=== PATIENT | female | born 1975 | race Caucasian/White ===

== ENCOUNTER 2020-10-30 20:16 | Emergency (ER) | payer OTHER, SELFPAY ==
--- NOTE | ~2020-10-30 | CT_ITS ---
EXAMINATION: CT abdomen pelvis w con DATE: 10/30/2020 22:40 INDICATION: Abdominal pain and nausea TECHNIQUE: Computed tomography (CT) of the abdomen and pelvis was performed with 100 mL Omnipaque-350 intravenous contrast. Automated exposure control and iterative reconstruction technique were employe d. The dose-length product was 207.71 mGy-cm. COMPARISON: 07/15/2015 FINDINGS: Mild atelectasis in the dependent aspect of the bilateral lower lobes. Chronic mild elevation of the left hemidiaphragm. Heart size is normal. No pericardial or pleural effusion. Small calcified paraeso phageal lymph node an additional small calcified nodule between the liver and right kidney are consis tent with old granulomatous disease. Common bile duct is dilated to 9 mm which is within normal limit s post cholecystectomy with surgical clips the gallbladder fossa. Liver is normal with no intrahepati c biliary ductal dilation. Spleen, pancreas, bilateral adrenal glands and kidneys are normal. Normal appendix. No abnormal bowel wall thickening or obstruction. The uterus is not identified and has like ly been surgically resected. Bladder is normal. No free intraperitoneal gas or fluid. No pathological ly enlarged abdominal or pelvic lymphadenopathy. Again seen is a tiny fat-containing left-sided spige bertram hernia. Bones are unremarkable. IMPRESSION: 1. No acute intra-abdominal/pelvic process. 2. Unchanged tiny fat-containing left spigelian hernia. Reviewed, dictated and finalized at location A. BOX OPERATOR
[2020-10-30 20:22] VITALS: BP 151/90; PULSE 92; RESP 20; TEMP 36.3; O2SAT 100
[2020-10-30 20:37] LABS: Basophils Absolute Auto 0.1 K/mm3 (0.0-0.1); Eosinophils Absolute Auto 0.1 K/mm3 (0-0.3); Eosinophils Percent Auto 1.8 % (0-4.4); Hematocrit 36.3 % (37.0-47.0); Hemoglobin 11.6 g/dL (12.0-15.0); Immature Granulocyte Absolute 0.02 K/mm3 (0.00-0.031); Immature Granulocyte Percent A 0.3 % (0-0.5); Lymphocytes Absolute Auto 2.78 K/mm3 (0.9-3.2); Mean Corpuscular Hemoglobin 30.9 pg (26-34); Mean Corpuscular Volume 96.8 fl (80-100); Mean Platelet Volume 9.2 fl (7.4-10.4); Monocytes Absolute Auto 0.5 K/mm3 (0.1-0.6); Neutrophils Absolute Auto 3.3 K/mm3 (1.3-6.7); Neutrophils Percent Auto 47.9 % (45.5-73.1); Platelet Count Result 293 k/mm3 (150-375); Red Blood Count 3.75 M/mm3 (4.2-5.4); Red Cell Distribution Width 14.4 % (11.5-14.5); White Blood Count 6.8 K/mm3 (4.5-10.0)
[2020-10-30 20:46] LABS: Platelet Estimate Adequate (Adequate)
[2020-10-30 20:47] LABS: Ovalocytes 1+ (NORMAL)
[2020-10-30 20:51] LABS: Add Urine Microscopic? YES; Appearance Urine Clear (Clear); Bilirubin Urine Negative (Negative); Blood Urine Negative (Negative); Color Urine Yellow (Yellow); Glucose Urine UA Negative (Negative); Ketones Urine Negative (Negative); Leukocyte Esterase Ur Negative LEU/UL (Negative); Mucus Urine Rare /lpf; Nitrate Urine Negative (Negative); Protein Urine 1+ mg/dL (Negative); RBC Urine 0-2 /hpf (0-2); Specific Grav Ur 1.028 (1.001-1.035); Squamous Epithelial Cell Urine Many /hpf (Few); Urobilinogen Urine Negative mg/dL (<2.0); WBC Urine 0-3 /hpf
[2020-10-30 20:51] LABS: Alanine Aminotransferase 7 U/L (4-35); Albumin Level 4.1 g/dL (3.5-5.1); Alkaline Phosphatase 64 U/L (38-126); Anion Gap 8 mmol/L (8-16); Aspartate Amino Transferase 19 U/L (14-36); Bilirubin,Total 0.2 mg/dL (0.2-1.3); Blood Urea Nitrogen 11 mg/dL (7-17); Calcium 8.9 mg/dL (8.4-10.2); Carbon Dioxide 24 mmol/L (22-30); Chloride 113 mmol/L (98-107); Estimated Glomerular Filt Rate > 60; Glucose 91 mg/dL (65-105); Lipase 67 U/L (23-300); Potassium 2.9 mmol/L (3.4-5.0); Sodium 145 mmol/L (137-145)
[2020-10-30] MEDS: BELLADONNA ALK/PHENOB ELIX 10 ML, MAG HYDROX/ALUMINUM HYD/SIMETH 30 ML, LIDOCAINE HCL 2... PO (22:25)
[2020-10-30 22:40] VITALS: BP 146/82; PULSE 73; O2SAT 85
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
[2020-10-30 23:01] VITALS: BP 126/80; PULSE 76; O2SAT 100
[2020-10-30 23:46] VITALS: BP 122/74; O2SAT 100
[2020-10-31 00:01] VITALS: BP 117/78; PULSE 73; O2SAT 100
== END 2020-10-31 00:15 | disposition home or self-care (01) ==
PROVIDERS: Emergency Provider Emergency Medicine; PCP Internal Medicine Gastroenterology
DX: R10.13 Epigastric pain (principal); K43.9 Ventral hernia without obstruction or gangrene; F17.200 Nicotine dependence, unspecified, uncomplicated
CPT/HCPCS: 36415; 74177; 80053; 81001; 83690; 85025; 99284; A9270; Q9967

== ENCOUNTER 2020-11-13 15:05 | Outpatient (CLI) | payer OTHER, SELFPAY ==
--- NOTE | ~2020-11-13 | MM_ITS ---
EXAMINATION: MM screening evelyn BI w tanvir HISTORY: Screening mammogram TECHNIQUE: Craniocaudal and mediolateral oblique 3-D tomosynthesis images were obtained and synthetic 2-D images were generated. CAD analysis was submitted and interpreted. COMPARISON: 08/18/2018, 08/01/2017 bilateral digital screening mammogram examinations BREAST PARENCHYMAL COMPOSITION: There are scattered areas of fibroglandular density. FINDINGS: There is no evidence of suspicious mass, calcification, or architectural distortion to sugg est malignancy in either breast. There has been no suspicious interval change. IMPRESSION: 1. No mammographic evidence of malignancy. 2. Recommend routine screening mammography in one year. BI-RADS Category 1: Negative Reviewed, dictated and finalized at location A. TY COUNSELOR
== END 2020-11-13 15:06 | disposition home or self-care (01) ==
PROVIDERS: PCP Internal Medicine Gastroenterology; Visit Provider Obstetrics & Gynecology
DX: Z12.31 Encounter for screening mammogram for malignant neoplasm of breast (principal)
CPT/HCPCS: 77063; 77067

== ENCOUNTER 2021-03-20 18:28 | Emergency (ER) | payer OTHER, SELFPAY ==
--- NOTE | ~2021-03-20 | CT_ITS ---
EXAMINATION: CT abdomen pelvis w con EXAM DATE: 03/20/2021 20:15 INDICATION: Abdominal pain and nausea. Symptoms 1.5 weeks. TECHNIQUE: Spiral CT of the abdomen and pelvis was performed following intravenous injection of 100 m L Omnipaque 350. Axial, coronal and sagittal images of the abdomen and pelvis were reviewed. The do se-length product (DLP) for this examination was 201.00 mGy-cm. The exposure was tailored according to patient size (auto mA exposure control), and iterative reconstruction (ASIR) was used as additiona l dose reduction technique. Comparison is made to prior examination from 10/30/2020. FINDINGS: The liver, spleen, adrenal glands and pancreas are unremarkable. There are surgical clips in the gallbladder fossa. Some biliary duct dilation which is common finding following cholecystecto my. Portal and splenic veins are patent. Kidneys enhance symmetrically. There is no hydronephrosis . The uterus is not identified and has likely been surgically resected. The bladder is unremarkabl e. There is no retroperitoneal or pelvic lymphadenopathy. There is mild scattered arteriosclerotic disease. Small left sided fat-containing spigelian hernia unchanged (indicated on axial image 108. The appendix is normal. The stomach and small bowel are unremarkable. There is expected amount of c olonic stool. No free intraperitoneal gas. The heart is normal in size. There are no pericardial or pleural effusions. Dependent groundglass opacity, subsegmental atelectasis. The bones are unrem arkable. IMPRESSION: 1. No acute intra-abdominal findings. 2. Small left spigelian hernia unchanged. Reviewed, dictated and finalized at location A.
[2021-03-20 18:34] VITALS: BP 143/88; PULSE 87; RESP 14; TEMP 36.8; O2SAT 98
[2021-03-20 18:44] LABS: Basophils Absolute Auto 0.1 K/mm3 (0.0-0.1); Eosinophils Absolute Auto 0.1 K/mm3 (0-0.3); Eosinophils Percent Auto 2.4 % (0-4.4); Hematocrit 34.4 % (37.0-47.0); Immature Granulocyte Absolute 0.01 K/mm3 (0.00-0.031); Immature Granulocyte Percent A 0.2 % (0-0.5); Lymphocytes Absolute Auto 2.83 K/mm3 (0.9-3.2); Lymphocytes Percent Auto 48.6 % (18.3-44.2); Mean Corpuscular Hemoglobin 29.5 pg (26-34); Mean Corpuscular Volume 92.2 fl (80-100); Monocytes Absolute Auto 0.5 K/mm3 (0.1-0.6); Monocytes Percent Auto 8.1 % (2.6-8.5); Neutrophils Absolute Auto 2.3 K/mm3 (1.3-6.7); Neutrophils Percent Auto 39.7 % (45.5-73.1); Platelet Count Result 250 k/mm3 (150-375); Red Blood Count 3.73 M/mm3 (4.2-5.4); Red Cell Distribution Width 16.6 % (11.5-14.5); White Blood Count 5.8 K/mm3 (4.5-10.0)
[2021-03-20 18:56] LABS: Platelet Estimate Adequate (Adequate); Poikilocytosis 1+ (NORMAL)
[2021-03-20 18:57] LABS: Ovalocytes 1+ (NORMAL)
[2021-03-20] MEDS: BELLADONNA ALK/PHENOB ELIX 10 ML, MAG HYDROX/ALUMINUM HYD/SIMETH 30 ML, LIDOCAINE HCL 2... PO (18:57)
--- NOTE | 2021-03-20 18:57 | PC.NURSE ---
the pain unbearable, I can't even stand anymore , had upper and lower scopes two years ago (unremarkable), has not followed with GI. States nothing helps
[2021-03-20 18:59] LABS: Alkaline Phosphatase 65 U/L (38-126); Anion Gap 10 mmol/L (8-16); Aspartate Amino Transferase 21 U/L (14-36); Bilirubin,Total < 0.1 mg/dL (0.2-1.3); Blood Urea Nitrogen 12 mg/dL (7-17); Calcium 8.9 mg/dL (8.4-10.2); Carbon Dioxide 19 mmol/L (22-30); Chloride 113 mmol/L (98-107); Estimated CRCL calculation 71 ml/min; Estimated Glomerular Filt Rate > 60; Glucose 91 mg/dL (65-105); Lipase 118 U/L (23-300); Potassium 3.8 mmol/L (3.4-5.0); Sodium 142 mmol/L (137-145)
--- NOTE | 2021-03-20 19:18 | ED.GENADULT ---
HPI - General Adult General Chief complaint: Abdominal Pain Stated complaint: Abd Pain Time Seen by Provider: 03/20/21 18:32 Source: patient History of Present Illness HPI narrative: Patient is a 46 y/o female complaining of abdominal pain starting 1 1/2 weeks ago. She describes her pain as a bubble and rates her pain as 9/10. Her pain is located in epigastric area. There is no pain radiation. She took Ibuprofen, which did not help. Related Data Home Medications Medication Instructions Recorded Confirmed clonazepam 0.5 mg tablet 0.5 mg PO BID tablet 01/04/21 01/04/21 estradiol 1 mg tablet 1 mg PO DAILY 01/04/21 01/04/21 famotidine 40 mg tablet 40 mg PO DAILY 01/04/21 01/04/21 ibuprofen 800 mg tablet 800 mg PO TID PRN 01/04/21 01/04/21 valacyclovir 1 gram tablet 1,000 mg PO DAILY 01/04/21 01/04/21 Allergies Allergy/AdvReac Type Severity Reaction Status Date / Time No Known Allergies Allergy Verified 03/20/21 19:43 Review of Systems Constitutional: Constitutional: Denies chills, Denies fever(s), Denies headache(s) and Denies weakness Eyes: Eyes: Denies blurry vision ENT: Denies headache(s) and Denies neck pain Cardiovascular: Cardiovascular: Denies chest pain and Denies dyspnea Respiratory: Respiratory: Denies cough and Denies dyspnea Gastrointestinal: Gastrointestinal: Reports abdominal pain, Denies diarrhea, Denies nausea and Denies vomiting Genitourinary: Genitourinary: Denies hematuria and Denies dysuria Musculoskeletal: Musculoskeletal: Denies back pain and Denies neck pain Neurologic: Denies headache(s) and Denies weakness [facility] Past Medical History Medical History Depression Hyperlipidemia Hypertension Social History Social History Social History: current smoker Smoking status: Light tobacco smoker Alcohol intake: current Gender identity (if verbalized by the patient): Female Exam Const: General: no acute distress and well developed Orientation/consciousness: oriented to person, oriented to place, oriented to time and patient oriented x3 HENMT: Head: normocephalic Ears: external ears normal General nose exam: Normal external nose present Eyes: General: appearance normal, both eyes and all related structures Conjunctivae: conjunctivae normal Neck: Neck: normal visual inspection and full ROM Chest: Chest palpation & inspection: normal inspection of the chest and no tenderness Resp: Effort & Inspection: normal respiratory effort Auscultation: clear to auscultation bilaterally Cardio: Rate: regular rate Rhythm: regular rhythm GI: GI Palp: No abdominal tenderness and Yes Soft to palpation Skin: General skin exam: normal color and turgor normal Neuro: General: oriented to person, oriented to place, oriented to time and patient oriented x3 Cognition (Neuro): normal cognition Extrem: General: normal to inspection, full ROM and no pedal edema Psych: Appearance: grossly normal Mental Status: mental status grossly normal Affect: normal affect Course Vital Signs Vital signs: Vital Signs Temperature 36.8 C 03/20/21 18:34 Pulse Rate 87 03/20/21 18:34 Respiratory Rate 14 03/20/21 18:34 Blood Pressure 143/88 H 03/20/21 18:34 Pulse Oximetry 98 03/20/21 18:34 Temperature 36.8 C 03/20/21 18:34 Pulse Rate 65 03/20/21 21:19 Respiratory Rate 15 03/20/21 21:19 Blood Pressure 138/70 03/20/21 21:19 Pulse Oximetry 96 03/20/21 21:19 Medical Decision Making Vital Signs Vital Signs: Vital Signs Temperature 36.8 C 03/20/21 18:34 Pulse Rate 87 03/20/21 18:34 Respiratory Rate 14 03/20/21 18:34 Blood Pressure 143/88 H 03/20/21 18:34 Pulse Oximetry 98 03/20/21 18:34 Temperature 36.8 C 03/20/21 18:34 Pulse Rate 65 03/20/21 21:19 Respiratory Rate 15 03/20/21 21:19 Blood Pressure 138/70 03/20/21 21:19 Pul
[2021-03-20 19:25] LABS: Alanine Aminotransferase 5 U/L (4-35)
[2021-03-20 19:36] LABS: Add Urine Microscopic? YES; Appearance Urine Clear (Clear); Bilirubin Urine Negative (Negative); Blood Urine 1+ (Negative); Color Urine Yellow (Yellow); Glucose Urine UA Negative (Negative); Ketones Urine Negative (Negative); Leukocyte Esterase Ur Negative LEU/UL (Negative); Mucus Urine Rare /lpf; Nitrate Urine Negative (Negative); Protein Urine Negative (Negative); RBC Urine 0-2 /hpf (0-2); Specific Grav Ur 1.018 (1.001-1.035); Squamous Epithelial Cell Urine Moderate /hpf (Few); Urobilinogen Urine Negative mg/dL (<2.0); WBC Urine 0-3 /hpf
[2021-03-20 19:40] VITALS: BP 129/66; PULSE 66; RESP 16; O2SAT 100
--- NOTE | 2021-03-20 19:45 | PC.NURSE ---
vitals updated. call light in reach.
[2021-03-20 21:19] VITALS: BP 138/70; PULSE 65; RESP 15; O2SAT 96
== END 2021-03-20 22:26 | disposition home or self-care (01) ==
PROVIDERS: Emergency Provider Emergency Medicine; PCP Internal Medicine Gastroenterology
DX: R10.13 Epigastric pain (principal); E78.5 Hyperlipidemia, unspecified; I10 Essential (primary) hypertension; F32.9 Major depressive disorder, single episode, unspecified; F17.200 Nicotine dependence, unspecified, uncomplicated
CPT/HCPCS: 36415; 74177; 80053; 81001; 81025; 83690; 85025; 99284; A9270; Q9967

== ENCOUNTER 2021-07-25 01:09 | Day surgery (SDC) | payer OTHER, SELFPAY ==
[2021-07-23 08:56] VITALS: BMI 21.3
[2021-07-25 07:15] VITALS: BP 121/61; PULSE 69; RESP 16; TEMP 36.3; O2SAT 100
[2021-07-25] MEDS: LACTATED RINGERS 1,000 ML 150 ML IV CONT (07:18)
--- NOTE | 2021-07-25 08:05 | P.PNAN_ITS ---
Anes - Initial Pre Proc Eval Procedure: Operation Date: 07/25/21 08:30 Proposed Procedures p Colonoscopy - Raul Daniels MD Date/Time: 07/25/21 08:05 Surgeon: Raul Daniels MD Pre Op Diagnosis: diarrhea, bloating, stomach pain, rectal bleeding Patient Data Age: 46 Gender: F Height: 1.6 m Weight: 53.6 kg Last Vital Signs Temp 97.4 F L 07/25/21 07:15 Pulse 69 07/25/21 07:15 Resp 16 07/25/21 07:15 BP 121/61 07/25/21 07:15 Pulse Ox 100 07/25/21 07:15 Allergies Allergy/AdvReac Type Severity Reaction Status Date / Time No Known Allergies Allergy Verified 07/25/21 07:13 Home Medications Medication Instructions Recorded Confirmed Type clonazepam 0.5 mg tablet 0.5 mg PO PRN PRN tablet 01/04/21 07/25/21 History estradiol 1 mg tablet 1 mg PO DAILY 01/04/21 07/25/21 History ibuprofen 800 mg tablet 800 mg PO TID PRN 01/04/21 07/25/21 History omeprazole [Prilosec] 20 mg PO DAILY 07/23/21 07/25/21 History amitriptyline 50 mg PO DAILY 07/25/21 07/25/21 History topiramate 100 mg PO BID 07/25/21 07/25/21 History Patient hx anesthesia problems: none Family hx anesthesia problems: none Results Review: All pre-operative results and documents have been reviewed as part of the pre-operative evaluation. [facility] Past Medical History Medical History Depression Hyperlipidemia Hypertension Social History Social History Social History: current smoker Smoking packs per day: 0.5 Smoking cigarettes per day: 10.0 Years smoked: 27 Smoking pack-years: 13.50 Smoking status: Current every day smoker Tobacco type: cigarettes Alcohol intake: current Drinks per week: 0 Alcohol use details: occasional Substance use: never Substance use type: does not use Living arrangements: with family Additional living arrangements comments: patients mother lives with her Gender identity (if verbalized by the patient): Female Spiritual care concerns: No Anes - Eval Final PreProcedure Day of Procedure 07/25/21 08:05 Patient weight: normal Heart: regular rate and rhythm Lungs: clear to auscultation Airway: Mallampati scale class II Neurological: alert and oriented Last oral intake: >/= 8 hours ASA classification: III Emergent: no Anesthetic plan: proceed Anesthesia type and monitoring: general GIVS and standard monitoring Results Review: All pre-operative results and documents have been reviewed as part of the pre-operative evaluation. Informed Consent: The patient's anesthetic plan and its attendant risks and benefits were discussed with the patient/family/POA. Questions were solicited and answers provided to the satisfaction of the patient/family/POA.
--- NOTE | 2021-07-25 08:23 | PM.HPGS ---
History of Present Illness History of Present Illness Consent: Risks, benefits, and alternatives have been discussed and questions answered. Patient agrees to proceed with procedure. Chief complaint: diarrhea, bloating, stomach pain, rectal bleeding Narrative: Maria Alejandra Cotto is a 46 year old female with 1.5 week of diarrhea with some blood, also cramping abdominal pain. No weight loss, no fever, no sick contacts. Had colonoscopy 5 years ago. Review of Systems Constitutional: Constitutional: Denies headache(s) and Denies weakness Eyes: Eyes: Denies blurry vision ENT: Reports Normal hearing present, Denies headache(s) and Denies neck pain Cardiovascular: Cardiovascular: Denies chest pain and Denies dyspnea Respiratory: Respiratory: Denies dyspnea Gastrointestinal: Gastrointestinal: Reports no additional gastrointestinal complaints Genitourinary: Genitourinary: Denies dysuria Musculoskeletal: Musculoskeletal: Denies neck pain Integumentary/Breasts: Skin/Breast: Denies dry skin Neurologic: Reports Normal hearing present, Denies headache(s) and Denies weakness Psychiatric: Psychiatric: Denies anxiety Endocrine: Endocrine: Denies change in body appearance Hematologic/Lymphatic: Hematologic/Lymphatic: Denies easy bleeding Allergic/Immunologic: Allergic/Immunologic: Denies urticaria PMFSH Past Medical History Medical History (Updated 07/25/21 @ 08:24 by Raul Daniels MD) Depression Diarrhea Hyperlipidemia Hypertension Social History Social History Social History: current smoker Smoking packs per day: 0.5 Smoking cigarettes per day: 10.0 Years smoked: 27 Smoking pack-years: 13.50 Smoking status: Current every day smoker Tobacco type: cigarettes Alcohol intake: current Drinks per week: 0 Alcohol use details: occasional Substance use: never Substance use type: does not use Living arrangements: with family Additional living arrangements comments: patients mother lives with her Gender identity (if verbalized by the patient): Female Spiritual care concerns: No Meds Home Medications and Allergies Home Medications Medication Instructions Recorded Confirmed Type clonazepam 0.5 mg tablet 0.5 mg PO PRN PRN tablet 01/04/21 07/25/21 History estradiol 1 mg tablet 1 mg PO DAILY 01/04/21 07/25/21 History ibuprofen 800 mg tablet 800 mg PO TID PRN 01/04/21 07/25/21 History omeprazole [Prilosec] 20 mg PO DAILY 07/23/21 07/25/21 History amitriptyline 50 mg PO DAILY 07/25/21 07/25/21 History topiramate 100 mg PO BID 07/25/21 07/25/21 History Allergies Allergy/AdvReac Type Severity Reaction Status Date / Time No Known Allergies Allergy Verified 07/25/21 07:13 Vital Signs Vital Signs - 24 hr 07/25/21 07:15 Temperature 97.4 F L Pulse Rate 69 Respiratory Rate 16 Blood Pressure 121/61 Pulse Oximetry 100 Exam Const: General: comfortable and no acute distress HENMT: General nose exam: Normal nares present Eyes: General: appearance normal, both eyes and all related structures Neck: Neck: no JVD Resp: Auscultation: clear to auscultation bilaterally Cardio: Rate: regular rate Rhythm: regular rhythm GI: Inspection: non-distended GI Palp: Yes Soft to palpation Skin: General skin exam: normal color Neuro: General: gait normal Speech: normal speech Extrem: General: normal to inspection Psych: Mental Status: mental status grossly normal Assessment and Plan Assessment and plan (1) Diarrhea: Code(s): R19.7 - Diarrhea, unspecified Status: Acute Assessment and Plan: colonoscopy to assess if colitis, may need stool samples
[2021-07-25 08:45] VITALS: BP 93/51; PULSE 73; RESP 17; O2SAT 97
[2021-07-25 08:55] VITALS: BP 107/68; PULSE 59; RESP 17; O2SAT 100
[2021-07-25 09:05] VITALS: BP 125/68; PULSE 60; RESP 13; O2SAT 100
== END 2021-07-25 09:18 | disposition home or self-care (01) ==
PROVIDERS: PCP Internal Medicine Gastroenterology; Visit Provider Internal Medicine Gastroenterology
PROC: 0DJD8ZZ Inspection of Lower Intestinal Tract, Via Natural or Artificial Opening Endoscopic (ICD-10-PCS; CPT 45378; principal; 2021-07-25 08:30)
DX: K92.1 Melena (principal); R19.7 Diarrhea, unspecified; K64.8 Other hemorrhoids; K52.89 Other specified noninfective gastroenteritis and colitis; F32.9 Major depressive disorder, single episode, unspecified; I10 Essential (primary) hypertension; E78.5 Hyperlipidemia, unspecified; F17.210 Nicotine dependence, cigarettes, uncomplicated
CPT/HCPCS: 45380; 88305; J2704; J7120

== ENCOUNTER 2021-09-03 02:28 | Day surgery (SDC) | payer OTHER, SELFPAY ==
[2021-08-30 15:16] VITALS: BMI 20.5
[2021-09-03 13:40] VITALS: BP 115/64; PULSE 80; RESP 18; TEMP 36.6; O2SAT 100
[2021-09-03] MEDS: LACTATED RINGERS 1,000 ML 150 ML IV CONT (13:53)
--- NOTE | 2021-09-03 13:56 | WPDANESEPPF ---
Anes - Initial Pre Proc Eval Procedure: Operation Date: 09/03/21 14:30 Proposed Procedures p Esophagogastroduodenoscopy - Raul Daniels MD Date/Time: 09/03/21 13:56 Surgeon: Raul Daniels MD Pre Op Diagnosis: nausea, vomiting, dysphagia Patient Data Age: 46 Gender: F Height: 1.6 m Weight: 52.1 kg Last Vital Signs Temp 36.6 C 09/03/21 13:40 Pulse 80 09/03/21 13:40 Resp 18 09/03/21 13:40 BP 115/64 09/03/21 13:40 Pulse Ox 100 09/03/21 13:40 Allergies Allergy/AdvReac Type Severity Reaction Status Date / Time No Known Allergies Allergy Verified 09/03/21 13:39 Home Medications Medication Instructions Recorded Confirmed Type clonazepam 0.5 mg tablet 0.5 mg PO PRN PRN tablet 01/04/21 08/30/21 History estradiol 1 mg tablet 1 mg PO DAILY 01/04/21 08/30/21 History ibuprofen 800 mg tablet 800 mg PO TID PRN 01/04/21 08/30/21 History omeprazole [Prilosec] 20 mg PO DAILY 07/23/21 08/30/21 History amitriptyline 50 mg PO HS 07/25/21 08/30/21 History topiramate 100 mg PO BID 07/25/21 08/30/21 History Patient hx anesthesia problems: none Family hx anesthesia problems: none Results Review: All pre-operative results and documents have been reviewed as part of the pre-operative evaluation. [facility] Past Medical History Medical History Depression Diarrhea Hyperlipidemia Hypertension Social History Social History Social History: current smoker Smoking packs per day: 0.5 Smoking cigarettes per day: 10.0 Years smoked: 19 Smoking pack-years: 9.50 Smoking status: Current every day smoker Tobacco type: cigarettes Alcohol intake: current Drinks per week: 0 Alcohol use details: rarely Substance use: never Substance use type: does not use Living arrangements: alone Additional living arrangements comments: patients mother lives with her Gender identity (if verbalized by the patient): Female Spiritual care concerns: No Anes - Eval Final PreProcedure Day of Procedure 09/03/21 13:56 Patient weight: normal Heart: regular rate and rhythm Lungs: clear to auscultation Airway: Mallampati scale class II Neurological: alert and oriented Last oral intake: >/= 8 hours ASA classification: III Emergent: no Anesthetic plan: proceed Anesthesia type and monitoring: general GIVS and standard monitoring Results Review: All pre-operative results and documents have been reviewed as part of the pre-operative evaluation. Informed Consent: The patient's anesthetic plan and its attendant risks and benefits were discussed with the patient/family/POA. Questions were solicited and answers provided to the satisfaction of the patient/family/POA.
--- NOTE | 2021-09-03 14:23 | PM.HPGS ---
History of Present Illness History of Present Illness Consent: Risks, benefits, and alternatives have been discussed and questions answered. Patient agrees to proceed with procedure. Chief complaint: nausea, vomiting, dysphagia Narrative: Maria Alejandra Cotto is a 46 year old female with intermittent abdominal pain, work up negative (recent colonoscopy and CT scan a/p) Review of Systems Constitutional: Constitutional: Denies headache(s) and Denies weakness Eyes: Eyes: Denies blurry vision ENT: Reports Normal hearing present, Denies headache(s) and Denies neck pain Cardiovascular: Cardiovascular: Denies chest pain and Denies dyspnea Respiratory: Respiratory: Denies dyspnea Gastrointestinal: Gastrointestinal: Reports no additional gastrointestinal complaints Genitourinary: Genitourinary: Denies dysuria Musculoskeletal: Musculoskeletal: Denies neck pain Integumentary/Breasts: Skin/Breast: Denies dry skin Neurologic: Reports Normal hearing present, Denies headache(s) and Denies weakness Psychiatric: Psychiatric: Denies anxiety Endocrine: Endocrine: Denies change in body appearance Hematologic/Lymphatic: Hematologic/Lymphatic: Denies easy bleeding Allergic/Immunologic: Allergic/Immunologic: Denies urticaria PMFSH Past Medical History Medical History Depression Diarrhea Hyperlipidemia Hypertension Social History Social History Social History: current smoker Smoking packs per day: 0.5 Smoking cigarettes per day: 10.0 Years smoked: 19 Smoking pack-years: 9.50 Smoking status: Current every day smoker Tobacco type: cigarettes Alcohol intake: current Drinks per week: 0 Alcohol use details: rarely Substance use: never Substance use type: does not use Living arrangements: alone Additional living arrangements comments: patients mother lives with her Gender identity (if verbalized by the patient): Female Spiritual care concerns: No Meds Home Medications and Allergies Home Medications Medication Instructions Recorded Confirmed Type clonazepam 0.5 mg tablet 0.5 mg PO PRN PRN tablet 01/04/21 08/30/21 History estradiol 1 mg tablet 1 mg PO DAILY 01/04/21 08/30/21 History ibuprofen 800 mg tablet 800 mg PO TID PRN 01/04/21 08/30/21 History omeprazole [Prilosec] 20 mg PO DAILY 07/23/21 08/30/21 History amitriptyline 50 mg PO HS 07/25/21 08/30/21 History topiramate 100 mg PO BID 07/25/21 08/30/21 History Allergies Allergy/AdvReac Type Severity Reaction Status Date / Time No Known Allergies Allergy Verified 09/03/21 13:39 Vital Signs Vital Signs - 24 hr 09/03/21 13:40 Temperature 97.8 F Pulse Rate 80 Respiratory Rate 18 Blood Pressure 115/64 Pulse Oximetry 100 Exam Const: General: comfortable and no acute distress HENMT: General nose exam: Normal nares present Eyes: General: appearance normal, both eyes and all related structures Neck: Neck: no JVD Resp: Auscultation: clear to auscultation bilaterally Cardio: Rate: regular rate Rhythm: regular rhythm GI: Inspection: non-distended GI Palp: Yes Soft to palpation Skin: General skin exam: normal color Neuro: General: gait normal Speech: normal speech Extrem: General: normal to inspection Psych: Mental Status: mental status grossly normal Assessment and Plan Assessment and plan (1) Abdominal pain: Qualifiers: Abdominal location: epigastric Qualified Code(s): R10.13 - Epigastric pain Code(s): R10.9 - Unspecified abdominal pain Status: Inactive Assessment and Plan: egd with bx
[2021-09-03] MEDS: BENZOCAINE (*SP) 60 ML SPRAY CAN (HURRICAINE) 1 SPRAY MUCOUS MEM (14:27)
[2021-09-03 14:44] VITALS: BP 104/67; PULSE 53; RESP 14; O2SAT 100
[2021-09-03 14:54] VITALS: BP 120/78; PULSE 68; RESP 20; O2SAT 98
[2021-09-03 15:04] VITALS: BP 142/79; PULSE 60; RESP 15; O2SAT 100
== END 2021-09-03 15:11 | disposition home or self-care (01) ==
PROVIDERS: PCP Internal Medicine Gastroenterology; Visit Provider Internal Medicine Gastroenterology
PROC: 0DJ08ZZ Inspection of Upper Intestinal Tract, Via Natural or Artificial Opening Endoscopic (ICD-10-PCS; CPT 43235; principal; 2021-09-03 14:30)
DX: R10.13 Epigastric pain (principal); R13.10 Dysphagia, unspecified; K31.1 Adult hypertrophic pyloric stenosis; K29.50 Unspecified chronic gastritis without bleeding; I10 Essential (primary) hypertension; E78.5 Hyperlipidemia, unspecified; F32.A Depression, unspecified
CPT/HCPCS: 43245; 43239; 88305; C1726; J2704; J7120

== ENCOUNTER 2022-01-22 00:16 | Day surgery (SDC) | payer OTHER, SELFPAY ==
[2022-01-17 13:57] VITALS: BMI 20.7
[2022-01-22 09:42] VITALS: BP 114/74; PULSE 72; RESP 16; TEMP 36.2; O2SAT 100
[2022-01-22] MEDS: LACTATED RINGERS 1,000 ML 150 ML IV CONT (09:52)
--- NOTE | 2022-01-22 10:23 | P.PNAN_ITS ---
Anes - Initial Pre Proc Eval Procedure: Operation Date: 01/22/22 11:00 Proposed Procedures p Esophagogastroduodenoscopy - Raul Daniels MD Date/Time: 01/22/22 10:23 Surgeon: Raul Daniels MD Pre Op Diagnosis: nausea Patient Data Age: 47 Gender: F Height: 1.6 m Weight: 53.2 kg Last Vital Signs Temp 97.2 F L 01/22/22 09:42 Pulse 72 01/22/22 09:42 Resp 16 01/22/22 09:42 BP 114/74 01/22/22 09:42 Pulse Ox 100 01/22/22 09:42 Allergies Allergy/AdvReac Type Severity Reaction Status Date / Time No Known Allergies Allergy Verified 11/29/21 13:52 Home Medications Medication Instructions Recorded Confirmed Type clonazepam 0.5 mg tablet 0.5 mg PO PRN PRN tablet 01/04/21 01/17/22 History estradiol 1 mg tablet 1 mg PO DAILY 01/04/21 01/17/22 History ibuprofen 800 mg tablet 800 mg PO TID PRN 01/04/21 01/17/22 History omeprazole 20 mg capsule,delayed 40 mg PO DAILY #60 cap 09/03/21 01/22/22 Rx release amitriptyline 50 mg tablet See Rx Instructions .ROUTE 10/12/21 01/17/22 Rx .COMPLEX #30 tablet topiramate 100 mg tablet See Rx Instructions .ROUTE 10/12/21 01/17/22 Rx .COMPLEX #60 tablet Patient hx anesthesia problems: none Family hx anesthesia problems: none Results Review: All pre-operative results and documents have been reviewed as part of the pre-operative evaluation. [facility] Past Medical History Medical History (Updated 11/29/21 @ 14:11 by Raul Daniels MD) Colon cancer screening Depression Diarrhea Hyperlipidemia Hypertension Nausea Stricture, duodenum Social History Social History Social History: current smoker Smoking packs per day: 0.5 Smoking cigarettes per day: 10.0 Years smoked: 18 Smoking pack-years: 9.00 Smoking status: Current every day smoker Tobacco type: cigarettes Alcohol intake: never Drinks per week: 0 Alcohol use details: rarely Substance use: never Substance use type: does not use Living arrangements: with family Additional living arrangements comments: patients mother lives with her Gender identity (if verbalized by the patient): Female Spiritual care concerns: No Anes - Eval Final PreProcedure Day of Procedure 01/22/22 10:23 Patient weight: normal Heart: regular rate and rhythm Lungs: clear to auscultation Airway: Mallampati scale class II Neurological: alert and oriented Last oral intake: >/= 8 hours ASA classification: II Emergent: no Anesthetic plan: proceed Anesthesia type and monitoring: general GIVS and standard monitoring Results Review: All pre-operative results and documents have been reviewed as part of the pre-operative evaluation. Informed Consent: The patient's anesthetic plan and its attendant risks and benefits were discussed with the patient/family/POA. Questions were solicited and answers provided to the satisfaction of the patient/family/POA.
--- NOTE | 2022-01-22 10:58 | PM.HPGS ---
History of Present Illness History of Present Illness Consent: Risks, benefits, and alternatives have been discussed and questions answered. Patient agrees to proceed with procedure. Chief complaint: nausea Narrative: Maria Alejandra Cotto is a 47 year old female that had EGD last year with duodenal stricture with some relief after dilation but nauseous again. Also using ppi daily. Review of Systems Constitutional: Constitutional: Denies headache(s) and Denies weakness Eyes: Eyes: Denies blurry vision ENT: Reports Normal hearing present, Denies headache(s) and Denies neck pain Cardiovascular: Cardiovascular: Denies chest pain and Denies dyspnea Respiratory: Respiratory: Denies dyspnea Gastrointestinal: Gastrointestinal: Reports no additional gastrointestinal complaints Genitourinary: Genitourinary: Denies dysuria Musculoskeletal: Musculoskeletal: Denies neck pain Integumentary/Breasts: Skin/Breast: Denies dry skin Neurologic: Reports Normal hearing present, Denies headache(s) and Denies weakness Psychiatric: Psychiatric: Denies anxiety Endocrine: Endocrine: Denies change in body appearance Hematologic/Lymphatic: Hematologic/Lymphatic: Denies easy bleeding Allergic/Immunologic: Allergic/Immunologic: Denies urticaria PMFSH Past Medical History Medical History (Updated 11/29/21 @ 14:11 by Raul Daniels MD) Colon cancer screening Depression Diarrhea Hyperlipidemia Hypertension Nausea Stricture, duodenum Social History Social History Social History: current smoker Smoking packs per day: 0.5 Smoking cigarettes per day: 10.0 Years smoked: 18 Smoking pack-years: 9.00 Smoking status: Current every day smoker Tobacco type: cigarettes Alcohol intake: never Drinks per week: 0 Alcohol use details: rarely Substance use: never Substance use type: does not use Living arrangements: with family Additional living arrangements comments: patients mother lives with her Gender identity (if verbalized by the patient): Female Spiritual care concerns: No Meds Home Medications and Allergies Home Medications Medication Instructions Recorded Confirmed Type clonazepam 0.5 mg tablet 0.5 mg PO PRN PRN tablet 01/04/21 01/17/22 History estradiol 1 mg tablet 1 mg PO DAILY 01/04/21 01/17/22 History ibuprofen 800 mg tablet 800 mg PO TID PRN 01/04/21 01/17/22 History omeprazole 20 mg capsule,delayed 40 mg PO DAILY #60 cap 09/03/21 01/22/22 Rx release amitriptyline 50 mg tablet See Rx Instructions .ROUTE 10/12/21 01/17/22 Rx .COMPLEX #30 tablet topiramate 100 mg tablet See Rx Instructions .ROUTE 10/12/21 01/17/22 Rx .COMPLEX #60 tablet Allergies Allergy/AdvReac Type Severity Reaction Status Date / Time No Known Allergies Allergy Verified 11/29/21 13:52 Vital Signs Vital Signs - 24 hr 01/22/22 09:42 Temperature 97.2 F L Pulse Rate 72 Respiratory Rate 16 Blood Pressure 114/74 Pulse Oximetry 100 Exam Const: General: comfortable and no acute distress HENMT: General nose exam: Normal nares present Eyes: General: appearance normal, both eyes and all related structures Neck: Neck: no JVD Resp: Auscultation: clear to auscultation bilaterally Cardio: Rate: regular rate Rhythm: regular rhythm GI: Inspection: non-distended GI Palp: Yes Soft to palpation Skin: General skin exam: normal color Neuro: General: gait normal Speech: normal speech Extrem: General: normal to inspection Psych: Mental Status: mental status grossly normal Assessment and Plan Assessment and plan (1) Stricture, duodenum: Code(s): K31.5 - Obstruction of duodenum Status: Acute Assessment and Plan: egd to assess site again (2) Nausea: Code(s): R11.0 - Nausea Status: Acute
[2022-01-22 11:25] VITALS: BP 94/71; PULSE 69; RESP 19; O2SAT 98
[2022-01-22 11:35] VITALS: BP 106/73; PULSE 64; RESP 18; O2SAT 99
[2022-01-22 11:45] VITALS: BP 125/77; PULSE 58; RESP 17; O2SAT 98
== END 2022-01-22 11:49 | disposition home or self-care (01) ==
PROVIDERS: PCP Internal Medicine Gastroenterology; Visit Provider Internal Medicine Gastroenterology
PROC: 0DJ08ZZ Inspection of Upper Intestinal Tract, Via Natural or Artificial Opening Endoscopic (ICD-10-PCS; CPT 43235; principal; 2022-01-22 11:00)
DX: K31.5 Obstruction of duodenum (principal); K31.1 Adult hypertrophic pyloric stenosis; K25.3 Acute gastric ulcer without hemorrhage or perforation; K29.50 Unspecified chronic gastritis without bleeding; R11.0 Nausea; I10 Essential (primary) hypertension; E78.5 Hyperlipidemia, unspecified; F32.A Depression, unspecified; F17.210 Nicotine dependence, cigarettes, uncomplicated
CPT/HCPCS: 43245; 43239; 87081; 88305; 88342; J2704; J7120

== ENCOUNTER 2022-02-20 08:46 | Outpatient (CLI) | payer OTHER, SELFPAY ==
--- NOTE | ~2022-02-20 | XR_ITS ---
EXAMINATION: XR UGI w barium swallow DATE: 02/20/2022 09:47 INDICATION: Peptic ulcer disease. TECHNIQUE: Thick barium contrast with gas effervescent crystals were administered orally. Fluoroscop ic images of the esophagus, stomach, and proximal duodenum were obtained in various projections. The reafter, overhead images of the abdomen were performed. 0.8 minutes of fluroscopy. DAP 12. FINDINGS: No prior studies for comparison. The esophagus is normal in caliber, without mucosal lesions or strictures. There is normal esophagea l peristalsis. There is no hiatal hernia. No gastroesophageal reflux witnessed during the course of the study. There are cholecystectomy clips. The gastric folds are normal. The proximal duodenum is also normal in appearance. IMPRESSION: 1. Normal upper GI study. Reviewed, dictated and finalized at location A. IMPRESSION: 1. Normal upper GI study.
== END 2022-02-20 08:47 | disposition home or self-care (01) ==
PROVIDERS: PCP Internal Medicine Gastroenterology; Visit Provider Surgery
DX: K27.9 Peptic ulcer, site unspecified, unspecified as acute or chronic, without hemorrhage or perforation (principal)
CPT/HCPCS: 74240

== ENCOUNTER 2022-03-05 14:25 | Outpatient (CLI) | payer OTHER, SELFPAY ==
--- NOTE | 2022-03-05 14:30 | ECG_ITS ---
Measurements Intervals [place] Rate: 82 P: 64 ID: 166 QRS: 52 QRSD: 82 T: 7 QT: 363 QTc: 425 Interpretive Statements SINUS RHYTHM NONSPECIFIC ST & T-WAVE ABNORMALITY ABNORMAL ECG NO PREVIOUS ECG AVAILABLE FOR COMPARISON Electronically Signed On 03-06-2022 9:55:57 CDT by Bala King M.D.
[2022-03-05 15:16] LABS: Basophils Absolute Auto 0.1 K/mm3 (0.0-0.1); Eosinophils Absolute Auto 0.1 K/mm3 (0-0.3); Eosinophils Percent Auto 2.2 % (0-4.4); Hematocrit 30.1 % (37.0-47.0); Immature Granulocyte Absolute 0.01 K/mm3 (0.00-0.031); Immature Granulocyte Percent A 0.2 % (0-0.5); Lymphocytes Percent Auto 41.5 % (18.3-44.2); Mean Corpuscular HGB Conc 29.9 g/dl (32-36); Mean Corpuscular Hemoglobin 27.9 pg (26-34); Mean Corpuscular Volume 93.2 fl (80-100); Monocytes Absolute Auto 0.5 K/mm3 (0.1-0.6); Monocytes Percent Auto 8.6 % (2.6-8.5); Neutrophils Absolute Auto 2.9 K/mm3 (1.3-6.7); Neutrophils Percent Auto 46.5 % (45.5-73.1); Platelet Count Result 287 k/mm3 (150-375); Red Blood Count 3.23 M/mm3 (4.2-5.4); Red Cell Distribution Width 19.8 % (11.5-14.5); White Blood Count 6.3 K/mm3 (4.5-10.0)
[2022-03-05 15:26] LABS: Anion Gap 6 mmol/L (8-16); Blood Urea Nitrogen 14 mg/dL (7-17); Calcium 8.2 mg/dL (8.4-10.2); Carbon Dioxide 23 mmol/L (22-30); Chloride 111 mmol/L (98-107); Estimated Glomerular Filt Rate > 60; Glucose 97 mg/dL (65-110); Potassium 3.5 mmol/L (3.4-5.0); Sodium 140 mmol/L (137-145)
[2022-03-05 20:53] LABS: Platelet Estimate Adequate (Adequate)
[2022-03-05 20:54] LABS: Anisocytosis 2+ (NORMAL); Hypochromasia 1+ (NORMAL)
== END 2022-03-05 14:26 | disposition home or self-care (01) ==
PROVIDERS: PCP Internal Medicine Gastroenterology; Visit Provider Surgery
DX: K27.9 Peptic ulcer, site unspecified, unspecified as acute or chronic, without hemorrhage or perforation (principal); Z01.818 Encounter for other preprocedural examination; R94.31 Abnormal electrocardiogram [ECG] [EKG]
CPT/HCPCS: 36415; 80048; 85025; 86850; 86900; 86901; 93005

== ENCOUNTER 2022-03-07 17:03 | Inpatient (IN) | payer OTHER, SELFPAY ==
[2022-03-04 13:58] VITALS: BMI 19.5
--- NOTE | 2022-03-04 14:04 | PC.NURSE ---
Report to the Outpatient Waiting Room, entrance under the green pavilion located off [facility], at time _1000_ on date _[id number]_. OR Time: _1200_. - You and your visitor will be asked a series of questions to screen for COVID 19 for your protection. - Only one visitor is allowed at this time. - The patient visitor is requested to leave or wait in car when not with patient. - A mask is required within the hospital. Patients may have clear liquids (water, carbonated beverages, clear teas, apple juice) until 3 hours prior to surgery with a maximum of 20 ounces. - No food from midnight until time of surgery Take the following medications with a SIP of water the morning of surgery: None Medications to discontinue per physician None Date to take last dose Please no make-up, nail occitan, hairspray, perfume, deodorant, or body powder the day of surgery. No jewelry (including any body piercings) or valuables the day of surgery, leave them at home. Please take a shower or bath the night before, or the morning of, surgery with an antibacterial soap. Wear comfortable, loose fitting clothing. Children are encouraged to wear pajamas. - Jewelry must be removed prior to entering the operating room. Rings and piercings that are not removed may be cut off. - The hospital will not accept responsibility for valuables. - Please leave all valuables, including medications, at home the day of surgery. If you are going home after surgery, a licensed oil transport driver must drive you home. - NO public transportation without another adult. - We recommend that an adult stay with you for 24 hours following discharge. - We also recommend that you do not drive, make important decision, drink alcoholic beverages, or take any drugs that were not prescribed by your health care provider for at least 24 hours after your discharge time. Follow any additional instructions given to you from your surgeon. If you or anyone in your household have experienced Covid symptoms in the past week, please notify your surgeon or the nurse liaison at the phone number below for possible testing. Telephone instructions given to _Patient and asked if any additional questions and then verbalized understanding. Patient advised to call surgeon office or pre surgery nurse liaison [phone] if any additional questions.
--- NOTE | 2022-03-06 14:27 | P.PNAN_ITS ---
Anes - Initial Pre Proc Eval Procedure: Operation Date: 03/07/22 12:00 Proposed Procedures p Hemigastrectomy with Gastroenterostomy, - Will Roman MD s Open Repair Left Spigelian Hernia - Will Roman MD Date/Time: 03/06/22 14:27 Surgeon: Will Roman MD Pre Op Diagnosis: peptic ulcer disease with stricture Patient Data Age: 47 Gender: F Height: 1.6 m Weight: 50 kg Allergies Allergy/AdvReac Type Severity Reaction Status Date / Time No Known Allergies Allergy Verified 03/07/22 10:12 Home Medications Medication Instructions Recorded Confirmed Type estradiol 1 mg tablet 1 mg PO DAILY 01/04/21 03/07/22 History ibuprofen 800 mg tablet 800 mg PO TID PRN Pain 01/04/21 03/07/22 History amitriptyline 50 mg tablet See Rx Instructions .Route 10/12/21 03/07/22 Rx .COMPLEX #30 tabs omeprazole 20 mg capsule,delayed 40 mg PO DAILY #60 caps 02/11/22 03/07/22 Rx release topiramate 100 mg tablet 100 mg PO BID 03/04/22 03/07/22 History bupropion HCl 150 mg 24 hr tablet, 150 tablet PO QAM 03/07/22 03/07/22 History extended release Patient hx anesthesia problems: none Family hx anesthesia problems: none Results Review: All pre-operative results and documents have been reviewed as part of the pre- operative evaluation. [facility] Past Medical History Medical History (Updated 03/06/22 @ 14:28 by Mitchell Avila MD) Depression Diarrhea Hyperlipidemia Hypertension Nausea Stricture, duodenum Surgical History Surgical History H/O laparoscopy H/O total hysterectomy Family History Family History Other Breast cancer Social History Social History Social History: current smoker Smoking packs per day: 0.5 Smoking cigarettes per day: 10.0 Years smoked: 25 Smoking pack-years: 12.50 Smoking status: Current every day smoker Tobacco type: cigarettes Alcohol intake: never Drinks per week: 0 Alcohol use details: rarely Substance use: never Substance use type: does not use Living arrangements: with family Additional living arrangements comments: patients mother lives with her Gender identity (if verbalized by the patient): Female Spiritual care concerns: No Anes - Eval Final PreProcedure Day of Procedure 03/06/22 14:27 Patient weight: normal Heart: regular rate and rhythm Lungs: clear to auscultation Airway: Mallampati scale class II Neurological: alert and oriented Last oral intake: >/= 8 hours ASA classification: II Emergent: no Anesthetic plan: proceed Anesthesia type and monitoring: general ETT and standard monitoring Results Review: All pre-operative results and documents have been reviewed as part of the pre-op erative evaluation. Informed Consent: The patient's anesthetic plan and its attendant risks and benefits were discussed with the patient/family/POA. Questions were solicited and answers provided to the satisfaction of the patient/family/POA.
[2022-03-07] VITALS (18 sets, daily range): BP systolic 93–108; BP diastolic 50–65; PULSE 55–79; RESP 7–16; TEMP 35.9–37.6; O2SAT 92–100
--- NOTE | ~2022-03-07 | XR_ITS ---
EXAMINATION: XR chest 1V portable DATE: 03/21/2022 06:02 INDICATION: Acute respiratory failure TECHNIQUE: frontal view of the chest was obtained. COMPARISON: Chest radiograph dated 03/19/22 FINDINGS: Endotracheal tube tip 4.4 cm above the trang. Nasogastric tube in the stomach. Left internal jugular central venous catheter with distal tip at the caudal superior vena cava. Right upper extremity tres pherally inserted central venous catheter (PICC) tip at the superior cavoatrial junction. Airspace opacities in the right lower lung zone with blunting at the costophrenic angle likely combin ation of small right pleural effusion and associated atelectasis or pneumonia. Persistent minimal opa city left lung base. No pneumothorax or left-sided pleural effusion. The cardiomediastinal silhouette is normal. Visualized bones and soft tissues are unremarkable. IMPRESSION: 1. Small right pleural effusion. 2. Mild bibasilar opacities which could represent atelectasis or pneumonia. Reviewed, dictated and finalized at location A.
--- NOTE | ~2022-03-07 | XR_ITS ---
EXAMINATION: XR chest 1V portable DATE: 03/12/2022 05:36 INDICATION: Acute respiratory failure. TECHNIQUE: A single frontal view of the chest was obtained. COMPARISON: Chest single view 03/11/2022 FINDINGS: There are moderate-sized right and small left pleural effusions. There are airspace opaciti es at the lung bases. No pneumothorax. The heart size is normal. The endotracheal tube tip is 5.3 cm above the trang. The nasogastric tube tip is beyond the inferior margin of the radiograph, but at le ast to the stomach. Abdominal skin rena are noted. Surgical clips in the right upper quadrant are likely from cholecystectomy. IMPRESSION: 1. Stable moderate-sized right and small left pleural effusions. 2. Stable airspace opacities at the lung bases, consistent with atelectasis versus pneumonia. Reviewed, dictated and finalized at location A. IMPRESSION: 1. Stable moderate-sized right and small left pleural effusions. 2. Stable airspace opacities at the lung bases, consistent with atelectasis jean-pierre lisa pneumonia.
--- NOTE | ~2022-03-07 | XR_ITS ---
EXAMINATION: XR chest ET placement DATE: 03/15/2022 08:15 INDICATION: Intubation. TECHNIQUE: A single frontal view of the chest was obtained. COMPARISON: Chest single view at 5:16 AM FINDINGS: There are airspace opacities in all lung zones bilaterally with relative sparing of the jacoby g apices. There is a small right pleural effusion. No pneumothorax. The heart size is normal. The end otracheal tube tip is 3.9 cm above the trang. The nasogastric tube tip is in the stomach. Surgical c lips in the right upper quadrant are likely from cholecystectomy. IMPRESSION: 1. Mildly worsened diffuse lung disease, consistent with pulmonary edema versus pneumonia. 2. Stable small right pleural effusion. Reviewed, dictated and finalized at location A.
--- NOTE | ~2022-03-07 | XR_ITS ---
XR chest ET placement DATE: 03/10/2022 00:24 INDICATION: Repositioning of ET tube TECHNIQUE: Portable AP chest on 03/10/2022 at 0009 hours COMPARISON: 03/10/2022 portable AP chest at 0000 hours FINDINGS: ET tube in satisfactory position 3.4 cm above trang. NG tube in stomach. No central lines. There is infiltrate and/atelectasis in the right mid and both lower lungs with. Mild right pleural ef fusion is suggested. No pneumothorax. Status post cholecystectomy IMPRESSION: ET tube in satisfactory position NG tube in stomach Persistent right mid and bilateral lower lung infiltrate and/or atelectasis Reviewed, dictated and finalized at [facility]. Reviewed, dictated and finalized at location A.
--- NOTE | ~2022-03-07 | XR_ITS ---
EXAMINATION: XR chest 1V portable INDICATION: Respiratory failure TECHNIQUE: Portable AP chest at 050 COMPARISON: 03/15/2022 FINDINGS: The endotracheal tube ends approximately 4.9 cm above the trang. The nasogastric tube is i n the stomach. Diffuse interstitial opacities persist but have improved. There is a small right pleur al effusion. No pneumothorax is identified. The cardiomediastinal silhouette is normal. IMPRESSION: 1. Diffuse lung disease with interval improvement, consistent with pneumonia and/or pulmonary edema. 2. Small right pleural effusion. Reviewed, dictated and finalized at location A. IMPRESSION: 1. Diffuse lung disease with interval improvement, consistent with pneumonia an d/or pulmonary edema. 2. Small right pleural effusion.
--- NOTE | ~2022-03-07 | XR_ITS ---
EXAMINATION: XR chest PICC line Exam Date/Time: 03/16/2022 16:30 CDT HISTORY: Picc Placement Comparison: Same date at 5:09 AM. RESULT: Lines, tubes, and devices: Endotracheal tube, terminating in the mid trachea. NG tube tip and side p ort object over the stomach. Right upper extremity PICC terminating at the cavoatrial junction. Lungs and pleura: Worsening bilateral diffuse pulmonary opacities. Left angle blunting. Cardiomediastinal silhouette: Stable cardiomediastinal silhouette. Other: No acute osseous or upper abdominal finding. IMPRESSION: New right upper extremity PICC, in good position. Appropriately positioned endotracheal and NG tubes. Worsening pulmonary opacities may reflect increasing pulmonary edema, infection not excluded. Small right pleural effusion. Reviewed, dictated and finalized at [facility]. IMPRESSION: New right upper extremity PICC, in good position. Appropriately positioned endo tracheal and NG tubes. Worsening pulmonary opacities may reflect increasing pul monary edema, infection not excluded. Small right pleural effusion.
--- NOTE | ~2022-03-07 | XR_ITS ---
EXAMINATION: XR chest 1V portable Exam Date/Time: 03/09/2022 16:05 CDT HISTORY: Increasing FIO2,NAUSEA,WEAK Comparison: 03/07/2022. RESULT: Lines, tubes, and devices: NG tube, tip and side port project over the stomach. Lungs and pleura: Right angle blunting. Hazy right lower and streaky bilateral lower lung opacities. Cardiomediastinal silhouette: Stable cardiomediastinal silhouette. Other: No acute osseous or upper abdominal finding. IMPRESSION: Bibasilar atelectasis/consolidation, worse on the right. Possible small right pleural effusion. Reviewed, dictated and finalized at location K. IMPRESSION: Bibasilar atelectasis/consolidation, worse on the right. Possible small right p leural effusion.
--- NOTE | ~2022-03-07 | CT_ITS ---
EXAMINATION: CT abdomen pelvis w con DATE: 03/22/2022 11:44 INDICATION: Fever. Bilateral leak with enterocutaneous fistula TECHNIQUE: Computed tomography (CT) of the abdomen and pelvis was performed with oral and 100 mL Omni paque-300 intravenous contrast. Automated exposure control and iterative reconstruction technique wer e employed. The dose-length product was 661.02 mGy-cm. COMPARISON: 03/15/2022 FINDINGS: Minimal right pleural effusion with dependent and discoid atelectasis in the right lower lobe. Heart size is normal. No pericardial effusion. Tip of a central venous catheter at the superior cavoatrial junction. Nasogastric tube tip in the distal body of the stomach. Postoperative change of prior hemigastrectomy with Lyly-en-Y anastomosis which was comminuted by a duodenal stump leak. Oral contrast extends thro ugh the stomach and across the Lyly-en-Y anastomosis extending through the small bowel with small giselle unt of dilute contrast seen in the cecum. A small tract of contrast can be seen extending along the a nterior cutaneous fistula tracking to the floor of an open midline surgical wound with overlying woun d VAC. A surgical drain seen along the posterior inferior margin of the left hepatic lobe at the oper ative bed. 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 There is edematous-gurdeep earing wall thickening along the colon most prominent at the cecum as well as along multiple loops of predominantly distal small bowel. Interval decrease in a now small amount of nonloculated ascites, t he largest collection in the deep pelvis with additional small amount in the right upper quadrant hailee ng the liver. The density of ascites is of low attenuation about the liver and in the anterior pelvis slightly higher but still relatively low attenuation in the cul-de-sac which could represent either small amount of blood or pus. No suggestion of extravasated oral contrast. No organized abscess. Cholecystectomy clips the gallbladder fossa. Liver, spleen, pancreas, bilateral adrenal glands and ki dneys are normal. Scott catheter within the decompressed bladder. The uterus is not identified and nix s likely been surgically resected. And bilateral body wall edema along the flanks. Bones are unremark able. IMPRESSION: 1. Status post hemigastrectomy with Lyly-en-Y anastomosis with oral contrast extravasation which appe ars to originate along the proximal aspect of drain with the Lyly limb which drains along a short ent erocutaneous fistula to the floor of an open surgical wound with overlying wound VAC. No evident cont rast extravasation into the deeper peritoneum. 2. Decrease in a small amount of complicated ascites which appears nonloculated but with peritoneal e nhancement suggestive of peritonitis but without discrete organized abscess. 3. Edematous wall thickening of large and small bowel greatest at the distal small bowel and proximal colon suspicious for enterocolitis which could be infectious, ischemic or inflammatory in etiology o r potentially reactive related to peritonitis. 4. Very small right pleural effusion with atelectasis in the right lower lobe. Reviewed, dictated and finalized at location A. IMPRESSION: 1. Status post hemigastrectomy with Lyly-en-Y anastomosis with oral contrast ex travasation which appears to originate along the proximal aspect of drain with the Lyly limb which drains along a short enterocutaneous fistula to the floor o f an open surgical wound with overlying wound VAC. No evident contrast extravas ation into the deeper peritoneum. 2. Decrease in a small amount of complicated ascites which appears nonloculated but with peritoneal en
--- NOTE | ~2022-03-07 | US_ITS ---
EXAMINATION: US arterial duplex LE DATE: 03/23/2022 10:32 INDICATION: Cold extremities TECHNIQUE: Multiple grayscale and Doppler ultrasound images of the arteries of the bilateral lower li mbs were obtained. COMPARISON: None FINDINGS: Normal triphasic waveforms with brisk systolic upstrokes are seen throughout the arteries of both low er limbs including the common femoral, proximal mid and distal superficial femoral, popliteal, dorsal is pedis and proximal, mid and distal posterior tibial, peroneal and anterior tibial arteries on both the left and right. No abnormal abrupt transition in peak systolic velocities between adjacent segme nts to suggest a hemodynamically significant stenosis. IMPRESSION: 1. Normal study with triphasic waveforms with brisk systolic upstrokes throughout the arteries of bot h lower limbs extending to the dorsalis pedis arteries. Reviewed, dictated and finalized at location A. IMPRESSION: 1. Normal study with triphasic waveforms with brisk systolic upstrokes througho ut the arteries of both lower limbs extending to the dorsalis pedis arteries.
--- NOTE | ~2022-03-07 | US_ITS ---
EXAMINATION: US venous doppler [facility] DATE: 03/17/2022 14:32 INDICATION: R/O DVT . TECHNIQUE: Grayscale images without and with compression and Doppler images of the bilateral lower ex tremity veins were obtained. COMPARISON: None FINDINGS: The right common femoral vein is partially compressible without intraluminal echogenicity, with amarjit l color Doppler flow and augmentation, consistent with chronic change. The right profunda (deep) femo ral vein, femoral vein, popliteal vein, peroneal vein, posterior tibial veins, and greater saphenous vein are patent. The left common femoral vein is obscured by a left groin central line. The profunda femoral vein, fem oral vein, popliteal vein, peroneal vein, posterior tibial veins, and greater saphenous vein are andrews nt. IMPRESSION: 1. Patent bilateral lower extremity veins. No evidence of deep venous thrombosis. Reviewed, dictated and finalized at location K. IMPRESSION: 1. Patent bilateral lower extremity veins. No evidence of deep venous thrombos is.
--- NOTE | ~2022-03-07 | XR_ITS ---
EXAMINATION: XR chest 1V portable DATE: 03/13/2022 05:51 INDICATION: Acute respiratory failure. TECHNIQUE: A single frontal view of the chest was obtained. COMPARISON: Chest single view 03/12/2022, chest CT 03/09/2022 FINDINGS: There are airspace opacities in the mid and lower lung zones. There is a small right pleura l effusion. No pneumothorax. The heart size is normal. The endotracheal tube tip is 2.6 cm above the trang. The nasogastric tube tip is in the stomach. Surgical clips in the right upper quadrant are enrico palacio from cholecystectomy. IMPRESSION: 1. Airspace opacities in the mid and lower lung zones with improvement on the right, consistent with atelectasis versus pneumonia. 2. Improved small right pleural effusion. Reviewed, dictated and finalized at location A. IMPRESSION: 1. Airspace opacities in the mid and lower lung zones with improvement on the r ight, consistent with atelectasis versus pneumonia. 2. Improved small right pleural effusion.
--- NOTE | ~2022-03-07 | XR_ITS ---
EXAMINATION: XR chest 1V portable DATE: 03/19/2022 06:08 INDICATION: Respiratory failure TECHNIQUE: frontal view of the chest was obtained. COMPARISON: Chest radiograph dated 03/18/2022 FINDINGS: Endotracheal tube tip 5.1 cm above the trang. Nasogastric tube with distal tip in the body of the st omach. Left internal jugular central venous catheter with distal tip at the caudal superior vena cava . Right upper extremity peripherally inserted central venous catheter (PICC) tip slightly more caudal at the superior cavoatrial junction. Persistent hazy opacities in the right lower lung zone with blunting at the costophrenic angle consis tent with small right pleural effusion and associated basilar atelectasis and/or pneumonia. Minimal o pacities at the left lung base which could certainly represent mild atelectasis or pneumonia. No pneu mothorax. The cardiomediastinal silhouette is normal. Cholecystectomy clips in right upper quadrant. IMPRESSION: 1. Persistent small right pleural effusion. 2. Bibasilar opacities, right greater than left which could represent associated atelectasis or pneum onia. Reviewed, dictated and finalized at location A. IMPRESSION: 1. Persistent small right pleural effusion. 2. Bibasilar opacities, right greater than left which could represent associate d atelectasis or pneumonia.
--- NOTE | ~2022-03-07 | US_ITS ---
EXAMINATION:US venous doppler LE BI INDICATION:Leg swelling. Fevers. TECHNIQUE: Multiple grayscale, color flow and Doppler images of the right and left lower extremity de ep venous systems were obtained and reviewed. COMPARISON:03/17/2022 FINDINGS: The common femoral, superficial femoral and popliteal veins demonstrate normal respiratory variation, augmentation and compressibility. Color flow is also seen within the posterior tibial, pe roneal, greater saphenous and profunda veins. IMPRESSION: 1: No lower extremity deep venous thrombosis. Reviewed, dictated and finalized at location A.
--- NOTE | ~2022-03-07 | XR_ITS ---
EXAMINATION: XR chest 1V portable DATE: 03/15/2022 05:29 INDICATION: Respiratory failure. TECHNIQUE: A single frontal view of the chest was obtained. COMPARISON: Chest single view 03/14/2022, chest CT 03/09/2022 FINDINGS: There is mild elevation of right hemidiaphragm. There are airspace opacities in the mid and lower lung zones. There is a small right pleural effusion. No pneumothorax. The heart size is normal . The nasogastric tube tip is in the stomach. Surgical clips in the right upper quadrant are likely f rom cholecystectomy. IMPRESSION: 1. Airspace opacities in the mid and lower lung zones with mild worsening, consistent with pneumonia versus pulmonary edema. 2. Stable small right pleural effusion. Reviewed, dictated and finalized at location A. IMPRESSION: 1. Airspace opacities in the mid and lower lung zones with mild worsening, cons istent with pneumonia versus pulmonary edema. 2. Stable small right pleural effusion.
--- NOTE | ~2022-03-07 | CT_ITS ---
EXAMINATION: CT abdomen pelvis w con DATE: 03/25/2022 13:34 INDICATION: Fevers, leukocytosis. TECHNIQUE: Computed tomography (CT) of the abdomen and pelvis was performed with 100 CC Omnipaque 300 intravenous contrast. 15 CC oral Omnipaque 350 contrast material was administered at 1130 hours.. Au tomated exposure control and iterative reconstruction technique were employed. Exam dose: 671.85 mGy -cm total exam DLP. COMPARISON: 03/22/2022 CT abdomen pelvis FINDINGS: There is continued extravasation of contrast material from proximal small bowel in the uppe r mid anterior abdomen into the open wound along the upper anterior abdominal wall. There is soft tis betsy thickening of the wall of the small bowel segment with evidence of at least 2 fistulous tracks in to the subcutaneous tissues from the anterior wall of this small bowel segment. There is an NG tube in the gastric remnant. Right upper quadrant percutaneous surgical drain is again noted. There is a pigtail catheter drain placed percutaneously through the lateral left lower anterior pelvi c wall into the left pelvic area. There is no significant residual fluid collection in the area of th e left pelvic pigtail catheter, with successful drainage of fluid collection in this area since 022. There is diminished perihepatic fluid since 03/22/2022. Fluid with interspersed fat is again noted in t he right perinephric area and posterolateral right lower retroperitoneal soft tissues. Normal heart size. There is mild discoid atelectasis at the right lower lobe. There is mild intraperitoneal free air. No hepatic, splenic, pancreatic, adrenal or renal space-occupying mass lesion is evident. No urinary tract obstruction or hydroureteronephrosis. Normal caliber of the abdominal aorta. There is a Scott catheter in the urinary bladder. There is prominent edema of the abdominal and pelvic zapata.. IMPRESSION: Successful drainage of left pleural fluid collection by percutaneous catheter since 2021 Continued extravasation of contrast material from upper anterior mid abdominal proximal small bowel, largely into the subcutaneous tissues of the open anterior abdominal wall wound; fistulous tracts fro m the upper mid anterior abdominal small bowel segment into the subcutaneous tissues are noted.. Reviewed, dictated and finalized at [facility]. Reviewed, dictated and finalized at location A. IMPRESSION: Successful drainage of left pleural fluid collection by percutaneo us catheter since 03/22/2022 Continued extravasation of contrast material from upper anterior mid abdominal proximal small bowel, largely into the subcutaneous tissues of the open anterio r abdominal wall wound; fistulous tracts from the upper mid anterior abdominal small bowel segment into the subcutaneous tissues are noted..
--- NOTE | ~2022-03-07 | CT_ITS ---
EXAMINATION: CT chest abdomen pelvis wo con DATE: 03/15/2022 16:26 INDICATION: Fever and respiratory failure TECHNIQUE: Transaxial computed tomographic images of the chest, abdomen, and pelvis were obtained wit hout intravenous contrast. The dose-length product (DLP) was 944.42 mGy-cm. Automated exposure contro l and iterative reconstruction technique were employed. COMPARISON: 03/09/2022 FINDINGS: CHEST CT: There are moderate size right and small left pleural effusions. There are widespread groundglass airs pace opacities throughout the lungs. There is near complete collapse of the right lower lobe. More fo adriana airspace opacities are present posteriorly in the left lower lobe. There is no pneumothorax. The heart size is normal. ABDOMEN/PELVIS CT: There is a moderate volume of ascites, decreased in volume since the comparison examination. A new carlton rgical drain is present in the right upper quadrant. Oral contrast material is present in the stomach and proximal small bowel. In addition, there is contrast in the distal colon from recent upper GI. W ithin the limitations of noncontrast examination, the liver, spleen, pancreas, and adrenal glands are normal. There are no definitely dilated loops of bowel. No pathologically enlarged abdominal or pelv ic lymph nodes are identified. There is a right femoral central venous catheter. Diffuse anasarca is noted. IMPRESSION: 1. Diffuse lung disease, likely pulmonary edema. 2. Near complete collapse of the right lower lobe. 3. Moderate-sized right and small left pleural effusions. 4. Moderate volume ascites with interval decrease since the comparison examination. New right upper q uadrant drain, consistent with surgical change. No leakage of enteric contrast identified. Reviewed, dictated and finalized at location F. IMPRESSION: 1. Diffuse lung disease, likely pulmonary edema. 2. Near complete collapse of the right lower lobe. 3. Moderate-sized right and small left pleural effusions. 4. Moderate volume ascites with interval decrease since the comparison examinat ion. New right upper quadrant drain, consistent with surgical change. No leakag e of enteric contrast identified.
--- NOTE | ~2022-03-07 | XR_ITS ---
EXAMINATION: XR chest 1V portable INDICATION: Respiratory failure TECHNIQUE: Portable AP chest at 0524 hours COMPARISON: 03/16/2022 FINDINGS: The endotracheal tube ends approximately 4.1 cm above the trang. The nasogastric tubes ins erted. A right upper extremity PICC ends with its tip in distal superior vena cava. Diffuse interstit ial and airspace opacities persist with slight improvement. There are developing airspace opacities o f the right lung base. The cardiomediastinal silhouette is stable. A small right pleural effusion is stable. IMPRESSION: 1. Improving diffuse lung disease, consistent with pneumonia/or pulmonary edema. 2. Increasing right basilar airspace opacity, consistent with atelectasis versus pneumonia. 3. Small, stable right pleural effusion. Reviewed, dictated and finalized at location A. IMPRESSION: 1. Improving diffuse lung disease, consistent with pneumonia/or pulmonary edema . 2. Increasing right basilar airspace opacity, consistent with atelectasis versu s pneumonia. 3. Small, stable right pleural effusion.
--- NOTE | ~2022-03-07 | XR_ITS ---
XR chest 1V portable DATE: 03/22/2022 05:52 INDICATION: Acute respiratory failure TECHNIQUE: Portable AP chest on 03/22/2022 at 0516 hours COMPARISON: 02/24/19352021 portable AP chest at 0521 hours FINDINGS: ET tube in satisfactory position 3 cm above trang. NG tube in body of stomach. Status post cholecystectomy. Right upper extremity PIC catheter tip overlies the right atrium. Left internal jugular central venous catheter tip is situated near the superior cavoatrial junction. No pneumothorax is noted. There is mild infiltrate or atelectasis in the lower lung zones. Mild right pleural effusion is sugge sted. Normal heart size. IMPRESSION: No significant change since 03/21/2022 Reviewed, dictated and finalized at location A.
--- NOTE | ~2022-03-07 | XR_ITS ---
XR chest 1V portable DATE: 03/24/2022 05:51 INDICATION: Acute respiratory failure TECHNIQUE: Portable AP chest on 03/24/2022 at 0518 hours COMPARISON: 03/23/2022 portable AP chest at 0536 hours FINDINGS: ET tube in satisfactory position 4 cm above trang. NG tube in stomach. Left internal jugular central venous catheter tip situated near superior cavoatrial junction. Right u pper extremity PIC catheter tip overlying the very upper aspect of right atrium. Normal heart size. No pulmonary vascular congestion. There is persistent infiltrate and/or atelectasis in the right lower lung and mild right pleural effu garland. No pneumothorax. IMPRESSION: Persistent right lower lobe infiltrate and/atelectasis and mild right pleural effusion Reviewed, dictated and finalized at location A. IMPRESSION: Persistent right lower lobe infiltrate and/atelectasis and mild rig ht pleural effusion
--- NOTE | ~2022-03-07 | XR_ITS ---
XR chest 1V portable DATE: 03/23/2022 06:41 INDICATION: Acute respiratory failure TECHNIQUE: Portable AP chest on 03/23/2022 0536 hours COMPARISON: 03/22/2022 portable AP chest at 0516 hours FINDINGS: ET tube in satisfactory position approximately 4.4 cm above trang. NG tube in stomach. Lef t internal jugular central venous catheter tip situated near the superior cavoatrial junction. Right upper extremity PIC catheter in superior vena cava. There is mild infiltrate or atelectasis in the right lower lung, mild blunting of the right costophre janis angle suggesting mild right pleural effusion. No pneumothorax. IMPRESSION: Mild infiltrate or atelectasis in the right lung base and possible small right pleural ef fusion Reviewed, dictated and finalized at location A. IMPRESSION: Mild infiltrate or atelectasis in the right lung base and possible small right pleural effusion
--- NOTE | ~2022-03-07 | XR_ITS ---
EXAMINATION: XR chest 1V portable INDICATION: Central line insertion TECHNIQUE: Portable AP chest at 11:30 and 1134 hours COMPARISON: 0533 hours FINDINGS: A left internal jugular central venous catheter has been inserted which ends with its tip a t the superior cavoatrial junction. Initial image demonstrates a loop in the pelvic. After flushing, the PICC demonstrates a normal course and ending with its tip at the superior cavoatrial junction. Th e endotracheal tube ends approximately 5.8 cm above the trang. The nasogastric tube is followed as f ar as the stomach. Its tip is beyond the inferior margin of the radiograph. There are stable right ba silar airspace opacities. A small right pleural effusion is stable. There is no pneumothorax. The car diomediastinal silhouette is normal. IMPRESSION: 1. Left internal jugular central venous catheter insertion ending at the superior cavoatrial junction . 2. Small right pleural effusion. 3. Stable right basilar airspace opacities, consistent with atelectasis and pneumonia. Reviewed, dictated and finalized at location A. IMPRESSION: 1. Left internal jugular central venous catheter insertion ending at the superi or cavoatrial junction. 2. Small right pleural effusion. 3. Stable right basilar airspace opacities, consistent with atelectasis and pne umonia.
--- NOTE | ~2022-03-07 | CT_ITS ---
EXAMINATION: CT guide absc cath placement DATE: 03/22/2022 12:51 INDICATION: Bowel leak with small ascites and enhancing peritonitis. Request for pelvic fluid drainag e catheter placement. TECHNIQUE: The procedure including the risks and benefits was discussed with the patient's family who provided consent. Risks discussed included bleeding and infection. The patient was confirmed to be receiving appropriate antibiotic coverage. The skin overlying the anterior left pelvis was prepped a nd draped in usual sterile fashion. Anesthetic was administered with 1% lidocaine subcutaneously. Gianluca ha was already moderately sedated and intubated. An 18-gauge trochar needle was inserted into the pelvic peritoneal fluid collection utilizing CT guidance. The inner needle was removed and a J-wire a dvanced into the perineal fluid collection with positioning confirmed by CT. Utilizing Seldinger tech nique the needle was removed over the wire and the fracture of the dilated over the wire to 14 Turkish . A 14 Turkish catheter was placed over the wire and the pigtail tip formed and locked with position c onfirmed by CT. The wire was removed and the catheter was stitched to the skin with suture. Antibioti c ointment, a sterile dressing and additional adhesive fixation device were applied. There were no im mediate complications. The mAs was manually decreased to limit radiation dosage. The dose-length prod uct was 142.69 mGy-cm. FINDINGS: CT images demonstrate the catheter within the deep pelvic fluid collection. Approximately 3 0 mL of opaque reddish-sandy fluid was aspirated for testing. IMPRESSION: 1. Successful CT-guided pelvic peritoneal fluid drainage catheter placement. 2. 30 mL fluid was sent for gram stain and aerobic and anaerobic cultures. 3. The catheter will be managed by Dr. Roman. Reviewed, dictated and finalized at location A.
--- NOTE | ~2022-03-07 | XR_ITS ---
XR chest 1V portable DATE: 03/25/2022 05:49 INDICATION: Acute respiratory failure TECHNIQUE: Portable upright AP chest on 03/25/2022 at 0516 hours COMPARISON: 03/24/2022 portable AP chest at 0518 hours FINDINGS: ET tube in satisfactory position 4.6 cm above trang. NG tube in stomach. Left internal jugular central venous line tip is situated near the superior cavoatrial junction. Righ t upper extremity PIC catheter tip overlies the upper right atrium. Normal heart size. No pulmonary vascular congestion or left pleural effusion. There is mild/moderate right pleural effusion and right persistent basilar infiltrate and/atelectasis. No pneumothorax. IMPRESSION: No significant change since 03/24/2020 Reviewed, dictated and finalized at location A.
--- NOTE | ~2022-03-07 | US_ITS ---
US renal BI DATE: 03/09/2022 10:11 INDICATION: Acute kidney injury TECHNIQUE: Real-time imaging of kidneys and urinary bladder COMPARISON: 03/20/2021 CT abdomen pelvis with IV contrast material FINDINGS: Right kidney measures 11 cm length, left kidney 10.4 cm length. No renal mass lesion or hyd ronephrosis is detected. The urinary bladder is relatively evacuated and not optimally evaluated. IMPRESSION: No sonographic abnormality of the kidneys Reviewed, dictated and finalized at Location A. Reviewed, dictated and finalized at location A.
--- NOTE | ~2022-03-07 | XR_ITS ---
EXAMINATION: XR chest 1V portable DATE: 03/11/2022 05:22 INDICATION: Acute respiratory failure. TECHNIQUE: A single frontal view of the chest was obtained. COMPARISON: Chest single view 03/10/2022, chest CT 03/09/2022 FINDINGS: There is a moderate-sized right pleural effusion. There are airspace opacities in the mid a nd lower lung zones. No pneumothorax. The heart size is normal. The endotracheal tube tip is 5.6 cm a cheyanne the trang. The nasogastric tube tip is in the stomach. IMPRESSION: 1. Worsened moderate-sized right pleural effusion. 2. Stable airspace opacities in the mid and lower lung zones, consistent with atelectasis versus pneu monia. Reviewed, dictated and finalized at location A. IMPRESSION: 1. Worsened moderate-sized right pleural effusion. 2. Stable airspace opacities in the mid and lower lung zones, consistent with a telectasis versus pneumonia.
--- NOTE | ~2022-03-07 | XR_ITS ---
EXAMINATION: XR chest 2V 03/07/2022 10:38 INDICATION: Preop. History of smoking. PROCEDURE: 2 view chest COMPARISON: 12/18/2017 FINDINGS: The lungs are clear. The cardiomediastinal silhouette is within normal limits. There are no pleural effusions. There is no pneumothorax suspected. IMPRESSION: 1: NO ACUTE CARDIOPULMONARY DISEASE. Reviewed, dictated and finalized at location A.
--- NOTE | ~2022-03-07 | XR_ITS ---
XR chest ET placement DATE: 03/10/2022 00:19 INDICATION: Repositioning of ET tube TECHNIQUE: Portable AP chest on 03/10/2022 0000 hours COMPARISON: 03/09/2022 portable AP chest at 1604 hours FINDINGS: ET tube in satisfactory position 2.7 cm above trang. NG tube in proximal stomach, proximal side-port just beyond the diaphragmatic hiatus. There is infiltrate and/atelectasis in the right mid and both lower lung zones. No pneumothorax is de tected. Status post cholecystectomy. IMPRESSION: NG tube side port just beyond the diaphragmatic hiatus; advancement is recommended ET tube in satisfactory position Right mid and bilateral lower lung infiltrate and/atelectasis Reviewed, dictated and finalized at Location A. Reviewed, dictated and finalized at location A.
--- NOTE | ~2022-03-07 | CT_ITS ---
EXAMINATION: CT chest abdomen pelvis wo con DATE: 03/09/2022 21:10 INDICATION: hypotension, fever, abdominal pain, short of air . TECHNIQUE: Computed tomography (CT) of the chest, abdomen, and pelvis was performed without intraveno us contrast. Automated exposure control and iterative reconstruction technique were employed. The dos e-length product was 973.53 mGy-cm. COMPARISON: X-ray chest 03/09/2022, CT abdomen and pelvis 03/20/2021. FINDINGS: CHEST: NG tube, in good position. Thoracic aorta: No significant dilation or calcification. Lung parenchyma and airways: Bilateral lower lobe consolidation and volume loss. Thoracic inlet, axillae and chest wall: No thyroid or soft tissue mass. No axillary lymphadenopathy. Mediastinum: No mass or lymphadenopathy. Heart and pericardium: Normal heart size. No pericardial effusion. Coronary artery calcifications: Absent. Pleura: Moderate volume right and small volume left pleural effusions. Thoracic bones: No acute osseous finding in the chest. ABDOMEN/PELVIS: Right femoral central venous line. Liver: Normal. Biliary/Gallbladder: Gallbladder is absent. Stable biliary ductal dilatation. Pancreas: No mass or duct dilation. Spleen: Normal. Adrenals:No mass. Kidneys: No mass, stone, or hydronephrosis. GI tract: No small or large bowel dilation. Appendix not visualized. Prior gastric and small bowel carlton rgery. Retained contrast in the large bowel. Mesentery/Peritoneum: Moderate volume ascitic fluid of 15 Hounsfield unit density, small volume depen dent hyperdensity within the ascitic fluid in the deep pelvis which may represent proteinaceous debri s or hemorrhage. Retroperitoneum: No mass Pelvis: Uterus is likely surgically absent. The bladder is decompressed by a Scott. Soft Tissues: Body wall edema. Midline abdominal incision and skin rena. Abdominopelvic bones: No acute osseous finding in the abdomen/pelvis. IMPRESSION: Bibasilar atelectasis/consolidation. Moderate right and small left pleural effusions. Moderate abdomi nal ascites, likely containing small volume proteinaceous or hemorrhagic debris. Body wall edema. Reviewed, dictated and finalized at location K. IMPRESSION: Bibasilar atelectasis/consolidation. Moderate right and small left pleural effu sions. Moderate abdominal ascites, likely containing small volume proteinaceous or hemorrhagic debris. Body wall edema.
--- NOTE | ~2022-03-07 | XR_ITS ---
EXAMINATION: XR chest 1V portable DATE: 03/27/2022 06:30 INDICATION: Respiratory failure TECHNIQUE: frontal view of the chest was obtained. COMPARISON: Chest radiograph and CT abdomen and pelvis, both dated 03/25/2022 FINDINGS: Endotracheal tube tip 5.6 cm above the trang. Nasogastric tube with proximal side-port in stomach a nd distal tip collimated off the study likely also within the stomach. Right upper extremity peripher ally inserted central venous catheter (PICC) tip at the caudal superior vena cava. Left internal jug ular central venous catheter with distal tip more proximal in the mid superior vena cava. Unchanged opacities at the lateral right lower lung base which on CT appears to correspond to a very small right pleural effusion and associated atelectasis. No new airspace opacities, pulmonary edema, pneumothorax or left-sided pleural effusion. The cardiomediastinal silhouette is normal. Visualized b ones and soft tissues are unremarkable. IMPRESSION: 1. Unchanged opacity at the lateral right lung base consistent with very small right pleural effusion and associated atelectasis or less likely pneumonia. Reviewed, dictated and finalized at location A.
--- NOTE | ~2022-03-07 | XR_ITS ---
EXAMINATION: XR chest 1V portable DATE: 03/14/2022 05:56 INDICATION: Acute respiratory failure. TECHNIQUE: A single frontal view of the chest was obtained. COMPARISON: Chest single view 03/13/2022 FINDINGS: There are airspace opacities in the mid and lower lung zones. There is a small right pleura l effusion. No pneumothorax. The heart size is normal. Surgical clips in the right upper quadrant are likely from cholecystectomy. Skin rena are noted. The nasogastric tube tip is in the stomach. The endotracheal tube tip is 2.0 cm above the trang. IMPRESSION: 1. Stable small right pleural effusion. 2. Stable airspace opacities in the mid and lower lung zones, consistent with atelectasis versus pneu monia. Reviewed, dictated and finalized at location A. IMPRESSION: 1. Stable small right pleural effusion. 2. Stable airspace opacities in the mid and lower lung zones, consistent with a telectasis versus pneumonia.
--- NOTE | ~2022-03-07 | XR_ITS ---
XR UGI water soluble w sbs DATE: 03/10/2022 09:10 INDICATION: Free fluid in abdomen; recent Billroth II partial gastrectomy. TECHNIQUE: 15 minute and 30 minute KUB radiographs were obtained after administration of water-solubl e contrast material through the existing nasogastric tube. COMPARISON: 03/09/2022 CTA chest abdomen pelvis FINDINGS: Status post partial gastrectomy. No stricture or obstruction. At 30 minutes there is extensive extravasated contrast material along the right paracolic gutter and around the superolateral aspect of the liver. IMPRESSION: Small bowel perforation, leakage Dr. Mercer telephoned the report promptly to Dr. Avelar. Reviewed, dictated and finalized at Location A. Reviewed, dictated and finalized at location A.
--- NOTE | ~2022-03-07 | XR_ITS ---
EXAMINATION: XR chest 1V portable DATE: 03/18/2022 05:51 INDICATION: Respiratory failure TECHNIQUE: frontal view of the chest was obtained. COMPARISON: Chest radiograph dated 03/17/22 FINDINGS: Endotracheal tube tip 4.6 cm above the trang. Nasogastric tube extends below the left hemidiaphragm with distal tip collimated off the study. Right upper extremity peripherally inserted central venous catheter (PICC) tip at the superior cavoatrial junction. Linear discoid atelectasis at the left lung base. Additional more extensive airspace opacities at the right lower lung zone. This includes a small right pleural effusion with blunting at the costophreni c angle. The cardiomediastinal silhouette is normal. Visualized bones and soft tissues are unremarkab le. IMPRESSION: 1. Opacities in the right lower lung zone consistent with small right pleural effusion and associated atelectasis and/or pneumonia. Reviewed, dictated and finalized at location A. IMPRESSION: 1. Opacities in the right lower lung zone consistent with small right pleural e ffusion and associated atelectasis and/or pneumonia.
[2022-03-07] MEDS: ACETAMINOPHEN 500 MG TABLET 1000 MG PO (10:20)
[2022-03-07] MEDS: KETOROLAC 15 MG/ML VIAL (*BKC) IV PUSH (10:56)
[2022-03-07] MEDS: LACTATED RINGERS 1,000 ML 30 ML IV CONT ×3 (10:56→16:11)
--- NOTE | 2022-03-07 12:05 | WPDHPUPDATE1 ---
History and Physical Update Update Date/Time: 03/07/22 12:05 Patient had normal UGI as an outpatient. I called Dr. Valenzuela and discussed the patient with him after the UGI. He agrees that the patient has a definite pyloric and proximal duodenal stenosis causing impaired gastric emptying. He has performed EGD with dilatation twice on this patient with no improvement in her postprandial abdominal pain and dyspepsia. She has been on twice a day omeprazole for gastric acid suppression without relief. He agrees that with the failure of endoscopic treatment and proton pump inhibitors distal gastric resection is indicated. I have recommended this and discussed it with the patient in the office and again this morning. Her mother is here and witnessed the discussion. I answered all questions from patient and her Mom. She wishes to proceed. History and Physical has been reviewed, including an updated exam of the patient. There are NO changes in the patient's condition. Risks, benefits, and alternatives have been discussed and questions answered. Patient agrees to proceed with procedure.
[2022-03-07] MEDS: ceFAZolin 2 GM/D5W 50 ML 2 GM/50 ML BAG IVPB (12:14)
[2022-03-07] MEDS: fentaNYL CITRATE INJ (*CRX) 100 MCG/2 ML VIAL 25 MCG IV PUSH ×4 (15:58→16:43)
--- NOTE | 2022-03-07 16:35 | W.PM.PROC2 ---
Procedure Note - Detailed Date of Procedure 03/07/22 Pre-op Diagnosis peptic ulcer disease with stricture, left spigelian hernia Post-op Diagnosis Same Procedure Performed hemigastrectomy with Lyly-en-Y gastrojejunostomy, repair left spigelian hernia Surgeon Will Roman MD Hydrography Teacher Jazz Montal[place] [facility] Anesthesia General Indications the patient is a 47-year-old woman who 1 year ago went to the emergency room with complaints of severe postprandial abdominal pain associated with nausea and heartburn. At the emergency room visit she was noted to have a left Spigelian hernia but no reason for her symptoms. she saw Dr. Valenzuela for evaluation and last August had an EGD that showed a severe pyloric stricture. This was felt to be due to peptic ulcer disease. She was placed on omeprazole twice a day and a repeat endoscopy was done in January. This showed a persistent pyloric stricture. At both the EGDs, the stricture had to be balloon dilated to be traversed with the scope. Patient had brief improvement after her EGD in August. She had no improvement after her EGD in January. . She was seen it in the office and evaluated. After discussion with Dr. Valenzuela, she is taken to surgery now for distal gastric resection with gastroenterostomy. The spigelian hernia was not able to be palpated on exam but the patient does report a bulge in this area. This will be repaired at the time of surgery if this can be found by laparotomy evaluation. Findings Patient did have a left spigelian hernia. It was chronically incarcerated with properitoneal fat and omentum. it was repaired intra-abdominally without an additional skin incision. Patient did have a very stenotic pylorus by palpation. Hemigastrectomy was performed. Patient had a Lyly-en-Y gastrojejunostomy performed. No additional findings were noted. Description of Procedure Patient was taken to surgery and induced into general anesthesia. The abdomen was prepped and draped. An upper midline incision was marked on the skin. Incision was made dissection was carried down through the skin and subcutaneous. We divided the midline fascia at the area of the umbilicus and then extended this fascial incision up to near the xiphoid process. It also extended just below the umbilicus. Palpating in the abdominal cavity, the only findings of significance were the left spigelian hernia. There were omental adhesions to this area. This area was ripped exposed by retraction of the skin and fascia. I carefully dissected the herniated contents of omentum and properitoneal fat. Eventually the contents were completely reduced. The Spigelian hernia defect was easily seen. I closed the defect with 2 [id number] mattress sutures of 0 Ethibond. Each of these sutures incorporated all of the fascial layers of the abdominal wall at this location. The repair appeared quite satisfactory. we then turned our attention to the stomach. There appeared to be quite a large stomach possibly due to the distal gastric obstruction. Nasogastric tube was checked and positioned appropriately in the stomach. I then performed a Wally maneuver mobilizing the duodenum by dividing its lateral peritoneal attachments. Common bile duct was seen as was the aorta and vena cava. Full mobilization of the duodenum was performed. I palpated the area of the pylorus on the stomach. It appeared quite stenotic. I divided the omentum from the greater curvature at about the longterm point of the stomach using the LigaSure device. I freed up the greater curvature of the stomach from about the mid stomach down to the pylorus using the LigaSure. Almost no bleeding occurred. I then opened an area in the lesser sac and divided the lesser omentum to the distal lesser curvature. In the area of the pylorus and duodenal bulb, the LigaSure was used and we carefully divided vascular attachments to this area until an area had been dissected posterior to the duod
--- NOTE | 2022-03-07 17:30 | ADMGEN ---
This patient, Maria Alejandra Cotto, was admitted to 2 Medical Room 256-. Patient/family oriented to hospital policies and general routines including ID bracelet, bed and alarms, visiting hours, pain management, procedures, bathroom and other care routines, personal items, smoking policy, room service/diet, and visiting hours. Information on how to activate the Rapid Response Team has been discussed. Patient/Family are encouraged to report perceived risks to care and to ask questions if they do not understand what they are told or what they should do.
[2022-03-07] MEDS: LACTATED RINGERS 1,000 ML 100 ML IV CONT (17:53)
[2022-03-07] MEDS: IBUPROFEN IV 800 MG/200 ML 800 MG/200 ML BAG 400 MG IVPB (17:54)
[2022-03-07] MEDS: MORPHINE SULFATE PCA (*CRX) 30 MG/30 ML SYR IV CONT (18:04)
--- NOTE | 2022-03-07 20:00 | WPDCN ---
Assessment and Plan Assessment and plan (1) Pyloric stricture: Code(s): K31.1 - Adult hypertrophic pyloric stenosis Status: Acute Assessment and Plan: Status post hemigastrectomy with Lyly-en-Y gastrojejunostomy. Wound care and pain control deferred to Dr. Roman. (2) Spigelian hernia: Code(s): K43.9 - Ventral hernia without obstruction or gangrene Status: Acute Assessment and Plan: Postoperative day 0, status post repair of left spigelian hernia. Wound care and pain control deferred to Dr. Roman. (3) Gastroesophageal reflux disease: Code(s): K21.9 - Gastro-esophageal reflux disease without esophagitis Status: Acute Assessment and Plan: Continue pantoprazole 40 mg IV. (4) Migraine headache: Code(s): G43.909 - Migraine, unspecified, not intractable, without status migrainosus Status: Acute Assessment and Plan: Resume topiramate and amitriptyline once tolerating p.o. (5) Peptic ulcer disease: Code(s): K27.9 - Peptic ulcer, site unspecified, unspecified as acute or chronic, without hemorrhage or perforation Status: Acute Assessment and Plan: Continues PPI. (6) Tobacco use: Code(s): Z72.0 - Tobacco use Status: Acute Assessment and Plan: Smoking cessation is encouraged. Declines the need for a nicotine patch. Additional Plan Thank you for allowing us to participate in this patient's care. Please do not hesitate to contact us with any questions. Supervising physician for this medical consultation is Dr. Royal Cabrera. HPI Data of Consult Date/Time: 03/07/22 20:00 Requesting Physician: Will Roman MD Consult Narrative Reason for consult: Postoperative medical management. Narrative: This is a pleasant 47-year-old female with history of GERD, peptic ulcer disease with stricture, migraine headaches, and hypertension (no longer on medication) from the hospitalist service has been consulted for management of her medical conditions postoperatively. She has had ongoing issues with abdominal pain and nausea over the past year with an unintentional 35 to 40 lb weight loss. EGDs done in August 2021 and January [address] Daniels showed pyloric stenosis and despite dilatation and PPI treatment her symptoms have persistent. She is now status post hemigastrectomy with Lyly-en-Y gastrojejunostomy and repair of left spigelian hernia per Dr. Roman. Her surgery was performed under general anesthesia with no immediate complications documented an estimated blood loss of 100 mL. She is on a [employer]MENT [employer] pump and is still having quite a bit of sharp shooting pain in the mid and upper abdomen. She has no other complaints aside from the pain and specifically denies fever, chills, sweats, chest pain, and shortness of breath. Review of Systems Review of Systems: Twelve systems were reviewed and are negative except for as per HPI. [facility] Past Medical History Medical History Depression Gastroesophageal reflux disease Hyperlipidemia Hypertension Migraine headache Peptic ulcer disease Tobacco use Surgical History Surgical History (Updated 03/07/22 @ 22:18 by Melony Goddard PA-C) History of laparoscopic cholecystectomy (08/2017) History of laparoscopy X2 for endometriosis. History of right salpingo-oophorectomy (12/2001) History of total vaginal hysterectomy (12/2001) Family History Family History Other Breast cancer Social History Social History (Updated 03/07/22 @ 22:19 by Melony Goddard PA-C) Social History: Surrogate decision maker: Luz Elena Lyon, mother. Code status: Full code. Smoking packs per day: 0.5 Smoking cigarettes per day: 10.0 Years smoked: 25 Smoking pack-years: 12.50 Smoking status: Current every day smoker Alcohol intake: never Alcohol use details: rarely Substance use: never
[2022-03-08] VITALS (19 sets, daily range): BP systolic 78–101; BP diastolic 50–61; PULSE 80–136; RESP 5–20; TEMP 36.4–36.9; O2SAT 92–98
[2022-03-08] MEDS: IBUPROFEN IV 800 MG/200 ML 800 MG/200 ML BAG 400 MG IVPB ×4 (00:39→18:22)
--- NOTE | 2022-03-08 03:50 | PC.NURSE ---
Basal rate set at 0ml/hr from original administration at 1804. Basal rate changed to 1ml/hr at 0030 as ordered by provider.
[2022-03-08] MEDS: LACTATED RINGERS 1,000 ML 100 ML IV CONT (04:53)
[2022-03-08] MEDS: MORPHINE SULFATE PCA (*CRX) 30 MG/30 ML SYR IV CONT ×2 (05:02→11:10)
[2022-03-08 05:49] LABS: Hematocrit 35.3 % (37.0-47.0); Hemoglobin 10.7 g/dL (12.0-15.0); Mean Corpuscular HGB Conc 30.3 g/dl (32-36); Mean Corpuscular Hemoglobin 28.2 pg (26-34); Mean Corpuscular Volume 92.9 fl (80-100); Mean Platelet Volume 9.3 fl (7.4-10.4); Platelet Count Result 281 k/mm3 (150-375); Red Cell Distribution Width 19.5 % (11.5-14.5); White Blood Count 18.1 K/mm3 (4.5-10.0)
[2022-03-08 06:03] LABS: Alanine Aminotransferase 22 U/L (6-35); Alkaline Phosphatase 69 U/L (38-126); Anion Gap 2 mmol/L (8-16); Aspartate Amino Transferase 65 U/L (14-36); Bilirubin,Total 0.4 mg/dL (0.2-1.3); Blood Urea Nitrogen 18 mg/dL (7-17); Calcium 7.6 mg/dL (8.4-10.2); Carbon Dioxide 25 mmol/L (22-30); Chloride 110 mmol/L (98-107); Estimated CRCL calculation 60 ml/min; Estimated Glomerular Filt Rate > 60; Glucose 122 mg/dL (65-110); Magnesium 1.4 mg/dL (1.6-2.3); Potassium 3.8 mmol/L (3.4-5.0); Sodium 137 mmol/L (137-145)
[2022-03-08] MEDS: SODIUM CHLORIDE 0.9% IV 1,000 ML 999 ML IV CONT ×2 (06:30→23:40)
--- NOTE | 2022-03-08 07:57 | WPDANESPN ---
Anes - Prog Note Post-Op Date/Time: 03/08/22 07:57 Cardiovascular status: normal Respiratory status: normal Airway patency: baseline Mental status: baseline Post-Op hydration status: normal Vital Signs: Last Vital Signs Temp 36.4 C 03/08/22 06:09 Pulse 87 03/08/22 06:09 Resp 10 L 03/08/22 06:09 BP 94/58 L 03/08/22 06:09 Pulse Ox 97 03/08/22 06:09 O2 Del Method Nasal Cannula 03/07/22 20:45 O2 Flow Rate 1 03/07/22 20:45 Pain Score (VAS): 3 I/O: Intake & Output 03/07/22 03/07/22 03/08/22 15:59 23:59 07:59 Intake Total 50 700 1429.9 Output Total 145 150 Balance 50 555 1279.9 Laboratory Tests 03/08/22 05:31 03/08/22 05:31 03/08/22 03/08/22 05:31 05:31 WBC 18.1 H RBC 3.80 L Hgb 10.7 L Hct 35.3 L MCV 92.9 MCH 28.2 MCHC 30.3 L RDW 19.5 H Plt Count 281 MPV 9.3 Sodium 137 Potassium 3.8 Chloride 110 H Carbon Dioxide 25 Anion Gap 2 L BUN 18 H Creatinine 0.80 Estim Creat Clear Calc 60 Estimated GFR > 60 Glucose 122 H Calcium 7.6 L Magnesium 1.4 L Total Bilirubin 0.4 Direct Bilirubin 0.0 AST 65 H ALT 22 Alkaline Phosphatase 69 Total Protein 5.0 L Albumin 3.0 L Post-procedural complaints: none Patient Feedback: Patient satisfied with anesthetic care.
[2022-03-08] MEDS: PANTOPRAZOLE SODIUM IV 40 MG VIAL IV PUSH (08:53)
[2022-03-08] MEDS: ENOXAPARIN 40 MG/0.4 ML SYRINGE SUB-Q (08:53)
--- NOTE | 2022-03-08 10:29 | PM.PNGS ---
Progress Note: A&P Assessment and Plan (1) Pyloric stricture: Code(s): K31.1 - Adult hypertrophic pyloric stenosis Status: Chronic Assessment and Plan: doing well postop day 1. Will reduce basal rate on CLASSIFICATION CASE MANAGER to 0. DC Scott catheter. Up walking today. Continue NPO and NG tube. Follow exam and labs. 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 Subjective Subjective Date/Time Seen: 03/08/22 10:29 Post Op day: 1 Patient reports: pain is less, no flatus, no bowel movement and afebrile Interval history: has not been up yet. Wants ice chips. Reports she is very thirsty. Exam Const: General: comfortable and no acute distress; No confusion Orientation/consciousness: patient oriented x3 and No confusion GI: Inspection: non-distended and incision ( dressing dry and intact) GI Palp: Yes Soft to palpation, Yes Tenderness to palpation present (GI), No Guarding due to palpation present (GI) and No Rebound tenderness present Auscultation: absent bowel sounds Neuro: General: patient oriented x3, no focal motor deficits and No confusion Extrem: General: no calf tenderness and no edema Objective Data Vital Signs Vital Signs: Vital Signs - 24 hr 03/07/22 10:35 03/07/22 15:47 03/07/22 16:00 Temperature 37.6 C H 36.4 C L Pulse Rate 79 63 55 L Respiratory Rate 16 7 L 10 L Blood Pressure 107/65 97/62 L Pulse Oximetry 100 100 100 Oxygen Delivery Room Air Simple Face Mask Simple Face Mask Oxygen Flow Rate 8 8 03/07/22 16:15 03/07/22 16:30 03/07/22 16:45 Temperature Pulse Rate 61 62 73 Respiratory Rate 10 L 12 12 Blood Pressure 108/65 95/50 L 98/60 L Pulse Oximetry 100 92 93 Oxygen Delivery Simple Face Mask Room Air Room Air Oxygen Flow Rate 8 03/07/22 16:49 03/07/22 17:00 03/07/22 17:03 Temperature 36.1 C L Pulse Rate 58 L 72 Respiratory Rate 12 16 Blood Pressure 105/59 L 99/62 L Pulse Oximetry 97 100 100 Oxygen Delivery Nasal Cannula Nasal Cannula Oxygen Flow Rate 1 1 03/07/22 17:18 03/07/22 18:04 03/07/22 17:48 Temperature 35.9 C L Pulse Rate 64 61 Respiratory Rate 16 14 14 Blood Pressure 104/62 104/59 L Pulse Oximetry 100 100 100 Oxygen Delivery Oxygen Flow Rate 03/07/22 18:22 03/07/22 17:30 03/07/22 20:35 Temperature 36.3 C L Pulse Rate 71 70 Respiratory Rate 14 Blood Pressure 93/61 L Pulse Oximetry 99 99 96 Oxygen Delivery Nasal Cannula Nasal Cannula Oxygen Flow Rate 1 1 03/07/22 20:53 03/07/22 22:36 03/07/22 20:45 Temperature 37.1 C Pulse Rate 78 74 Respiratory Rate 12 10 L Blood Pressure 96/62 L 96/60 L Pulse Oximetry 95 97 96 Oxygen Delivery Nasal Cannula Oxygen Flow Rate 1 03/08/22 00:30 03/08/22 00:46 03/08/22 02:30 Temperature 36.4 C Pulse Rate 80 Respiratory Rate 10 L 12 9 L Blood Pressure 101/61 Pulse Oximetry 98 98 93 Oxygen Delivery Oxygen Flow Rate 03/08/22 05:02 03/08/22 06:09 03/08/22 06:02 Temperature 36.4 C Pulse Rate 87 Respiratory Rate 17 10 L 16 Blood Pressure 94/58 L Pulse Oximetry 97 97 96 Oxygen Delivery Oxygen Flow Rate 03/08/22 09:05 Temperature Pulse Rate 98 Respiratory Rate Blood Pressure Pulse Oximetry 97 Oxygen Delivery Nasal Cannula Oxygen Flow Rate 1 Intake/Output Intake/Output: Intake & Output 03/05/22 03/06/22 03/07/22 03/08/22 23:59 23:59 23:59 23:59 Intake Total 750 1429.9 Output Total 145 150 Balance 605 1279.9 Meds/Results Medications: Active Medications Generic Name Dose Route Start Last Admin Trade Name Freq PRN Reason Stop Dose Admin Enoxaparin Sodium 40 mg 03/08/22 09:00 03/08/22 08:53 Enoxaparin 40 Mg/0.4
[2022-03-08] MEDS: KCL 40 MEQ/0.9% SOD CHL 1,000 ML 80 ML IV CONT (13:56)
--- NOTE | 2022-03-08 14:12 | ECG_ITS ---
Measurements Intervals [place] Rate: 126 P: 31 HI: 100 QRS: 36 QRSD: 81 T: 6 QT: 302 QTc: 437 Interpretive Statements SINUS TACHYCARDIA WITH SHORT HI INTERVAL NONSPECIFIC ST & T-WAVE ABNORMALITY ABNORMAL RHYTHM ECG COMPARED TO ECG 03/05/2022 15:08:39 SINUS TACHYCARDIA NOW PRESENT Electronically Signed On 03-08-2022 14:46:57 CDT by Royal Baird M.D.
--- NOTE | 2022-03-08 16:30 | PM.IMPN ---
Progress Note: A&P Assessment and Plan (1) Pyloric stricture: Code(s): K31.1 - Adult hypertrophic pyloric stenosis Status: Chronic Assessment and Plan: Status post hemigastrectomy with Lyly-en-Y gastrojejunostomy. Wound care and pain control deferred to Dr. Roman. 03/08/2022 interval history: patient with pyloric stricture status post hemigastrectomy with Lyly-en-Y gastrojejunostomy and repair of left spigelian hernia POD#1, patient with NG tube complaint abdominal, on TIE BUCKER for pain control, not passing any gas, seen by surgery service, awaiting return of the bowel function, will continue to monitor. encourage to ambulate. patient family is present in the room. (2) Spigelian hernia: Code(s): K43.9 - Ventral hernia without obstruction or gangrene Status: Chronic Assessment and Plan: Postoperative day 0, status post repair of left spigelian hernia. Wound care and pain control deferred to Dr. Roman. (3) Gastroesophageal reflux disease: Code(s): K21.9 - Gastro-esophageal reflux disease without esophagitis Status: Acute Assessment and Plan: Continue pantoprazole 40 mg IV. (4) Migraine headache: Code(s): G43.909 - Migraine, unspecified, not intractable, without status migrainosus Status: Acute Assessment and Plan: Resume topiramate and amitriptyline once tolerating p.o. (5) Peptic ulcer disease: Code(s): K27.9 - Peptic ulcer, site unspecified, unspecified as acute or chronic, without hemorrhage or perforation Status: Chronic Assessment and Plan: Continues PPI. (6) Tobacco use: Code(s): Z72.0 - Tobacco use Status: Acute Assessment and Plan: Smoking cessation is encouraged. Declines the need for a nicotine patch. Subjective Date/time seen: 03/08/22 16:30 HPI-This is a pleasant 47-year-old female with history of GERD, peptic ulcer disease with stricture, migraine headaches, and hypertension (no longer on medication) from the hospitalist service has been consulted for management of her medical conditions postoperatively. She has had ongoing issues with abdominal pain and nausea over the past year with an unintentional 35 to 40 lb weight loss. EGDs done in August 2021 and [address] Daniels showed pyloric stenosis and despite dilatation and PPI treatment her symptoms have persistent. She is now status post hemigastrectomy with Lyly-en-Y gastrojejunostomy and repair of left spigelian hernia per Dr. Roman. Her surgery was performed under general anesthesia with no immediate complications documented an estimated blood loss of 100 mL. She is on a TIE BUCKER pump and is still having quite a bit of sharp shooting pain in the mid and upper abdomen. She has no other complaints aside from the pain and specifically denies fever, chills, sweats, chest pain, and shortness of breath. 03/08/2022 interval history: patient with pyloric stricture status post hemigastrectomy with Lyly-en-Y gastrojejunostomy and repair of left spigelian hernia POD#1, patient with NG tube complaint abdominal, on TIE BUCKER for pain control, not passing any gas, seen by surgery service, awaiting return of the bowel function, will continue to monitor. encourage to ambulate. patient family is present in the room. Review of Systems Review of Systems: Twelve systems were reviewed and are negative except for as per HPI. Exam Narrative: Patient is comfortable, NAD HEENT: eyes are clear and none icteric, NG tube in place LUNGS: normal respiratory effort ABD: not distended Lower extremities: no edema SKIN: nonjaundiced Neuro: grossly intact. Objective Data Vital Signs Vital Signs: Vital Signs - 24 hr 03/07/22 16:45 03/07/22 16:49 03/07/22 17:00 Temperature Pulse Rate 73 58 L Respiratory Rate 12 12 Blood Pressure 98/60 L 105/59 L Pulse Oximetry 93 97 100 Oxygen Delivery Room Air Nasal Cannula Nasal Cannula Oxygen
[2022-03-08 17:29] LABS: Hematocrit 46.1 % (37.0-47.0); Hemoglobin 13.4 g/dL (12.0-15.0)
[2022-03-08] MEDS: SODIUM CHLORIDE 0.9% IV 1,000 ML 999 ML (18:00)
--- NOTE | 2022-03-08 18:50 | P.PNCROSS_ITS ---
Event Note Event Note Event Note: S: Per RN, the patient has been somnolent this afternoon and this evening her capnography was alarming high with a low respiratory rate. Dr. Arrieta at bedside upon my arrival and he had ordered a fluid bolus. Patient was hypotensive with blood pressures in the 70s over 50s. She was also tachycardic and a stat EKG showed a sinus tachycardia with a rate of 126. 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 Urine output has only been about 295 mL since yesterday. Patient was given 0.2 mg of Narcan x1 with immediate response, now awake, alert, and oriented with a respiratory rate of about 16. O: Patient was somnolent but arousable to noxious stimuli however she fell back asleep quite quickly She was tachycardic with a rate of about [id number] at the time my evaluation. Respirations were anywhere between 8 to 10 a minute. She appeared in no respiratory distress and lungs are clear to auscultation. Mouth was tacky. NG tube drained needing a small amount of clear/light pink tinged fluid. NG suction container had approximately 250 cc of dark opaque red fluid. Abdomen was soft with quiet bowel sounds. No cyanosis, clubbing, or edema. A: Hypotension: I suspect that she is dry with low urine output, sepsis seems less likely. Tachycardia: Probably due to dehydration. Pulmonary embolism and sepsis seems less likely by history and presentation. Somnolence: Likely related to morphine. P: Reinsert Scott catheter for strict I/O. Stat labs have been ordered including CBC, CMP, lactic acid, and ABG. Discontinue morphine, changed to IV acetaminophen for pain control. Continue IV fluid bolus. 0.2 mg Narcan x1 with immediate response. Critical Care Time Critical Care Time: Yes Total Critical Care Time: 35 Attestation: Due to a high probability of clinically significant, life threatening deteriora tion, the patient required my highest level of preparedness to intervene emergently and I personally spent this critical care time directly and personally managing the patient. This critical care time included obtaining a history; examining the patient; pulse oximetry; ordering and review of studies; arranging urgent treatment with development of a management plan; evaluation of patient's response to treatment; frequent reassessment; and discussions with other providers. Please see Assessment and Plan section and the rest of the note for further information on patient assessment and treatment.
[2022-03-08 19:03] LABS: Alveolar/Arterial O2 Gradient 56.7 mmHg; Base Excess ABG -12.2 mEq/l (+/-2.0); Fractional Inspired Oxygen 28 %; HCO3 ABG 16.5 mEq/l (22.0-26.0); Oxygen Content ABG 16.9 %vol (16.0-22.0); Oxygen Saturation ABG 93.4 % (95.0-100.0); Oxyhemoglobin 92.8 % THb (90.0-100.0); PCO2 ABG 48.5 mmHg (35.0-45.0); PO2 ABG 85.7 mmHg (80.0-100.0); PO2 FiO2 Ratio Arterial Blood 3.06 %; Total Hemoglobin 12.9 g/dL (12.0-18.0)
[2022-03-08 19:05] LABS: pH ABG 7.149 (7.350-7.450)
[2022-03-08 19:06] LABS: Device NASAL CANNULA; Site Drawn RIGHT BRACHIAL
[2022-03-08 19:31] LABS: Hematocrit 39.9 % (37.0-47.0); Hemoglobin 11.6 g/dL (12.0-15.0); Mean Corpuscular HGB Conc 29.1 g/dl (32-36); Mean Corpuscular Hemoglobin 27.8 pg (26-34); Mean Corpuscular Volume 95.5 fl (80-100); Mean Platelet Volume 9.3 fl (7.4-10.4); Platelet Count Result 320 k/mm3 (150-375); Red Blood Count 4.18 M/mm3 (4.2-5.4); Red Cell Distribution Width 19.9 % (11.5-14.5); White Blood Count 19.5 K/mm3 (4.5-10.0)
[2022-03-08 19:40] LABS: Lactic Acid Reflex 1.9 mmol/L (0.7-2.0)
[2022-03-08 19:41] LABS: Alanine Aminotransferase 18 U/L (6-35); Albumin Level 2.4 g/dL (3.5-5.1); Alkaline Phosphatase 65 U/L (38-126); Anion Gap 6 mmol/L (8-16); Aspartate Amino Transferase 55 U/L (14-36); Bilirubin,Total 0.4 mg/dL (0.2-1.3); Blood Urea Nitrogen 25 mg/dL (7-17); Calcium 6.4 mg/dL (8.4-10.2); Carbon Dioxide 20 mmol/L (22-30); Chloride 113 mmol/L (98-107); Estimated CRCL calculation 26 ml/min; Estimated Glomerular Filt Rate 27; Glucose 90 mg/dL (65-110); Magnesium 1.2 mg/dL (1.6-2.3); Potassium 4.6 mmol/L (3.4-5.0); Sodium 139 mmol/L (137-145)
[2022-03-08] MEDS: NALOXONE HCL 0.4 MG/ML VIAL (19:42)
[2022-03-08] MEDS: LACTATED RINGERS 1,500 ML 999 ML IV CONT (20:37)
[2022-03-08] MEDS: MAGNESIUM SULFATE 3GM/D5W100ML 3 GM/100 ML BAG IVPB (20:56)
[2022-03-08] MEDS: CALCIUM GLUC 1,000 MG/NS 50 ML 1,000 MG/50 ML BAG 100 MG IVPB (20:58)
[2022-03-08 22:59] LABS: Anion Gap 7 mmol/L (8-16); Blood Urea Nitrogen 28 mg/dL (7-17); Calcium 7.1 mg/dL (8.4-10.2); Carbon Dioxide 19 mmol/L (22-30); Chloride 111 mmol/L (98-107); Estimated CRCL calculation 25 ml/min; Estimated Glomerular Filt Rate 25; Glucose 105 mg/dL (65-110); Magnesium 2.6 mg/dL (1.6-2.3); Potassium 4.5 mmol/L (3.4-5.0); Sodium 137 mmol/L (137-145)
[2022-03-08 23:02] LABS: Alveolar/Arterial O2 Gradient 61.8 mmHg; Base Excess ABG -12.8 mEq/l (+/-2.0); Carboxyhemoglobin 0.5 % THb (0-2.0); Fractional Inspired Oxygen 28 %; HCO3 ABG 15.2 mEq/l (22.0-26.0); Methemoglobin ABG 0.3 %THb (0-1.5); Oxygen Content ABG 14.7 %vol (16.0-22.0); Oxyhemoglobin 93.8 % THb (90.0-100.0); PCO2 ABG 43.2 mmHg (35.0-45.0); PO2 ABG 86.9 mmHg (80.0-100.0); Reduced Hemoglobin 5.4 %THb (0-5.0); Total Hemoglobin 11.1 g/dL (12.0-18.0)
[2022-03-08 23:07] LABS: Device NASAL CANNULA; Modified Allen's Test Pass; Site Drawn LEFT RADIAL; pH ABG 7.164 (7.350-7.450)
[2022-03-09] VITALS (42 sets, daily range): BP systolic 80–138; BP diastolic 44–87; PULSE 34–135; RESP 11–39; TEMP 36.4–37.8; O2SAT 89–98
[2022-03-09] MEDS: LACTATED RINGERS 1,000 ML 999 ML IV CONT (00:22)
[2022-03-09] MEDS: SODIUM BICARBONATE 8.4% 50 MEQ/50 ML SYRINGE 100 MEQ IV PUSH (00:31)
--- NOTE | 2022-03-09 00:56 | PC.NURSE ---
report called to alana rn in imu and patient moved to room 207 per negro singletary's orders for higher level of care. d/t poor abg's, hypotension, tachycardia, and acute renal failure. nephrology consulted and surgery notified of transfer to higher level of care.
--- NOTE | 2022-03-09 01:04 | PC.NURSE ---
This patient, Maria Alejandra Cotto, was received from [[id number]] on 03/09/22 at 0100. Patient/family oriented to unit policies and routines
[2022-03-09] MEDS: LACTATED RINGERS 1,000 ML 75 ML IV CONT ×2 (01:27→12:03)
[2022-03-09] MEDS: HYDROmorphone HCL INJ (*CRX) 1 MG/ML SYR IV PUSH (01:48)
[2022-03-09 04:44] LABS: Hematocrit 37.8 % (37.0-47.0); Hemoglobin 11.5 g/dL (12.0-15.0); Mean Corpuscular HGB Conc 30.4 g/dl (32-36); Mean Corpuscular Hemoglobin 28.2 pg (26-34); Mean Corpuscular Volume 92.6 fl (80-100); Mean Platelet Volume 9.9 fl (7.4-10.4); Platelet Count Result 314 k/mm3 (150-375); Red Blood Count 4.08 M/mm3 (4.2-5.4); Red Cell Distribution Width 19.9 % (11.5-14.5)
[2022-03-09 04:53] LABS: Anion Gap 3 mmol/L (8-16); Blood Urea Nitrogen 32 mg/dL (7-17); Calcium 6.6 mg/dL (8.4-10.2); Carbon Dioxide 23 mmol/L (22-30); Chloride 110 mmol/L (98-107); Estimated CRCL calculation 23 ml/min; Estimated Glomerular Filt Rate 23; Glucose 110 mg/dL (65-110); Magnesium 2.2 mg/dL (1.6-2.3); Phosphorus 5.4 mg/dL (2.5-4.5); Potassium 4.5 mmol/L (3.4-5.0); Sodium 136 mmol/L (137-145)
[2022-03-09 05:52] LABS: Alveolar/Arterial O2 Gradient 69.6 mmHg; Base Excess ABG -6.7 mEq/l (+/-2.0); Fractional Inspired Oxygen 28 %; HCO3 ABG 19.9 mEq/l (22.0-26.0); Methemoglobin ABG 0.3 %THb (0-1.5); Oxygen Content ABG 16.2 %vol (16.0-22.0); Oxygen Saturation ABG 93.9 % (95.0-100.0); Oxyhemoglobin 93.4 % THb (90.0-100.0); PO2 ABG 78.1 mmHg (80.0-100.0); PO2 FiO2 Ratio Arterial Blood 2.79 %; Reduced Hemoglobin 5.3 %THb (0-5.0); Total Hemoglobin 12.3 g/dL (12.0-18.0)
[2022-03-09 05:53] LABS: Device NASAL CANNULA; Site Drawn RIGHT BRACHIAL; pH ABG 7.273 (7.350-7.450)
[2022-03-09] MEDS: PANTOPRAZOLE SODIUM IV 40 MG VIAL IV PUSH (08:42)
[2022-03-09] MEDS: NICOTINE (*PBKC) 14 MG PATCH 1 PATCH TRANSDERM (08:42)
[2022-03-09] MEDS: ENOXAPARIN 40 MG/0.4 ML SYRINGE SUB-Q (08:43)
--- NOTE | 2022-03-09 11:25 | PM.CNNEP ---
Assessment and Plan Additional Plan 1. The patient has acute kidney injury. This is on top of normal kidney function. Her creatinine winifred soon after surgery. The patient has had soft blood pressures and 1 in particular was down to 78 so this could be pre renal physiology. Perhaps she is third-spacing because of this belly surgery. The patient had a temperature of 37.7? this morning which is her highest temperature since she has been here. Her white count is a little bit high. I suppose infection is a possibility but not strongly considered. The patient did receive some ibuprofen which should not all by itself cause kidney failure but could cause an exaggeration of the rise in the creatinine. This has been discontinued. Obstruction is a possibility, especially since the creatinine winifred so quickly and then suddenly stabilized. Will check a renal ultrasound. Rhabdomyolysis is a small possibility. Will check a urinalysis and a CPK. GN and allergic interstitial nephritis are unlikely in this clinical scenario. At this point will get a CPK, urine electrolytes, urine eosinophils, renal sonogram. 2. The patient has hypotension. The patient says that she does not have hypertension now but apparently she did in the past. Perhaps her weight loss has contributed to an improvement in her blood pressure. The low blood pressure could be from 3rd spacing and intravascular volume depletion. The 3rd spacing is probably from the surgery but also the patient's albumin was fairly low yesterday so this could also lead to some 3rd spacing. Adrenal insufficiency is always a possibility so we will check a cortisol level. At this point will check a cortisol level, continue lactated Ringer's for now, and also give her some albumin. 3. Status post hemigastrectomy and Lyly-en-Y. Patient the postoperative phase now. 4. GERD. The patient is on a PPI 5. Metabolic acidosis this was transient there was a mild increase in her anion gap. Lactic acid level yesterday was okay. Possibly this is just due to uremic poisons. Her anion gap and acidosis are better today. Will repeat the lactic acid today. History of Present Illness Reason for Consult Consult date: 03/09/22 Chief Complaint Chief complaint: peptic ulcer disease with stricture History of Present Illness Narrative: Maria Alejandra is a very pleasant 47-year-old lady who has longstanding GERD, peptic ulcer disease with a stricture, migraines, and hypertension but not on medication. Over the last few months the patient has had gradually progressive indigestion, nausea and vomiting. She went to see Dr. Valenzuela. He did an EGD in August which showed pyloric stenosis. She had dilatation several times but still her symptoms persisted so she went to Dr. Roman. He evaluated her and found that since she had failed with PPI I's and with dilatations that she would need surgery. In the last few days to week she has not been able to eat very much in spite of these dilatations. She has lost about 35-40 lb overall. She was admitted on the of this month for surgery. Dr. Roman did a him egress rectum E with a Lyly-en-Y gastrojejunostomy and repair of left spigelian hernia. She received IV fluids from the beginning. Her blood pressure had been ranging from 90 to 110 1st day, the following day she did dip into the 70s at 1 point and has been in the 90s or higher since then. She received fluids, antibiotics, some electrolytes, pantoprazole O down ondansetron propofol ibuprofen, pain medicines, Dexamethasone and Lovenox throughout the hospital stay. On the her creatinine was 0.8, on the in the morning it was 0.8 again but by evening creatinine had risen to 2 and this morning it was 2.3 so renal consultation was requested. She does have a respiratory and metabolic acidosis. She was given narcotics for pain and so that is felt to be causing the respiratory acidosis. She has not had diarrhea or any medications wou
[2022-03-09] MEDS: ALBUMIN HUMAN 25% 25 GM/100 ML 100 ML IVPB ×2 (12:02→17:10)
--- NOTE | 2022-03-09 12:04 | PM.IMPN ---
Progress Note: A&P Assessment and Plan (1) Pyloric stricture: Code(s): K31.1 - Adult hypertrophic pyloric stenosis Status: Chronic Assessment and Plan: Status post hemigastrectomy with Lyly-en-Y gastrojejunostomy. Wound care and pain control deferred to Dr. Roman. 03/08/2022 interval history: patient with pyloric stricture status post hemigastrectomy with Lyly-en-Y gastrojejunostomy and repair of left spigelian hernia POD#1, patient with NG tube complaint abdominal, on STORE CLERK CHECKER for pain control, not passing any gas, seen by surgery service, awaiting return of the bowel function, will continue to monitor. encourage to ambulate. patient family is present in the room. 03/09/2022 interval history: patient with pyloric stricture status post hemigastrectomy with Lyly-en-Y gastrojejunostomy and repair of left spigelian hernia POD#2, patient with NG tube complained abdominal, was on STORE CLERK CHECKER for pain control, on 03/08 patient was became somnolent, had a sinus tachycardia, patient was given Narcan and her symptoms improved and transferred to IMU, today patient is clinically better, however her ABG showed CO2 retention will place the patient BiPAP, and will repeat ABG, today patient is feel like she is going to have a BM, waiting for the return of the bowel function, seen by surgery service, will continue to monitor. encourage to ambulate. (2) Spigelian hernia: Code(s): K43.9 - Ventral hernia without obstruction or gangrene Status: Chronic Assessment and Plan: Postoperative day 0, status post repair of left spigelian hernia. Wound care and pain control deferred to Dr. Roman. (3) Gastroesophageal reflux disease: Code(s): K21.9 - Gastro-esophageal reflux disease without esophagitis Status: Acute Assessment and Plan: Continue pantoprazole 40 mg IV. (4) Migraine headache: Code(s): G43.909 - Migraine, unspecified, not intractable, without status migrainosus Status: Acute Assessment and Plan: Resume topiramate and amitriptyline once tolerating p.o. (5) Peptic ulcer disease: Code(s): K27.9 - Peptic ulcer, site unspecified, unspecified as acute or chronic, without hemorrhage or perforation Status: Chronic Assessment and Plan: Continues PPI. (6) Tobacco use: Code(s): Z72.0 - Tobacco use Status: Acute Assessment and Plan: Smoking cessation is encouraged. Declines the need for a nicotine patch. Subjective Date/time seen: 03/09/22 12:04 03/09/2022 interval history: patient with pyloric stricture status post hemigastrectomy with Lyly-en-Y gastrojejunostomy and repair of left spigelian hernia POD#2, patient with NG tube complained abdominal, was on STORE CLERK CHECKER for pain control, on 03/08 patient was became somnolent, had a sinus tachycardia, patient was given Narcan and her symptoms improved and transferred to IMU, today patient is clinically better, however her ABG showed CO2 retention will place the patient BiPAP, and repeat ABG, today patient is feel like she is going to have a BM, waiting for the return of the bowel function, seen by surgery service, awaiting return of the bowel function, will continue to monitor. encourage to ambulate. Exam Narrative: Patient is comfortable, NAD HEENT: eyes are clear and none icteric, NG tube in place LUNGS: normal respiratory effort ABD: not distended Lower extremities: no edema SKIN: nonjaundiced Neuro: grossly intact. Objective Data Vital Signs Vital Signs: Vital Signs - 24 hr 03/08/22 14:09 03/08/22 13:55 03/08/22 16:40 Temperature 98 F Pulse Rate 120 H 135 H Respiratory Rate 16 12 Blood Pressure 91/54 L Pulse Oximetry 97 95 Oxygen Delivery Oxygen Flow Rate Fraction of Inspired Oxygen 03/08/22 18:50 03/08/22 19:06 03/08/22 18:40 Temperature 98.3 F Pulse Rate 136 H 133 H Respiratory Rate 5 L 8 L 14 Blood Pressure 78/50 L Pulse Oximetry 9
--- NOTE | 2022-03-09 12:21 | PM.PNGS ---
Progress Note: A&P Assessment and Plan (1) Peptic ulcer disease: Code(s): K27.9 - Peptic ulcer, site unspecified, unspecified as acute or chronic, without hemorrhage or perforation Status: Chronic Assessment and Plan: exam benign, limit narcotic use, encourage OOB/IS, cont NG, bowel rest for now (2) Acute renal failure: Code(s): N17.9 - Acute kidney failure, unspecified Status: Acute Assessment and Plan: appreciate renal input, await further testing (3) Respiratory failure: Code(s): J96.90 - Respiratory failure, unspecified, unspecified whether with hypoxia or hypercapnia Status: Acute Assessment and Plan: likely secondary to over sedation, will limit narcotic use (4) Tachycardia: Code(s): R00.0 - Tachycardia, unspecified Status: Acute Assessment and Plan: likely rebound from B indy being discontinued, will follow Subjective Subjective Date/Time Seen: 03/09/22 12:21 events noted and transferred to IMU overnight, seems alert this am and answering questions appropriately, reports pain is present but controlled Review of Systems Review of Systems: ROS unobtainable: Yes unobtainable due to medical condition Exam Const: General: cooperative, no acute distress, ill appearing and tired appearing Orientation/consciousness: patient oriented x3 Resp: Auscultation: clear to auscultation bilaterally Cardio: Rate: tachycardic Rhythm: regular rhythm GI: Inspection: normal to inspection, distended and incision GI Palp: Yes abdominal tenderness, Yes Soft to palpation, Yes Tenderness to palpation present (GI), No Guarding due to palpation present (GI) and No Rigid due to palpation Objective Data Vital Signs Vital Signs: Vital Signs - 24 hr 03/08/22 14:09 03/08/22 13:55 03/08/22 16:40 Temperature 36.6 C Pulse Rate 120 H 135 H Respiratory Rate 16 12 Blood Pressure 91/54 L Pulse Oximetry 97 95 Oxygen Delivery Oxygen Flow Rate Fraction of Inspired Oxygen 03/08/22 18:50 03/08/22 19:06 03/08/22 18:40 Temperature 36.8 C Pulse Rate 136 H 133 H Respiratory Rate 5 L 8 L 14 Blood Pressure 78/50 L Pulse Oximetry 95 92 97 Oxygen Delivery Nasal Cannula Oxygen Flow Rate 2.0 Fraction of Inspired Oxygen 03/08/22 22:10 03/08/22 20:00 03/09/22 00:16 Temperature 36.9 C 36.8 C Pulse Rate 114 H 114 H 104 H Respiratory Rate 13 13 15 Blood Pressure 93/50 L 93/52 L Pulse Oximetry 95 95 95 Oxygen Delivery Nasal Cannula Oxygen Flow Rate 2 Fraction of Inspired Oxygen 03/09/22 01:06 03/09/22 01:20 03/09/22 01:01 Temperature 37.7 C H Pulse Rate 99 112 H Respiratory Rate 18 Blood Pressure 112/59 L Pulse Oximetry 93 93 Oxygen Delivery Nasal Cannula Oxygen Flow Rate 2 Fraction of Inspired Oxygen 03/09/22 02:00 03/09/22 03:49 03/09/22 04:00 Temperature 37.1 C Pulse Rate 104 H 118 H 118 H Respiratory Rate 12 Blood Pressure 105/66 Pulse Oximetry 94 Oxygen Delivery Oxygen Flow Rate Fraction of Inspired Oxygen 03/09/22 04:00 03/09/22 06:33 03/09/22 06:00 Temperature Pulse Rate 118 H 125 H Respiratory Rate 12 Blood Pressure Pulse Oximetry 94 95 Oxygen Delivery Nasal Cannula Nasal Cannula Oxygen Flow Rate 2 4 Fraction of Inspired Oxygen 03/09/22 08:00 03/09/22 08:00 03/09/22 10:18 Temperature 37.1 C Pulse Rate 134 H Respiratory Rate 22 H 11 L Blood Pressure 92/60 L Pulse Oximetry 98 97 94 Oxygen Delivery Nasal Cannula BiPAP Oxygen Flow Rate 4 Fraction of Inspired Oxygen 40 03/09/22 10:15 Temperature Pulse Rate 129 H Respiratory Rate 23 H Blood Pressure Pulse Oximetry 96 Oxygen Delivery BiPAP Oxygen Flow Rate Fraction of Inspired Oxygen Intake/Output Intake/Output: Intake & Output 03/06/22 03/07/22 03/08/22 03/09/22 23:59 23:59 23:59 23:59 Intake Total 750 4379.9 3826 Output Total 145 450 350 Balance 605
[2022-03-09 12:31] LABS: Alveolar/Arterial O2 Gradient 183.7 mmHg; Base Excess ABG -8.2 mEq/l (+/-2.0); Fractional Inspired Oxygen 40 %; HCO3 ABG 15.8 mEq/l (22.0-26.0); Oxygen Content ABG 15.8 %vol (16.0-22.0); Oxygen Saturation ABG 93.5 % (95.0-100.0); Oxyhemoglobin 92.4 % THb (90.0-100.0); PCO2 ABG 28.5 mmHg (35.0-45.0); PO2 ABG 68.7 mmHg (80.0-100.0); PO2 FiO2 Ratio Arterial Blood 1.72 %; Total Hemoglobin 12.1 g/dL (12.0-18.0); pH ABG 7.363 (7.350-7.450)
[2022-03-09 12:34] LABS: Device NON-INVASIVE VENT; Site Drawn RIGHT BRACHIAL
[2022-03-09 12:35] LABS: Non-Invasive Vent Rate 16 /MIN
[2022-03-09 12:36] LABS: Non-Invasive Expiratory Pressure 5 CMH2O; Non-Invasive Inspiratory Pressure 10 CMH2O
[2022-03-09 12:56] LABS: Creatine Kinase 2150 U/L (30-135)
--- NOTE | 2022-03-09 15:59 | PC.NURSE ---
Patient called out at 1545 and stated she felt she needed to cough. Bipap removed. Nasal cannula at 4L applied to allow patient to cough. Patient noted to have oxygen saturations of 85%. Oxygen titrated up to 10L NC with a bubbler, oxygen saturations not resolving and noted to only be at 88%. Bipap reapplied and FiO2 titrated to 65% FiO2. Patients oxygen saturations now 93%. MD Dr. Arrieta updated and made aware. New orders received.
--- NOTE | 2022-03-09 16:41 | PC.NURSE ---
[facility] assessment preformed at 1630. SVI 18.8%. Patient fluid responsive.
[2022-03-09] MEDS: SODIUM CHLORIDE 0.9% IV 500 ML IV CONT (17:02)
[2022-03-09] MEDS: SODIUM CHLORIDE 0.9% IV 1,000 ML 75 ML IV CONT (17:05)
[2022-03-09] MEDS: levoFLOXacin 500 MG/D5W 100 ML 500 MG/100 ML BAG 100 MG IVPB (17:56)
[2022-03-09 18:03] LABS: SARS-CoV-2 RNA PCR Negative
--- NOTE | 2022-03-09 19:01 | PC.NURSE ---
Patient to transfer to ICU. Report given to SUZI Araujo with ICU department at 2556. Patient to move to ICU room 6.
--- NOTE | 2022-03-09 19:25 | PM.EVENT ---
Event Note Event Note Event Note: Date and time of evaluation: 03/09/2022 at 19:25, reassessed several times throughout the night. Call received from Dr. Arrieta requesting that I come to evaluate the patient as he is off shift. Patient continues to have soft blood pressures despite adequate IV fluid resuscitation. Decision was made to transfer the patient to the ICU. Central line was placed and she was started on norepinephrine with improvement in blood pressures. Her pain continued to be 9/10 as she has not been receiving IV narcotics for the last 18 hours due to respiratory failure the prior evening. Acetaminophen 1 g IV given with minimal improvement. 12.5 mcg fentanyl given x1 with some improvement. Throughout the evening she became increasingly tachypneic and short of breath. Stat CT of the chest, abdomen, and pelvis demonstrated bilateral pleural effusions, moderate ascites, and body wall edema. Repeat chemistry show worsening renal function with a creatinine now up to 4.00 with minimal urine output. Case was discussed with Dr. Doherty (dairy nutrition consultant) on several occasions and I also spoke with Dr. Case (nephrology). At this time she has been started on a bicarbonate drip at 50 mL an hour and we will continue with albumin q.6 hours in hopes of drying fluid intravascularly. As her respiratory status was already tenuous, the decision was made to intubate electively before it became emergent. Case discussed with the patient and her mother (with the patient's permission) and they were in agreement. She was also started on broad-spectrum antibiotics as sepsis cannot be ruled out at this juncture. Critical Care Time Critical Care Time: Yes Total Critical Care Time: 50 Attestation: Due to a high probability of clinically significant, life threatening deterioration, the patient required my highest level of preparedness to intervene emergently and I personally spent this critical care time directly and personally managing the patient. This critical care time included obtaining a history; examining the patient; pulse oximetry; ordering and review of studies; arranging urgent treatment with development of a management plan; evaluation of patient's response to treatment; frequent reassessment; and discussions with other providers. Please see Assessment and Plan section and the rest of the note for further information on patient assessment and treatment.
--- NOTE | 2022-03-09 20:00 | WPDPROCEDUR ---
Procedures Central Line Placement Right Femoral: Central Line Date: 03/09/22 Central Line Time: 20:00 Consent: I have discussed with the patient and/or surrogate, the non-emergent placement of a central venous catheter, including its clinical necessity/indication and associated potential risks and complications. The patient and/or surrogate understand(s) and acknowledge(s) the need to proceed with central venous catheter insertion as an important element of the patient's clinical management. Time Out Performed: Yes Patient Position: supine Patient placed on monitor/pulse ox: Yes Provider Prep: mask, sterile gown, sterile gloves, Max. sterile barrier precautions, cap and hand hygiene with conventional soap/water or alcohol based hand rub Central line prep: 2% Chlorhexidine scrub Local anesthesia used: lidocaine 1% Amount of anesthesia used (ml): 5 Sterile US Technique with sterile gel/sterile probe covers: Yes Central line lumen inserted: triple Maltese: 7 Length (cm): 20 Post Procedure: sutured in place, good blood return, all ports aspirated, flushed, capped, transparent dressing, securement product and aseptic technique maintained throughout procedure Post procedure x-ray: other (n/a with femoral placement) Patient tolerated procedure: well Complications: none
[2022-03-09] MEDS: NOREPINEPHRINE 8 MG/D5W 250 ML 8 MG/250 ML BAG 9.38 MG IV CONT (20:28)
[2022-03-09 20:45] LABS: Hematocrit 27.7 % (37.0-47.0); Hemoglobin 8.5 g/dL (12.0-15.0); Mean Corpuscular HGB Conc 30.7 g/dl (32-36); Mean Corpuscular Hemoglobin 28.1 pg (26-34); Mean Corpuscular Volume 91.7 fl (80-100); Mean Platelet Volume 9.5 fl (7.4-10.4); Platelet Count Result 254 k/mm3 (150-375); Red Blood Count 3.02 M/mm3 (4.2-5.4); Red Cell Distribution Width 20.1 % (11.5-14.5); White Blood Count 4.9 K/mm3 (4.5-10.0)
[2022-03-09 20:56] LABS: Alanine Aminotransferase 18 U/L (6-35); Albumin Level 2.6 g/dL (3.5-5.1); Alkaline Phosphatase 41 U/L (38-126); Anion Gap 9 mmol/L (8-16); Aspartate Amino Transferase 82 U/L (14-36); Bilirubin,Total 0.6 mg/dL (0.2-1.3); Blood Urea Nitrogen 43 mg/dL (7-17); Calcium 6.4 mg/dL (8.4-10.2); Carbon Dioxide 17 mmol/L (22-30); Chloride 109 mmol/L (98-107); Estimated CRCL calculation 13 ml/min; Estimated Glomerular Filt Rate 12; Glucose 120 mg/dL (65-110); Lactic Acid Reflex 2.5 mmol/L (0.7-2.0); Phosphorus 3.3 mg/dL (2.5-4.5); Potassium 3.7 mmol/L (3.4-5.0); Sodium 135 mmol/L (137-145)
[2022-03-09 21:08] LABS: Creatine Kinase 2307 U/L (30-135)
[2022-03-09] MEDS: fentaNYL CITRATE INJ (*CRX) 100 MCG/2 ML VIAL 12.5 MCG IV PUSH (21:39)
[2022-03-09] MEDS: SODIUM BICARBONATE 8.4% 150 MEQ in DEXTROSE 5% 1,000 ML 950 ML 50 MEQ IV CONT (23:29)
[2022-03-09 23:43] LABS: Reflex Lactic Acid Yes or No Add Lactic
--- NOTE | 2022-03-09 23:50 | P.PCNBED_ITS ---
Procedures Intubation Intubation Date: 03/09/22 Intubation Time: 23:50 Consent: Patient gave verbal consent. A pre-procedural Time-Out was completed immediately before starting the procedure and confirmed: Patient Identification, Site, Procedure, Patient Position and the Availability of Requisite Equipment: Yes Sedative: etomidate Mg given: 15 Paralytic: succinylcholine Mg given: 100 Laryngoscope: Hemant Assist device used: fiber optic device ET tube size: 7.5 Tube secured depth (cm): 22 Tube secured location: lips Tube placement confirmation: visualized tube passing through cords, equal breath sounds bilaterally, no breath sounds over epigastrium and confirmation by capnometry Patient tolerated procedure: well Intubation complications: none Additional comments: Patient was preoxygenated on BiPAP at 100% FiO2. RSI was given and she was intubated quickly, easily, and atraumatically on 1st attempt. She remained hemodynamically stable throughout the procedure. Chest x-ray pending at the time of this dictation. Case discussed with Dr. Doherty (clinical medical assistant) and he gave vent settings and s edation orders. Case discussed with Dr. Devonte Hardin (attending ED physician) and he was in- house and readily available if needed.
[2022-03-10] VITALS (53 sets, daily range): BP systolic 62–138; BP diastolic 43–79; PULSE 93–131; RESP 20–33; TEMP 36.3–38.7; O2SAT 92–100
[2022-03-10] MEDS: MIDAZOLAM 100MG/NS 100ML(*CRX) 100 MG/100 ML BAG IV CONT ×2 (00:08→08:17)
[2022-03-10] MEDS: FENTANYL 2,500MCG/NS250ML(*CRX 2,500 MCG/250 ML BAG IV CONT (00:09)
[2022-03-10] MEDS: ALBUMIN HUMAN 25% 25 GM/100 ML 100 ML IVPB ×5 (00:21→23:09)
[2022-03-10] MEDS: fentaNYL CITRATE INJ (*CRX) 100 MCG/2 ML VIAL 12.5 MCG IV PUSH (00:43)
[2022-03-10] MEDS: MIDAZOLAM HCL (*CRX) 2 MG/2 ML VIAL IV PUSH (00:44)
[2022-03-10] MEDS: RAPID SEQUENCE INTUBATION KIT 1 EACH (01:49)
[2022-03-10 02:10] LABS: Alveolar/Arterial O2 Gradient 526.3 mmHg; Base Excess ABG -10.5 mEq/l (+/-2.0); Carboxyhemoglobin 0.1 % THb (0-2.0); Fractional Inspired Oxygen 100 %; HCO3 ABG 16.2 mEq/l (22.0-26.0); Oxygen Content ABG 13.1 %vol (16.0-22.0); Oxygen Saturation ABG 98.5 % (95.0-100.0); Oxyhemoglobin 97.8 % THb (90.0-100.0); PO2 ABG 147.7 mmHg (80.0-100.0); PO2 FiO2 Ratio Arterial Blood 1.48 %; Reduced Hemoglobin 2.1 %THb (0-5.0); Total Hemoglobin 9.3 g/dL (12.0-18.0)
[2022-03-10 02:11] LABS: pH ABG 7.235 (7.350-7.450)
[2022-03-10 02:12] LABS: Device VENTILATOR; Modified Allen's Test Pass; Site Drawn LEFT RADIAL
[2022-03-10 02:13] LABS: Arterial Blood Gas PEEP 5 cmH2O; Arterial Blood Gas Tidal Volume 380 ml; Arterial Blood Gas Vent Mode CMV; Arterial Blood Gas Ventilator rate 20 /MIN
[2022-03-10] MEDS: CENTRAL LINE FLUSH 10 ML IV PUSH ×3 (05:32→18:07)
[2022-03-10 05:37] LABS: Hematocrit 28.1 % (37.0-47.0); Hemoglobin 8.6 g/dL (12.0-15.0); Mean Corpuscular HGB Conc 30.6 g/dl (32-36); Mean Corpuscular Volume 91.5 fl (80-100); Platelet Count Result 291 k/mm3 (150-375); Red Blood Count 3.07 M/mm3 (4.2-5.4); White Blood Count 5.5 K/mm3 (4.5-10.0)
[2022-03-10 05:43] LABS: Albumin Level 2.8 g/dL (3.5-5.1); Anion Gap 10 mmol/L (8-16); Blood Urea Nitrogen 47 mg/dL (7-17); Calcium 6.2 mg/dL (8.4-10.2); Carbon Dioxide 18 mmol/L (22-30); Chloride 107 mmol/L (98-107); Estimated CRCL calculation 11 ml/min; Estimated Glomerular Filt Rate 10; Glucose 132 mg/dL (65-110); Phosphorus 4.1 mg/dL (2.5-4.5); Potassium 4.1 mmol/L (3.4-5.0); Sodium 135 mmol/L (137-145)
[2022-03-10 05:44] LABS: Lactic Acid Reflex 2.6 mmol/L (0.7-2.0)
[2022-03-10] MEDS: VASOPRESSIN INJ 100 UNITS in DEXTROSE 5% 95 ML IV CONT (06:07)
[2022-03-10 06:43] LABS: Alveolar/Arterial O2 Gradient 460.5 mmHg; Base Excess ABG -7.2 mEq/l (+/-2.0); Carboxyhemoglobin 0.1 % THb (0-2.0); Fractional Inspired Oxygen 80 %; HCO3 ABG 19.2 mEq/l (22.0-26.0); Methemoglobin ABG 0.2 %THb (0-1.5); Oxygen Content ABG 11.8 %vol (16.0-22.0); Oxygen Saturation ABG 90.4 % (95.0-100.0); Oxyhemoglobin 89.9 % THb (90.0-100.0); PCO2 ABG 42.2 mmHg (35.0-45.0); PO2 ABG 65.6 mmHg (80.0-100.0); PO2 FiO2 Ratio Arterial Blood 0.82 %; Reduced Hemoglobin 9.8 %THb (0-5.0); Total Hemoglobin 9.3 g/dL (12.0-18.0)
[2022-03-10 06:45] LABS: Device VENTILATOR; Modified Allen's Test Pass; Site Drawn LEFT RADIAL; pH ABG 7.275 (7.350-7.450)
[2022-03-10 06:46] LABS: Arterial Blood Gas PEEP 5 cmH2O; Arterial Blood Gas Tidal Volume 380 ml; Arterial Blood Gas Vent Mode CMV; Arterial Blood Gas Ventilator rate 24 /MIN
--- NOTE | 2022-03-10 08:02 | PM.PNGS ---
Progress Note: A&P Assessment and Plan (1) Peptic ulcer disease: Code(s): K27.9 - Peptic ulcer, site unspecified, unspecified as acute or chronic, without hemorrhage or perforation Status: Chronic Assessment and Plan: CT reviewed, no evidence of leak, will get further imaging c UGI thru NG, exam benign (2) Sepsis: Code(s): A41.9 - Sepsis, unspecified organism Status: Acute Assessment and Plan: unknown etiology, will get UGI for further eval, cont broad spectrum abx, pressors as needed (3) Acute renal failure: Code(s): N17.9 - Acute kidney failure, unspecified Status: Acute Assessment and Plan: worsening, will likely need HD, appreciate nephrology input (4) Respiratory failure: Code(s): J96.90 - Respiratory failure, unspecified, unspecified whether with hypoxia or hypercapnia Status: Acute Assessment and Plan: on mech ventilation, mgmt per ICU team Subjective Subjective Date/Time Seen: 03/10/22 08:02 events noted, now intubated in ICU, started on pressors overnight as well Review of Systems Review of Systems: ROS unobtainable: Yes unobtainable due to endotracheal tube Exam Const: General: ill appearing Resp: Effort & Inspection: decreased respiratory effort Auscultation: diminished lung sounds Cardio: Rate: tachycardic Rhythm: regular rhythm GI: Inspection: normal to inspection, distended and incision GI Palp: Yes Soft to palpation and No Rigid due to palpation Objective Data Vital Signs Vital Signs: Vital Signs - 24 hr 03/09/22 10:18 03/09/22 10:15 03/09/22 12:00 Temperature Pulse Rate 129 H Respiratory Rate 23 H Blood Pressure Pulse Oximetry 94 96 94 Oxygen Delivery BiPAP BiPAP BiPAP Fraction of Inspired Oxygen 40 45 03/09/22 12:00 03/09/22 12:00 03/09/22 10:00 Temperature 36.4 C Pulse Rate 132 H 131 H 131 H Respiratory Rate 16 Blood Pressure 99/56 L Pulse Oximetry 98 Oxygen Delivery Fraction of Inspired Oxygen 03/09/22 14:00 03/09/22 12:30 03/09/22 16:00 Temperature 37.4 C Pulse Rate 127 H 130 H Respiratory Rate 30 H Blood Pressure 83/62 L Pulse Oximetry 92 91 Oxygen Delivery BiPAP Fraction of Inspired Oxygen 50 03/09/22 16:02 03/09/22 16:00 03/09/22 18:11 Temperature Pulse Rate Respiratory Rate Blood Pressure 84/50 L 87/46 L Pulse Oximetry 91 Oxygen Delivery BiPAP Fraction of Inspired Oxygen 65 03/09/22 18:12 03/09/22 16:00 03/09/22 18:00 Temperature Pulse Rate 131 H 131 H 130 H Respiratory Rate Blood Pressure 80/56 L Pulse Oximetry Oxygen Delivery Fraction of Inspired Oxygen 03/09/22 18:10 03/09/22 20:11 03/09/22 20:28 Temperature Pulse Rate 133 H 124 H 127 H Respiratory Rate 33 H 33 H Blood Pressure 86/44 L Pulse Oximetry 96 93 Oxygen Delivery BiPAP BiPAP Fraction of Inspired Oxygen 03/09/22 20:25 03/09/22 21:18 03/09/22 20:00 Temperature 37.1 C Pulse Rate 125 H 127 H 81 Respiratory Rate 28 H 16 Blood Pressure 138/86 Pulse Oximetry 90 95 98 Oxygen Delivery BiPAP Fraction of Inspired Oxygen 03/09/22 19:19 03/09/22 19:35 03/09/22 19:46 Temperature 37.8 C H Pulse Rate 135 H 130 H 130 H Respiratory Rate 31 H 38 H 39 H Blood Pressure 95/52 L 84/54 L 92/58 L Pulse Oximetry 96 Oxygen Delivery Fraction of Inspired Oxygen 03/09/22 20:01 03/09/22 20:20 03/09/22 20:31 Temperature Pulse Rate 129 H 128 H 125 H Respiratory Rate 39 H 34 H 37 H Blood Pressure 94/59 L 86/44 L 102/58 L Pulse Oximetry 89 L 93 Oxygen Delivery Fraction of Inspired Oxygen 03/09/22 20:46 03/09/22 20:47 03/09/22 21:14 Temperature Pulse Rate 126 H 126 H 127 H Respiratory Rate 34 H 29 H 27 H Blood Pressure 104/52 L 104/52 L 85/48 L Pulse Oximetry 91 92 94 Oxygen Delivery Fraction of Inspired Oxygen 03/09/22 21:31 03/09/22 21:47 03/09/22 22:00 Temperature
[2022-03-10 08:14] LABS: Glucose Point of Care 110 mg/dl (65-105)
[2022-03-10] MEDS: CALCIUM GLUC 2,000 MG/NS 100ML 2,000 MG/100 ML BAG 100 MG IVPB ×2 (08:15→14:55)
[2022-03-10] MEDS: SODIUM BICARBONATE 8.4% 50 MEQ/50 ML SYRINGE (08:16)
[2022-03-10] MEDS: NICOTINE (*PBKC) 14 MG PATCH 1 PATCH TRANSDERM (08:20)
[2022-03-10] MEDS: PANTOPRAZOLE SODIUM IV 40 MG VIAL IV PUSH ×2 (08:20→20:07)
[2022-03-10] MEDS: ENOXAPARIN 40 MG/0.4 ML SYRINGE SUB-Q (08:20)
[2022-03-10] MEDS: NOREPINEPHRINE 8 MG/D5W 250 ML 8 MG/250 ML BAG 33.75 MG IV CONT (08:22)
[2022-03-10 08:24] LABS: Hematocrit 25.7 % (37.0-47.0); Hemoglobin 7.9 g/dL (12.0-15.0); Mean Corpuscular HGB Conc 30.7 g/dl (32-36); Mean Corpuscular Hemoglobin 27.8 pg (26-34); Mean Corpuscular Volume 90.5 fl (80-100); Mean Platelet Volume 10.4 fl (7.4-10.4); Platelet Count Result 290 k/mm3 (150-375); Red Blood Count 2.84 M/mm3 (4.2-5.4); Red Cell Distribution Width 20.1 % (11.5-14.5); White Blood Count 5.6 K/mm3 (4.5-10.0)
[2022-03-10 08:30] LABS: INR 1.7; Prothrombin Time 19.6 Seconds (11.1-14.7)
[2022-03-10 08:32] LABS: Partial Thromboplastin Time 50.1 SECONDS (22.3-36.8)
[2022-03-10 08:41] LABS: Alanine Aminotransferase 19 U/L (6-35); Albumin Level 3.2 g/dL (3.5-5.1); Alkaline Phosphatase 36 U/L (38-126); Anion Gap 11 mmol/L (8-16); Aspartate Amino Transferase 83 U/L (14-36); Bilirubin,Total 0.5 mg/dL (0.2-1.3); Blood Urea Nitrogen 49 mg/dL (7-17); Calcium 6.3 mg/dL (8.4-10.2); Carbon Dioxide 19 mmol/L (22-30); Chloride 105 mmol/L (98-107); Estimated CRCL calculation 11 ml/min; Estimated Glomerular Filt Rate 10; Glucose 134 mg/dL (65-110); Phosphorus 4.2 mg/dL (2.5-4.5); Potassium 4.2 mmol/L (3.4-5.0); Sodium 135 mmol/L (137-145)
[2022-03-10 08:46] LABS: Band Neutrophils Percent 26 % (0-6); Crenated RBC 2+ (NORMAL); Hypochromasia 2+ (NORMAL); Lymphocytes Absolute Manual 0.39 K/mm3 (1.1-4.5); Metamyelocytes Percent 1 %; Monocytes Absolute Manual 0.56 K/mm3 (0.1-0.90); Monocytes Percent Manual 10 % (3-9); Neutrophils Absolute Manual 4.59 K/mm3 (1.7-7.2); Neutrophils Percent Manual 56 % (46-73); Ovalocytes 1+ (NORMAL); Platelet Estimate Adequate (Adequate); Total Cells Counted 100
[2022-03-10 08:51] LABS: Alveolar/Arterial O2 Gradient 457.9 mmHg; Base Excess ABG -5.2 mEq/l (+/-2.0); Fractional Inspired Oxygen 80 %; HCO3 ABG 20.4 mEq/l (22.0-26.0); Oxygen Content ABG 11.5 %vol (16.0-22.0); Oxyhemoglobin 91.9 % THb (90.0-100.0); PCO2 ABG 40.2 mmHg (35.0-45.0); PO2 ABG 70.3 mmHg (80.0-100.0); PO2 FiO2 Ratio Arterial Blood 0.88 %; Total Hemoglobin 8.8 g/dL (12.0-18.0); pH ABG 7.324 (7.350-7.450)
[2022-03-10 08:53] LABS: Device VENTILATOR; Site Drawn ARTLINE
[2022-03-10 08:54] LABS: Arterial Blood Gas PEEP 8 cmH2O; Arterial Blood Gas Tidal Volume 400 ml; Arterial Blood Gas Vent Mode CMV; Arterial Blood Gas Ventilator rate 24 /MIN
--- NOTE | 2022-03-10 08:57 | WPDCNINT ---
Assessment and Plan Assessment and plan (1) Septic shock: Code(s): A41.9 - Sepsis, unspecified organism; R65.21 - Severe sepsis with septic shock Status: Acute Assessment and Plan: Septic shock with hypotension, acute kidney injury, status post bowel surgery, with Gastrografin upper GI series showing leakage of the contrast the peritoneal cavity. -patient has received adequate amount of IV fluids -oliguric/anuric acute kidney injury -patient on Levophed and vasopressin, will maintain MAP > 70 mmHg for adequate end organ perfusion -continue Zosyn and vancomycin -surgery made aware of the upper GI series with leakage of the contrast, patient is going to go to the OR for exploration -continue sodium bicarbonate at 50 mL/hour (2) Acute respiratory failure: Code(s): J96.00 - Acute respiratory failure, unspecified whether with hypoxia or hypercapnia Status: Acute Assessment and Plan: Acute respiratory failure likely related to septic shock, acidosis -patient was intubated on 03/09/2022 -currently on CMV mode of ventilation, 80% FiO2, increased PEEP to 8 been better O2 sats -chest x-ray this morning shows NG tube in stomach, Persistent right mid and bilateral lower lung infiltrate and/or atelectasis -sedated with fentanyl Versed infusion, maintain RASS of 0 To -2 -will start bronchodilators (3) Acute renal failure: Code(s): N17.9 - Acute kidney failure, unspecified Status: Acute Assessment and Plan: Acute kidney injury likely related to septic shock, prolonged hypotension, hypovolemia due to third-spacing secondary to surgery, NSAID use at home -patient has been adequately fluid-resuscitated -renal ultrasound was unremarkable -appreciate Nephrology evaluation and recommendations -continue albumin q.6 hours -continue maintenance IV fluids his sodium bicarb at 50 mL/hour -currently oliguric/anuric, worsening BUN and creatinine -continue to monitor renal function, electrolytes and urine output, patient may require dialysis if urine does not improve (4) Pyloric stricture: Code(s): K31.1 - Adult hypertrophic pyloric stenosis Status: Chronic Assessment and Plan: 03/07/2022: Status post hemigastrectomy with Lyly-en-Y jejunostomy, repair of left spigelian hernia -patient with increasing abdominal pain postoperatively, hypotension, shock, acute renal failure -03/09/2022: CT scan of the abdomen and pelvis: Bibasilar atelectasis/consolidation. Moderate right and small left pleural effusions. Moderate abdominal ascites, likely containing small volume proteinaceous or hemorrhagic debris. Body wall edema. -upper GI series with Gastrografin showed leakage into the peritoneal cavity -discuss with surgery, patient will be taken to the OR for exploration (5) Gastroesophageal reflux disease: Code(s): K21.9 - Gastro-esophageal reflux disease without esophagitis Status: Acute Assessment and Plan: Continue PPI IV q.12 hours (6) DVT prophylaxis: Code(s): Z29.9 - Encounter for prophylactic measures, unspecified Status: Acute Assessment and Plan: Lovenox Plan Hold Lovenox for now as patient going to surgery Patient patient to OR for exploration after discussing with surgeon Additional Plan DVT prophylaxis: Lovenox SQ Stress ulcer prophylaxis: Protonix IV q.12 hours Nutrition: NPO Discussed with surgeon and radiologist Code status: Full code Critical care time spent: 53 minuted This dictation may have been done utilizing a voice recognition system. Attempts have been made to correct errors. However, there may be uncorrected grammatical, spelling, and recognition errors present. Due to a high probability of clinically significant, life threatening deterioration, the patient required my highest level of preparedness to intervene emergently and I personally spent this critical care time directly and personally managing the patient. This critical care
--- NOTE | 2022-03-10 09:35 | P.PCNBED_ITS ---
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
[2022-03-10] MEDS: MINERAL OIL/WHITE PETROLATUM OINTMENT 1 APPLIC EACH EYE ×2 (09:49→20:07)
[2022-03-10 09:59] LABS: Creatine Kinase 2351 U/L (30-135)
--- NOTE | 2022-03-10 10:14 | WPDHPUPDATE1 ---
History and Physical Update Update Date/Time: 03/10/22 10:14 History and Physical has been reviewed, including an updated exam of the patient. There are NO changes in the patient's condition. Risks, benefits, and alternatives have been discussed and questions answered. Patient agrees to proceed with procedure. Pt intubated and sedated, consent obtained on phone via mother.
--- NOTE | 2022-03-10 10:52 | WPDANESEPPF ---
Anes - Initial Pre Proc Eval Procedure: Operation Date: 03/07/22 12:00 Proposed Procedures p Hemigastrectomy with Gastroenterostomy, - Will Roman MD s Open Repair Left Spigelian Hernia - Will Roman MD Operation Date: 03/10/22 10:00 Proposed Procedures p Exploratory Laparotomy, Pos Bowel Resec - Mel Avelar MD Date/Time: 03/10/22 10:52 Surgeon: Will Roman MD Pre Op Diagnosis: peptic ulcer disease with stricture Patient Data Age: 47 Gender: F Height: 1.6 m Weight: 67.7 kg Last Vital Signs Temp 38.7 C H 03/10/22 09:43 Pulse 130 H 03/10/22 08:22 Resp 22 H 03/10/22 08:17 BP 106/69 03/10/22 08:22 Pulse Ox 96 03/10/22 07:33 O2 Del Method Mechanical Ventilation 03/10/22 07:33 O2 Flow Rate 4 03/09/22 08:00 FiO2 80 03/10/22 07:33 Allergies Allergy/AdvReac Type Severity Reaction Status Date / Time No Known Allergies Allergy Verified 03/07/22 10:12 Home Medications Medication Instructions Recorded Confirmed Type estradiol 1 mg tablet 1 mg PO DAILY 01/04/21 03/07/22 History ibuprofen 800 mg tablet 800 mg PO TID PRN Pain 01/04/21 03/07/22 History amitriptyline 50 mg tablet See Rx Instructions .Route 10/12/21 03/07/22 Rx .COMPLEX #30 tabs omeprazole 20 mg capsule,delayed 40 mg PO DAILY #60 caps 02/11/22 03/07/22 Rx release topiramate 100 mg tablet 100 mg PO BID 03/04/22 03/07/22 History bupropion HCl 150 mg 24 hr tablet, 150 tablet PO QAM 03/07/22 03/07/22 History extended release Laboratory Tests 03/09/22 03/09/22 03/09/22 04:28 04:28 12:25 WBC RBC Hgb Hct MCV MCH MCHC RDW Plt Count MPV Immature Gran % (Auto) Neut % (Auto) Lymph % (Auto) [place]ward % (Auto) Eos % (Auto) Baso % (Auto) Lymph # (Auto) [place] # (Auto) Eos # (Auto) Baso # (Auto) Abs Immat Gran (auto) Absolute Neuts (auto) Absolute Nucleated RBC Total Counted Neutrophils % (Manual) Band Neutrophils % Lymphocytes % (Manual) Monocytes % (Manual) Metamyelocytes % Nucleated RBC % Abs Neuts (Manual) Abs Lymphs (Manual) Abs Monocytes (Manual) Platelet Estimate Hypochromasia Ovalocytes Crenated Cell PT INR APTT Puncture Site Right brachial ABG pH 7.363 (7.350-7.450) ABG pCO2 28.5 mmHg L mmHg (35.0-45.0) ABG pO2 68.7 mmHg L mmHg (80.0-100.0) ABG PO2/FiO2 Ratio 1.72 % % ABG HCO3 15.8 mEq/l L mEq/l (22.0-26.0) ABG O2 Saturation 93.5 % L % (95.0-100.0) ABG O2 Content 15.8 %vol L %vol (16.0-22.0) ABG Base Excess -8.2 mEq/l mEq/l (+/-2.0) A-a Gradient 183.7 mmHg mmHg Oxyhemoglobin 92.4 % THb % THb (90.0-100.0) Carboxyhemoglobin Methemoglobin Reduced Hemoglobin Total Hemoglobin 12.1 g/dL g/dL (12.0-18.0) O2 Delivery Device Non-invasive vent O2 Liters/Min Not Reportable Minute Volume Vent Rate 16 /MIN /MIN Vent Mode FiO2 40 % % Expiratory Pressure 5 CMH2O CMH2O Tidal Volume PEEP Inspiratory Pressure 10 CMH2O CMH2O Peak Inspir Pressure Pressure Support Sodium Potassium Chloride Carbon Dioxide Anion Gap BUN Creatinine Estim Creat Clear Calc Estimated GFR Glucose POC Capillary G
--- NOTE | 2022-03-10 11:16 | PM.PNNEP ---
Progress Note: A&P Additional Plan 1. The patient has acute kidney injury. This is on top of normal kidney function. Her creatinine winifred soon after surgery. the patient has an anastomotic leak. She has been hypotensive. She is now running a fever. She is going to the operating room today to fix the leak. Hopefully this will help her hemodynamically. Her because she has some. Gastric contents in her peritoneal cavity she might have infectious issues which may delay the recovery of her renal function. Her blood pressure is too low for dialysis right now and her electrolytes are not abnormal enough to indicate dialysis at this point. We can just watch day-by-day to see when she would needed if she does. Since she is young and started out with normal kidney function, perhaps she will have a brisk recovery once hemodynamically better. Long discussions with Dr. Avelar and Dr Espinoza today and with [facility] Nitza twice yesterday after noon. 2. The patient has hypotension. Cortisol level is okay. this is from 3rd spacing and possibly infection. 3. Status post hemigastrectomy and Lyly-en-Y. Patient the postoperative phase now. 4. GERD. The patient is on a PPI 5. Metabolic acidosis . She is on a sodium bicarbonate drip. 25 minutes were spent in discussions with doctors and [facility] apart from clinical activity Subjective Date/time seen: 03/10/22 11:16 Interval history: Maria Alejandra is now in the ICU and intubated. Her blood pressure was low and so required pressors. She has developed more swelling and her urine output is still minimal. She had a CT scan with oral contrast showing a leak. Dr. Avelar is going to take her back to the OR today. The patient cannot give a history Exam Narrative: WDWN in NAD skin no rash head ncat lungs mildly coarse upper airway noise. cor reg no rub abd BS+ nontender and soft ext 1+ edema. Objective Data Vital Signs Vital Signs: Vital Signs - 24 hr 03/09/22 12:00 03/09/22 12:00 03/09/22 12:00 Temperature 36.4 C Pulse Rate 132 H 131 H Respiratory Rate 16 Blood Pressure 99/56 L Pulse Oximetry 94 98 Oxygen Delivery BiPAP Fraction of Inspired Oxygen 45 03/09/22 14:00 03/09/22 12:30 03/09/22 16:00 Temperature 37.4 C Pulse Rate 127 H 130 H Respiratory Rate 30 H Blood Pressure 83/62 L Pulse Oximetry 92 91 Oxygen Delivery BiPAP Fraction of Inspired Oxygen 50 03/09/22 16:02 03/09/22 16:00 03/09/22 18:11 Temperature Pulse Rate Respiratory Rate Blood Pressure 84/50 L 87/46 L Pulse Oximetry 91 Oxygen Delivery BiPAP Fraction of Inspired Oxygen 65 03/09/22 18:12 03/09/22 16:00 03/09/22 18:00 Temperature Pulse Rate 131 H 131 H 130 H Respiratory Rate Blood Pressure 80/56 L Pulse Oximetry Oxygen Delivery Fraction of Inspired Oxygen 03/09/22 18:10 03/09/22 20:11 03/09/22 20:28 Temperature Pulse Rate 133 H 124 H 127 H Respiratory Rate 33 H 33 H Blood Pressure 86/44 L Pulse Oximetry 96 93 Oxygen Delivery BiPAP BiPAP Fraction of Inspired Oxygen 03/09/22 20:25 03/09/22 21:18 03/09/22 20:00 Temperature 37.1 C Pulse Rate 125 H 127 H 81 Respiratory Rate 28 H 16 Blood Pressure 138/86 Pulse Oximetry 90 95 98 Oxygen Delivery BiPAP Fraction of Inspired Oxygen 03/09/22 19:19 03/09/22 19:35 03/09/22 19:46 Temperature 37.8 C H Pulse Rate 135 H 130 H 130 H Respiratory Rate 31 H 38 H 39 H Blood Pressure 95/52 L 84/54 L 92/58 L Pulse Oximetry 96 Oxygen Delivery Fraction of Inspired Oxygen 03/09/22 20:01 03/09/22 20:20 03/09/22 20:31 Temperature Pulse Rate 129 H 128 H 125 H Respiratory Rate 39 H 34 H 37 H Blood Pressure 94/59 L 86/44 L 102/58 L Pulse Oximetry 89 L 93 Oxygen Delivery Fraction of Inspired Oxygen 03/09/22 20:46 03/09/22 20:47 03/09/22 21:14 Temperature Pulse Rate 126 H 126 H 127 H Respiratory Rate
--- NOTE | 2022-03-10 11:32 | W.PM.PROC2 ---
Procedure Note - Detailed Date of Procedure 03/10/22 Pre-op Diagnosis septic shock, leak Post-op Diagnosis Other (dudodenal stump leak) Procedure Performed Exploratory laparotomy, repair of duodenal stump leak, omental patch, intra-abdominal washout Surgeon Mel Avelar MD Anesthesia General Indications 47-year-old female status post hemigastrectomy with Lyly-en-Y anastomosis now with septic shock and evidence of leak on upper GI Findings duodenal stump leak, 3 L of intra-abdominal succus Description of Procedure The patient was taken to the operating room and placed in the supine position. After adequate induction of general anesthesia, patient was prepped and draped in the normal sterile fashion. A time-out was then done to verify the patient's identity, as well as the procedure being performed. I began by opening the previous incision. Once into the intra-abdominal cavity, a copious amount of bilious succus was noted. Once this was suctioned out, a total of approximately 3 L was noted. I then began examining the abdomen. The gastrojejunostomy was noted to be intact and no leakage was noted. The jejunojejunostomy was also noted to be intact and tension-free. Upon examining the duodenal stump, there was noted to be a leak at the staple line. I went ahead and freed up the duodenal stump and was able to visualize the common bile duct. The leak was noted to be approximately 1 cm. There was noted to be good viability of the tissue. I then closed the leak with interrupted 3-0 silk sutures. I then imbricated the entire staple line using interrupted 3-0 silk sutures. I then placed a omental patch over our primary repair. I then checked the placement of the NG tube near the gastrojejunostomy. I then methylene blue through the NG tube and no leak was noted at this point. The NG tube was then secured into place. I then copiously washed out the abdominal cavity. No other pathology was noted. I then left a 19 [place] ANGELA drain near the duodenal stump repair. The fascia was then closed with 0 looped PDS x2. The skin was then closed with skin rena. The patient tolerated the procedure relatively well and will be transferred back to the ICU in critical condition. Estimated Blood Loss 10 Pathology None sent Complications No immediate complications Condition Critical Disposition ICU [facility] Billing Surgery - Charge Forward: Surgery Billing
[2022-03-10] MEDS: ERTAPENEM SODIUM 0.5 GM in SODIUM CHLORIDE 0.9% IV 50 ML IVPB (12:07)
[2022-03-10 12:31] LABS: Glucose Point of Care 77 mg/dl (65-105)
--- NOTE | 2022-03-10 12:45 | PM.IMPN ---
Progress Note: A&P Assessment and Plan (1) Septic shock: Code(s): A41.9 - Sepsis, unspecified organism; R65.21 - Severe sepsis with septic shock Status: Acute Assessment and Plan: Septic shock with hypotension, acute kidney injury, status post bowel surgery, with Gastrografin upper GI series showing leakage of the contrast the peritoneal cavity. -patient has received adequate amount of IV fluids -oliguric/anuric acute kidney injury -managed per ICU (2) Acute respiratory failure: Code(s): J96.00 - Acute respiratory failure, unspecified whether with hypoxia or hypercapnia Status: Acute Assessment and Plan: Acute respiratory failure likely related to septic shock, acidosis -patient was intubated on 03/09/2022 -managed per ICU (3) Acute renal failure: Code(s): N17.9 - Acute kidney failure, unspecified Status: Acute Assessment and Plan: Acute kidney injury likely related to septic shock, prolonged hypotension, hypovolemia due to third-spacing secondary to surgery, NSAID use at home -patient has been adequately fluid-resuscitated -renal ultrasound was unremarkable -appreciate Nephrology evaluation and recommendations -continue albumin q.6 hours -continue maintenance IV fluids his sodium bicarb at 50 mL/hour -currently oliguric/anuric, worsening BUN and creatinine -continue to monitor renal function, electrolytes and urine output, patient may require dialysis if urine does not improve (4) Pyloric stricture: Code(s): K31.1 - Adult hypertrophic pyloric stenosis Status: Chronic Assessment and Plan: Status post Lyly-en-Y procedure Now with duodenal leak Status post repair. Management per surgery ICU. 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 Exam Narrative: General: Patient is intubated and sedated HEENT: Pupils equal and reactive, sclera is clear, ETT in place Neck: Supple Respiratory: Coarse breath sounds bilaterally decreased at bases, no wheezing Cardiac: Sinus tachycardia, S1-S2 normal Abdomen: Soft, nondistended, nontender, no guarding, no bowel sounds could be heard Extremities: Cool extremities decreased pedal pulses Neuro: Patient is intubated and sedated, does not open her eyes or follow simple commands Skin: Dry and intact, midline abdominal incision with rena in place, clean, dry, intact Psych: Unable to assess at this time Objective Data Vital Signs Vital Signs: Vital Signs - 24 hr 03/09/22 14:00 03/09/22 16:00 03/09/22 16:02 Temperature 99.4 F Pulse Rate 127 H 130 H Respiratory Rate 30 H Blood Pressure 83/62 L 84/50 L Pulse Oximetry 91 Oxygen Delivery Fraction of Inspired Oxygen 03/09/22 16:00 03/09/22 18:11 03/09/22 18:12 Temperature Pulse Rate 131 H Respiratory Rate Blood Pressure 87/46 L 80/56 L Pulse Oximetry 91 Oxygen Delivery BiPAP Fraction of Inspired Oxygen 65 03/09/22 16:00 03/09/22
[2022-03-10 12:58] LABS: Alveolar/Arterial O2 Gradient 444.4 mmHg; Base Excess ABG -9.2 mEq/l (+/-2.0); Fractional Inspired Oxygen 80 %; Oxygen Content ABG 12.2 %vol (16.0-22.0); Oxygen Saturation ABG 93.1 % (95.0-100.0); Oxyhemoglobin 92.5 % THb (90.0-100.0); PCO2 ABG 45.3 mmHg (35.0-45.0); PO2 ABG 78.4 mmHg (80.0-100.0); PO2 FiO2 Ratio Arterial Blood 0.98 %; Total Hemoglobin 9.3 g/dL (12.0-18.0)
[2022-03-10 12:58] LABS: Hematocrit 27.4 % (37.0-47.0); Hemoglobin 8.2 g/dL (12.0-15.0); Mean Corpuscular HGB Conc 29.9 g/dl (32-36); Mean Corpuscular Hemoglobin 27.3 pg (26-34); Mean Corpuscular Volume 91.3 fl (80-100); Platelet Count Result 263 k/mm3 (150-375); Red Cell Distribution Width 19.9 % (11.5-14.5); White Blood Count 4.1 K/mm3 (4.5-10.0)
[2022-03-10 13:00] LABS: Device VENTILATOR; Site Drawn ARTLINE; pH ABG 7.218 (7.350-7.450)
[2022-03-10 13:01] LABS: Arterial Blood Gas PEEP 8 cmH2O; Arterial Blood Gas Tidal Volume 400 ml; Arterial Blood Gas Vent Mode CMV; Arterial Blood Gas Ventilator rate 24 /MIN
[2022-03-10 13:08] LABS: Lactic Acid Reflex 3.8 mmol/L (0.7-2.0)
[2022-03-10] MEDS: SODIUM BICARBONATE 8.4% 50 MEQ/50 ML SYRINGE 100 MEQ IV PUSH (13:19)
[2022-03-10 13:20] LABS: Band Neutrophils Percent 10 % (0-6); Lymphocytes Absolute Manual 0.65 K/mm3 (1.1-4.5); Metamyelocytes Percent 2 %; Monocytes Absolute Manual 1.06 K/mm3 (0.1-0.90); Monocytes Percent Manual 26 % (3-9); Neutrophils Absolute Manual 2.29 K/mm3 (1.7-7.2); Neutrophils Percent Manual 46 % (46-73); Nucleated Red Blood Cells 2 %; Total Cells Counted 100
[2022-03-10 13:21] LABS: Crenated RBC 2+ (NORMAL); Ovalocytes 2+ (NORMAL); Platelet Estimate Adequate (Adequate); Tear Drop Cells 1+ (NORMAL)
[2022-03-10 13:23] LABS: Alanine Aminotransferase 32 U/L (6-35); Albumin Level 2.7 g/dL (3.5-5.1); Alkaline Phosphatase 39 U/L (38-126); Anion Gap 11 mmol/L (8-16); Aspartate Amino Transferase 151 U/L (14-36); Bilirubin,Total 0.4 mg/dL (0.2-1.3); Blood Urea Nitrogen 49 mg/dL (7-17); Calcium 6.4 mg/dL (8.4-10.2); Carbon Dioxide 20 mmol/L (22-30); Chloride 104 mmol/L (98-107); Glucose 129 mg/dL (65-110); Magnesium 1.9 mg/dL (1.6-2.3); Phosphorus 5.4 mg/dL (2.5-4.5); Potassium 3.7 mmol/L (3.4-5.0); Sodium 135 mmol/L (137-145)
[2022-03-10] MEDS: LEVALBUTEROL NEB 1.25 MG/3 ML 0.63 MG INHALATION ×2 (14:00→19:46)
[2022-03-10 14:03] LABS: Creatine Kinase 2367 U/L (30-135); Estimated CRCL calculation 11 ml/min; Estimated Glomerular Filt Rate 9
[2022-03-10] MEDS: NOREPINEPHRINE BITARTRATE 16 MG in DEXTROSE 5% IN WATER 250 ML 17.96 ML IV CONT (14:12)
[2022-03-10] MEDS: hetaSTARCH 6%/NACL 500 ML 250 ML IV CONT ×2 (14:27→18:06)
[2022-03-10 15:56] LABS: Reflex Lactic Acid Yes or No Add Lactic
[2022-03-10] MEDS: DEXTROSE 50% 25 GM/50 ML SYRINGE IV PUSH (17:14)
[2022-03-10 17:20] LABS: Glucose Point of Care 70 mg/dl (65-105)
[2022-03-10 18:03] LABS: Lactic Acid 5.9 mmol/L (0.7-2.0)
[2022-03-10 18:14] LABS: Glucose Point of Care 128 mg/dl (65-105)
[2022-03-10 18:58] LABS: Appearance Urine Slightly Cloudy (Clear); Bilirubin Urine 2+ (Negative); Blood Urine 2+ (Negative); Glucose Urine UA Negative (Negative); Ketones Urine Trace mg/dL (Negative); Leukocyte Esterase Ur Negative LEU/UL (NEGATIVE); Nitrate Urine Negative (Negative); Protein Urine 2+ mg/dL (Negative); pH Urine 5.5 (5.0-9.0)
[2022-03-10 19:02] LABS: Creatinine Urine 125.8 mg/dL; Total Protein Urine Random 111 mg/dL; Ur Ttl Prot Creatinine Ratio 0.88 mg/mg (0-0.20)
[2022-03-10 19:03] LABS: Bacteria Urine Trace /hpf; Budding Yeast Urine Present /hpf; Mucus Urine Heavy /lpf; RBC Urine >75 /hpf (0-2); Squamous Epithelial Cell Urine Many /hpf (Few); WBC Urine >75 /hpf (0-3)
[2022-03-10 19:05] LABS: Add Urine Microscopic? YES; Color Urine Dark Yellow (Yellow)
[2022-03-10 19:06] LABS: Sodium Urine Random 28 meq/L
[2022-03-10 19:18] LABS: Glucose Point of Care 123 mg/dl (65-105)
[2022-03-10] MEDS: SODIUM BICARBONATE 8.4% 150 MEQ in DEXTROSE 5% 1,000 ML 950 ML 50 MEQ IV CONT (21:53)
[2022-03-10 22:13] LABS: Lactic Acid Reflex 5.4 mmol/L (0.7-2.0)
[2022-03-10 23:24] LABS: Glucose Point of Care 94 mg/dl (65-105)
[2022-03-11] VITALS (63 sets, daily range): BP systolic 100–131; BP diastolic 48–67; PULSE 80–104; RESP 24–26; TEMP 37.2–38.1; O2SAT 92–99; BMI 25.9
[2022-03-11] MEDS: LEVALBUTEROL NEB 1.25 MG/3 ML 0.63 MG INHALATION ×4 (02:06→19:50)
[2022-03-11] MEDS: MIDAZOLAM 100MG/NS 100ML(*CRX) 100 MG/100 ML BAG IV CONT (03:11)
[2022-03-11] MEDS: FENTANYL 2,500MCG/NS250ML(*CRX 2,500 MCG/250 ML BAG 7.5 MCG IV CONT (03:56)
[2022-03-11 05:08] LABS: Alveolar/Arterial O2 Gradient 303.8 mmHg; Base Excess ABG -4.9 mEq/l (+/-2.0); Carboxyhemoglobin 0.4 % THb (0-2.0); Fractional Inspired Oxygen 60 %; Methemoglobin ABG 0.3 %THb (0-1.5); Oxygen Content ABG 10.4 %vol (16.0-22.0); Oxygen Saturation ABG 96.1 % (95.0-100.0); Oxyhemoglobin 94.4 % THb (90.0-100.0); PO2 ABG 84.4 mmHg (80.0-100.0); PO2 FiO2 Ratio Arterial Blood 1.41 %; Reduced Hemoglobin 4.9 %THb (0-5.0); pH ABG 7.363 (7.350-7.450)
[2022-03-11] MEDS: NOREPINEPHRINE BITARTRATE 16 MG in DEXTROSE 5% IN WATER 250 ML 18.95 ML IV CONT (05:10)
[2022-03-11 05:13] LABS: Device VENTILATOR; Site Drawn ARTLINE; Total Hemoglobin 7.7 g/dL (12.0-18.0)
[2022-03-11 05:14] LABS: Arterial Blood Gas PEEP 8 cmH2O; Arterial Blood Gas Tidal Volume 400 ml; Arterial Blood Gas Vent Mode CMV; Arterial Blood Gas Ventilator rate 24 /MIN
[2022-03-11] MEDS: ALBUMIN HUMAN 25% 25 GM/100 ML 100 ML IVPB (05:15)
[2022-03-11 05:30] LABS: Mean Corpuscular HGB Conc 32.2 g/dl (32-36); Mean Corpuscular Hemoglobin 28.3 pg (26-34); Mean Corpuscular Volume 87.8 fl (80-100); Mean Platelet Volume 9.6 fl (7.4-10.4); Platelet Count Result 138 k/mm3 (150-375); White Blood Count 3.2 K/mm3 (4.5-10.0)
[2022-03-11] MEDS: CENTRAL LINE FLUSH 10 ML IV PUSH ×4 (05:33→20:03)
[2022-03-11 05:49] LABS: Lactic Acid Reflex 6.4 mmol/L (0.7-2.0)
[2022-03-11 05:50] LABS: Albumin Level 2.3 g/dL (3.5-5.1); Alkaline Phosphatase 36 U/L (38-126); Anion Gap 11 mmol/L (8-16); Aspartate Amino Transferase 83 U/L (14-36); Bilirubin,Total 0.3 mg/dL (0.2-1.3); Blood Urea Nitrogen 51 mg/dL (7-17); Carbon Dioxide 22 mmol/L (22-30); Chloride 102 mmol/L (98-107); Creatine Kinase 1298 U/L (30-135); Estimated CRCL calculation 13 ml/min; Estimated Glomerular Filt Rate 12; Glucose 90 mg/dL (65-110); Magnesium 1.7 mg/dL (1.6-2.3); Phosphorus 4.8 mg/dL (2.5-4.5); Potassium 3.4 mmol/L (3.4-5.0); Sodium 135 mmol/L (137-145)
[2022-03-11 05:53] LABS: Alanine Aminotransferase 32 U/L (6-35)
[2022-03-11 05:54] LABS: Hematocrit 20.2 % (37.0-47.0); Hemoglobin 6.5 g/dL (12.0-15.0)
[2022-03-11 06:01] LABS: Band Neutrophils Percent 10 % (0-6); Eosinophils Absolute Manual 0.12 K/mm3 (0.02-0.5); Eosinophils Percent Manual 4 % (0-4); Monocytes Absolute Manual 0.32 K/mm3 (0.1-0.90); Monocytes Percent Manual 10 % (3-9); Neutrophils Absolute Manual 2.14 K/mm3 (1.7-7.2); Neutrophils Percent Manual 57 % (46-73); Platelet Estimate Decreased (Adequate); Total Cells Counted 100
[2022-03-11 06:02] LABS: Anisocytosis 1+ (NORMAL); Burr Cells 2+ (NORMAL); Ovalocytes 1+ (NORMAL)
[2022-03-11 06:03] LABS: Schistocytes 1+ (NORMAL)
[2022-03-11 07:45] LABS: Mean Platelet Volume 9.9 fl (7.4-10.4); Platelet Count Result 140 k/mm3 (150-375)
[2022-03-11 08:02] LABS: Prothrombin Time 21.6 Seconds (11.1-14.7)
[2022-03-11 08:03] LABS: Fibrinogen 407 mg/dl (215-510); Partial Thromboplastin Time 56.2 SECONDS (22.3-36.8)
[2022-03-11 08:10] LABS: D Dimer 2.57 ug/mL (<0.48)
[2022-03-11] MEDS: PANTOPRAZOLE SODIUM IV 40 MG VIAL IV PUSH ×2 (08:16→20:03)
[2022-03-11] MEDS: MINERAL OIL/WHITE PETROLATUM OINTMENT 1 APPLIC EACH EYE ×2 (08:16→20:03)
--- NOTE | 2022-03-11 08:17 | WPDINTPN ---
Progress Note: A&P Assessment and Plan (1) Septic shock: Code(s): A41.9 - Sepsis, unspecified organism; R65.21 - Severe sepsis with septic shock Status: Acute Assessment and Plan: Septic shock with hypotension, acute kidney injury, status post bowel surgery, with Gastrografin upper GI series showing small-bowel perforation, leakage -patient has received adequate amount of IV fluids -overnight patient had a little bit of urine output, creatinine has been stable -patient on Levophed and vasopressin, will maintain MAP > 70 mmHg for adequate end organ perfusion -continue sodium bicarbonate at 50 mL/hour -03/09/2022: Blood cultures growing Gram-negative bacilli 2/2 bottles -continue ertapenem and vancomycin, (2) Acute respiratory failure: Code(s): J96.00 - Acute respiratory failure, unspecified whether with hypoxia or hypercapnia Status: Acute Assessment and Plan: Acute respiratory failure likely related to septic shock, acidosis -patient was intubated on 03/09/2022 -currently on CMV mode of ventilation, 60% FiO2, increased PEEP to 8. Wean FiO2 to maintain O2 sats > 92% -chest x-ray this morning shows worsening moderate size right pleural effusion, stable airspace opacities in the mid and lower lung zones, consistent with atelectasis versus pneumonia -ABGs reviewed and improved -sedated with fentanyl Versed infusion, maintain RASS of 0 To -2 -continue start bronchodilators (3) Acute renal failure: Code(s): N17.9 - Acute kidney failure, unspecified Status: Acute Assessment and Plan: Acute kidney injury likely related to septic shock, prolonged hypotension, hypovolemia due to third-spacing secondary to surgery, NSAID use at home -patient has been adequately fluid-resuscitated -renal ultrasound was unremarkable -appreciate Nephrology evaluation and recommendations -continue albumin q.6 hours -continue maintenance IV fluids his sodium bicarb at 50 mL/hour -patient has started to put out some urine, -creatinine trending down, CK levels improving -continue to monitor renal function, electrolytes and urine output, patient may require dialysis if urine does not improve (4) Pyloric stricture: Code(s): K31.1 - Adult hypertrophic pyloric stenosis Status: Chronic Assessment and Plan: 03/07/2022: Status post hemigastrectomy with Lyly-en-Y jejunostomy, repair of left spigelian hernia -patient with increasing abdominal pain postoperatively, hypotension, shock, acute renal failure -03/09/2022: CT scan of the abdomen and pelvis: Bibasilar atelectasis/consolidation. Moderate right and small left pleural effusions. Moderate abdominal ascites, likely containing small volume proteinaceous or hemorrhagic debris. Body wall edema. -03/09: upper GI series with Gastrografin small-bowel perforation, leakage -03/10/2022: Status post exploratory laparotomy, repair of duodenal stump leak, omental patch, intra-abdominal washout -discussed with surgery, agree with continuing medical management as above (5) Gastroesophageal reflux disease: Code(s): K21.9 - Gastro-esophageal reflux disease without esophagitis Status: Acute Assessment and Plan: Continue PPI IV q.12 hours (6) DVT prophylaxis: Code(s): Z29.9 - Encounter for prophylactic measures, unspecified Status: Acute Assessment and Plan: SCDs. Lovenox on hold due to anemia (7) Anemia: Code(s): D64.9 - Anemia, unspecified Status: Acute Assessment and Plan: Hemoglobin dropped to 6.5 this morning, 1 unit of packed RBCs has been ordered -DIC panel shows an INR of 2.0 in fibrinogen of 407, PTT of 56.2., likely related to septic shock, will transfuse 1 unit of FFP -will continue to monitor H&H -lactic acid also elevated, could be related to hypoperfusion from anemia and septic shock Plan Hold Lovenox for now as patient going to surgery Patient patient to OR for exploration after discussing with brynn
--- NOTE | 2022-03-11 08:27 | PM.PNGS ---
Progress Note: A&P Assessment and Plan (1) Delayed perforation of small intestine: Code(s): K63.1 - Perforation of intestine (nontraumatic) Status: Acute Assessment and Plan: Dr. Avelar's reoperation yesterday much appreciated. I have spoken to him about the patient. I have thoroughly reviewed the record and the operative note. No bile in ANGELA drain. Patient still critically ill with septic shock and EVELYN. I spoke with patient's Mother, Luz Elena, this morning and gave her an update. She had no questions. (2) Septic shock: Code(s): A41.9 - Sepsis, unspecified organism; R65.21 - Severe sepsis with septic shock Status: Acute Assessment and Plan: Discussed with Dr. Doherty. Still on high dose levophed as well as vasopressin. Lactate elevated more. Continue critical care. (3) Anemia: Code(s): D64.9 - Anemia, unspecified Status: Acute Assessment and Plan: to get 1 unit PRBC (4) Acute respiratory failure: Code(s): J96.00 - Acute respiratory failure, unspecified whether with hypoxia or hypercapnia Status: Acute Assessment and Plan: on mech vent, some sedation (5) Acute renal failure: Code(s): N17.9 - Acute kidney failure, unspecified Status: Acute Assessment and Plan: started making urine through the night, a good sign. Subjective Subjective Date/Time Seen: 03/11/22 08:27 Post Op day: 1 Patient reports: other ( Intubated and sedated in ICU) Review of Systems Review of Systems: ROS unobtainable: Yes unobtainable due to endotracheal tube Exam Const: General: comfortable Nutritional Appearance: edematous Resp: Effort & Inspection: other ( on mechanical ventilator) Auscultation: clear to auscultation bilaterally, rhonchi ( scattered rhonchi) and other ( symmetric breath sounds) Cardio: Jugular venous distension: no JVD Rate: regular rate Rhythm: regular rhythm Heart sounds: no murmurs and no rubs GI: Inspection: Abdominal wall edema, non-distended, incision ( dressing was small amount of bloody drainage otherwise dry and intact) and other ( NG tube draining greenish fluid, ANGELA serosanguineous) GI Palp: Yes Soft to palpation Auscultation: absent bowel sounds Objective Data Vital Signs Vital Signs: Vital Signs - 24 hr 03/10/22 09:43 03/10/22 10:00 03/10/22 10:00 Temperature 38.7 C H 38.7 C H Pulse Rate 124 H 124 H Respiratory Rate 24 H Blood Pressure 90/63 L Pulse Oximetry 98 Oxygen Delivery Fraction of Inspired Oxygen 03/10/22 11:51 03/10/22 12:00 03/10/22 12:00 Temperature Pulse Rate 119 H 118 H Respiratory Rate 24 H Blood Pressure Pulse Oximetry 95 100 Oxygen Delivery Mechanical Ventilation Mechanical Ventilation Fraction of Inspired Oxygen 80 80 80 03/10/22 12:00 03/10/22 12:00 03/10/22 14:00 Temperature 37.4 C Pulse Rate 118 H 118 H 117 H Respiratory Rate 24 H Blood Pressure 105/43 L Pulse Oximetry 100 Oxygen Delivery Fraction of Inspired Oxygen 03/10/22 14:00 03/10/22 14:40 03/10/22 14:03 Temperature 37.0 C Pulse Rate 117 H 112 H 117 H Respiratory Rate 20 24 H Blood Pressure 120/57 L 105/55 L Pulse Oximetry 92 Oxygen Delivery Fraction of Inspired Oxygen 03/10/22 14:04 03/10/22 14:12 03/10/22 12:00 Temperature 37.4 C Pulse Rate 118 H 115 H Respiratory Rate Blood Pressure 111/55 L Pulse Oximetry 92 Oxygen Delivery Mechanical Ventilation Fraction of Inspired Oxygen 80 03/10/22 15:24 03/10/22 15:44 03/10/22 17:26 Temperature Pulse Rate 104 H 104 H 106 H Respiratory Rate Blood Pressure 138/68 136/68 Pulse Oximetry 92 Oxygen Delivery Mechanical Ventilation Fraction of Inspired Oxygen 80 03/10/22 16:00 03/10/22 16:00 03/10/22 16:00 Temperature 36.6 C Pulse Rate 105 H 105 H 105 H Respiratory Rate 24 H 23 H Blood Pressure 125/63 Pulse Oximetry 98 98 Oxygen Delivery Mechanical Ventila
[2022-03-11 08:28] LABS: Reflex Lactic Acid Yes or No Add Lactic
[2022-03-11 09:05] LABS: Lactic Acid 6.3 mmol/L (0.7-2.0)
[2022-03-11] MEDS: SODIUM CHLORIDE 0.9% IV 250 ML 30 ML IV CONT ×2 (09:15→12:16)
--- NOTE | 2022-03-11 10:54 | PM.PNNEP ---
Progress Note: A&P Additional Plan 1. The patient has acute kidney injury. Her creatinine is down a little bit. This may be more because of dilution. She did make a little bit more urine but not enough to bring her creatinine down by itself. She has been hypotensive. She is on norepinephrine at 20 and vasopressin at 0.04. Temperature is down. She is still hemodynamically somewhat unstable. So renal function may take a little while to open up. Her electrolytes are okay. No need to remove fluid right now. No need for dialysis yet. We will watch for this daily though. Discussed with Dr. Doherty 2. The patient has hypotension. Cortisol level is okay. this is from 3rd spacing and infection. 3. Status post hemigastrectomy and Lyly-en-Y. Now has undergone revision. Patient is in the postoperative phase now. 4. GERD. The patient is on a PPI 5. Metabolic acidosis . bicarbonate is up to 22 now. Subjective Date/time seen: 03/11/22 10:54 Interval history: Maria Alejandra is now in the ICU and intubated. she had surgery yesterday where they repaired the leak. Her blood pressures have required 2 pressors. she is sedated. She made a little urine overnight. Exam Narrative: WDWN in NAD skin no rash or subcu nodules head ncat lungs mildly coarse upper airway noise. cor reg no rub or gallop abd BS absent. Postop. ext 1+ edema. Objective Data Vital Signs Vital Signs: Vital Signs - 24 hr 03/10/22 11:51 03/10/22 12:00 03/10/22 12:00 Temperature Pulse Rate 119 H 118 H Respiratory Rate 24 H Blood Pressure Pulse Oximetry 95 100 Oxygen Delivery Mechanical Ventilation Mechanical Ventilation Fraction of Inspired Oxygen 80 80 80 03/10/22 12:00 03/10/22 12:00 03/10/22 14:00 Temperature 37.4 C Pulse Rate 118 H 118 H 117 H Respiratory Rate 24 H Blood Pressure 105/43 L Pulse Oximetry 100 Oxygen Delivery Fraction of Inspired Oxygen 03/10/22 14:00 03/10/22 14:40 03/10/22 14:03 Temperature 37.0 C Pulse Rate 117 H 112 H 117 H Respiratory Rate 20 24 H Blood Pressure 120/57 L 105/55 L Pulse Oximetry 92 Oxygen Delivery Fraction of Inspired Oxygen 03/10/22 14:04 03/10/22 14:12 03/10/22 12:00 Temperature 37.4 C Pulse Rate 118 H 115 H Respiratory Rate Blood Pressure 111/55 L Pulse Oximetry 92 Oxygen Delivery Mechanical Ventilation Fraction of Inspired Oxygen 80 03/10/22 15:24 03/10/22 15:44 03/10/22 17:26 Temperature Pulse Rate 104 H 104 H 106 H Respiratory Rate Blood Pressure 138/68 136/68 Pulse Oximetry 92 Oxygen Delivery Mechanical Ventilation Fraction of Inspired Oxygen 80 03/10/22 16:00 03/10/22 16:00 03/10/22 16:00 Temperature 36.6 C Pulse Rate 105 H 105 H 105 H Respiratory Rate 24 H 23 H Blood Pressure 125/63 Pulse Oximetry 98 98 Oxygen Delivery Mechanical Ventilation Fraction of Inspired Oxygen 90 03/10/22 16:00 03/10/22 18:00 03/10/22 18:00 Temperature 36.4 C Pulse Rate 106 H 107 H Respiratory Rate 24 H Blood Pressure 120/62 Pulse Oximetry 92 Oxygen Delivery Fraction of Inspired Oxygen 90 03/10/22 19:53 03/10/22 19:53 03/10/22 19:53 Temperature Pulse Rate 105 H 105 H 105 H Respiratory Rate 24 H 24 H Blood Pressure Pulse Oximetry 92 98 Oxygen Delivery Mechanical Ventilation Mechanical Ventilation Fraction of Inspired Oxygen 100 100 03/10/22 20:17 03/10/22 20:19 03/10/22 20:20 Temperature Pulse Rate 96 98 99 Respiratory Rate 24 H 24 H Blood Pressure 125/65 Pulse Oximetry Oxygen Delivery Fraction of Inspired Oxygen 03/10/22 20:21 03/10/22 20:00 03/10/22 20:00 Temperature Pulse Rate 98 93 98 Respiratory Rate 24 H Blood Pressure 123/63 Pulse Oximetry 98 Oxygen Delivery Mechanical Ventilation Fraction of Inspired Oxygen 85 03/10/22 20:00 03/10/22 20:00 03/10/22 21:01 [place]
--- NOTE | 2022-03-11 11:01 | PM.IMPN ---
Progress Note: A&P Assessment and Plan (1) Septic shock: Code(s): A41.9 - Sepsis, unspecified organism; R65.21 - Severe sepsis with septic shock Status: Acute Assessment and Plan: Septic shock with hypotension, acute kidney injury, status post bowel surgery, with Gastrografin upper GI series showing leakage of the contrast the peritoneal cavity. -patient has received adequate amount of IV fluids -oliguric/anuric acute kidney injury -managed per ICU (2) Acute respiratory failure: Code(s): J96.00 - Acute respiratory failure, unspecified whether with hypoxia or hypercapnia Status: Acute Assessment and Plan: Acute respiratory failure likely related to septic shock, acidosis -patient was intubated on 03/09/2022 -managed per ICU (3) Acute renal failure: Code(s): N17.9 - Acute kidney failure, unspecified Status: Acute Assessment and Plan: Acute kidney injury likely related to septic shock, prolonged hypotension, hypovolemia due to third-spacing secondary to surgery, NSAID use at home -patient has been adequately fluid-resuscitated -renal ultrasound was unremarkable -appreciate Nephrology evaluation and recommendations -continue albumin q.6 hours -continue maintenance IV fluids his sodium bicarb at 50 mL/hour -currently oliguric/anuric, worsening BUN and creatinine -continue to monitor renal function, electrolytes and urine output (4) Pyloric stricture: Code(s): K31.1 - Adult hypertrophic pyloric stenosis Status: Chronic Assessment and Plan: Status post Lyly-en-Y procedure Now with duodenal leak Status post repair. Management per surgery ICU. 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: Chronic (10) Migraine headache: Code(s): G43.909 - Migraine, unspecified, not intractable, without status migrainosus Status: Acute (11) Anemia: Code(s): D64.9 - Anemia, unspecified Status: Acute Assessment and Plan: Monitor hemoglobin Subjective Date/time seen: 03/11/22 11:01 Sedated and intubated Exam Narrative: General: Patient is intubated and sedated HEENT: Pupils equal and reactive, sclera is clear, ETT in place Neck: Supple Respiratory: Coarse breath sounds bilaterally decreased at bases, no wheezing Cardiac: Regular rate and rhythm, S1-S2 normal Abdomen: Soft, nondistended, tender to palpation, no guarding, no bowel sounds could be heard, midline incision with dressing in place, area of bleeding noted in the center of the dressing Extremities: Cool extremities decreased pedal pulses with Dopplers Neuro: Patient is intubated and sedated, does not open her eyes or follow simple commands Skin: Dry and intact Psych: Unable to assess at this time Objective Data Vital Signs Vital Signs: Vital Signs - 24 hr 03/10/22 11:51 03/10/22 12:00 03/10/22 12:00 Temperature Pulse Rate 119 H 118 H Respiratory Rate 24 H Blood Pressure Pulse Oximetry 95 100 Oxygen Delivery Mechanical Ventilation Mechanical Ventilation Fraction of Inspired Oxygen 80 80 80 03/10/22 12:00 03/10/22 12:00 03/10/22 14:00 Temperature 99.4 F Pulse Rate 118 H 118 H 117 H Respiratory Rate 24 H Blood Pressure 105/43 L Pulse Oximetry 100 Oxygen Delivery Fraction of Inspired Oxygen
[2022-03-11 11:56] LABS: Glucose Point of Care 101 mg/dl (65-105)
[2022-03-11] MEDS: metroNIDAZOLE 500 MG/ISO 100ML 500 MG/100 ML BAG 100 MG IVPB ×2 (13:59→21:25)
[2022-03-11 14:25] LABS: Hematocrit 24.9 % (37.0-47.0); Hemoglobin 7.9 g/dL (12.0-15.0); Mean Corpuscular HGB Conc 31.7 g/dl (32-36); Mean Corpuscular Hemoglobin 27.8 pg (26-34); Mean Corpuscular Volume 87.7 fl (80-100); Mean Platelet Volume 9.9 fl (7.4-10.4); Platelet Count Result 119 k/mm3 (150-375); Red Blood Count 2.84 M/mm3 (4.2-5.4); Red Cell Distribution Width 18.3 % (11.5-14.5); White Blood Count 4.8 K/mm3 (4.5-10.0)
[2022-03-11 14:46] LABS: Alanine Aminotransferase 32 U/L (6-35); Albumin Level 2.7 g/dL (3.5-5.1); Alkaline Phosphatase 45 U/L (38-126); Anion Gap 14 mmol/L (8-16); Aspartate Amino Transferase 77 U/L (14-36); Bilirubin,Total 0.6 mg/dL (0.2-1.3); Blood Urea Nitrogen 51 mg/dL (7-17); Calcium 6.3 mg/dL (8.4-10.2); Carbon Dioxide 22 mmol/L (22-30); Chloride 99 mmol/L (98-107); Estimated CRCL calculation 15 ml/min; Estimated Glomerular Filt Rate 14; Glucose 106 mg/dL (65-110); INR 1.7; Potassium 3.3 mmol/L (3.4-5.0); Prothrombin Time 19.6 Seconds (11.1-14.7); Sodium 135 mmol/L (137-145)
[2022-03-11 14:48] LABS: Partial Thromboplastin Time 45.9 SECONDS (22.3-36.8)
[2022-03-11 14:49] LABS: Lactic Acid Reflex 6.6 mmol/L (0.7-2.0)
[2022-03-11 14:57] LABS: Anisocytosis 2+ (NORMAL); Band Neutrophils Percent 27 % (0-6); Eosinophils Absolute Manual 0.19 K/mm3 (0.02-0.5); Eosinophils Percent Manual 4 % (0-4); Lymphocytes Absolute Manual 0.48 K/mm3 (1.1-4.5); Monocytes Absolute Manual 0.28 K/mm3 (0.1-0.90); Monocytes Percent Manual 6 % (3-9); Neutrophils Absolute Manual 3.84 K/mm3 (1.7-7.2); Neutrophils Percent Manual 53 % (46-73); Platelet Estimate Decreased (Adequate); Total Cells Counted 100
[2022-03-11 14:58] LABS: Hypochromasia 1+ (NORMAL)
[2022-03-11 17:47] LABS: Glucose Point of Care 98 mg/dl (65-105)
[2022-03-11] MEDS: SODIUM BICARBONATE 8.4% 150 MEQ in DEXTROSE 5% 1,000 ML 950 ML 50 MEQ IV CONT (19:30)
[2022-03-11] MEDS: NOREPINEPHRINE BITARTRATE 16 MG in DEXTROSE 5% IN WATER 250 ML 13.97 ML IV CONT (20:26)
[2022-03-11] MEDS: VASOPRESSIN INJ 100 UNITS in DEXTROSE 5% 95 ML IV CONT (20:30)
[2022-03-11 23:54] LABS: Glucose Point of Care 100 mg/dl (65-105)
[2022-03-12] VITALS (40 sets, daily range): BP systolic 102–148; BP diastolic 53–78; PULSE 68–91; RESP 21–28; TEMP 37.2–37.8; O2SAT 94–98
[2022-03-12] MEDS: LEVALBUTEROL NEB 1.25 MG/3 ML 0.63 MG INHALATION ×4 (02:10→19:53)
[2022-03-12 05:21] LABS: Hematocrit 24.4 % (37.0-47.0); Hemoglobin 7.9 g/dL (12.0-15.0); Mean Corpuscular HGB Conc 32.4 g/dl (32-36); Mean Corpuscular Hemoglobin 28.3 pg (26-34); Mean Corpuscular Volume 87.5 fl (80-100); Mean Platelet Volume 9.7 fl (7.4-10.4); Platelet Count Result 104 k/mm3 (150-375); Red Blood Count 2.79 M/mm3 (4.2-5.4); Red Cell Distribution Width 18.6 % (11.5-14.5); White Blood Count 9.4 K/mm3 (4.5-10.0)
[2022-03-12 05:32] LABS: INR 1.6; Prothrombin Time 18.9 Seconds (11.1-14.7)
[2022-03-12 05:33] LABS: Alveolar/Arterial O2 Gradient 237.2 mmHg; Base Excess ABG -0.5 mEq/l (+/-2.0); Carboxyhemoglobin 0.3 % THb (0-2.0); Fractional Inspired Oxygen 50 %; HCO3 ABG 24.7 mEq/l (22.0-26.0); Methemoglobin ABG 0.2 %THb (0-1.5); Oxygen Content ABG 11.1 %vol (16.0-22.0); PCO2 ABG 42.8 mmHg (35.0-45.0); PO2 ABG 71.2 mmHg (80.0-100.0); PO2 FiO2 Ratio Arterial Blood 1.42 %; Reduced Hemoglobin 7.5 %THb (0-5.0); Total Hemoglobin 8.5 g/dL (12.0-18.0); pH ABG 7.379 (7.350-7.450)
[2022-03-12 05:34] LABS: Arterial Blood Gas Vent Mode CMV; Arterial Blood Gas Ventilator rate 24 /MIN; Device VENTILATOR; Site Drawn ARTLINE
[2022-03-12 05:35] LABS: Arterial Blood Gas PEEP 8 cmH2O; Arterial Blood Gas Tidal Volume 400 ml
[2022-03-12 05:39] LABS: Alanine Aminotransferase 32 U/L (6-35); Albumin Level 2.5 g/dL (3.5-5.1); Alkaline Phosphatase 51 U/L (38-126); Anion Gap 9 mmol/L (8-16); Aspartate Amino Transferase 75 U/L (14-36); Bilirubin,Total 0.5 mg/dL (0.2-1.3); Blood Urea Nitrogen 52 mg/dL (7-17); Calcium 6.6 mg/dL (8.4-10.2); Carbon Dioxide 30 mmol/L (22-30); Chloride 99 mmol/L (98-107); Creatine Kinase 1150 U/L (30-135); Estimated CRCL calculation 25 ml/min; Estimated Glomerular Filt Rate 22; Glucose 109 mg/dL (65-110); Lactic Acid Reflex 5.2 mmol/L (0.7-2.0); Magnesium 1.8 mg/dL (1.6-2.3); Sodium 138 mmol/L (137-145)
[2022-03-12] MEDS: metroNIDAZOLE 500 MG/ISO 100ML 500 MG/100 ML BAG 100 MG IVPB ×3 (05:41→21:23)
[2022-03-12 06:02] LABS: Band Neutrophils Percent 6 % (0-6); Eosinophils Absolute Manual 0.09 K/mm3 (0.02-0.5); Eosinophils Percent Manual 1 % (0-4); Lymphocytes Absolute Manual 0.47 K/mm3 (1.1-4.5); Monocytes Absolute Manual 0.18 K/mm3 (0.1-0.90); Monocytes Percent Manual 2 % (3-9); Neutrophils Absolute Manual 8.64 K/mm3 (1.7-7.2); Neutrophils Percent Manual 86 % (46-73); Platelet Estimate Adequate (Adequate); Total Cells Counted 100
[2022-03-12] MEDS: CENTRAL LINE FLUSH 10 ML IV PUSH ×4 (06:14→21:24)
--- NOTE | 2022-03-12 08:14 | PM.PNNEP ---
Progress Note: A&P Additional Plan 1. The patient has acute kidney injury. Her creatinine is down again. this is impressive considering her urine output isn't all that great. it does seem that the kidneys are starting to turn around. She has been hypotensive. She is on norepinephrine at 11 and off vasopressin. Temperature is down. Her electrolytes are okay. No need to remove fluid right now. No need for dialysis yet. It seems that she may not need dialysis if shje continues to trend in the right direction. Discussed with Dr. Palomo 2. The patient has hypotension. Cortisol level is okay. this is from 3rd spacing and infection. 3. Status post hemigastrectomy and Lyly-en-Y. Now has undergone revision. Patient is in the postoperative phase now. 4. GERD. The patient is on a PPI 5. Metabolic acidosis . bicarbonate is up to 30 now. I agree with stopping the bicarb drip 6. edema, volume overload (extravascular). Discussed with Dr Palomo. will wait a day and see if her u.o. improves into a post atn diuresis. if not will give diuretics tomorrow if pressor doses continue to drop. Subjective Date/time seen: 03/12/22 08:10 am Interval history: patient is sedated. on vent still. still on pressors but on lower dose. Exam Narrative: WDWN in NAD skin no rash or subcu nodules head ncat lungs mildly coarse upper airway noise. cor reg no rub or gallop abd BS absent. Postop. ext 1+ edema in feet, 2+ in presacrum.. Objective Data Vital Signs Vital Signs: Vital Signs - 24 hr 03/11/22 17:29 03/11/22 18:00 03/11/22 18:00 Temperature 38.1 C H Pulse Rate 88 87 86 Respiratory Rate 26 H Blood Pressure 111/54 L Pulse Oximetry 92 93 Oxygen Delivery Mechanical Ventilation Fraction of Inspired Oxygen 50 03/11/22 18:00 03/11/22 19:50 03/11/22 19:51 Temperature Pulse Rate 86 90 90 Respiratory Rate 24 H 26 H Blood Pressure Pulse Oximetry 96 Oxygen Delivery Mechanical Ventilation Fraction of Inspired Oxygen 55 03/11/22 20:26 03/11/22 20:30 03/11/22 20:30 Temperature Pulse Rate 86 86 86 Respiratory Rate Blood Pressure 122/62 118/61 118/61 Pulse Oximetry Oxygen Delivery Fraction of Inspired Oxygen 03/11/22 20:05 03/11/22 20:00 03/11/22 20:00 Temperature Pulse Rate 89 84 86 Respiratory Rate 24 H 24 H Blood Pressure Pulse Oximetry 96 Oxygen Delivery Mechanical Ventilation Fraction of Inspired Oxygen 55 03/11/22 20:00 03/11/22 20:00 03/11/22 20:47 Temperature 37.7 C H Pulse Rate 84 85 Respiratory Rate 24 H Blood Pressure 115/59 L 121/62 Pulse Oximetry 97 Oxygen Delivery Fraction of Inspired Oxygen 55 03/11/22 21:07 03/11/22 22:02 03/11/22 23:04 Temperature Pulse Rate 82 81 Respiratory Rate Blood Pressure 116/60 119/62 Pulse Oximetry Oxygen Delivery Fraction of Inspired Oxygen 50 03/11/22 22:00 03/11/22 22:00 03/11/22 23:15 Temperature 37.9 C H Pulse Rate 84 84 87 Respiratory Rate 25 H 24 H Blood Pressure 107/56 L Pulse Oximetry 98 Oxygen Delivery Fraction of Inspired Oxygen 03/11/22 23:16 03/11/22 23:17 03/11/22 23:21 Temperature Pulse Rate 83 83 83 Respiratory Rate 24 H Blood Pressure 109/57 L Pulse Oximetry 97 Oxygen Delivery Mechanical Ventilation Fraction of Inspired Oxygen 50 03/11/22 23:53 03/12/22 00:00 03/12/22 00:00 Temperature 37.8 C H Pulse Rate 83 74 74 Respiratory Rate 24 H 24 H Blood Pressure 105/53 L Pulse Oximetry 97 95 Oxygen Delivery Mechanical Ventilation Fraction of Inspired Oxygen 50 03/12/22 00:45 03/12/22 00:59 03/12/22 01:58 Temperature Pulse Rate 72 74 76 Respiratory Rate 26 H Blood Pressure Pulse Oximetry Oxygen Delivery Fraction of Inspired Oxygen 03/12/22 01:58 03/12/22 02:12 03/12/22 02:11 Temperature 37.6 C H Pulse Rate 75 76 77 Respiratory Rat
--- NOTE | 2022-03-12 08:14 | PM.PNGS ---
Progress Note: A&P Assessment and Plan (1) Delayed perforation of small intestine: Code(s): K63.1 - Perforation of intestine (nontraumatic) Status: Acute Assessment and Plan: no evidence of recurrent duodenal fistula or other intra-abdominal complication. Wound looks good. Start daily dressing changes. Continue NPO with NG tube. Discussed with instruments sales representative, Dr. Tilley. (2) Anemia: Code(s): D64.9 - Anemia, unspecified Status: Acute Assessment and Plan: improved after transfusion (3) Septic shock: Code(s): A41.9 - Sepsis, unspecified organism; R65.21 - Severe sepsis with septic shock Status: Acute Assessment and Plan: off vasopressin, Levophed dose reduced nearly in half. Lactate lower but still pretty high. Creatinine is better and urine output is good. (4) Acute respiratory failure: Code(s): J96.00 - Acute respiratory failure, unspecified whether with hypoxia or hypercapnia Status: Acute Assessment and Plan: Stable on mechanical ventilator Subjective Subjective Date/Time Seen: 03/12/22 08:14 Post Op day: 2 Patient reports: other ( Intubated on mechanical ventilator) Review of Systems Review of Systems: ROS unobtainable: Yes unobtainable due to endotracheal tube Exam Const: General: cooperative and patient obtunded ( sedated) Nutritional Appearance: thin Orientation/consciousness: patient obtunded GI: Inspection: Abdominal wall edema ( less edematous), non-distended and incision ( dry and intact, healing) GI Palp: Yes Soft to palpation Auscultation: absent bowel sounds Objective Data Vital Signs Vital Signs: Vital Signs - 24 hr 03/11/22 08:17 03/11/22 08:19 03/11/22 09:15 Temperature 37.4 C Pulse Rate 93 96 92 Respiratory Rate 24 H 24 H Blood Pressure 118/57 L Pulse Oximetry 95 97 Oxygen Delivery Mechanical Ventilation Fraction of Inspired Oxygen 60 03/11/22 09:32 03/11/22 10:00 03/11/22 10:00 Temperature 37.4 C 37.4 C Pulse Rate 88 88 88 Respiratory Rate 24 H 24 H Blood Pressure 118/57 L 117/58 L Pulse Oximetry 97 98 Oxygen Delivery Fraction of Inspired Oxygen 03/11/22 10:13 03/11/22 10:14 03/11/22 10:32 Temperature 37.5 C Pulse Rate 88 90 80 Respiratory Rate 24 H 24 H 24 H Blood Pressure 100/50 L Pulse Oximetry 97 Oxygen Delivery Fraction of Inspired Oxygen 03/11/22 11:09 03/11/22 12:13 03/11/22 12:16 Temperature 37.5 C 37.6 C H 37.6 C H Pulse Rate 83 89 86 Respiratory Rate 24 H 24 H 24 H Blood Pressure 126/60 110/54 L 124/60 Pulse Oximetry 96 94 93 Oxygen Delivery Fraction of Inspired Oxygen 03/11/22 12:24 03/11/22 12:00 03/11/22 12:00 Temperature Pulse Rate 83 86 86 Respiratory Rate 24 H 24 H Blood Pressure 130/63 Pulse Oximetry Oxygen Delivery Fraction of Inspired Oxygen 03/11/22 12:00 03/11/22 12:32 03/11/22 08:27 Temperature 37.6 C Pulse Rate 84 Respiratory Rate 24 H Blood Pressure 124/61 Pulse Oximetry 94 95 Oxygen Delivery Mechanical Ventilation Fraction of Inspired Oxygen 50 60 03/11/22 11:11 03/11/22 12:00 03/11/22 12:00 Temperature 37.6 C H Pulse Rate 84 86 Respiratory Rate 24 H Blood Pressure 128/62 Pulse Oximetry 94 93 94 Oxygen Delivery Mechanical Ventilation Mechanical Ventilation Fraction of Inspired Oxygen 50 50 03/11/22 12:00 03/11/22 14:00 03/11/22 14:00 Temperature Pulse Rate 88 83 87 Respiratory Rate 24 H Blood Pressure Pulse Oximetry Oxygen Delivery Fraction of Inspired Oxygen 03/11/22 14:00 03/11/22 12:00 03/11/22 14:00 Temperature Pulse Rate 87 86 91 Respiratory Rate 24 H Blood Pressure 119/58 L 131/66 Pulse Oximetry Oxygen Delivery Fraction of Inspired Oxygen 03/11/22 14:00 03/11/22 14:26 03/11/22 14:29 Temperature 37.7 C H Pulse Rate 83 85 86 Respiratory Rate 24 H 24 H Blood Pressure 120/60 Pulse Oxime
[2022-03-12 08:18] LABS: Reflex Lactic Acid Yes or No Add Lactic
--- NOTE | 2022-03-12 08:32 | WPDINTPN ---
Progress Note: A&P Assessment and Plan (1) Septic shock: Code(s): A41.9 - Sepsis, unspecified organism; R65.21 - Severe sepsis with septic shock Status: Acute Assessment and Plan: Septic shock with hypotension, acute kidney injury, status post bowel surgery, with Gastrografin upper GI series showing small-bowel perforation, leakage -patient has received significant amount of IV fluids -vasopressin has been weaned off -continue Levophed titration to maintain MAP for adequate end organ perfusion -discontinue IV fluids with sodium bicarbonate -03/09/2022: Blood cultures growing Pseudomonas 2/2 bottles sensitive to cefepime -continue cefepime and Flagyl -repeat blood cultures as patient continues to be febrile - check spoke -replace Scott, send UA - Check lipase - Hold vancomycin 03/12 -add stress dose hydrocortisone -lactic acid remains elevated although improved as compared to yesterday. Continue to monitor (2) Acute respiratory failure: Code(s): J96.00 - Acute respiratory failure, unspecified whether with hypoxia or hypercapnia Status: Acute Assessment and Plan: Acute respiratory failure likely related to septic shock, acidosis -patient was intubated on 03/09/2022 -currently on CMV mode of ventilation, 50% FiO2, increased PEEP to 8. Wean FiO2 to maintain O2 sats > 92% -chest x-ray this morning shows 1. Stable moderate-sized right and small left pleural effusions. 2. Stable airspace opacities at the lung bases, consistent with atelectasis versus pneumonia. -advance ET tube by 3 cm -ABGs reviewed -sedated with fentanyl infusion, maintain RASS of 0 To -2 -continue bronchodilators (3) Acute renal failure: Code(s): N17.9 - Acute kidney failure, unspecified Status: Acute Assessment and Plan: Acute kidney injury likely related to septic shock, prolonged hypotension, hypovolemia due to third-spacing secondary to surgery, NSAID use at home -patient has been adequately fluid-resuscitated -renal ultrasound was unremarkable -appreciate Nephrology evaluation and recommendations -continue albumin q.6 hours -hold IV fluids as patient is significantly volume overloaded and also has developed metabolic alkalosis -improved urine output -creatinine trending down, CK levels improving -replace low calcium potassium and magnesium. Replace BMP and Mag later in the evening -hold Lasix at this time patient is still on decent amount of vasopressors -continue to monitor renal function, electrolytes and urine output, patient may require dialysis if urine does not improve (4) Pyloric stricture: Code(s): K31.1 - Adult hypertrophic pyloric stenosis Status: Chronic Assessment and Plan: 03/07/2022: Status post hemigastrectomy with Lyly-en-Y jejunostomy, repair of left spigelian hernia -patient with increasing abdominal pain postoperatively, hypotension, shock, acute renal failure -03/09/2022: CT scan of the abdomen and pelvis: Bibasilar atelectasis/consolidation. Moderate right and small left pleural effusions. Moderate abdominal ascites, likely containing small volume proteinaceous or hemorrhagic debris. Body wall edema. -03/09: upper GI series with Gastrografin small-bowel perforation, leakage -03/10/2022: Status post exploratory laparotomy, repair of duodenal stump leak, omental patch, intra-abdominal washout -discussed with surgery, agree with continuing medical management as above -may need further imaging if patient continues to be febrile although at this time patient is clinically improving decreased vasopressor requirement, improved hemodynamics and normal WBC (5) Gastroesophageal reflux disease: Code(s): K21.9 - Gastro-esophageal reflux disease without esophagitis Status: Acute Assessment and Plan: Continue PPI IV q.12 hours (6) DVT prophylaxis: Code(s): Z29.9 - Encounter for prophylactic measures, unspecified Status: Acute Assessment and Plan: SCD
[2022-03-12] MEDS: KCL 40 MEQ/WATER 100 ML 100 ML 25 ML IVPB (08:38)
[2022-03-12] MEDS: MAGNESIUM SULF 2 GM/WATER 50ML 2 GM/50 ML BAG IVPB (08:47)
[2022-03-12] MEDS: MINERAL OIL/WHITE PETROLATUM OINTMENT 1 APPLIC EACH EYE ×2 (08:48→21:23)
[2022-03-12] MEDS: PANTOPRAZOLE SODIUM IV 40 MG VIAL IV PUSH ×2 (08:48→21:23)
[2022-03-12] MEDS: CALCIUM CHLOR 1,000MG/100ML NS 1,000 MG/100 ML BAG 100 MG IVPB (09:10)
[2022-03-12 09:26] LABS: Lipase 44 U/L (23-300)
[2022-03-12 09:27] LABS: Lactic Acid 4.5 mmol/L (0.7-2.0)
[2022-03-12 10:32] LABS: Appearance Urine Cloudy (Clear); Bilirubin Urine Negative (Negative); Blood Urine 3+ (Negative); Color Urine Yellow (Yellow); Glucose Urine UA Negative (Negative); Ketones Urine Negative (Negative); Leukocyte Esterase Ur 1+ LEU/UL (Negative); Nitrate Urine Negative (Negative); Protein Urine 2+ mg/dL (Negative); Specific Grav Ur 1.015 (1.001-1.035); Urobilinogen Urine 0.2 mg/dL (<2.0); pH Urine 5.5 (5.0-9.0)
[2022-03-12 10:46] LABS: Bacteria Urine Trace /hpf; Budding Yeast Urine Present /hpf; Mucus Urine Rare /lpf; RBC Urine 51-75 /hpf (0-2); Squamous Epithelial Cell Urine Moderate /hpf (Few); Transitional Epi Cells Urine Occasional /hpf (None Seen); WBC Urine >75 /hpf
[2022-03-12 10:47] LABS: Add Urine Microscopic? YES
--- NOTE | 2022-03-12 11:06 | PCNFU ---
Nutrition Follow-Up Complete: Inadequate energy intake related to altered GI function and diet order as evidenced by NPO status with small bowl perferation. Goal:Meet estimated nutritional needs. Pt remains NPO without nutrition support, currently not progressing towards goal. Pt current nutrition is NPO. Nutrition recommendation: Initiate nutrition support as necessary Last recorded weight is 70.5 kg- up from 66kg Bowel Motility: No current BM recorded Labs Reviewed:Hgb:7.9, HCT:24.4, Alb:2.5, K:3.0, BUN:52, Cr:2.4 Meds Noted: fentanyl, KCL, protonix, zofran, novolog Skin: WNL Additional Notes: Pt remains on ventilation. NPO orders, no nutrition support at this time. Hypoactive bowel sounds. No plans to proceed with TPN at this time. Continue to recommend TPN initiation if necessary: clinimix @ 40ml/hr with a goal of 60ml/hr - 1522kcals, 72g protein. Will monitor and follow up every 3 days.
--- NOTE | 2022-03-12 11:25 | PM.IMPN ---
Progress Note: A&P Assessment and Plan (1) Septic shock: Code(s): A41.9 - Sepsis, unspecified organism; R65.21 - Severe sepsis with septic shock Status: Acute Assessment and Plan: -secondary to intra-abdominal infection -oliguric/anuric acute kidney injury which appears to be improving. -managed per ICU (2) Acute respiratory failure: Code(s): J96.00 - Acute respiratory failure, unspecified whether with hypoxia or hypercapnia Status: Acute Assessment and Plan: Acute respiratory failure likely related to septic shock, acidosis -patient was intubated on 03/09/2022 -managed per ICU (3) Acute renal failure: Code(s): N17.9 - Acute kidney failure, unspecified Status: Acute Assessment and Plan: Appears to be improving. Secondary to sepsis from intra-abdominal infection. -continue to monitor renal function, electrolytes and urine output -managed per Nephrology (4) Pyloric stricture: Code(s): K31.1 - Adult hypertrophic pyloric stenosis Status: Chronic Assessment and Plan: Status post Lyly-en-Y procedure with duodenal leak and repair. Improving. Management per surgery andICU. (5) Gastroesophageal reflux disease: Code(s): K21.9 - Gastro-esophageal reflux disease without esophagitis Status: Acute Assessment and Plan: Continue PPI IV q.12 hours (6) DVT prophylaxis: Code(s): Z29.9 - Encounter for prophylactic measures, unspecified Status: Acute Assessment and Plan: Lovenox (7) Tobacco use: Code(s): Z72.0 - Tobacco use Status: Acute (8) Peptic ulcer disease: Code(s): K27.9 - Peptic ulcer, site unspecified, unspecified as acute or chronic, without hemorrhage or perforation Status: Chronic (9) Migraine headache: Code(s): G43.909 - Migraine, unspecified, not intractable, without status migrainosus Status: Acute Assessment and Plan: History of (10) Anemia: Code(s): D64.9 - Anemia, unspecified Status: Acute Assessment and Plan: Monitor hemoglobin Subjective Date/time seen: 03/12/22 11:25 Patient is still sedated and intubated Exam Narrative: General: Patient is intubated and sedated HEENT: Pupils equal and reactive, sclera is clear, ETT in place Neck: Supple Respiratory: Coarse breath sounds bilaterally decreased at bases, no wheezing Cardiac: Regular rate and rhythm, S1-S2 normal Abdomen: Soft, nondistended, diffuse tenderness to palpation, no guarding, no bowel sounds could be heard, midline incision with dressing in place, area of bleeding noted in the center of the dressing Extremities: Cool extremities decreased pedal pulses with Dopplers, bilateral edema present Neuro: Patient is intubated and sedated, does not open her eyes or follow simple commands, grimaces on abdominal exam Skin: Dry and intact Psych: Unable to assess at this time Objective Data Vital Signs Vital Signs: Vital Signs - 24 hr 03/11/22 12:13 03/11/22 12:16 03/11/22 12:24 Temperature 99.7 F H 99.7 F H Pulse Rate 89 86 83 Respiratory Rate 24 H 24 H Blood Pressure 110/54 L 124/60 130/63 Pulse Oximetry 94 93 Oxygen Delivery Fraction of Inspired Oxygen 03/11/22 12:00 03/11/22 12:00 03/11/22 12:00 Temperature Pulse Rate 86 86 Respiratory Rate 24 H 24 H Blood Pressure Pulse Oximetry Oxygen Delivery Fraction of Inspired Oxygen 50 03/11/22 12:32 03/11/22 12:00 03/11/22 12:00 Temperature 99.6 F 99.7 F H Pulse Rate 84 86 Respiratory Rate 24 H 24 H Blood Pressure 124/61 128/62 Pulse Oximetry 94 93 94 Oxygen Delivery Mechanical Ventilation Fraction of Inspired Oxygen 50 03/11/22 12:00 03/11/22 14:00 03/11/22 14:00 Temperature Pulse Rate 88 83 87 Respiratory Rate 24 H Blood Pressure Pulse Oximetry Oxygen Delivery Fraction of Inspired Oxygen 03/11/22 14:00 03/11/22 12:00 03/11/22 14:00
[2022-03-12] MEDS: ALBUMIN HUMAN 25% 25 GM/100 ML 100 ML IVPB ×2 (12:14→17:56)
[2022-03-12 12:25] LABS: Glucose Point of Care 86 mg/dl (65-105)
[2022-03-12] MEDS: KCL 20 MEQ/SW 100 ML 100 ML 50 MEQ IVPB (13:00)
[2022-03-12] MEDS: HYDROCORTISONE SODIUM SUCCINATE 100 MG/2 ML VIAL IV PUSH ×2 (13:52→21:24)
[2022-03-12 15:54] LABS: Anion Gap 5 mmol/L (8-16); Blood Urea Nitrogen 45 mg/dL (7-17); Calcium 7.8 mg/dL (8.4-10.2); Carbon Dioxide 30 mmol/L (22-30); Chloride 103 mmol/L (98-107); Estimated CRCL calculation 31 ml/min; Estimated Glomerular Filt Rate 28; Glucose 94 mg/dL (65-110); Magnesium 2.5 mg/dL (1.6-2.3); Potassium 3.7 mmol/L (3.4-5.0); Sodium 138 mmol/L (137-145)
[2022-03-12 18:05] LABS: Glucose Point of Care 109 mg/dl (65-105)
[2022-03-12] MEDS: FENTANYL 2,500MCG/NS250ML(*CRX 2,500 MCG/250 ML BAG IV CONT (22:52)
[2022-03-13] VITALS (37 sets, daily range): BP systolic 103–140; BP diastolic 57–73; PULSE 60–97; RESP 17–30; TEMP 37.1–37.9; O2SAT 91–100
[2022-03-13] MEDS: ALBUMIN HUMAN 25% 25 GM/100 ML 100 ML IVPB ×5 (00:10→23:47)
[2022-03-13 00:31] LABS: Glucose Point of Care 109 mg/dl (65-105)
[2022-03-13] MEDS: LEVALBUTEROL NEB 1.25 MG/3 ML 0.63 MG INHALATION ×4 (02:40→21:16)
[2022-03-13 05:01] LABS: Hematocrit 22.4 % (37.0-47.0); Hemoglobin 7.1 g/dL (12.0-15.0); Immature Platelet Fraction Pct 6.3 % (0.9-11.2); Mean Corpuscular HGB Conc 31.7 g/dl (32-36); Mean Corpuscular Hemoglobin 28.3 pg (26-34); Mean Corpuscular Volume 89.2 fl (80-100); Mean Platelet Volume 9.6 fl (7.4-10.4); Platelet Count Result 69 k/mm3 (150-375); Red Blood Count 2.51 M/mm3 (4.2-5.4); Red Cell Distribution Width 18.8 % (11.5-14.5); White Blood Count 8.6 K/mm3 (4.5-10.0)
[2022-03-13 05:09] LABS: Lactic Acid Reflex 2.7 mmol/L (0.7-2.0)
[2022-03-13 05:10] LABS: Alanine Aminotransferase 20 U/L (6-35); Albumin Level 3.4 g/dL (3.5-5.1); Alkaline Phosphatase 47 U/L (38-126); Anion Gap 9 mmol/L (8-16); Aspartate Amino Transferase 38 U/L (14-36); Bilirubin,Total 1.1 mg/dL (0.2-1.3); Blood Urea Nitrogen 43 mg/dL (7-17); Calcium 8.3 mg/dL (8.4-10.2); Carbon Dioxide 30 mmol/L (22-30); Chloride 103 mmol/L (98-107); Creatine Kinase 410 U/L (30-135); Estimated CRCL calculation 39 ml/min; Estimated Glomerular Filt Rate 37; Glucose 104 mg/dL (65-110); Magnesium 2.6 mg/dL (1.6-2.3); Phosphorus 2.4 mg/dL (2.5-4.5); Potassium 3.3 mmol/L (3.4-5.0); Sodium 142 mmol/L (137-145)
[2022-03-13] MEDS: CENTRAL LINE FLUSH 10 ML IV PUSH ×3 (05:21→19:39)
[2022-03-13] MEDS: metroNIDAZOLE 500 MG/ISO 100ML 500 MG/100 ML BAG 100 MG IVPB ×3 (05:21→22:23)
[2022-03-13] MEDS: HYDROCORTISONE SODIUM SUCCINATE 100 MG/2 ML VIAL IV PUSH ×3 (05:22→22:26)
[2022-03-13 05:24] LABS: Band Neutrophils Percent 8 % (0-6); Lymphocytes Absolute Manual 0.34 K/mm3 (1.1-4.5); Monocytes Absolute Manual 0.08 K/mm3 (0.1-0.90); Monocytes Percent Manual 1 % (3-9); Neutrophils Absolute Manual 8.17 K/mm3 (1.7-7.2); Neutrophils Percent Manual 87 % (46-73); Platelet Estimate Decreased (Adequate); Total Cells Counted 100
[2022-03-13 05:34] LABS: Alveolar/Arterial O2 Gradient 135.1 mmHg; Base Excess ABG 4.1 mEq/l (+/-2.0); Carboxyhemoglobin 0.3 % THb (0-2.0); Fractional Inspired Oxygen 40 %; Methemoglobin ABG 0.5 %THb (0-1.5); Oxygen Content ABG 10.7 %vol (16.0-22.0); Oxygen Saturation ABG 98.5 % (95.0-100.0); Oxyhemoglobin 96.5 % THb (90.0-100.0); PCO2 ABG 33.3 mmHg (35.0-45.0); PO2 ABG 111.8 mmHg (80.0-100.0); Reduced Hemoglobin 2.7 %THb (0-5.0)
[2022-03-13 05:36] LABS: pH ABG 7.527 (7.350-7.450)
[2022-03-13 05:37] LABS: Device VENTILATOR; Site Drawn ARTLINE; Total Hemoglobin 7.7 g/dL (12.0-18.0)
[2022-03-13 05:38] LABS: Arterial Blood Gas PEEP 8 cmH2O; Arterial Blood Gas Tidal Volume 400 ml; Arterial Blood Gas Vent Mode CMV; Arterial Blood Gas Ventilator rate 24 /MIN
[2022-03-13 07:57] LABS: Reflex Lactic Acid Yes or No Add Lactic
[2022-03-13 08:49] LABS: Alveolar/Arterial O2 Gradient 184.1 mmHg; Base Excess ABG 2.1 mEq/l (+/-2.0); Fractional Inspired Oxygen 45 %; Oxygen Content ABG 10.1 %vol (16.0-22.0); Oxygen Saturation ABG 96.6 % (95.0-100.0); Oxyhemoglobin 93.4 % THb (90.0-100.0); PCO2 ABG 44.1 mmHg (35.0-45.0); PO2 ABG 86.6 mmHg (80.0-100.0); PO2 FiO2 Ratio Arterial Blood 1.92 %; pH ABG 7.405 (7.350-7.450)
[2022-03-13 08:50] LABS: Site Drawn ARTLINE; Total Hemoglobin 7.6 g/dL (12.0-18.0)
[2022-03-13 08:52] LABS: Arterial Blood Gas PEEP 8 cmH2O; Arterial Blood Gas Vent Mode CMV; Arterial Blood Gas Ventilator rate 18 /MIN; Device VENTILATOR
[2022-03-13 08:53] LABS: Arterial Blood Gas Tidal Volume 400 ml
[2022-03-13] MEDS: POTASSIUM PHOS,M-BASIC-D-BASIC 15 MMOL in SODIUM CHLORIDE 0.9% IV 250 ML 63.75 MMOL IVPB (09:20)
[2022-03-13] MEDS: PANTOPRAZOLE SODIUM IV 40 MG VIAL IV PUSH ×2 (09:21→19:39)
[2022-03-13] MEDS: MINERAL OIL/WHITE PETROLATUM OINTMENT 1 APPLIC EACH EYE ×2 (09:21→19:39)
[2022-03-13] MEDS: BUMETANIDE INJ 1 MG/4 ML VIAL IV PUSH ×2 (09:37→16:16)
--- NOTE | 2022-03-13 09:43 | WPDINTPN ---
Progress Note: A&P Assessment and Plan (1) Septic shock: Code(s): A41.9 - Sepsis, unspecified organism; R65.21 - Severe sepsis with septic shock Status: Acute Assessment and Plan: Septic shock with hypotension, acute kidney injury, status post bowel surgery, with Gastrografin upper GI series showing small-bowel perforation, leakage -patient has received significant amount of IV fluids -vasopressin was weaned off to nasal - Levophed weaned off overnight. Continue to monitor -03/12 discontinue IV fluids with sodium bicarbonate -03/09/2022: Blood cultures growing Pseudomonas 2/2 bottles sensitive to cefepime -continue cefepime and Flagyl -03/12 repeat blood cultures sent, Scott was replaced, urine culture was sent, lipase was normal -discontinue vancomycin 03/12 -continue stress dose hydrocortisone for another 24 hours -lactic acid level has improved (2) Acute respiratory failure: Code(s): J96.00 - Acute respiratory failure, unspecified whether with hypoxia or hypercapnia Status: Acute Assessment and Plan: Acute respiratory failure likely related to septic shock, acidosis -patient was intubated on 03/09/2022 -currently on CMV mode of ventilation, 45 % FiO2, increased PEEP to 8. Wean FiO2 to maintain O2 sats > 92% -chest x-ray this morning reviewed -significant volume overload will start Lasix since patient is now off of vasopressors and renal function is improved -ABGs reviewed and rate decreased to 18 -sedated with fentanyl infusion, maintain RASS of 0 To -2. Sedation holiday -continue bronchodilators (3) Acute renal failure: Code(s): N17.9 - Acute kidney failure, unspecified Status: Acute Assessment and Plan: Acute kidney injury likely related to septic shock, prolonged hypotension, hypovolemia due to third-spacing secondary to surgery, NSAID use at home -patient has been adequately fluid-resuscitated -renal ultrasound was unremarkable -appreciate Nephrology evaluation and recommendations -continue albumin q.6 hours -of IV fluids as patient is significantly volume overloaded and also has developed metabolic alkalosis -improved urine output -creatinine trending down, CK levels improving -replace low calcium potassium and phosphate. -nephrology is going to order Bumex today -continue to monitor renal function, electrolytes and urine output, patient may require dialysis if urine does not improve (4) Pyloric stricture: Code(s): K31.1 - Adult hypertrophic pyloric stenosis Status: Chronic Assessment and Plan: 03/07/2022: Status post hemigastrectomy with Lyly-en-Y jejunostomy, repair of left spigelian hernia -patient with increasing abdominal pain postoperatively, hypotension, shock, acute renal failure -03/09/2022: CT scan of the abdomen and pelvis: Bibasilar atelectasis/consolidation. Moderate right and small left pleural effusions. Moderate abdominal ascites, likely containing small volume proteinaceous or hemorrhagic debris. Body wall edema. -03/09: upper GI series with Gastrografin small-bowel perforation, leakage -03/10/2022: Status post exploratory laparotomy, repair of duodenal stump leak, omental patch, intra-abdominal washout -discussed with surgery, agree with continuing medical management as above -discussed with Dr. Roman, will start trickle tube feeds (5) Gastroesophageal reflux disease: Code(s): K21.9 - Gastro-esophageal reflux disease without esophagitis Status: Acute Assessment and Plan: Continue PPI IV q.12 hours (6) DVT prophylaxis: Code(s): Z29.9 - Encounter for prophylactic measures, unspecified Status: Acute Assessment and Plan: SCDs. Will resume Lovenox if hemoglobin remains stable for 48 hours (7) Anemia: Code(s): D64.9 - Anemia, unspecified Status: Acute Assessment and Plan: Hemoglobin dropped to 6.5 03/11 , 1 unit of packed RBCs was given -DIC panel shows an INR of 2.0 in fibrinogen of 407,
--- NOTE | 2022-03-13 11:21 | PCFNICU ---
ICU Rounding Note: Pt current nutrition is Vital AF 1.2 at 20 ml/hr over 22 hours. Last recorded weight is 69.7 kg, up from 66.6 kg on admit. Bowel Motility: No BM reported, hypoactive bowel sounds reported. Labs Reviewed:Cr 1.5,K 3.3, GFR 37, BUN 43, Hct 22.4,Hgb 7.1 Meds Noted:Bumex, Fentanyl, KCL, Protonix, Zofran, NovoLog Skin: WNL Additional Notes: Patient remains on mechanical ventilator, tube feedings starting today with Vital AF 1.2 at 20 ml/hr over 22 hours, Recommend goal rate at 60 ml/hr, providing 1584 kcals/99 gms protein/1071 ml water. Free water flush 30 ml q 4 hours. Agree with diet orders. Following daily in ICU rounds and reassessing every Friday and Friday.
[2022-03-13 11:36] LABS: Glucose Point of Care 127 mg/dl (65-105)
[2022-03-13] MEDS: ALTEPLASE 2 MG VIAL (CATHFLO) IV PUSH ×2 (12:01→15:13)
[2022-03-13] MEDS: KCL 40 MEQ/WATER 100 ML 100 ML 25 ML IVPB (13:03)
--- NOTE | 2022-03-13 14:38 | PM.PNNEP ---
Progress Note: A&P Additional Plan 1. The patient has acute kidney injury. Her creatinine is down again. Urine output is doing well. Blood pressure is doing well without pressors. Electrolytes are doing well. She has some swelling. Will try Bumex. Discussed with Dr. Palomo 2. Hypotension is better. She is off pressors. 3. Status post hemigastrectomy and Lyly-en-Y. Now has undergone revision. Patient is in the postoperative phase now. 4. GERD. The patient is on a PPI 5. Bicarbonate level is doing well. Subjective Date/time seen: 03/13/22 14:38 Interval history: patient is sedated. on vent still. Off pressors. Blood pressure is doing better. Exam Narrative: WDWN in NAD On ventilator. skin no rash or subcu nodules head ncat lungs mildly coarse upper airway noise. cor reg no rub or gallop abd BS absent. Postop. ext 1+ edema in feet, 2+ in presacrum.. Objective Data Vital Signs Vital Signs: Vital Signs - 24 hr 03/12/22 15:17 03/12/22 16:00 03/12/22 16:00 Temperature Pulse Rate 75 79 Respiratory Rate 23 H Blood Pressure 114/61 Pulse Oximetry 96 Oxygen Delivery Mechanical Ventilation Fraction of Inspired Oxygen 30 30 03/12/22 16:00 03/12/22 16:00 03/12/22 16:00 Temperature 37.4 C Pulse Rate 79 80 79 Respiratory Rate 23 H Blood Pressure 106/56 L 106/56 L Pulse Oximetry 96 Oxygen Delivery Fraction of Inspired Oxygen 03/12/22 16:00 03/12/22 16:51 03/12/22 18:00 Temperature Pulse Rate 79 79 78 Respiratory Rate 23 H Blood Pressure Pulse Oximetry 94 Oxygen Delivery Mechanical Ventilation Fraction of Inspired Oxygen 30 03/12/22 18:00 03/12/22 18:00 03/12/22 18:07 Temperature 37.4 C Pulse Rate 77 77 77 Respiratory Rate 24 H 24 H Blood Pressure 107/57 L 107/57 L Pulse Oximetry 94 Oxygen Delivery Fraction of Inspired Oxygen 03/12/22 19:55 03/12/22 19:55 03/12/22 20:00 Temperature Pulse Rate 76 76 Respiratory Rate 24 H Blood Pressure Pulse Oximetry 94 Oxygen Delivery Mechanical Ventilation Fraction of Inspired Oxygen 30 30 03/12/22 20:00 03/12/22 20:00 03/12/22 22:00 Temperature 37.3 C Pulse Rate 71 68 Respiratory Rate 24 H 24 H Blood Pressure 104/58 L 121/65 Pulse Oximetry 97 96 Oxygen Delivery Mechanical Ventilation Fraction of Inspired Oxygen 30 03/12/22 22:52 03/12/22 22:52 03/13/22 00:39 Temperature Pulse Rate 70 70 80 Respiratory Rate 24 H 24 H 30 H Blood Pressure Pulse Oximetry Oxygen Delivery Fraction of Inspired Oxygen 03/13/22 00:00 03/12/22 23:15 03/13/22 00:00 Temperature 37.9 C H Pulse Rate 76 69 Respiratory Rate 24 H Blood Pressure 114/60 Pulse Oximetry 93 95 Oxygen Delivery Mechanical Ventilation Fraction of Inspired Oxygen 30 30 03/13/22 02:00 03/13/22 00:40 03/13/22 02:09 Temperature 37.5 C Pulse Rate 64 74 Respiratory Rate 24 H Blood Pressure 111/61 111/62 Pulse Oximetry 97 Oxygen Delivery Mechanical Ventilation Fraction of Inspired Oxygen 45 03/12/22 20:05 03/13/22 02:43 03/13/22 04:05 Temperature Pulse Rate 79 68 60 Respiratory Rate 24 H Blood Pressure 140/73 Pulse Oximetry 98 Oxygen Delivery Mechanical Ventilation Fraction of Inspired Oxygen 45 03/13/22 04:00 03/13/22 04:00 03/13/22 04:00 Temperature 37.1 C Pulse Rate 60 Respiratory Rate 24 H Blood Pressure 133/68 Pulse Oximetry 100 Oxygen Delivery Mechanical Ventilation Fraction of Inspired Oxygen 40 40 03/12/22 23:50 03/13/22 02:43 03/13/22 02:53 Temperature Pulse Rate 68 69 Respiratory Rate 28 H 28 H Blood Pressure Pulse Oximetry Oxygen Delivery Fraction of Inspired Oxygen 45 03/13/22 05:18 03/13/22 05:39 03/13/22 03:30 Temperature Pulse Rate 63 67 Respiratory Rate 24 H Blood Pressure Pulse Oximetry 100 99 Oxygen Deliv
--- NOTE | 2022-03-13 15:11 | PM.IMPN ---
Progress Note: A&P Assessment and Plan (1) Septic shock: Code(s): A41.9 - Sepsis, unspecified organism; R65.21 - Severe sepsis with septic shock Status: Acute Assessment and Plan: Septic shock status post bowel surgery with small bowel perforation and leakage, off pressors and IV fluids, continue stress dose steroids, repeat blood cultures pending, currently on cefepime and Flagyl, has started March 11, status post vancomycin (2) Acute respiratory failure: Code(s): J96.00 - Acute respiratory failure, unspecified whether with hypoxia or hypercapnia Status: Acute Assessment and Plan: Acute respiratory failure secondary to septic shock, proceed critical care consultation, managing vent after being intubated March 09 (3) Acute renal failure: Code(s): N17.9 - Acute kidney failure, unspecified Status: Acute Assessment and Plan: Acute kidney injury likely secondary to shock, not resolving now that patient is hypervolemic, still receiving albumin q.6, appreciate nephrology consultation, trial of Bumex with possible need for dialysis (4) Pyloric stricture: Code(s): K31.1 - Adult hypertrophic pyloric stenosis Status: Chronic Assessment and Plan: 03/07/2022: Status post hemigastrectomy with Lyly-en-Y jejunostomy, repair of left spigelian hernia, patient with increasing abdominal pain postoperatively, hypotension, shock, acute renal failure 03/09/2022: CT scan of the abdomen and pelvis: Bibasilar atelectasis/consolidation. Moderate right and small left pleural effusions. Moderate abdominal ascites, likely containing small volume proteinaceous or hemorrhagic debris. Body wall edema. 03/09: upper GI series with Gastrografin small-bowel perforation, leakage 03/10/2022: Status post exploratory laparotomy, repair of duodenal stump leak, omental patch, intra-abdominal washout discussed with surgery, agree with continuing medical management as above, tube feeds started (5) Gastroesophageal reflux disease: Code(s): K21.9 - Gastro-esophageal reflux disease without esophagitis Status: Acute Assessment and Plan: Continue PPI IV q.12 hours (6) DVT prophylaxis: Code(s): Z29.9 - Encounter for prophylactic measures, unspecified Status: Acute Assessment and Plan: SCDs. Will resume Lovenox if hemoglobin remains stable for 48 hours (7) Anemia: Code(s): D64.9 - Anemia, unspecified Status: Acute Assessment and Plan: Anemia likely secondary to septic shock, status post 1 unit packed red blood cells March 11 as well as a unit of FFP, continue to monitor Subjective Date/time seen: 03/13/22 15:11 Interval history: Intubated, sedated. Off pressors. No other events noted. Review of Systems Review of Systems: ROS unobtainable: Yes unobtainable due to endotracheal tube Exam Narrative: per [employer] Offbearer note Objective Data Vital Signs Vital Signs: Vital Signs - 24 hr 03/12/22 15:17 03/12/22 16:00 03/12/22 16:00 Temperature Pulse Rate 75 79 Respiratory Rate 23 H Blood Pressure 114/61 Pulse Oximetry 96 Oxygen Delivery Mechanical Ventilation Fraction of Inspired Oxygen 30 30 03/12/22 16:00 03/12/22 16:00 03/12/22 16:00 Temperature 99.3 F Pulse Rate 79 80 79 Respiratory Rate 23 H Blood Pressure 106/56 L 106/56 L Pulse Oximetry 96 Oxygen Delivery Fraction of Inspired Oxygen 03/12/22 16:00 03/12/22 16:51 03/12/22 18:00 Temperature Pulse Rate 79 79 78 Respiratory Rate 23 H Blood Pressure Pulse Oximetry 94 Oxygen Delivery Mechanical Ventilation Fraction of Inspired Oxygen 30 03/12/22 18:00 03/12/22 18:00 03/12/22 18:07 Temperature 99.3 F Pulse Rate 77 77 77 Respiratory Rate 24 H 24 H Blood Pressure 107/57 L 107/57 L Pulse Oximetry 94 Oxygen Delivery Fraction of Inspired Oxygen 03/12/22 19:55 03/12/22 19:55 03/12/22 20:00 T
[2022-03-13 16:32] LABS: Hematocrit 22.6 % (37.0-47.0); Mean Corpuscular Hemoglobin 27.9 pg (26-34); Mean Platelet Volume 11.2 fl (7.4-10.4); Platelet Count Result 58 k/mm3 (150-375); Red Blood Count 2.51 M/mm3 (4.2-5.4); Red Cell Distribution Width 19.1 % (11.5-14.5); White Blood Count 10.3 K/mm3 (4.5-10.0)
[2022-03-13 18:11] LABS: Glucose Point of Care 144 mg/dl (65-105)
--- NOTE | 2022-03-13 18:18 | PM.PNGS ---
Progress Note: A&P Assessment and Plan (1) Delayed perforation of small intestine: Code(s): K63.1 - Perforation of intestine (nontraumatic) Status: Acute Assessment and Plan: No evidence of recurrence duodenal stump leak. Okay to start feedings per NG tube which actually crosses the enteroenterostomy beyond the stomach and would be feeding into the proximal small intestine. Patient continues to improve. I called and talked with patient's mom, Luz Elena, again today. (2) Septic shock: Code(s): A41.9 - Sepsis, unspecified organism; R65.21 - Severe sepsis with septic shock Status: Acute Assessment and Plan: Patient now off vasopressor agents. Still some hypoxemia. Urine output improving and creatinine nearly normal. (3) Acute respiratory failure: Code(s): J96.00 - Acute respiratory failure, unspecified whether with hypoxia or hypercapnia Status: Acute Assessment and Plan: Discussed with ledger poster, Dr. Tilley. Consider diuretic as patient probably mobilizing 3rd space fluids contributing to some of the hypoxemia. (4) Anemia: Code(s): D64.9 - Anemia, unspecified Status: Acute Assessment and Plan: No evidence of bleeding probably is mostly a dilutional effects at this point. Subjective Subjective Date/Time Seen: 03/13/22 18:18 Post Op day: 3 Patient reports: other (Intubated on mechanical ventilator) Interval history: Patient was able to be weaned off of vasopressor agents through the night. Review of Systems Review of Systems: ROS unobtainable: Yes unobtainable due to endotracheal tube Exam Const: General: comfortable Orientation/consciousness: patient obtunded (Sedated) GI: Inspection: Abdominal wall edema, non-distended, incision (Incision dry with minimal drainage and suture line intact.), scaphoid and other (No bile in ANGELA drain, serous) GI Palp: Yes Soft to palpation Auscultation: absent bowel sounds Objective Data Vital Signs Vital Signs: Vital Signs - 24 hr 03/12/22 19:55 03/12/22 19:55 03/12/22 20:00 Temperature Pulse Rate 76 76 Respiratory Rate 24 H Blood Pressure Pulse Oximetry 94 Oxygen Delivery Mechanical Ventilation Fraction of Inspired Oxygen 30 30 03/12/22 20:00 03/12/22 20:00 03/12/22 22:00 Temperature 37.3 C Pulse Rate 71 68 Respiratory Rate 24 H 24 H Blood Pressure 104/58 L 121/65 Pulse Oximetry 97 96 Oxygen Delivery Mechanical Ventilation Fraction of Inspired Oxygen 30 03/12/22 22:52 03/12/22 22:52 03/13/22 00:39 Temperature Pulse Rate 70 70 80 Respiratory Rate 24 H 24 H 30 H Blood Pressure Pulse Oximetry Oxygen Delivery Fraction of Inspired Oxygen 03/13/22 00:00 03/12/22 23:15 03/13/22 00:00 Temperature 37.9 C H Pulse Rate 76 69 Respiratory Rate 24 H Blood Pressure 114/60 Pulse Oximetry 93 95 Oxygen Delivery Mechanical Ventilation Fraction of Inspired Oxygen 30 30 03/13/22 02:00 03/13/22 00:40 03/13/22 02:09 Temperature 37.5 C Pulse Rate 64 74 Respiratory Rate 24 H Blood Pressure 111/61 111/62 Pulse Oximetry 97 Oxygen Delivery Mechanical Ventilation Fraction of Inspired Oxygen 45 03/12/22 20:05 03/13/22 02:43 03/13/22 04:05 Temperature Pulse Rate 79 68 60 Respiratory Rate 24 H Blood Pressure 140/73 Pulse Oximetry 98 Oxygen Delivery Mechanical Ventilation Fraction of Inspired Oxygen 45 03/13/22 04:00 03/13/22 04:00 03/13/22 04:00 Temperature 37.1 C Pulse Rate 60 Respiratory Rate 24 H Blood Pressure 133/68 Pulse Oximetry 100 Oxygen Delivery Mechanical Ventilation Fraction of Inspired Oxygen 40 40 03/12/22 23:50 03/13/22 02:43 03/13/22 02:53 Temperature Pulse Rate 68 69 Respiratory Rate 28 H 28 H Blood Pressure Pulse Oximetry Oxygen Delivery Fraction of Inspired Oxygen 45 03/13/22 05:18 03/13/22 05:39 03/13/22 03:30 Temperature Pulse Rat
[2022-03-13 23:44] LABS: Glucose Point of Care 154 mg/dl (65-105)
[2022-03-14] VITALS (36 sets, daily range): BP systolic 99–155; BP diastolic 51–83; PULSE 59–95; RESP 12–32; TEMP 36.8–38; O2SAT 90–99
[2022-03-14] MEDS: LEVALBUTEROL NEB 1.25 MG/3 ML 0.63 MG INHALATION ×4 (02:10→20:45)
[2022-03-14] MEDS: metroNIDAZOLE 500 MG/ISO 100ML 500 MG/100 ML BAG 100 MG IVPB ×3 (05:15→22:00)
[2022-03-14] MEDS: CENTRAL LINE FLUSH 10 ML IV PUSH ×3 (05:26→19:24)
[2022-03-14] MEDS: HYDROCORTISONE SODIUM SUCCINATE 100 MG/2 ML VIAL IV PUSH (05:26)
[2022-03-14] MEDS: ALBUMIN HUMAN 25% 25 GM/100 ML 100 ML IVPB (05:28)
[2022-03-14 05:39] LABS: Alveolar/Arterial O2 Gradient 109.8 mmHg; Carboxyhemoglobin 0.3 % THb (0-2.0); Fractional Inspired Oxygen 35 %; HCO3 ABG 31.6 mEq/l (22.0-26.0); Methemoglobin ABG 0.2 %THb (0-1.5); Oxygen Content ABG 9.7 %vol (16.0-22.0); Oxygen Saturation ABG 97.8 % (95.0-100.0); Oxyhemoglobin 95.3 % THb (90.0-100.0); PCO2 ABG 39.8 mmHg (35.0-45.0); PO2 ABG 93.5 mmHg (80.0-100.0); PO2 FiO2 Ratio Arterial Blood 2.67 %; Reduced Hemoglobin 4.2 %THb (0-5.0)
[2022-03-14 05:40] LABS: pH ABG 7.518 (7.350-7.450)
[2022-03-14 05:41] LABS: Device VENTILATOR; Site Drawn ARTLINE; Total Hemoglobin 7.1 g/dL (12.0-18.0)
[2022-03-14 05:42] LABS: Arterial Blood Gas PEEP 8 cmH2O; Arterial Blood Gas Tidal Volume 400 ml; Arterial Blood Gas Vent Mode CMV; Arterial Blood Gas Ventilator rate 18 /MIN
[2022-03-14 06:10] LABS: Lactic Acid Reflex 1.9 mmol/L (0.7-2.0)
[2022-03-14 06:12] LABS: Alanine Aminotransferase 18 U/L (6-35); Albumin Level 3.6 g/dL (3.5-5.1); Alkaline Phosphatase 38 U/L (38-126); Anion Gap 9 mmol/L (8-16); Aspartate Amino Transferase 27 U/L (14-36); Bilirubin,Total 0.6 mg/dL (0.2-1.3); Blood Urea Nitrogen 49 mg/dL (7-17); Calcium 8.5 mg/dL (8.4-10.2); Carbon Dioxide 32 mmol/L (22-30); Chloride 107 mmol/L (98-107); Estimated CRCL calculation 52 ml/min; Estimated Glomerular Filt Rate 53; Glucose 148 mg/dL (65-110); Magnesium 2.1 mg/dL (1.6-2.3); Phosphorus 1.8 mg/dL (2.5-4.5); Potassium 2.9 mmol/L (3.4-5.0); Sodium 148 mmol/L (137-145)
[2022-03-14 06:57] LABS: Mean Corpuscular HGB Conc 32.9 g/dl (32-36); Mean Corpuscular Hemoglobin 28.6 pg (26-34); Mean Corpuscular Volume 87.1 fl (80-100); Platelet Count Result 55 k/mm3 (150-375); Red Blood Count 2.41 M/mm3 (4.2-5.4); Red Cell Distribution Width 19.1 % (11.5-14.5); White Blood Count 9.4 K/mm3 (4.5-10.0)
[2022-03-14 07:01] LABS: Hemoglobin 6.9 g/dL (12.0-15.0)
[2022-03-14 07:05] LABS: Anisocytosis 2+ (NORMAL); Band Neutrophils Percent 8 % (0-6); Lymphocytes Absolute Manual 0.47 K/mm3 (1.1-4.5); Monocytes Absolute Manual 0.09 K/mm3 (0.1-0.90); Monocytes Percent Manual 1 % (3-9); Neutrophils Absolute Manual 8.83 K/mm3 (1.7-7.2); Neutrophils Percent Manual 86 % (46-73); Ovalocytes 1+ (NORMAL); Platelet Estimate Adequate (Adequate); Poikilocytosis 1+ (NORMAL); Total Cells Counted 100
[2022-03-14 07:06] LABS: Hypochromasia 2+ (NORMAL); Target Cells 1+ (NORMAL)
[2022-03-14] MEDS: POTASSIUM CHLORIDE 20 MEQ PACKET (FOR LIQUID) 40 MEQ FEED TUBE (08:22)
[2022-03-14] MEDS: BUMETANIDE INJ 1 MG/4 ML VIAL IV PUSH ×2 (08:22→17:31)
[2022-03-14] MEDS: PANTOPRAZOLE SODIUM IV 40 MG VIAL IV PUSH ×2 (08:22→19:23)
[2022-03-14] MEDS: POTASSIUM PHOS,M-BASIC-D-BASIC 40 MMOL in SODIUM CHLORIDE 0.9% IV 250 ML 43.89 MMOL IVPB (08:41)
[2022-03-14 09:06] LABS: HCO3 ABG 32.8 mEq/l (22.0-26.0); PCO2 ABG 47.6 mmHg (35.0-45.0); PO2 ABG 60.7 mmHg (80.0-100.0); pH ABG 7.456 (7.350-7.450)
[2022-03-14 09:07] LABS: Alveolar/Arterial O2 Gradient 133.5 mmHg; Arterial Blood Gas PEEP 5 cmH2O; Arterial Blood Gas Vent Mode SPONTANEOUS; Device VENTILATOR; Fractional Inspired Oxygen 35 %; Oxygen Content ABG 10.6 %vol (16.0-22.0); Oxygen Saturation ABG 92.2 % (95.0-100.0); Oxyhemoglobin 89.3 % THb (90.0-100.0); PO2 FiO2 Ratio Arterial Blood 1.73 %; Site Drawn ARTLINE; Total Hemoglobin 8.4 g/dL (12.0-18.0)
[2022-03-14 09:08] LABS: Arterial Blood Gas Pressure Support 5 cmH2O
--- NOTE | 2022-03-14 09:32 | WPDINTPN ---
Progress Note: A&P Assessment and Plan (1) Septic shock: Code(s): A41.9 - Sepsis, unspecified organism; R65.21 - Severe sepsis with septic shock Status: Acute Assessment and Plan: Septic shock with hypotension, acute kidney injury, status post bowel surgery, with Gastrografin upper GI series showing small-bowel perforation, leakage -patient has received significant amount of IV fluids and is now off of IV fluids and is getting diuretics -off of vasopressors now -03/12 discontinue IV fluids with sodium bicarbonate -03/09/2022: Blood cultures growing Pseudomonas 2/2 bottles sensitive to cefepime -continue cefepime and Flagyl -03/12 repeat blood cultures sent, Scott was replaced, urine culture was sent, lipase was normal -discontinue vancomycin 03/12 -03/14 discontinue albumin and hydrocortisone -lactic acid level has normalized (2) Acute respiratory failure: Code(s): J96.00 - Acute respiratory failure, unspecified whether with hypoxia or hypercapnia Status: Acute Assessment and Plan: Acute respiratory failure likely related to septic shock, acidosis -patient was intubated on 03/09/2022 -currently on CMV mode of ventilation, 35 % FiO2, peep of 5 - 5/5 PSV SBT done for more than 1 hour. RSBI, ABGI and Vitals abnormal but acceptable. Pt awake and following commands. Patient has cuff leak on deflation of ET tube cuff. Will extubate and monitor. NPO for now. Leave NG in place -chest x-ray this morning reviewed -significant volume overload and patient is getting diuretics -continue bronchodilators (3) Acute renal failure: Code(s): N17.9 - Acute kidney failure, unspecified Status: Acute Assessment and Plan: Acute kidney injury likely related to septic shock, prolonged hypotension, hypovolemia due to third-spacing secondary to surgery, NSAID use at home -patient has been adequately fluid-resuscitated -renal ultrasound was unremarkable -appreciate Nephrology evaluation and recommendations -of IV fluids as patient is significantly volume overloaded and also has developed metabolic alkalosis -improved urine output with Bumex -creatinine trending down, CK levels improving -replace low calcium potassium and phosphate. -continue Bumex but decreased to q.day -continue to monitor renal function, electrolytes and urine output, patient may require dialysis if urine does not improve (4) Pyloric stricture: Code(s): K31.1 - Adult hypertrophic pyloric stenosis Status: Chronic Assessment and Plan: 03/07/2022: Status post hemigastrectomy with Lyly-en-Y jejunostomy, repair of left spigelian hernia -patient with increasing abdominal pain postoperatively, hypotension, shock, acute renal failure -03/09/2022: CT scan of the abdomen and pelvis: Bibasilar atelectasis/consolidation. Moderate right and small left pleural effusions. Moderate abdominal ascites, likely containing small volume proteinaceous or hemorrhagic debris. Body wall edema. -03/09: upper GI series with Gastrografin small-bowel perforation, leakage -03/10/2022: Status post exploratory laparotomy, repair of duodenal stump leak, omental patch, intra-abdominal washout -discussed with surgery, agree with continuing medical management as above -discussed with Dr. Roman, tolerating tube feeds (5) Gastroesophageal reflux disease: Code(s): K21.9 - Gastro-esophageal reflux disease without esophagitis Status: Acute Assessment and Plan: Continue PPI IV q.12 hours (6) DVT prophylaxis: Code(s): Z29.9 - Encounter for prophylactic measures, unspecified Status: Acute Assessment and Plan: SCDs. Will resume Lovenox if hemoglobin remains stable for 48 hours (7) Anemia: Code(s): D64.9 - Anemia, unspecified Status: Acute Assessment and Plan: Hemoglobin dropped to 6.5 03/11 , 1 unit of packed RBCs was given -DIC panel shows an INR of 2.0 in fibrinogen of 407, PTT of 56.2., likely related to septic sh
[2022-03-14] MEDS: SODIUM CHLORIDE 0.9% IV 250 ML 30 ML IV CONT (11:30)
--- NOTE | 2022-03-14 11:31 | PCFNICU ---
ICU Rounding Note: Pt current nutrition is NPO. Last recorded weight is 70 kg, up from 66.6 kg on admit. Bowel Motility:+Bm reported 03/14 Labs Reviewed:BUN 49, Cr 1.10,Glu 148,Na 148, Hct 21.0,Hgb 6.9 Meds Noted:Bumex, Flagyl, Protonix. Skin: WNL Additional Notes: Patient has been extubated and currently NPO. 1 unit of blood ordered. Currently on nasal canula. Following daily in ICU rounds. Will monitor every 3 days.
[2022-03-14] MEDS: MORPHINE SULFATE (*CRX) 2 MG/ML INJ IV PUSH ×2 (12:22→22:15)
--- NOTE | 2022-03-14 12:36 | PM.IMPN ---
Progress Note: A&P Assessment and Plan (1) Septic shock: Code(s): A41.9 - Sepsis, unspecified organism; R65.21 - Severe sepsis with septic shock Status: Acute Assessment and Plan: Septic shock with hypotension, acute kidney injury, status post bowel surgery on March 07, 2022, with Gastrografin upper GI series showing small-bowel perforation with leakage, general surgery managing. Antibiotics started postoperatively March 09, 2022 -Vancomycin given from March 09- -Zosyn and Levaquin from March 09 -One dose of Ertapenem as given on March 10 -Cefepime and Flagyl started on March 11 Currently on day 6 of abx, day 4 of cefepime + flagyl (2) Acute respiratory failure: Code(s): J96.00 - Acute respiratory failure, unspecified whether with hypoxia or hypercapnia Status: Acute Assessment and Plan: Extubated to nasal cannula now, improving rapidly (3) Acute renal failure: Code(s): N17.9 - Acute kidney failure, unspecified Status: Acute Assessment and Plan: Resolved (4) Pyloric stricture: Code(s): K31.1 - Adult hypertrophic pyloric stenosis Status: Chronic Assessment and Plan: 03/07/2022: Status post hemigastrectomy with Lyly-en-Y jejunostomy, repair of left spigelian hernia -patient with increasing abdominal pain postoperatively, hypotension, shock, acute renal failure -03/09/2022: CT scan of the abdomen and pelvis: Bibasilar atelectasis/consolidation. Moderate right and small left pleural effusions. Moderate abdominal ascites, likely containing small volume proteinaceous or hemorrhagic debris. Body wall edema. -03/09: upper GI series with Gastrografin small-bowel perforation, leakage -03/10/2022: Status post exploratory laparotomy, repair of duodenal stump leak, omental patch, intra-abdominal washout -discussed with surgery, agree with continuing medical management as above -discussed with Dr. Roman, tolerating tube feeds (5) Gastroesophageal reflux disease: Code(s): K21.9 - Gastro-esophageal reflux disease without esophagitis Status: Acute Assessment and Plan: Continue PPI IV q.12 hours (6) DVT prophylaxis: Code(s): Z29.9 - Encounter for prophylactic measures, unspecified Status: Acute Assessment and Plan: SCDs. Will resume Lovenox if hemoglobin remains stable for 48 hours (7) Anemia: Code(s): D64.9 - Anemia, unspecified Status: Acute Assessment and Plan: Hemoglobin dropped to 6.5 03/11 , 1 unit of packed RBCs was given -DIC panel shows an INR of 2.0 in fibrinogen of 407, PTT of 56.2., likely related to septic shock, patient was transfused 1 unit of FFP - 03/14 hemoglobin 6.9 will transfuse 1 unit of PRBC -will continue to monitor H&H. (8) Thrombocytopenia: Code(s): D69.6 - Thrombocytopenia, unspecified Status: Acute Assessment and Plan: Likely multifactorial from sepsis and medications She has been off of Lovenox since 03/10 Monitor for now Additional Plan DVT prophylaxis: SCDs, no chemoprophylaxis secondary to anemia Stress ulcer prophylaxis: Protonix IV q.12 hours Nutrition: Tube feeds on hold as patient is be extubated. Will do bedside swallow eval Subjective Date/time seen: 03/14/22 12:36 Interval history: Patient extubated and resting comfortably. She was extubated this morning around 9:30 a.m.. She starting with ice chips and some fluids, diet will be advanced as she can tolerate. No overnight events noted. Review of Systems Review of Systems: Twelve point review of systems was reviewed and is negative except as noted in the HPI Exam Narrative: General: Patient resting comfortably in bed, no acute distress HEENT: Atraumatic, normocephalic, mucous membranes moist CV: Regular rate and rhythm, S1, S2, no murmurs rubs or gallops noted Lungs: Clear to auscultation bilaterally, no rales or crackles noted, no wheezes, good air entry Abdomen: Soft, nonten
[2022-03-14 12:46] LABS: Glucose Point of Care 158 mg/dl (65-105)
[2022-03-14] MEDS: MORPHINE SULFATE (*CRX) 4 MG/ML INJ IV PUSH ×2 (15:41→19:20)
[2022-03-14 16:22] LABS: Hematocrit 25.8 % (37.0-47.0); Hemoglobin 8.5 g/dL (12.0-15.0); Mean Corpuscular HGB Conc 32.9 g/dl (32-36); Mean Corpuscular Hemoglobin 28.7 pg (26-34); Mean Corpuscular Volume 87.2 fl (80-100); Mean Platelet Volume 11.8 fl (7.4-10.4); Platelet Count Result 65 k/mm3 (150-375); Red Blood Count 2.96 M/mm3 (4.2-5.4); Red Cell Distribution Width 18.2 % (11.5-14.5); White Blood Count 10.4 K/mm3 (4.5-10.0)
[2022-03-14 16:37] LABS: Anion Gap 12 mmol/L (8-16); Blood Urea Nitrogen 51 mg/dL (7-17); Calcium 8.3 mg/dL (8.4-10.2); Carbon Dioxide 29 mmol/L (22-30); Chloride 108 mmol/L (98-107); Estimated CRCL calculation 63 ml/min; Estimated Glomerular Filt Rate > 60; Glucose 137 mg/dL (65-110); Magnesium 1.8 mg/dL (1.6-2.3); Potassium 3.3 mmol/L (3.4-5.0); Sodium 149 mmol/L (137-145)
[2022-03-14] MEDS: KCL 40 MEQ/WATER 100 ML 100 ML 25 ML IVPB (17:31)
[2022-03-14 17:42] LABS: Glucose Point of Care 154 mg/dl (65-105)
[2022-03-14] MEDS: LORazepam INJ (*CRX) 2 MG/ML VIAL 0.5 MG IV PUSH (19:35)
--- NOTE | 2022-03-14 20:56 | PM.PNGS ---
Progress Note: A&P Assessment and Plan (1) Septic shock: Code(s): A41.9 - Sepsis, unspecified organism; R65.21 - Severe sepsis with septic shock Status: Acute Assessment and Plan: Continues to improve. Creatinine nearly normal. Remains off vasopressors of agents. Good urine output. Continue IV antibiotics. (2) Acute respiratory failure: Code(s): J96.00 - Acute respiratory failure, unspecified whether with hypoxia or hypercapnia Status: Acute Assessment and Plan: Extubated but on noninvasive respiratory support with BiPAP. (3) Delayed perforation of small intestine: Code(s): K63.1 - Perforation of intestine (nontraumatic) Status: Acute Assessment and Plan: No evidence of recurrent complications. Receiving trickle feeds but no evidence of good bowel function had returned as yet. Continue critical care management. Continue to follow closely. Subjective Subjective Date/Time Seen: 03/14/22 20:56 Post Op day: 4 Patient reports: other ( Patient extubated but on BiPAP, nods to questions. No new complaints evident) Exam Const: General: comfortable, alert and awake Nutritional Appearance: thin GI: Inspection: incision ( healing well. Serous fluid in ANGELA drain.) and scaphoid GI Palp: Yes Soft to palpation and Yes Tenderness to palpation present (GI) Auscultation: Hypoactive bowel sounds present Objective Data Vital Signs Vital Signs: Vital Signs - 24 hr 03/13/22 21:16 03/13/22 21:00 03/13/22 21:24 Temperature Pulse Rate 75 77 76 Respiratory Rate 24 H 19 Blood Pressure Pulse Oximetry 98 Oxygen Delivery Mechanical Ventilation Oxygen Flow Rate Fraction of Inspired Oxygen 40 03/13/22 22:00 03/13/22 22:00 03/13/22 23:05 Temperature 37.4 C Pulse Rate 67 69 72 Respiratory Rate 18 Blood Pressure 103/57 L Pulse Oximetry 98 98 Oxygen Delivery Mechanical Ventilation Oxygen Flow Rate Fraction of Inspired Oxygen 35 03/14/22 00:00 03/14/22 00:00 03/14/22 00:00 Temperature Pulse Rate 66 72 Respiratory Rate 18 Blood Pressure Pulse Oximetry 98 Oxygen Delivery Mechanical Ventilation Oxygen Flow Rate Fraction of Inspired Oxygen 35 35 03/14/22 00:00 03/14/22 01:36 03/14/22 02:00 Temperature 37.5 C Pulse Rate 66 62 69 Respiratory Rate 18 18 Blood Pressure 117/64 Pulse Oximetry 99 Oxygen Delivery Oxygen Flow Rate Fraction of Inspired Oxygen 03/14/22 02:00 03/14/22 02:10 03/14/22 02:18 Temperature 37.6 C H Pulse Rate 69 68 65 Respiratory Rate 18 20 22 H Blood Pressure 121/64 Pulse Oximetry 97 Oxygen Delivery Oxygen Flow Rate Fraction of Inspired Oxygen 03/14/22 02:12 03/14/22 04:00 03/14/22 04:00 Temperature Pulse Rate 70 59 L 65 Respiratory Rate 22 H Blood Pressure Pulse Oximetry 96 96 Oxygen Delivery Mechanical Ventilation Mechanical Ventilation Oxygen Flow Rate Fraction of Inspired Oxygen 35 35 03/14/22 04:00 03/14/22 04:00 03/14/22 06:00 Temperature 37.6 C H Pulse Rate 59 L 75 Respiratory Rate 18 Blood Pressure 99/51 L Pulse Oximetry 96 Oxygen Delivery Oxygen Flow Rate Fraction of Inspired Oxygen 35 03/14/22 06:00 03/14/22 05:00 03/14/22 06:15 Temperature 37.7 C H Pulse Rate 74 68 77 Respiratory Rate 18 18 Blood Pressure 117/62 Pulse Oximetry 95 97 Oxygen Delivery Mechanical Ventilation Oxygen Flow Rate Fraction of Inspired Oxygen 35 03/14/22 07:27 03/14/22 07:45 03/14/22 08:00 Temperature 37.7 C H Pulse Rate 83 95 82 Respiratory Rate 20 20 Blood Pressure 127/63 Pulse Oximetry 93 Oxygen Delivery Oxygen Flow Rate Fraction of Inspired Oxygen 03/14/22 08:15 03/14/22 07:50 03/14/22 07:50 Temperature Pulse Rate 86 83 83 Respiratory Rate 20 24 H Blood Pressure Pulse Oximetry 91 Oxygen Delivery Mechanical Ventilation Oxygen Flow Rate Fr
[2022-03-14] MEDS: ACETAMINOPHEN ELIXIR 325 MG/10.15 ML UDC 650 MG PO (22:15)
[2022-03-15] VITALS (45 sets, daily range): BP systolic 85–144; BP diastolic 48–87; PULSE 87–203; RESP 16–34; TEMP 37.8–39.7; O2SAT 86–99
[2022-03-15 00:29] LABS: Glucose Point of Care 141 mg/dl (65-105)
[2022-03-15] MEDS: MORPHINE SULFATE (*CRX) 2 MG/ML INJ IV PUSH ×2 (01:36→05:37)
[2022-03-15] MEDS: LEVALBUTEROL NEB 1.25 MG/3 ML 0.63 MG INHALATION ×4 (02:17→20:09)
[2022-03-15 05:16] LABS: Hematocrit 28.8 % (37.0-47.0); Hemoglobin 9.3 g/dL (12.0-15.0); Immature Platelet Fraction Pct 11.1 % (0.9-11.2); Mean Corpuscular HGB Conc 32.3 g/dl (32-36); Mean Corpuscular Hemoglobin 28.3 pg (26-34); Mean Corpuscular Volume 87.5 fl (80-100); Mean Platelet Volume 12.3 fl (7.4-10.4); Platelet Count Result 74 k/mm3 (150-375); Red Blood Count 3.29 M/mm3 (4.2-5.4); Red Cell Distribution Width 18.6 % (11.5-14.5); White Blood Count 10.6 K/mm3 (4.5-10.0)
[2022-03-15 05:17] LABS: Alanine Aminotransferase 19 U/L (6-35); Albumin Level 3.6 g/dL (3.5-5.1); Alkaline Phosphatase 44 U/L (38-126); Anion Gap 10 mmol/L (8-16); Aspartate Amino Transferase 31 U/L (14-36); Bilirubin,Total 0.6 mg/dL (0.2-1.3); Blood Urea Nitrogen 53 mg/dL (7-17); Calcium 8.6 mg/dL (8.4-10.2); Carbon Dioxide 33 mmol/L (22-30); Chloride 110 mmol/L (98-107); Estimated CRCL calculation 70 ml/min; Estimated Glomerular Filt Rate > 60; Glucose 124 mg/dL (65-110); Magnesium 1.7 mg/dL (1.6-2.3); Phosphorus 3.2 mg/dL (2.5-4.5); Potassium 3.4 mmol/L (3.4-5.0); Sodium 153 mmol/L (137-145)
[2022-03-15 05:18] LABS: Alveolar/Arterial O2 Gradient 399.1 mmHg; Base Excess ABG 8.1 mEq/l (+/-2.0); Carboxyhemoglobin 0.2 % THb (0-2.0); Fractional Inspired Oxygen 70 %; HCO3 ABG 32.5 mEq/l (22.0-26.0); Methemoglobin ABG 0.3 %THb (0-1.5); Oxygen Content ABG 11.9 %vol (16.0-22.0); Oxygen Saturation ABG 88.9 % (95.0-100.0); PCO2 ABG 44.7 mmHg (35.0-45.0); PO2 FiO2 Ratio Arterial Blood 0.74 %; Reduced Hemoglobin 14.1 %THb (0-5.0); Total Hemoglobin 9.9 g/dL (12.0-18.0); pH ABG 7.479 (7.350-7.450)
[2022-03-15 05:19] LABS: Device NON-INVASIVE VENT; Oxyhemoglobin 85.4 % THb (90.0-100.0); Site Drawn ARTLINE
[2022-03-15 05:20] LABS: Non-Invasive Expiratory Pressure 6 CMH2O; Non-Invasive Inspiratory Pressure 12 CMH2O; Non-Invasive Vent Rate 12 /MIN
[2022-03-15] MEDS: metroNIDAZOLE 500 MG/ISO 100ML 500 MG/100 ML BAG 100 MG IVPB ×3 (05:33→20:57)
[2022-03-15] MEDS: CENTRAL LINE FLUSH 10 ML IV PUSH ×3 (05:35→20:23)
--- NOTE | 2022-03-15 07:03 | PM.PNGS ---
Progress Note: A&P Assessment and Plan (1) Delayed perforation of small intestine: Code(s): K63.1 - Perforation of intestine (nontraumatic) Status: Acute Assessment and Plan: NG tube passes through the stomach and also passes beyond enteric anastomosis. Okay to resume trickle feeds. Would hold off on trying oral intake at this point. Continue dressing changes and critical care management. Continue IV antibiotics. No evidence of recurrent duodenal leakage. (2) Acute respiratory failure: Code(s): J96.00 - Acute respiratory failure, unspecified whether with hypoxia or hypercapnia Status: Acute Assessment and Plan: Extubated yesterday but has some tachypnea on BiPAP today. Will discuss with pack changer. Subjective Subjective Date/Time Seen: 03/15/22 07:03 Post Op day: 5 Patient reports: no new complaints ( Still on BiPAP, no complaints of abdominal pain) and shortness of breath ( working pretty hard to breathe on BiPAP.) Review of Systems Review of Systems: ROS unobtainable: Yes unobtainable due to medical condition Exam Const: General: awake Nutritional Appearance: thin Resp: Effort & Inspection: labored and tachypneic ( respiratory rate about 30 on BiPAP) GI: Inspection: incision ( Some drainage from periumbilical aspect of incision otherwise wound looks) and other ( minimal ANGELA drain output, serous) GI Palp: Yes Soft to palpation, Yes Tenderness to palpation present (GI) and No Guarding due to palpation present (GI) Auscultation: absent bowel sounds Objective Data Vital Signs Vital Signs: Vital Signs - 24 hr 03/14/22 07:27 03/14/22 07:45 03/14/22 08:00 Temperature 37.7 C H Pulse Rate 83 95 82 Respiratory Rate 20 20 Blood Pressure 127/63 Pulse Oximetry 93 Oxygen Delivery Oxygen Flow Rate Fraction of Inspired Oxygen 03/14/22 08:15 03/14/22 07:50 03/14/22 07:50 Temperature Pulse Rate 86 83 83 Respiratory Rate 20 24 H Blood Pressure Pulse Oximetry 91 Oxygen Delivery Mechanical Ventilation Oxygen Flow Rate Fraction of Inspired Oxygen 35 03/14/22 09:25 03/14/22 07:59 03/14/22 08:00 Temperature Pulse Rate 78 Respiratory Rate 23 H Blood Pressure Pulse Oximetry 93 Oxygen Delivery Nasal Cannula Oxygen Flow Rate 5 Fraction of Inspired Oxygen 35 03/14/22 08:00 03/14/22 10:00 03/14/22 09:25 Temperature 37.7 C H Pulse Rate 85 Respiratory Rate 25 H Blood Pressure 134/69 Pulse Oximetry 95 94 91 Oxygen Delivery Mechanical Ventilation Nasal Cannula Oxygen Flow Rate 5 Fraction of Inspired Oxygen 35 03/14/22 11:24 03/14/22 11:39 03/14/22 12:39 Temperature 37.7 C H 37.7 C H 37.7 C H Pulse Rate 81 80 85 Respiratory Rate 16 23 H 22 H Blood Pressure 130/68 133/69 145/75 H Pulse Oximetry 95 95 90 Oxygen Delivery Oxygen Flow Rate Fraction of Inspired Oxygen 03/14/22 12:00 03/14/22 13:34 03/14/22 12:00 Temperature 36.8 C 37.7 C H Pulse Rate 86 93 Respiratory Rate 12 32 H Blood Pressure 152/81 H 152/81 H Pulse Oximetry 91 90 90 Oxygen Delivery High Flow Nasal Cannula Oxygen Flow Rate 10 Fraction of Inspired Oxygen 03/14/22 08:00 03/14/22 14:00 03/14/22 14:00 Temperature 37.8 C H Pulse Rate 78 86 Respiratory Rate 29 H Blood Pressure 155/83 H Pulse Oximetry 91 90 Oxygen Delivery High Flow Nasal Cannula Oxygen Flow Rate 12 Fraction of Inspired Oxygen 03/14/22 14:06 03/14/22 14:17 03/14/22 14:37 Temperature Pulse Rate 82 81 82 Respiratory Rate 22 H 26 H 30 H Blood Pressure Pulse Oximetry 90 Oxygen Delivery BiPAP Oxygen Flow Rate Fraction of Inspired Oxygen 03/14/22 10:00 03/14/22 12:00 03/14/22 14:00 Temperature Pulse Rate 85 89 79 Respiratory Rate Blood Pressure Pulse Oximetry Oxygen Delivery Oxygen Flow Rate Fraction of Inspired Oxygen 03/14/22 16:00 03/14/22 16:00 03/14/22 1
[2022-03-15] MEDS: FENTANYL 2,500MCG/NS250ML(*CRX 2,500 MCG/250 ML BAG 7.5 MCG IV CONT (08:16)
[2022-03-15] MEDS: DEXTROSE 5% IN WATER 500 ML 100 ML IV CONT (08:24)
[2022-03-15] MEDS: KCL 40 MEQ/WATER 100 ML 100 ML 25 ML IVPB (08:26)
[2022-03-15] MEDS: PANTOPRAZOLE SODIUM IV 40 MG VIAL IV PUSH ×2 (08:29→20:58)
[2022-03-15] MEDS: BUMETANIDE INJ 1 MG/4 ML VIAL IV PUSH (08:30)
[2022-03-15] MEDS: RAPID SEQUENCE INTUBATION KIT 1 EACH (08:36)
[2022-03-15] MEDS: MAGNESIUM SULF 2 GM/WATER 50ML 2 GM/50 ML BAG IVPB (08:36)
[2022-03-15] MEDS: MINERAL OIL/WHITE PETROLATUM OINTMENT 1 APPLIC EACH EYE ×2 (08:36→20:58)
[2022-03-15] MEDS: MIDAZOLAM HCL (*CRX) 2 MG/2 ML VIAL 4 MG IV PUSH (08:52)
[2022-03-15 09:00] LABS: Alveolar/Arterial O2 Gradient 587.3 mmHg; Base Excess ABG 4.4 mEq/l (+/-2.0); Fractional Inspired Oxygen 100 %; HCO3 ABG 29.8 mEq/l (22.0-26.0); Oxygen Content ABG 13.5 %vol (16.0-22.0); Oxygen Saturation ABG 95.4 % (95.0-100.0); Oxyhemoglobin 92.3 % THb (90.0-100.0); PCO2 ABG 48.2 mmHg (35.0-45.0); PO2 ABG 77.5 mmHg (80.0-100.0); PO2 FiO2 Ratio Arterial Blood 0.77 %; Total Hemoglobin 10.3 g/dL (12.0-18.0); pH ABG 7.409 (7.350-7.450)
[2022-03-15 09:02] LABS: Device VENTILATOR; Site Drawn ARTLINE
[2022-03-15 09:03] LABS: Arterial Blood Gas PEEP 8 cmH2O; Arterial Blood Gas Tidal Volume 350 ml; Arterial Blood Gas Vent Mode CMV; Arterial Blood Gas Ventilator rate 16 /MIN
[2022-03-15] MEDS: dexmedeTOMIDine 400 MCG/100 ML 400 MCG/100 ML BAG IV CONT (09:04)
--- NOTE | 2022-03-15 11:04 | WPDPROCEDUR ---
Procedures Intubation Intubation Date: 03/15/22 Intubation Time: 08:00 Consent: Verbal consent was obtained from the patient A pre-procedural Time-Out was completed immediately before starting the procedure and confirmed: Patient Identification, Site, Procedure, Patient Position and the Availability of Requisite Equipment: Yes Sedative: etomidate (20) Mg given: 20 Laryngoscope: fiber optic video scope ET tube size: 7.5 Tube secured depth (cm): 24 Tube secured location: lips Tube placement confirmation: visualized tube passing through cords, equal breath sounds bilaterally, no breath sounds over epigastrium and confirmation by capnometry Patient tolerated procedure: well Intubation complications: hypoxia (Transient hypoxia which recovered with bagging) Additional comments: Patient was extubated yesterday and over last 12 hours patient had worsening hypoxia and respiratory distress. She was reintubated this morning Arterial Line Size (Gauge): 14
--- NOTE | 2022-03-15 11:06 | WPDINTPN ---
Progress Note: A&P Assessment and Plan (1) Septic shock: Code(s): A41.9 - Sepsis, unspecified organism; R65.21 - Severe sepsis with septic shock Status: Acute Assessment and Plan: Septic shock with hypotension, acute kidney injury, status post bowel surgery, with Gastrografin upper GI series showing small-bowel perforation, leakage -patient has received significant amount of IV fluids and is now off of IV fluids and is getting diuretics -off of vasopressors now -03/12 discontinue IV fluids with sodium bicarbonate -03/09/2022: Blood cultures growing Pseudomonas 2/2 bottles sensitive to cefepime - 03/15 sputum culture is growing stenotrophomonas cefepime changed to Levaquin -continue Flagyl for now -03/12 repeat blood cultures sent, Scott was replaced, urine culture is growing Leslie, lipase was normal -discontinued vancomycin 03/12 -03/14 discontinued albumin and hydrocortisone -lactic acid level has normalized (2) Acute respiratory failure: Code(s): J96.00 - Acute respiratory failure, unspecified whether with hypoxia or hypercapnia Status: Acute Assessment and Plan: Acute respiratory failure likely related to septic shock, acidosis -patient was intubated on 03/09/2022 -currently on CMV mode of ventilation, 35 % FiO2, peep of 5 - 03/14 patient was extubated after weaning trial. As the day progress she had increased oxygen requirement. In the evening patient was placed on BiPAP. Her FiO2 had to be increased to 80%. Despite diuretics patient continued to have tachypnea and increased work of breathing. Patient agreed for intubation - 03/15 reintubated. Chest x-ray reviewed. ABG pending -significant overall volume overload and patient is getting diuretics. -continue bronchodilators (3) Acute renal failure: Code(s): N17.9 - Acute kidney failure, unspecified Status: Acute Assessment and Plan: Acute kidney injury likely related to septic shock, prolonged hypotension, hypovolemia due to third-spacing secondary to surgery, NSAID use at home -patient has been adequately fluid-resuscitated -renal ultrasound was unremarkable -appreciate Nephrology evaluation and recommendations -off IV fluids as patient is significantly volume overloaded and third-spacing -patient was getting Bumex but sodium increased to 153 and CO2 increased suggestive of contraction alkalosis and intravascular volume depletion -will give 500 cc of D5 water. Patient also on free water flushes -creatinine has normalized, CK levels improved -replace electrolytes -continue to monitor renal function, electrolytes and urine output, patient may require dialysis if urine does not improve (4) Pyloric stricture: Code(s): K31.1 - Adult hypertrophic pyloric stenosis Status: Chronic Assessment and Plan: 03/07/2022: Status post hemigastrectomy with Lyly-en-Y jejunostomy, repair of left spigelian hernia -patient with increasing abdominal pain postoperatively, hypotension, shock, acute renal failure -03/09/2022: CT scan of the abdomen and pelvis: Bibasilar atelectasis/consolidation. Moderate right and small left pleural effusions. Moderate abdominal ascites, likely containing small volume proteinaceous or hemorrhagic debris. Body wall edema. -03/09: upper GI series with Gastrografin small-bowel perforation, leakage -03/10/2022: Status post exploratory laparotomy, repair of duodenal stump leak, omental patch, intra-abdominal washout -discussed with surgery, agree with continuing medical management as above -discussed with Dr. Roman, - 03/15 tube feeds resumed after intubation. Will plan to advance to goal if okay with General surgery (5) Gastroesophageal reflux disease: Code(s): K21.9 - Gastro-esophageal reflux disease without esophagitis Status: Acute Assessment and Plan: Continue PPI IV q.12 hours (6) DVT prophylaxis: Code(s): Z29.9 - Encounter for prophylactic measures, unspecified Status: Acu
--- NOTE | 2022-03-15 11:14 | P.PNNP_ITS ---
Progress Note: A&P Assessment and Plan (1) EVELYN (acute kidney injury): Code(s): N17.9 - Acute kidney failure, unspecified Status: Acute Assessment and Plan: * resolving * due to sepsis, shock/hemodynamic instability, and prerenal factors (3rd spacing from surgery) * reasonable urine output (albeit with use of IV diuretics) * follow trend of repeat labs and UOP (2) Hypernatremia: Code(s): E87.0 - Hyperosmolality and hypernatremia Status: Acute Assessment and Plan: * likely due to free water deficit * if bernardo to give enteral feeds, would start free water flushes * given diffuse body edema, would try to limit D5W IVFs if possible * follow trend of sodium (3) Septic shock: Code(s): A41.9 - Sepsis, unspecified organism; R65.21 - Severe sepsis with septic shock Status: Acute Assessment and Plan: * due to small bowel perforation and associated leakage * was on pressors and then weaned off * follow trend of hemodynamics and temperature curve * continue antibiotics * follow culture data (blood cultures with Pseudomonas) (4) Acute respiratory failure: Code(s): J96.00 - Acute respiratory failure, unspecified whether with hypoxia or hypercapnia Status: Acute Assessment and Plan: * presumably secondary to sepsis and shock along with pulmonary edema +/- pneumonia by AM CXR * re-intubated today due to ongoing hypoxia and respiratory distress despite conservative measures * continue mechanical ventilation * diurese as tolerated by hemodynamics * on antibiotics as well (5) Pyloric stricture: Code(s): K31.1 - Adult hypertrophic pyloric stenosis Status: Chronic Assessment and Plan: * s/p Status post hemigastrectomy with Lyly-en-Y jejunostomy and repair of left spigelian hernia (03/07/22) * complicated by small bowel perforation/leakage as noted by upper GI series (03/09/22) * s/p exploratory laparotomy, repair of duodenal stump leak + omental patch + intra-abdominal washout (03/10/22) * repeat imaging to be done today * Surgery following (6) Anemia: Code(s): D64.9 - Anemia, unspecified Status: Acute Assessment and Plan: * fluctuating H/H noted since 03/11/22 * s/p PRBC as well as FFP transfusions * follow trend of H/H Will continue to follow. Subjective Date/time seen: 03/15/22 11:14 Chart reviewed - assuming care from Dr. Case; events noted in the last 24 hours; extubated yesterday but since that time has had issues with hypoxia and respiratory distress with no significant improvement with BiPAP therapy and IV diuretics leading up to re-intubation and placement back on mechanical ventilation earlier this morning; reasonable urine output noted but low grade fevers noted. Exam Narrative: General: ill appearing female intubated/sedated Heart: normal S1 and S2; no rub Lungs: coarse breath sounds and decreased at bases Abdomen: soft with TTP and decreased bowel sounds; midline incision dressings in place Extremities: coolness noted with bilateral edema Skin: warm and dry Objective Data Vital Signs Vital Signs: Vital Signs Temp Pulse Resp BP Pulse Ox O2 Del Method FiO2 03/15/22 11:11 122 H 93 Mechanical Ventilation 100 03/15/22 11:05 123 H 28 H 03/15/22 10:00 131 H 03/15/22 08:00 102 H 03/15/22 0
--- NOTE | 2022-03-15 11:14 | PM.PNNEP ---
Progress Note: A&P Assessment and Plan (1) EVELYN (acute kidney injury): Code(s): N17.9 - Acute kidney failure, unspecified Status: Acute Assessment and Plan: resolving due to sepsis, shock/hemodynamic instability, and prerenal factors (3rd spacing from surgery) reasonable urine output (albeit with use of IV diuretics) follow trend of repeat labs and UOP (2) Hypernatremia: Code(s): E87.0 - Hyperosmolality and hypernatremia Status: Acute Assessment and Plan: likely due to free water deficit if bernardo to give enteral feeds, would start free water flushes given diffuse body edema, would try to limit D5W IVFs if possible follow trend of sodium (3) Septic shock: Code(s): A41.9 - Sepsis, unspecified organism; R65.21 - Severe sepsis with septic shock Status: Acute Assessment and Plan: due to small bowel perforation and associated leakage was on pressors and then weaned off follow trend of hemodynamics and temperature curve continue antibiotics follow culture data (blood cultures with Pseudomonas) (4) Acute respiratory failure: Code(s): J96.00 - Acute respiratory failure, unspecified whether with hypoxia or hypercapnia Status: Acute Assessment and Plan: presumably secondary to sepsis and shock along with pulmonary edema +/- pneumonia by AM CXR re-intubated today due to ongoing hypoxia and respiratory distress despite conservative measures continue mechanical ventilation diurese as tolerated by hemodynamics on antibiotics as well (5) Pyloric stricture: Code(s): K31.1 - Adult hypertrophic pyloric stenosis Status: Chronic Assessment and Plan: s/p Status post hemigastrectomy with Lyly-en-Y jejunostomy and repair of left spigelian hernia (03/07/22) complicated by small bowel perforation/leakage as noted by upper GI series (03/09/22) s/p exploratory laparotomy, repair of duodenal stump leak + omental patch + intra-abdominal washout (03/10/22) repeat imaging to be done today Surgery following (6) Anemia: Code(s): D64.9 - Anemia, unspecified Status: Acute Assessment and Plan: fluctuating H/H noted since 03/11/22 s/p PRBC as well as FFP transfusions follow trend of H/H Will continue to follow. Subjective Date/time seen: 03/15/22 11:14 Chart reviewed - assuming care from Dr. Case; events noted in the last 24 hours; extubated yesterday but since that time has had issues with hypoxia and respiratory distress with no significant improvement with BiPAP therapy and IV diuretics leading up to re-intubation and placement back on mechanical ventilation earlier this morning; reasonable urine output noted but low grade fevers noted. Exam Narrative: General: ill appearing female intubated/sedated Heart: normal S1 and S2; no rub Lungs: coarse breath sounds and decreased at bases Abdomen: soft with TTP and decreased bowel sounds; midline incision dressings in place Extremities: coolness noted with bilateral edema Skin: warm and dry Objective Data Vital Signs Vital Signs: Vital Signs Temp Pulse Resp BP Pulse Ox O2 Del Method FiO2 03/15/22 11:11 122 H 93 Mechanical Ventilation 100 03/15/22 11:05 123 H 28 H 03/15/22 10:00 131 H 03/15/22 08:00 102 H 03/15/22 09:00 122 H 20 03/15/22 10:00 38.2 C H 131 H 28 H 125/77 92 03/15/22 08:00 92 Mechanical Ventilation 100 03/15/22 08:00 38.2 C H 100 34 H 136/85 95 03/15/22 09:04 125 H 25 H 03/15/22 08:42 126 H 16 03/15/22 08:31 120 H 93 Mechanical Ventilation 100 03/15/22 08:16 98 28 H 03/15/22 06:00 203 H 32 H 136/83 94 03/15/22 06:00 100 03/15/22 05:24 104 H 32 H 89 L BiPAP 03/15/22 04:00 37.8 C H 104 H 31 H 133/82 90 03/15/22 03:57 99 32 H 90 BiPAP 70 03/15/22 02:22 87 30 H 03/15/22 02:21 96
--- NOTE | 2022-03-15 11:37 | PCNFU ---
Nutrition Follow-Up Complete: Altered GI function as related to surgery as evidenced by NPO Goal: Meet estimated nutritional needs Patient is progressing towards goal. We will continue current goal. Pt current nutrition is Vital AF 1.2 at 20 ml/hr, goal rate at 60 ml/hr over 22 hours. Last recorded weight is 69.6 kg, up from 66.6 kg on admit. Bowel Motility: +BM reported 03/15 Labs Reviewed:Hct 28.8,Hgb 9.3,BUN 53,Glu 124, Na 153 Meds Noted:Albumin, Precedex, Fentanyl, Levophed, Flagyl, Bumex, Protonix, Morphine Sulfate Skin: WNL Additional Notes: Patient was reintubated today, tube feeding restarted of Vital AF 1.2 at 20ml/hr, recommending goal rate at 60 ml/hr providing 1584 kcals/99 gms protein/1071 ml water. Meeting 100% of caloric and protein needs. Free water flush 100 ml q 4 hours. Agree with diet orders. Monitoring: ICU rounds and reassessing every Friday and Friday.
[2022-03-15] MEDS: ACETAMINOPHEN ELIXIR 325 MG/10.15 ML UDC 650 MG PO ×2 (12:11→18:02)
[2022-03-15] MEDS: ALBUMIN HUMAN 25% 25 GM/100 ML 100 ML IVPB ×2 (12:11→18:03)
[2022-03-15 12:49] LABS: Glucose Point of Care 139 mg/dl (65-105)
--- NOTE | 2022-03-15 14:01 | PM.EVENT ---
Event Note Event Note Event Note: RN reports discharge from incision. Dr. Roman notified. Patient also persistent febrile. Add Diflucan as patient had Leslie in her urine, Scott catheter change Check CT scan of chest without contrast and CT scan of abdomen pelvis with p.o. Gastrografin. Hold tube feeds until CT scan results are back.
[2022-03-15] MEDS: SODIUM CHLORIDE 0.9% IV 500 ML IV CONT (14:11)
[2022-03-15] MEDS: NOREPINEPHRINE 8 MG/D5W 250 ML 8 MG/250 ML BAG 9.38 MG IV CONT (14:11)
[2022-03-15 15:02] LABS: Hemoglobin 9.2 g/dL (12.0-15.0); Immature Platelet Fraction Pct 12.5 % (0.9-11.2); Mean Corpuscular HGB Conc 30.7 g/dl (32-36); Mean Corpuscular Hemoglobin 28.4 pg (26-34); Mean Corpuscular Volume 92.6 fl (80-100); Mean Platelet Volume 11.9 fl (7.4-10.4); Platelet Count Result 81 k/mm3 (150-375); Red Blood Count 3.24 M/mm3 (4.2-5.4); Red Cell Distribution Width 18.9 % (11.5-14.5); White Blood Count 11.7 K/mm3 (4.5-10.0)
[2022-03-15 15:15] LABS: Anion Gap 10 mmol/L (8-16); Blood Urea Nitrogen 50 mg/dL (7-17); Calcium 7.7 mg/dL (8.4-10.2); Carbon Dioxide 30 mmol/L (22-30); Chloride 110 mmol/L (98-107); Estimated CRCL calculation 63 ml/min; Estimated Glomerular Filt Rate > 60; Glucose 116 mg/dL (65-110); Magnesium 1.8 mg/dL (1.6-2.3); Phosphorus 3.1 mg/dL (2.5-4.5); Potassium 3.8 mmol/L (3.4-5.0); Sodium 150 mmol/L (137-145)
--- NOTE | 2022-03-15 16:07 | PM.IMPN ---
Progress Note: A&P Assessment and Plan (1) Septic shock: Code(s): A41.9 - Sepsis, unspecified organism; R65.21 - Severe sepsis with septic shock Status: Acute Assessment and Plan: Septic shock with hypotension, acute kidney injury, status post bowel surgery, with Gastrografin upper GI series showing small-bowel perforation, leakage Was off vasopressors, now back on Levophed (2) Acute respiratory failure: Code(s): J96.00 - Acute respiratory failure, unspecified whether with hypoxia or hypercapnia Status: Acute Assessment and Plan: Acute respiratory failure likely related to septic shock, acidosis (3) Acute renal failure: Code(s): N17.9 - Acute kidney failure, unspecified Status: Acute Assessment and Plan: Acute kidney injury likely related to septic shock, prolonged hypotension, hypovolemia due to third-spacing secondary to surgery, NSAID use at home (4) Pyloric stricture: Code(s): K31.1 - Adult hypertrophic pyloric stenosis Status: Chronic Assessment and Plan: 03/07/2022: Status post hemigastrectomy with Lyly-en-Y jejunostomy, repair of left spigelian hernia -patient with increasing abdominal pain postoperatively, hypotension, shock, acute renal failure -03/09/2022: CT scan of the abdomen and pelvis: Bibasilar atelectasis/consolidation. Moderate right and small left pleural effusions. Moderate abdominal ascites, likely containing small volume proteinaceous or hemorrhagic debris. Body wall edema. -03/09: upper GI series with Gastrografin small-bowel perforation, leakage -03/10/2022: Status post exploratory laparotomy, repair of duodenal stump leak, omental patch, intra-abdominal washout -discussed with surgery, agree with continuing medical management as above -discussed with Dr. Roman, - 03/15 tube feeds resumed after intubation. Will plan to advance to goal if okay with General surgery (5) Gastroesophageal reflux disease: Code(s): K21.9 - Gastro-esophageal reflux disease without esophagitis Status: Acute Assessment and Plan: Continue PPI IV q.12 hours (6) DVT prophylaxis: Code(s): Z29.9 - Encounter for prophylactic measures, unspecified Status: Acute Assessment and Plan: SCDs. Will resume Lovenox when able (7) Anemia: Code(s): D64.9 - Anemia, unspecified Status: Acute Assessment and Plan: Hemoglobin dropped to 6.5 03/11 , 1 unit of packed RBCs was given -DIC panel shows an INR of 2.0 in fibrinogen of 407, PTT of 56.2., likely related to septic shock, patient was transfused 1 unit of FFP - 03/14 hemoglobin 6.9 will transfuse 1 unit of PRBC -will continue to monitor H&H. (8) Thrombocytopenia: Code(s): D69.6 - Thrombocytopenia, unspecified Status: Acute Assessment and Plan: Likely multifactorial from sepsis and medications She has been off of Lovenox since 03/10 Monitor for now which is improving Subjective Date/time seen: 03/15/22 16:07 Interval history: Patient re-intubated yesterday, currently sedated. Daughter at bedside. Fevers up to 103.4. Significant hypotension requiring Levophed. Review of Systems Review of Systems: ROS unobtainable: Yes unobtainable due to endotracheal tube Exam Narrative: General: Patient is intubated and sedated HEENT: Pupils equal and reactive, sclera is clear, ETT in place Neck: Supple Respiratory: Coarse breath sounds bilaterally decreased at bases, no wheezing Cardiac: Regular rate and rhythm, S1-S2 normal Abdomen: Soft, nondistended, diffuse tenderness to palpation, no guarding, decreased bowel sounds , midline incision with dressing in place, area of bleeding noted in the center of the dressing Extremities: Cool extremities, bilateral edema present Objective Data Vital Signs Vital Signs: Vital Signs - 24 hr 03/14/22 17:47 03/14/22 18:00 03/14/22 18:00 Temperature 100.1 F H Pulse Rate 80 76 76 Respirat
[2022-03-15 17:30] LABS: Glucose Point of Care 101 mg/dl (65-105)
[2022-03-16] VITALS (52 sets, daily range): BP systolic 83–128; BP diastolic 41–73; PULSE 92–121; RESP 20–27; TEMP 38.7–39.4; O2SAT 94–99
--- NOTE | 2022-03-16 | ECHO_ITS ---
Patient Info Name: Maria Alejandra Cotto Age: 47 years : 1975 Gender: Female Ht: 63 in Wt: 152 lbs BSA: 1.77 m2 HR: 102 bpm BP: 104 / 58 mmHg Heart Rhythm: Sinus Rhythm Technical Quality: Good Exam Date: 03/16/2022 1:17 PM Exam Location: [facility] Pulmonary Patient Status: Inpatient Admit Date: 03/07/2022 Staff Ordering Physician: Alfa Tilley MD Facilities Manager: Tena Khan RDCS Attending Provider: Ashley Trejo DO Exam Type: CA echo doppler color flow Study Info Indications R57.0 - Cardiogenic shock Complete two-dimensional, color flow and Doppler transthoracic echocardiogram is performed. Summary 1. Complete two-dimensional, color flow and Doppler transthoracic echocardiogram is performed. 2. Left ventricular chamber dimension is normal. 3. Left ventricular systolic function is mildly reduced, estimated at 45-50%. 4. Right ventricular chamber dimension is moderately enlarged. 5. Right ventricular systolic function is reduced. 6. No valvular dysfunction. 7. Unable to estimate PA pressure for lack of significant tricuspid regurgitation jet. Left Ventricle Left ventricular chamber dimension is normal. Left ventricular systolic function is mildly reduced, estimated at 45-50%. The left ventricular diastolic function is grade I diastolic dysfunction. Right Ventricle Right ventricular chamber dimension is moderately enlarged. Right ventricular systolic function is reduced. Left Atria Left atrial chamber dimension is normal. Right Atria Right atrial chamber dimension is mildly enlarged. Aortic Valve The aortic valve is normal. Pulmonic Valve The pulmonic valve is normal. Mitral Valve The mitral valve has normal leaflets. Tricuspid Valve The tricuspid valve leaflets are normal. Pericardium/Pleural The pericardium appears normal. Aorta The aortic root size at the sinus of Valsalva is normal. Left Ventricular Outflow Tract Name Value Normal LVOT 2D LVOT Diameter 1.9 cm LVOT Doppler LVOT Peak Gradient 6 mmHg LVOT Mean Gradient 3 mmHg LVOT VTI 20 cm LVOT VTI/AV VTI Ratio 0.9 LVOT Stroke Volume 54 ml LVOT CO 5.3 l/min LVOT CI 3.0 l/min/m2 Pulmonic Valve Name Value Normal PV Doppler PV Peak Gradient 6 mmHg Mitral Valve Name Value Normal MV Doppler MV Decel [place] 946 cm/s2 MV PHT 24
[2022-03-16 00:12] LABS: Glucose Point of Care 116 mg/dl (65-105)
[2022-03-16] MEDS: LEVALBUTEROL NEB 1.25 MG/3 ML 0.63 MG INHALATION ×4 (02:07→20:49)
[2022-03-16] MEDS: ACETAMINOPHEN ELIXIR 325 MG/10.15 ML UDC 650 MG PO ×2 (02:41→21:28)
[2022-03-16] MEDS: NOREPINEPHRINE 8 MG/D5W 250 ML 8 MG/250 ML BAG 18.75 MG IV CONT (05:16)
[2022-03-16 05:44] LABS: Alveolar/Arterial O2 Gradient 406.9 mmHg; Base Excess ABG 0.9 mEq/l (+/-2.0); Fractional Inspired Oxygen 80 %; HCO3 ABG 27.2 mEq/l (22.0-26.0); Methemoglobin ABG 0.4 %THb (0-1.5); Oxygen Content ABG 17.2 %vol (16.0-22.0); Oxygen Saturation ABG 97.8 % (95.0-100.0); Oxyhemoglobin 96.8 % THb (90.0-100.0); PCO2 ABG 50.6 mmHg (35.0-45.0); PO2 ABG 110.4 mmHg (80.0-100.0); PO2 FiO2 Ratio Arterial Blood 1.38 %; Reduced Hemoglobin 2.8 %THb (0-5.0); Total Hemoglobin 12.5 g/dL (12.0-18.0); pH ABG 7.348 (7.350-7.450)
[2022-03-16 05:45] LABS: Device VENTILATOR; Site Drawn ARTLINE
[2022-03-16 05:46] LABS: Arterial Blood Gas PEEP 10 cmH2O; Arterial Blood Gas Tidal Volume 350 ml; Arterial Blood Gas Vent Mode CMV; Arterial Blood Gas Ventilator rate 20 /MIN
[2022-03-16 06:22] LABS: Hematocrit 36.2 % (37.0-47.0); Hemoglobin 10.9 g/dL (12.0-15.0); Immature Platelet Fraction Pct 12.6 % (0.9-11.2); Mean Corpuscular HGB Conc 30.1 g/dl (32-36); Mean Corpuscular Hemoglobin 28.5 pg (26-34); Mean Corpuscular Volume 94.8 fl (80-100); Mean Platelet Volume 12.4 fl (7.4-10.4); Platelet Count Result 107 k/mm3 (150-375); Red Blood Count 3.82 M/mm3 (4.2-5.4); Red Cell Distribution Width 19.5 % (11.5-14.5); White Blood Count 17.7 K/mm3 (4.5-10.0)
[2022-03-16] MEDS: CENTRAL LINE FLUSH 10 ML IV PUSH ×3 (06:36→21:21)
[2022-03-16] MEDS: metroNIDAZOLE 500 MG/ISO 100ML 500 MG/100 ML BAG 100 MG IVPB (06:36)
[2022-03-16 06:51] LABS: Alanine Aminotransferase 16 U/L (6-35); Albumin Level 3.1 g/dL (3.5-5.1); Alkaline Phosphatase 44 U/L (38-126); Anion Gap 8 mmol/L (8-16); Aspartate Amino Transferase 24 U/L (14-36); Bilirubin,Total 0.5 mg/dL (0.2-1.3); Blood Urea Nitrogen 51 mg/dL (7-17); Calcium 7.9 mg/dL (8.4-10.2); Carbon Dioxide 31 mmol/L (22-30); Chloride 110 mmol/L (98-107); Estimated CRCL calculation 70 ml/min; Estimated Glomerular Filt Rate > 60; Glucose 125 mg/dL (65-110); Magnesium 1.7 mg/dL (1.6-2.3); Phosphorus 2.9 mg/dL (2.5-4.5); Potassium 4.2 mmol/L (3.4-5.0); Sodium 149 mmol/L (137-145)
--- NOTE | 2022-03-16 08:52 | WPDINTPN ---
Progress Note: A&P Assessment and Plan (1) Septic shock: Code(s): A41.9 - Sepsis, unspecified organism; R65.21 - Severe sepsis with septic shock Status: Acute Assessment and Plan: Septic shock with hypotension, acute kidney injury, status post bowel surgery, with Gastrografin upper GI series showing small-bowel perforation, leakage -patient has received significant amount of IV fluids and is now off of IV fluids and is getting diuretics -she was off of vasopressors but is requiring Levophed since re-intubation -03/12 discontinued IV fluids with sodium bicarbonate -03/09/2022: Blood cultures growing Pseudomonas 2/2 bottles sensitive to cefepime -03/12 repeat blood cultures sent, Scott was replaced, urine culture is growing Leslie, lipase was normal -discontinued vancomycin 03/12 -03/14 discontinued albumin and hydrocortisone - 03/15 sputum culture is growing stenotrophomonas - cefepime changed to Levaquin -03/[address] scan was done IMPRESSION: 1. Diffuse lung disease, likely pulmonary edema. 2. Near complete collapse of the right lower lobe. 3. Moderate-sized right and small left pleural effusions. 4. Moderate volume ascites with interval decrease since the comparison examination. New right upper quadrant drain, consistent with surgical change. No leakage of enteric contrast identified. - 03/15 micafungin ordered - 03/16 continue Levaquin, add vancomycin, add imipenem for now -03/16 I will sent repeat blood cultures - 03/16 ultrasound-guided thoracentesis ordered both diagnostic and therapeutic (2) Acute respiratory failure: Code(s): J96.00 - Acute respiratory failure, unspecified whether with hypoxia or hypercapnia Status: Acute Assessment and Plan: Acute respiratory failure likely related to septic shock, acidosis -patient was intubated on 03/09, 03/14 extubated, 03/15 Reintubated -currently on CMV mode of ventilation, 60 % FiO2, peep of 12 - 03/14 patient was extubated after weaning trial. As the day progress she had increased oxygen requirement. In the evening patient was placed on BiPAP. Her FiO2 had to be increased to 80%. Despite diuretics patient continued to have tachypnea and increased work of breathing. Patient agreed for intubation - 03/15 reintubated. Chest x-ray reviewed. ABG pending -significant overall volume overload and patient is getting diuretics. -continue bronchodilators -CT chest 03/15 IMPRESSION: 1. Diffuse lung disease, likely pulmonary edema. 2. Near complete collapse of the right lower lobe. 3. Moderate-sized right and small left pleural effusions. -will request IR for ultrasound-guided diagnostic and therapeutic right thoracentesis -continue diuresis with albumin and Lasix -continue cooling blanket as needed -ordered IV Tylenol for persistent fevers (3) Acute renal failure: Code(s): N17.9 - Acute kidney failure, unspecified Status: Acute Assessment and Plan: Acute kidney injury likely related to septic shock, prolonged hypotension, hypovolemia due to third-spacing secondary to surgery, NSAID use at home -patient has been adequately fluid-resuscitated -renal ultrasound was unremarkable -appreciate Nephrology evaluation and recommendations -off IV fluids as patient is significantly volume overloaded and third-spacing -patient was getting Bumex but sodium increased to 153 and CO2 increased suggestive of contraction alkalosis and intravascular volume depletion -will give 500 cc of D5 water. Patient also on free water flushes -creatinine has normalized, CK levels improved -replace electrolytes -continue to monitor renal function, electrolytes and urine output, patient may require dialysis if urine does not improve (4) Pyloric stricture: Code(s): K31.1 - Adult hypertrophic pyloric stenosis Status: Chronic Assessment and Plan: 03/07/2022: Status post hemigastrectomy with Lyly-en-Y jejunostomy, repair of left spigelian hernia -patient with inc
[2022-03-16] MEDS: MIDAZOLAM 100MG/NS 100ML(*CRX) 100 MG/100 ML BAG IV CONT (08:54)
[2022-03-16] MEDS: CALCIUM GLUC 1,000 MG/NS 50 ML 1,000 MG/50 ML BAG 100 MG IVPB (09:05)
[2022-03-16] MEDS: ALBUMIN HUMAN 25% 25 GM/100 ML 100 ML IVPB (09:23)
[2022-03-16 09:39] LABS: Albumin Level 3.1 g/dL (3.5-5.1); Glucose 121 mg/dL (65-110)
[2022-03-16] MEDS: MICAFUNGIN SODIUM 100 MG in SODIUM CHLORIDE 0.9% IV 100 ML IVPB (10:19)
[2022-03-16] MEDS: BUMETANIDE INJ 1 MG/4 ML VIAL IV PUSH (10:21)
[2022-03-16] MEDS: PANTOPRAZOLE SODIUM IV 40 MG VIAL IV PUSH ×2 (10:22→21:21)
[2022-03-16] MEDS: MINERAL OIL/WHITE PETROLATUM OINTMENT 1 APPLIC EACH EYE ×2 (10:22→21:21)
--- NOTE | 2022-03-16 11:50 | PM.PNNEP ---
Progress Note: A&P Assessment and Plan (1) EVELYN (acute kidney injury): Code(s): N17.9 - Acute kidney failure, unspecified Status: Acute Assessment and Plan: resolving/stable high BUN likely due to diuretics and catabolic state due to sepsis, shock/hemodynamic instability, and prerenal factors (3rd spacing from surgery) reasonable urine output (albeit with use of IV diuretics) continue diuretics scheduled and PRN follow trend of repeat labs and UOP (2) Hypernatremia: Code(s): E87.0 - Hyperosmolality and hypernatremia Status: Acute Assessment and Plan: likely due to free water deficit adjust/titrate free water flushes to compensate given diffuse body edema, would try to limit D5W IVFs if possible follow trend of sodium (3) Septic shock: Code(s): A41.9 - Sepsis, unspecified organism; R65.21 - Severe sepsis with septic shock Status: Acute Assessment and Plan: due to small bowel perforation and associated leakage was on pressors and then weaned off follow trend of hemodynamics and temperature curve continue antibiotics follow culture data (blood cultures with Pseudomonas) (4) Acute respiratory failure: Code(s): J96.00 - Acute respiratory failure, unspecified whether with hypoxia or hypercapnia Status: Acute Assessment and Plan: presumably secondary to sepsis and shock along with pulmonary edema +/- pneumonia re-intubated (03/15/22) due to ongoing hypoxia and respiratory distress despite conservative measures continue mechanical ventilation diurese as tolerated by hemodynamics on antibiotics as well (5) Pyloric stricture: Code(s): K31.1 - Adult hypertrophic pyloric stenosis Status: Chronic Assessment and Plan: s/p hemigastrectomy with Lyly-en-Y jejunostomy and repair of left spigelian hernia (03/07/22) complicated by small bowel perforation/leakage as noted by upper GI series (03/09/22) s/p exploratory laparotomy, repair of duodenal stump leak + omental patch + intra-abdominal washout (03/10/22) repeat imaging noted Surgery following (6) Anemia: Code(s): D64.9 - Anemia, unspecified Status: Acute Assessment and Plan: fluctuating H/H noted since 03/11/22 s/p PRBC as well as FFP transfusions follow trend of H/H Not much to else to add but remains at risk for further/potential renal dysfunction -- will continue to follow intermittently. Subjective Date/time seen: 03/16/22 11:50 Remains intubated and sedated at the time of my visit; continues to have persistently high fevers and remains on vasopressor support to maintain MAP; cooling blanket in place; reasonable urine output and relative stability in renal function noted. Exam Narrative: General: ill appearing female intubated/sedated Heart: normal S1 and S2; no rub Lungs: coarse breath sounds and decreased at bases Abdomen: soft with TTP and decreased bowel sounds; midline incision dressings in place Extremities: coolness noted with bilateral edema Skin: warm and intact Objective Data Vital Signs Vital Signs: Vital Signs Temp Pulse Resp BP Pulse Ox O2 Del Method FiO2 03/16/22 11:50 100 25 H 03/16/22 11:00 102 H 97 Mechanical Ventilation 60 03/16/22 10:15 99 27 H 03/16/22 10:00 39.1 C H 92 25 H 97/50 L 97 03/16/22 09:00 39.3 C H 103 H 26 H 103/54 L 97 03/16/22 08:00 39.0 C H 106 H 20 125/73 96 03/16/22 08:00 96 Mechanical Ventilation 60 03/16/22 08:30 110/60 03/16/22 09:47 83/41 L 03/16/22 09:32 39.1 C H 03/16/22 09:02 39.3 C H 03/16/22 08:54 104 H 27 H 03/16/22 07:59 102 H 125/72 03/16/22 07:00 105 H 21 H 03/16/22 07:57 60 03/16/22 07:45 99 96 Mechanical Ventilation 60 03/16/22 07:44 99 21 H 03/16/22 06:00 39.2 C H 107 H 22 H 112/63 99 03/16/22 06:38 108
--- NOTE | 2022-03-16 11:50 | P.PNNP_ITS ---
Progress Note: A&P Assessment and Plan (1) EVELYN (acute kidney injury): Code(s): N17.9 - Acute kidney failure, unspecified Status: Acute Assessment and Plan: * resolving/stable * high BUN likely due to diuretics and catabolic state * due to sepsis, shock/hemodynamic instability, and prerenal factors (3rd spacing from surgery) * reasonable urine output (albeit with use of IV diuretics) * continue diuretics scheduled and PRN * follow trend of repeat labs and UOP (2) Hypernatremia: Code(s): E87.0 - Hyperosmolality and hypernatremia Status: Acute Assessment and Plan: * likely due to free water deficit * adjust/titrate free water flushes to compensate * given diffuse body edema, would try to limit D5W IVFs if possible * follow trend of sodium (3) Septic shock: Code(s): A41.9 - Sepsis, unspecified organism; R65.21 - Severe sepsis with septic shock Status: Acute Assessment and Plan: * due to small bowel perforation and associated leakage * was on pressors and then weaned off * follow trend of hemodynamics and temperature curve * continue antibiotics * follow culture data (blood cultures with Pseudomonas) (4) Acute respiratory failure: Code(s): J96.00 - Acute respiratory failure, unspecified whether with hypoxia or hypercapnia Status: Acute Assessment and Plan: * presumably secondary to sepsis and shock along with pulmonary edema +/- pneumonia * re-intubated (03/15/22) due to ongoing hypoxia and respiratory distress despite conservative measures * continue mechanical ventilation * diurese as tolerated by hemodynamics * on antibiotics as well (5) Pyloric stricture: Code(s): K31.1 - Adult hypertrophic pyloric stenosis Status: Chronic Assessment and Plan: * s/p hemigastrectomy with Lyly-en-Y jejunostomy and repair of left spigelian hernia (03/07/22) * complicated by small bowel perforation/leakage as noted by upper GI series (03/09/22) * s/p exploratory laparotomy, repair of duodenal stump leak + omental patch + intra-abdominal washout (03/10/22) * repeat imaging noted * Surgery following (6) Anemia: Code(s): D64.9 - Anemia, unspecified Status: Acute Assessment and Plan: * fluctuating H/H noted since 03/11/22 * s/p PRBC as well as FFP transfusions * follow trend of H/H Not much to else to add but remains at risk for further/potential renal dysf unction -- will continue to follow intermittently. Subjective Date/time seen: 03/16/22 11:50 Remains intubated and sedated at the time of my visit; continues to have persistently high fevers and remains on vasopressor support to maintain MAP; cooling blanket in place; reasonable urine output and relative stability in jackie al function noted. Exam Narrative: General: ill appearing female intubated/sedated Heart: normal S1 and S2; no rub Lungs: coarse breath sounds and decreased at bases Abdomen: soft with TTP and decreased bowel sounds; midline incision dressings in place Extremities: coolness noted with bilateral edema Skin: warm and intact Objective Data Vital Signs Vital Signs: Vital Signs Temp Pulse Resp BP Pulse Ox O2 Del Method FiO2 03/16/22 11:50 100 25 H 03/16/22 11:00 102 H 97 Mechanical Ventilation 60 03/16/22 10:15 99 27 H 03/16/22 10:00 39.1 C H 92
[2022-03-16] MEDS: FENTANYL 2,500MCG/NS250ML(*CRX 2,500 MCG/250 ML BAG 12.5 MCG IV CONT (11:53)
[2022-03-16 12:26] LABS: Glucose Point of Care 140 mg/dl (65-105)
--- NOTE | 2022-03-16 13:21 | PM.PNGS ---
Progress Note: A&P Assessment and Plan (1) Delayed perforation of small intestine: Code(s): K63.1 - Perforation of intestine (nontraumatic) Status: Acute Assessment and Plan: Reintubated 03/15 Tolerating tube feedings so far Wound infection noted at lower part of incision. Incision opened and packed with 1 iodoform gauze. Hopefully will see fevers subside with wound adequately drained now. Continue IV antibiotics/antifungals (2) Acute respiratory failure: Code(s): J96.00 - Acute respiratory failure, unspecified whether with hypoxia or hypercapnia Status: Acute Subjective Subjective Date/Time Seen: 03/16/22 13:21 Interval history: Patient remaining febrile. WBC up today. Tolerating tube feedings so far. Housing Project Manager planning to get PICC line and remove femoral lines. Exam GI: Other: Mucus purulent fluid draining near umbilicus and lower part of incision. Vinayak removed along lower 2 inches of incision. Wound opened and purulent fluid drained. Probed with q-tip. Q-tip advanced deep at umbilicus, but no bowel appears to be protruding. Rest of fascia appears intact. Wound packed with 1 iodoform gauze. Objective Data Vital Signs Vital Signs: Vital Signs - 24 hr 03/15/22 13:49 03/15/22 14:02 03/15/22 14:05 Temperature Pulse Rate 103 H 110 H 107 H Respiratory Rate 22 H 16 Blood Pressure Pulse Oximetry 94 Oxygen Delivery Mechanical Ventilation Fraction of Inspired Oxygen 100 03/15/22 14:11 03/15/22 14:12 03/15/22 14:00 Temperature 39.7 C H Pulse Rate 107 H 110 H 102 H Respiratory Rate 21 H 22 H Blood Pressure 85/53 L 103/56 L 85/53 L Pulse Oximetry 95 86 L Oxygen Delivery Fraction of Inspired Oxygen 03/15/22 13:45 03/15/22 15:03 03/15/22 15:04 Temperature Pulse Rate 103 H 115 H 107 H Respiratory Rate 22 H 28 H Blood Pressure 125/72 Pulse Oximetry Oxygen Delivery Fraction of Inspired Oxygen 03/15/22 14:00 03/15/22 16:42 03/15/22 16:00 Temperature Pulse Rate 109 H 108 H 107 H Respiratory Rate Blood Pressure Pulse Oximetry 95 Oxygen Delivery Mechanical Ventilation Fraction of Inspired Oxygen 100 03/15/22 16:00 03/15/22 16:00 03/15/22 16:00 Temperature 39.1 C H Pulse Rate 107 H Respiratory Rate 24 H Blood Pressure 106/58 L Pulse Oximetry 92 92 Oxygen Delivery Mechanical Ventilation Fraction of Inspired Oxygen 100 100 03/15/22 18:01 03/15/22 18:02 03/15/22 18:11 Temperature 39.5 C H Pulse Rate 112 H 99 Respiratory Rate Blood Pressure 96/50 L 96/49 L Pulse Oximetry Oxygen Delivery Fraction of Inspired Oxygen 03/15/22 18:11 03/15/22 18:00 03/15/22 18:00 Temperature 39.4 C H Pulse Rate 99 99 99 Respiratory Rate 24 H 24 H Blood Pressure 98/50 L Pulse Oximetry 97 Oxygen Delivery Fraction of Inspired Oxygen 03/15/22 18:59 03/15/22 19:02 03/15/22 20:09 Temperature 39.4 C H Pulse Rate 103 H 102 H Respiratory Rate 18 Blood Pressure 93/48 L Pulse Oximetry Oxygen Delivery Fraction of Inspired Oxygen 03/15/22 20:36 03/15/22 20:37 03/15/22 20:00 Temperature Pulse Rate 99 102 H Respiratory Rate 22 H Blood Pressure Pulse Oximetry 95 98 Oxygen Delivery Mechanical Ventilation Mechanical Ventilation Fraction of Inspired Oxygen 90 90 03/15/22 20:00 03/15/22 20:00 03/15/22 20:00 Temperature 39.2 C H Pulse Rate 104 H 104 H Respiratory Rate 20 Blood Pressure 109/60 Pulse Oximetry 98 Oxygen Delivery Fraction of Inspired Oxygen 90 03/15/22 22:00 03/15/22 22:48 03/15/22 22:48 Temperature 39.2 C H Pulse Rate 108 H 108 H Respiratory Rate 20 22 H Blood Pressure 109/60 112/62 Pulse Oximetry 99 Oxygen Delivery Fraction of Inspired Oxygen 03/15/22 23:29 03/16/22 00:00 03/16/22 00:00 Temperature Pulse Rate 108 H Respiratory Rate Blood Pressure Pulse Oxim
--- NOTE | 2022-03-16 15:13 | PM.IMPN ---
Progress Note: A&P Assessment and Plan (1) Septic shock: Code(s): A41.9 - Sepsis, unspecified organism; R65.21 - Severe sepsis with septic shock Status: Acute Assessment and Plan: Septic shock with hypotension, acute kidney injury, status post bowel surgery, with Gastrografin upper GI series showing small-bowel perforation, leakage Diagnostic and therapeutic thoracentesis scheduled (2) Acute respiratory failure: Code(s): J96.00 - Acute respiratory failure, unspecified whether with hypoxia or hypercapnia Status: Acute Assessment and Plan: Acute respiratory failure likely related to septic shock, acidosis Patient was intubated on 03/09, 03/14 extubated, 03/15 Reintubated Diagnostic and therapeutic right thoracentesis, continue Lasix and albumin, cooling blanket p.r.n., IV Tylenol Suspect source of fever was infected fluid collection near incision that was drained in fact today, anticipate resolution of fevers Patient also having femoral line removed and a PICC placed in case that was the source of infection (3) Acute renal failure: Code(s): N17.9 - Acute kidney failure, unspecified Status: Acute Assessment and Plan: Acute kidney injury likely related to septic shock, prolonged hypotension, hypovolemia due to third-spacing secondary to surgery, NSAID use at home Resolved (4) Pyloric stricture: Code(s): K31.1 - Adult hypertrophic pyloric stenosis Status: Chronic Assessment and Plan: 03/07/2022: Status post hemigastrectomy with Lyly-en-Y jejunostomy, repair of left spigelian hernia Patient with increasing abdominal pain postoperatively, hypotension, shock, acute renal failure Repeat CT scan done March 15 showed no leak (5) Gastroesophageal reflux disease: Code(s): K21.9 - Gastro-esophageal reflux disease without esophagitis Status: Acute Assessment and Plan: Continue PPI IV q.12 hours (6) DVT prophylaxis: Code(s): Z29.9 - Encounter for prophylactic measures, unspecified Status: Acute Assessment and Plan: SCDs. Will resume Lovenox subQ (7) Anemia: Code(s): D64.9 - Anemia, unspecified Status: Acute Assessment and Plan: Hemoglobin dropped to 6.5 03/11 , 1 unit of packed RBCs was given DIC panel shows an INR of 2.0 in fibrinogen of 407, PTT of 56.2., likely related to septic shock, patient was transfused 1 unit of FFP 03/14 hemoglobin 6.9 will transfuse 1 unit of PRBC Monitor H&H. Resume DVT prophylaxis Lovenox (8) Thrombocytopenia: Code(s): D69.6 - Thrombocytopenia, unspecified Status: Acute Assessment and Plan: Likely multifactorial from sepsis and medications She has been off of Lovenox since 03/10 Levels have improved. Monitor for now Subjective Date/time seen: 03/16/22 15:13 Interval history: Intubated, sedated. No overnight events noted. Continues to have fevers. Review of Systems Review of Systems: ROS unobtainable: Yes unobtainable due to endotracheal tube Exam Narrative: General: Patient is intubated and sedated HEENT: Pupils equal and reactive, sclera is clear, ETT in place Neck: Supple Respiratory: Coarse, nonlabored Cardiac: Regular rate and rhythm, S1-S2 normal Abdomen: Soft, nondistended Extremities: Cool extremities decreased pedal pulses with Dopplers, bilateral edema present Skin: Dry and intact Psych: Unable to assess at this time Objective Data Vital Signs Vital Signs: Vital Signs - 24 hr 03/15/22 16:42 03/15/22 16:00 03/15/22 16:00 Temperature Pulse Rate 108 H 107 H Respiratory Rate Blood Pressure Pulse Oximetry 95 Oxygen Delivery Mechanical Ventilation Fraction of Inspired Oxygen 100 100 03/15/22 16:00 03/15/22 16:00 03/15/22 18:01 Temperature 102.4 F H Pulse Rate 107 H 112 H Respiratory Rate 24 H Blood Pressure 106/58 L 96/50 L Pulse Oximetry 92 92 Oxygen Delivery Mechanical Vent
[2022-03-16 18:13] LABS: Glucose Point of Care 130 mg/dl (65-105)
[2022-03-17] VITALS (55 sets, daily range): BP systolic 71–151; BP diastolic 36–76; PULSE 55–124; RESP 23–34; TEMP 38.3–39.6; O2SAT 92–100
[2022-03-17] MEDS: NOREPINEPHRINE 8 MG/D5W 250 ML 8 MG/250 ML BAG 11.25 MG IV CONT (00:35)
[2022-03-17 00:36] LABS: Glucose Point of Care 133 mg/dl (65-105)
[2022-03-17] MEDS: LEVALBUTEROL NEB 1.25 MG/3 ML 0.63 MG INHALATION ×4 (02:17→20:00)
[2022-03-17 05:44] LABS: Alveolar/Arterial O2 Gradient 170.4 mmHg; Base Excess ABG 4.1 mEq/l (+/-2.0); Carboxyhemoglobin 0.3 % THb (0-2.0); Fractional Inspired Oxygen 50 %; HCO3 ABG 31.1 mEq/l (22.0-26.0); Methemoglobin ABG 0.4 %THb (0-1.5); Oxygen Content ABG 14.4 %vol (16.0-22.0); Oxygen Saturation ABG 96.8 % (95.0-100.0); Oxyhemoglobin 95.5 % THb (90.0-100.0); PCO2 ABG 59.6 mmHg (35.0-45.0); PO2 ABG 96.5 mmHg (80.0-100.0); PO2 FiO2 Ratio Arterial Blood 1.93 %; Reduced Hemoglobin 3.8 %THb (0-5.0); Total Hemoglobin 10.6 g/dL (12.0-18.0); pH ABG 7.335 (7.350-7.450)
[2022-03-17 05:52] LABS: Arterial Blood Gas Vent Mode CMV; Arterial Blood Gas Ventilator rate 24 /MIN; Device VENTILATOR; Site Drawn ARTLINE
[2022-03-17 05:53] LABS: Arterial Blood Gas PEEP 8 cmH2O; Arterial Blood Gas Tidal Volume 350 ml
[2022-03-17 06:03] LABS: Hematocrit 33.4 % (37.0-47.0); Immature Platelet Fraction Pct 15.9 % (0.9-11.2); Mean Corpuscular HGB Conc 29.9 g/dl (32-36); Mean Corpuscular Hemoglobin 29.2 pg (26-34); Mean Corpuscular Volume 97.4 fl (80-100); Mean Platelet Volume 13.3 fl (7.4-10.4); Platelet Count Result 86 k/mm3 (150-375); Red Blood Count 3.43 M/mm3 (4.2-5.4); Red Cell Distribution Width 19.8 % (11.5-14.5); White Blood Count 11.7 K/mm3 (4.5-10.0)
[2022-03-17] MEDS: CENTRAL LINE FLUSH 10 ML IV PUSH ×3 (06:05→20:25)
[2022-03-17 06:22] LABS: Glucose Point of Care 129 mg/dl (65-105)
[2022-03-17 06:39] LABS: Alanine Aminotransferase 8 U/L (6-35); Alkaline Phosphatase 34 U/L (38-126); Anion Gap 5 mmol/L (8-16); Aspartate Amino Transferase 13 U/L (14-36); Bilirubin,Total 0.2 mg/dL (0.2-1.3); Blood Urea Nitrogen 54 mg/dL (7-17); Calcium 6.1 mg/dL (8.4-10.2); Carbon Dioxide 27 mmol/L (22-30); Chloride 115 mmol/L (98-107); Estimated CRCL calculation 94 ml/min; Estimated Glomerular Filt Rate > 60; Glucose 127 mg/dL (65-110); Magnesium 1.4 mg/dL (1.6-2.3); Phosphorus 1.8 mg/dL (2.5-4.5); Potassium 3.1 mmol/L (3.4-5.0); Sodium 147 mmol/L (137-145)
[2022-03-17] MEDS: MINERAL OIL/WHITE PETROLATUM OINTMENT 1 APPLIC EACH EYE ×2 (08:54→20:25)
[2022-03-17] MEDS: PANTOPRAZOLE SODIUM IV 40 MG VIAL IV PUSH ×2 (08:54→20:25)
[2022-03-17] MEDS: FENTANYL 2,500MCG/NS250ML(*CRX 2,500 MCG/250 ML BAG 12.5 MCG IV CONT (10:03)
--- NOTE | 2022-03-17 10:25 | PM.PNGS ---
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 Stop tube feedings and placed NG to low intermittent suction. Will place wound care consult for tomorrow morning. (2) Fever: Code(s): R50.9 - Fever, unspecified Status: Acute Assessment and Plan: Fevers persisted despite partially opening wound yesterday and placing PICC line. Try to remove remaining central lines Will continue to monitor fevers now that wound is completely opened and fistula is draining. Continue Levaquin, micafungin, Primaxin, and vancomycin (3) Protein calorie malnutrition: Code(s): E46 - Unspecified protein-calorie malnutrition Status: Acute Assessment and Plan: Unable to continue enteric feedings at this time. Will start TPN. (4) Delayed perforation of small intestine: Code(s): K63.1 - Perforation of intestine (nontraumatic) Status: Acute (5) Acute respiratory failure: Code(s): J96.00 - Acute respiratory failure, unspecified whether with hypoxia or hypercapnia Status: Acute Subjective Subjective Date/Time Seen: 03/17/22 10:25 Interval history: Patient remains febrile. Nursing reports increased amount of drainage from midline wound. Exam GI: Other: Midline wound opened the remainder of the way and all rena removed. Thick yellow drainage noted coming from pinpoint area about 1 in below superior edge of incision. Fascia appears intact except for 1 cm area of weakness just below umbilicus. No bowel appears to be visible within wound bed. About 300 mL of enteric contents drained from wound, and then wound appliance placed to continue collecting drainage. Objective Data Vital Signs Vital Signs: Vital Signs - 24 hr 03/16/22 11:00 03/16/22 11:53 03/16/22 11:53 Temperature Pulse Rate 102 H 100 100 Respiratory Rate 25 H 25 H Blood Pressure Pulse Oximetry 97 Oxygen Delivery Mechanical Ventilation Fraction of Inspired Oxygen 60 03/16/22 12:01 03/16/22 12:00 03/16/22 12:00 Temperature 38.7 C H Pulse Rate 100 Respiratory Rate 26 H Blood Pressure 104/58 L 106/58 L Pulse Oximetry 97 Oxygen Delivery Fraction of Inspired Oxygen 60 03/16/22 12:00 03/16/22 13:57 03/16/22 13:58 Temperature Pulse Rate 101 H 100 Respiratory Rate 24 H Blood Pressure Pulse Oximetry 97 99 Oxygen Delivery Mechanical Ventilation Mechanical Ventilation Fraction of Inspired Oxygen 60 50 03/16/22 14:32 03/16/22 12:00 03/16/22 14:00 Temperature Pulse Rate 104 H 101 H 97 Respiratory Rate 20 Blood Pressure Pulse Oximetry Oxygen Delivery Fraction of Inspired Oxygen 03/16/22 14:00 03/16/22 15:00 03/16/22 16:11 Temperature 38.8 C H 38.8 C H Pulse Rate 98 101 H Respiratory Rate 25 H 27 H Blood Pressure 96/51 L 95/50 L 85/46 L Pulse Oximetry 98 95 Oxygen Delivery Fraction of Inspired Oxygen 03/16/22 16:00 03/16/22 16:00 03/16/22 16:02 Temperature 39.1 C H Pulse Rate 100 Respiratory Rate 24 H Blood Pressure 93/48 L Pulse Oximetry 97 94 Oxygen Delivery Mechanical Ventilation Fraction of Inspired Oxygen 60 60 03/16/22 16:55 03/16/22 17:56 03/16/22 16:00 Temperature 39.2 C H Pulse Rate 109 H 100 Respiratory Rate Blood Pressure Pulse Oximetry 94 Oxygen Delivery Mechanical Ventilation Fraction of Inspired Oxygen 50 03/16/22 18:00 03/16/22 18:00 03/16/22 18:26 Temperature 39.2 C H 39.2 C H Pulse Rate 107 H 109 H Respiratory Rate 21 H Blood Pressure 91/49 L Pulse Oximetry 95 Oxygen Delivery Fraction of Inspired Oxygen 03/16/22 17:50 03/16/22 20:00 03/16/22 20:00 Temperature 39.3 C H Pulse Rate 117 H Respiratory Rate 26 H Blood Pressure 1
[2022-03-17 11:25] LABS: Lipase 25 U/L (23-300)
[2022-03-17] MEDS: MICAFUNGIN SODIUM 100 MG in SODIUM CHLORIDE 0.9% IV 100 ML IVPB (11:50)
[2022-03-17] MEDS: CALCIUM GLUC 2,000 MG/NS 100ML 2,000 MG/100 ML BAG 100 MG IVPB (12:00)
[2022-03-17] MEDS: MAGNESIUM SULF 2 GM/WATER 50ML 2 GM/50 ML BAG IVPB (12:03)
--- NOTE | 2022-03-17 13:30 | WPDINTPN ---
Progress Note: A&P Assessment and Plan (1) Septic shock: Code(s): A41.9 - Sepsis, unspecified organism; R65.21 - Severe sepsis with septic shock Status: Acute Assessment and Plan: Septic shock with hypotension, acute kidney injury, status post bowel surgery, with Gastrografin upper GI series showing small-bowel perforation, leakage -patient has received significant amount of IV fluids and is now off of IV fluids and is getting diuretics -she was off of vasopressors but is requiring Levophed since re-intubation -03/12 discontinued IV fluids with sodium bicarbonate -03/09/2022: Blood cultures growing Pseudomonas 2/2 bottles sensitive to cefepime -03/12 repeat blood cultures sent, Scott was replaced, urine culture is growing Leslie, lipase was normal -discontinued vancomycin 03/12 -03/14 discontinued albumin and hydrocortisone - 03/15 sputum culture is growing stenotrophomonas - cefepime changed to Levaquin -03/[address] scan was done IMPRESSION: 1. Diffuse lung disease, likely pulmonary edema. 2. Near complete collapse of the right lower lobe. 3. Moderate-sized right and small left pleural effusions. 4. Moderate volume ascites with interval decrease since the comparison examination. New right upper quadrant drain, consistent with surgical change. No leakage of enteric contrast identified. - 03/15 micafungin ordered - 03/16 continue Levaquin, add vancomycin, add imipenem for now - 03/16 sent repeat blood cultures - 03/16 -discharge from lower half of the incision and wound infection was suspected. 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 which may explain the persistent fevers Continue Levaquin vancomycin imipenem and micafungin Continue Levophed titration Continue Tylenol and cooling blanket for fevers (2) Acute respiratory failure: Code(s): J96.00 - Acute respiratory failure, unspecified whether with hypoxia or hypercapnia Status: Acute Assessment and Plan: Acute respiratory failure likely related to septic shock, acidosis -patient was intubated on 03/09, 03/14 extubated, 03/15 Reintubated -currently on CMV mode of ventilation, 60 % FiO2, peep of 12 - 03/14 patient was extubated after weaning trial. As the day progress she had increased oxygen requirement. In the evening patient was placed on BiPAP. Her FiO2 had to be increased to 80%. Despite diuretics patient continued to have tachypnea and increased work of breathing. Patient agreed for intubation - 03/15 reintubated. Chest x-ray reviewed. ABG pending -significant overall volume overload but hold diuretics today due to sepsis -continue bronchodilators -CT chest 03/15 IMPRESSION: 1. Diffuse lung disease, likely pulmonary edema. 2. Near complete collapse of the right lower lobe. 3. Moderate-sized right and small left pleural effusions. -discussed with IR for ultrasound-guided diagnostic and therapeutic right thoracentesis. Effusion is small and since source of infection is most likely abdominal will hold on thoracentesis at this time -hold further diuresis at this time due to sepsis (3) Pyloric stricture: Code(s): K31.1 - Adult hypertrophic pyloric stenosis Status: Chronic Assessment and Plan: 03/07/2022: Status post hemigastrectomy with Lyly-en-Y jejunostomy, repair of left spigelian hernia -patient with increasing abdominal pain postoperatively, hypotension, shock, acute renal failure -03/09/2022: CT scan of the abdomen and pelvis: Bibasilar atelectasis/consolidation. Moderate right and small left pleural effusions. Moderate abdominal ascites, likely containing small volume proteinaceous or hemorrhagic debris. Body wall edema. -03/09: upper GI series with Gastrografin small-bowel perforation, leakage -03/10/2022:
[2022-03-17] MEDS: ALBUMIN HUMAN 25% 25 GM/100 ML 100 ML IVPB (13:35)
[2022-03-17 14:06] LABS: Glucose Point of Care 103 mg/dl (65-105)
[2022-03-17] MEDS: KCL 40 MEQ/WATER 100 ML 100 ML 25 ML IVPB (14:57)
[2022-03-17] MEDS: VASOPRESSIN INJ 100 UNITS in DEXTROSE 5% 95 ML IV CONT (15:13)
[2022-03-17] MEDS: HYDROCORTISONE SODIUM SUCCINATE 100 MG/2 ML VIAL IV PUSH ×2 (15:17→20:25)
--- NOTE | 2022-03-17 16:48 | P.PNIM_ITS ---
Progress Note: A&P Assessment and Plan (1) Septic shock: Code(s): A41.9 - Sepsis, unspecified organism; R65.21 - Severe sepsis with septic shock Status: Acute Assessment and Plan: Septic shock with hypotension, acute kidney injury, status post bowel surgery, with Gastrografin upper GI series showing small-bowel perforation, leakage -patient has received significant amount of IV fluids and is now off of IV f luids and is getting diuretics -she was off of vasopressors but is requiring Levophed since re-intubation -03/12 discontinued IV fluids with sodium bicarbonate -03/09/2022: Blood cultures growing Pseudomonas 2/ bottles sensitive to cefepime -03/12 repeat blood cultures sent, Scott was replaced, urine culture is growing Leslie, lipase was normal -discontinued vancomycin 03/12 -03/14 discontinued albumin and hydrocortisone - 03/15 sputum culture is growing stenotrophomonas - cefepime changed to Levaquin -03/[address] scan was done IMPRESSION: 1. Diffuse lung disease, likely pulmonary edema. 2. Near complete collapse of the right lower lobe. 3. Moderate-sized right and small left pleural effusions. 4. Moderate volume ascites with interval decrease since the comparison exam ination. New right upper quadrant drain, consistent with surgical change. No leakage of enteric contrast identified. - 03/15 micafungin ordered - 03/16 continue Levaquin, add vancomycin, add imipenem for now - 03/16 sent repeat blood cultures - 03/16 -discharge from lower half of the incision and wound infection was suspected. 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 which may explain the persistent fevers Continue Levaquin vancomycin imipenem and micafungin Continue Levophed titration Continue Tylenol and cooling blanket for fevers (2) Acute respiratory failure: Code(s): J96.00 - Acute respiratory failure, unspecified whether with hypoxia or hypercapnia Status: Acute Assessment and Plan: Acute respiratory failure likely related to septic shock, acidosis -patient was intubated on 03/09, 03/14 extubated, 03/15 Reintubated -currently on CMV mode of ventilation, 60 % FiO2, peep of 12 - 03/14 patient was extubated after weaning trial. As the day progress she had increased oxygen requirement. In the evening patient was placed on BiPAP. Her FiO2 had to be increased to 80%. Despite diuretics patient continued to have tachypnea and increased work of breathing. Patient agreed for intubation - 03/15 reintubated. Chest x-ray reviewed. ABG pending -significant overall volume overload but hold diuretics today due to sepsis -continue bronchodilators -CT chest 03/15 IMPRESSION: 1. Diffuse lung disease, likely pulmonary edema. 2. Near complete collapse of the right lower lobe. 3. Moderate-sized right and small left pleural effusions. -discussed with IR for ultrasound-guided diagnostic and therapeutic right thoracentesis. Effusion is small and since source of infection is most likely abdominal will hold on thoracentesis at this time -hold further diuresis at this time due to sepsis (3) Pyloric stricture: Code(s): K31.1 - Adult hypertrophic pyloric stenosis Status: Chronic Assessment and Plan: 03/07/2022: Status post hemigastrectomy with Lyly-en-Y jejunostomy, repair of left spigelian hernia -patient with increasing abdominal pain postoperatively, hypotension, shock, acute renal failure -03/09/2022: CT scan of the abdo
[2022-03-17] MEDS: AMINO ACIDS 5%/D15W/E-LYTES/CA 2,000 ML with MULTIVITAMINS-12 INJ VIAL 1 2.5 ML, MULTIV... 60 ML IV CONT (17:25)
[2022-03-17] MEDS: FAT EMULSIONS IV 20% 250 ML 20.83 ML IVPB (17:26)
[2022-03-17] MEDS: NOREPINEPHRINE 8 MG/D5W 250 ML 8 MG/250 ML BAG 7.5 MG IV CONT (19:36)
[2022-03-17 20:37] LABS: Anion Gap 5 mmol/L (8-16); Blood Urea Nitrogen 64 mg/dL (7-17); Calcium 7.9 mg/dL (8.4-10.2); Carbon Dioxide 30 mmol/L (22-30); Chloride 111 mmol/L (98-107); Estimated CRCL calculation 81 ml/min; Estimated Glomerular Filt Rate > 60; Glucose 227 mg/dL (65-110); Magnesium 1.8 mg/dL (1.6-2.3); Potassium 4.7 mmol/L (3.4-5.0); Sodium 146 mmol/L (137-145)
--- NOTE | 2022-03-17 21:08 | PC.NURSE ---
Dr. Tilley notified of BMP results. 1 g mag bolus ordered. Also reordered IV tylenol for fever per Dr. Tilley.
[2022-03-17] MEDS: MAGNESIUM SULF 1 GM/D5W 100 ML 1 GM/100 ML BAG IVPB (21:41)
[2022-03-17 22:28] LABS: Transferrin < 80 mg/dL (206-381)
[2022-03-17 23:26] LABS: Glucose Point of Care 258 mg/dl (65-105)
[2022-03-17 23:28] LABS: Glucose Point of Care 260 mg/dl (65-105)
[2022-03-17] MEDS: INSULIN HUMAN REGULAR (*BKC) 100 UNITS/ML SUB-Q (23:28)
[2022-03-18] VITALS (61 sets, daily range): BP systolic 89–139; BP diastolic 42–66; PULSE 41–75; RESP 22–33; TEMP 36.9–39.4; O2SAT 97–100; BMI 28.3
[2022-03-18] MEDS: LEVALBUTEROL NEB 1.25 MG/3 ML 0.63 MG INHALATION ×4 (01:55→20:00)
[2022-03-18 04:48] LABS: Hematocrit 27.2 % (37.0-47.0); Hemoglobin 8.5 g/dL (12.0-15.0); Immature Platelet Fraction Pct 14.3 % (0.9-11.2); Mean Corpuscular HGB Conc 31.3 g/dl (32-36); Mean Corpuscular Volume 92.8 fl (80-100); Mean Platelet Volume 12.6 fl (7.4-10.4); Platelet Count Result 82 k/mm3 (150-375); Red Blood Count 2.93 M/mm3 (4.2-5.4); Red Cell Distribution Width 19.9 % (11.5-14.5); White Blood Count 8.4 K/mm3 (4.5-10.0)
[2022-03-18 04:56] LABS: Alanine Aminotransferase 10 U/L (6-35); Albumin Level 2.4 g/dL (3.5-5.1); Alkaline Phosphatase 32 U/L (38-126); Anion Gap 5 mmol/L (8-16); Aspartate Amino Transferase 15 U/L (14-36); Bilirubin,Total 0.2 mg/dL (0.2-1.3); Blood Urea Nitrogen 57 mg/dL (7-17); Carbon Dioxide 31 mmol/L (22-30); Chloride 111 mmol/L (98-107); Estimated CRCL calculation 94 ml/min; Estimated Glomerular Filt Rate > 60; Glucose 269 mg/dL (65-110); Sodium 147 mmol/L (137-145)
[2022-03-18 04:57] LABS: INR 1.5; Partial Thromboplastin Time 30.5 SECONDS (22.3-36.8); Prothrombin Time 17.7 Seconds (11.1-14.7)
[2022-03-18 05:06] LABS: Transferrin < 80 mg/dL (206-381)
[2022-03-18] MEDS: INSULIN HUMAN REGULAR (*BKC) 100 UNITS/ML SUB-Q (05:06)
[2022-03-18] MEDS: CENTRAL LINE FLUSH 10 ML IV PUSH ×7 (05:07→20:34)
[2022-03-18 05:11] LABS: Band Neutrophils Percent 14 % (0-6); Lymphocytes Absolute Manual 0.75 K/mm3 (1.1-4.5); Monocytes Absolute Manual 0.08 K/mm3 (0.1-0.90); Monocytes Percent Manual 1 % (3-9); Neutrophils Absolute Manual 7.56 K/mm3 (1.7-7.2); Neutrophils Percent Manual 76 % (46-73); Platelet Estimate Adequate (Adequate); Total Cells Counted 100; Triglycerides 411 mg/dL (<150)
[2022-03-18] MEDS: HYDROCORTISONE SODIUM SUCCINATE 100 MG/2 ML VIAL IV PUSH ×3 (05:12→20:33)
[2022-03-18 05:27] LABS: Alveolar/Arterial O2 Gradient 107.9 mmHg; Base Excess ABG 6.2 mEq/l (+/-2.0); Carboxyhemoglobin 0.2 % THb (0-2.0); Fractional Inspired Oxygen 40 %; HCO3 ABG 30.1 mEq/l (22.0-26.0); Methemoglobin ABG 0.4 %THb (0-1.5); Oxygen Content ABG 12.7 %vol (16.0-22.0); Oxygen Saturation ABG 98.8 % (95.0-100.0); Oxyhemoglobin 97.1 % THb (90.0-100.0); PCO2 ABG 40.5 mmHg (35.0-45.0); PO2 ABG 130.7 mmHg (80.0-100.0); PO2 FiO2 Ratio Arterial Blood 3.27 %; Reduced Hemoglobin 2.3 %THb (0-5.0); Total Hemoglobin 9.1 g/dL (12.0-18.0); pH ABG 7.489 (7.350-7.450)
[2022-03-18 05:28] LABS: Site Drawn ARTLINE
[2022-03-18 05:29] LABS: Arterial Blood Gas PEEP 8 cmH2O; Arterial Blood Gas Vent Mode CMV; Arterial Blood Gas Ventilator rate 26 /MIN; Device VENTILATOR; Modified Allen's Test Pass
[2022-03-18 05:30] LABS: Arterial Blood Gas Tidal Volume 380 ml
[2022-03-18] MEDS: FAT EMULSIONS IV 20% 250 ML 20.83 ML IVPB (05:41)
[2022-03-18] MEDS: FENTANYL 2,500MCG/NS250ML(*CRX 2,500 MCG/250 ML BAG 7.5 MCG IV CONT (06:15)
[2022-03-18] MEDS: MIDAZOLAM 100MG/NS 100ML(*CRX) 100 MG/100 ML BAG IV CONT (06:16)
[2022-03-18] MEDS: MINERAL OIL/WHITE PETROLATUM OINTMENT 1 APPLIC EACH EYE ×2 (07:57→19:51)
[2022-03-18] MEDS: PANTOPRAZOLE SODIUM IV 40 MG VIAL IV PUSH ×2 (07:57→19:51)
--- NOTE | 2022-03-18 08:08 | WPDINTPN ---
Progress Note: A&P Assessment and Plan (1) Septic shock: Code(s): A41.9 - Sepsis, unspecified organism; R65.21 - Severe sepsis with septic shock Status: Acute Assessment and Plan: Septic shock with hypotension, acute kidney injury, status post bowel surgery, with Gastrografin upper GI series showing small-bowel perforation, leakage -patient has received significant amount of IV fluids and is now off of IV fluids and is getting diuretics -she was off of vasopressors but is requiring Levophed since re-intubation -03/12 discontinued IV fluids with sodium bicarbonate -03/09/2022: Blood cultures growing Pseudomonas 2/2 bottles sensitive to cefepime -03/12 repeat blood cultures sent, Scott was replaced, urine culture is growing Leslie, lipase was normal -discontinued vancomycin 03/12 -03/14 discontinued albumin and hydrocortisone - 03/15 sputum culture is growing stenotrophomonas - cefepime changed to Levaquin -03/[address] scan was done IMPRESSION: 1. Diffuse lung disease, likely pulmonary edema. 2. Near complete collapse of the right lower lobe. 3. Moderate-sized right and small left pleural effusions. 4. Moderate volume ascites with interval decrease since the comparison examination. New right upper quadrant drain, consistent with surgical change. No leakage of enteric contrast identified. - 03/15 micafungin ordered - 03/16 continue Levaquin, add vancomycin, add imipenem for now - 03/16 sent repeat blood cultures - 03/16 -discharge from lower half of the incision and wound infection was suspected. 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 which may explain the persistent fevers - 03/18-normal lipase, afebrile this morning WBC improved pressor requirement improved and vasopressin off Continue Levaquin vancomycin imipenem and micafungin Continue Levophed titration Continue Tylenol fevers. Off pulling blanket at this time (2) Acute respiratory failure: Code(s): J96.00 - Acute respiratory failure, unspecified whether with hypoxia or hypercapnia Status: Acute Assessment and Plan: Acute respiratory failure likely related to septic shock, acidosis -patient was intubated on 03/09, 03/14 extubated, 03/15 Reintubated -currently on CMV mode of ventilation, 40 % FiO2, peep of 8 - 03/14 patient was extubated after weaning trial. As the day progress she had increased oxygen requirement. In the evening patient was placed on BiPAP. Her FiO2 had to be increased to 80%. Despite diuretics patient continued to have tachypnea and increased work of breathing. Patient agreed for intubation - 03/15 reintubated. Chest x-ray reviewed. ABG pending -significant overall volume overload overall the third-spacing -continue bronchodilators -CT chest 03/15 IMPRESSION: 1. Diffuse lung disease, likely pulmonary edema. 2. Near complete collapse of the right lower lobe. 3. Moderate-sized right and small left pleural effusions. -discussed with IR for ultrasound-guided diagnostic and therapeutic right thoracentesis. Effusion is small and since source of infection is most likely abdominal will hold on thoracentesis at this time -resume cautious diuresis to keep her even or negative on fluid balance (3) Pyloric stricture: Code(s): K31.1 - Adult hypertrophic pyloric stenosis Status: Chronic Assessment and Plan: 03/07/2022: Status post hemigastrectomy with Lyly-en-Y jejunostomy, repair of left spigelian hernia -patient with increasing abdominal pain postoperatively, hypotension, shock, acute renal failure -03/09/2022: CT scan of the abdomen and pelvis: Bibasilar atelectasis/consolidation. Moderate right and small left pleural effusions. Moderate abdominal ascites, likely containing small volume proteinaceous or he
[2022-03-18] MEDS: MICAFUNGIN SODIUM 100 MG in SODIUM CHLORIDE 0.9% IV 100 ML IVPB (09:22)
[2022-03-18] MEDS: BUMETANIDE INJ 1 MG/4 ML VIAL IV PUSH (09:28)
[2022-03-18] MEDS: ATROPINE SULFATE 1 MG/10 ML SYRINGE IV PUSH (09:30)
[2022-03-18 11:06] LABS: Glucose Point of Care 147 mg/dl (65-105)
[2022-03-18] MEDS: LIDOCAINE HCL 1% LOCAL INJ 2 ML AMPUL 5 ML INFILTRATE (11:10)
--- NOTE | 2022-03-18 12:01 | P.PNNP_ITS ---
Progress Note: A&P Assessment and Plan (1) EVELYN (acute kidney injury): Code(s): N17.9 - Acute kidney failure, unspecified Status: Acute Assessment and Plan: * resolving/stable * high BUN likely due to diuretics and catabolic state * due to sepsis, shock/hemodynamic instability, and prerenal factors (3rd spacing from surgery) * reasonable urine output (albeit with use of IV diuretics) * continue diuretics scheduled and PRN * follow trend of repeat labs and UOP (2) Hypernatremia: Code(s): E87.0 - Hyperosmolality and hypernatremia Status: Acute Assessment and Plan: * likely due to free water deficit * adjust/titrate free water flushes to compensate..may need just need to increase free water content in TPN * given diffuse body edema, would try to limit D5W IVFs if possible * follow trend of sodium (3) Septic shock: Code(s): A41.9 - Sepsis, unspecified organism; R65.21 - Severe sepsis with septic shock Status: Acute Assessment and Plan: * due to small bowel perforation and associated leakage * was on pressors and then weaned off * follow trend of hemodynamics and temperature curve * continue antibiotics * follow culture data (blood cultures with Pseudomonas) (4) Acute respiratory failure: Code(s): J96.00 - Acute respiratory failure, unspecified whether with hypoxia or hypercapnia Status: Acute Assessment and Plan: * presumably secondary to sepsis and shock along with pulmonary edema +/- pneumonia * re-intubated (03/15/22) due to ongoing hypoxia and respiratory distress despite conservative measures * continue mechanical ventilation * diurese as tolerated by hemodynamics * on antibiotics as well (5) Pyloric stricture: Code(s): K31.1 - Adult hypertrophic pyloric stenosis Status: Chronic Assessment and Plan: * s/p hemigastrectomy with Lyly-en-Y jejunostomy and repair of left spigelian hernia (03/07/22) * complicated by small bowel perforation/leakage as noted by upper GI series (03/09/22) * s/p exploratory laparotomy, repair of duodenal stump leak + omental patch + intra-abdominal washout (03/10/22) * repeat imaging noted * Surgery following (6) Anemia: Code(s): D64.9 - Anemia, unspecified Status: Acute Assessment and Plan: * fluctuating H/H noted since 03/11/22 * s/p PRBC as well as FFP transfusions * follow trend of H/H Will continue to follow intermittently. Subjective Date/time seen: 03/18/22 12:01 Chart reviewed since last seen -- abdominal wound opened by surgery to allow for better drainage along with placement on wound appliance; afebrile currently but still having low grade fevers; PICC line placed and receing TPN; renal function remains stable and reasonable urine output noted; better hemodynamics noted with less vasopressor support. Exam Narrative: General: ill appearing female intubated/sedated Heart: normal S1 and S2; no rub Lungs: coarse breath sounds and decreased at bases Abdomen: soft with TTP and decreased bowel sounds Extremities: coolness noted with bilateral edema Skin: warm and intact Objective Data Vital Signs Vital Signs: Vital Signs Temp Pulse Resp BP Pulse Ox O2 Del Method FiO2 03/18/22 12:00 99 Mechanical Ventilation 35 03/18/22 12:00 53 L 03/18/22 10:36 75 26 H
--- NOTE | 2022-03-18 12:01 | PM.PNNEP ---
Progress Note: A&P Assessment and Plan (1) EVELYN (acute kidney injury): Code(s): N17.9 - Acute kidney failure, unspecified Status: Acute Assessment and Plan: resolving/stable high BUN likely due to diuretics and catabolic state due to sepsis, shock/hemodynamic instability, and prerenal factors (3rd spacing from surgery) reasonable urine output (albeit with use of IV diuretics) continue diuretics scheduled and PRN follow trend of repeat labs and UOP (2) Hypernatremia: Code(s): E87.0 - Hyperosmolality and hypernatremia Status: Acute Assessment and Plan: likely due to free water deficit adjust/titrate free water flushes to compensate..may need just need to increase free water content in TPN given diffuse body edema, would try to limit D5W IVFs if possible follow trend of sodium (3) Septic shock: Code(s): A41.9 - Sepsis, unspecified organism; R65.21 - Severe sepsis with septic shock Status: Acute Assessment and Plan: due to small bowel perforation and associated leakage was on pressors and then weaned off follow trend of hemodynamics and temperature curve continue antibiotics follow culture data (blood cultures with Pseudomonas) (4) Acute respiratory failure: Code(s): J96.00 - Acute respiratory failure, unspecified whether with hypoxia or hypercapnia Status: Acute Assessment and Plan: presumably secondary to sepsis and shock along with pulmonary edema +/- pneumonia re-intubated (03/15/22) due to ongoing hypoxia and respiratory distress despite conservative measures continue mechanical ventilation diurese as tolerated by hemodynamics on antibiotics as well (5) Pyloric stricture: Code(s): K31.1 - Adult hypertrophic pyloric stenosis Status: Chronic Assessment and Plan: s/p hemigastrectomy with Lyly-en-Y jejunostomy and repair of left spigelian hernia (03/07/22) complicated by small bowel perforation/leakage as noted by upper GI series (03/09/22) s/p exploratory laparotomy, repair of duodenal stump leak + omental patch + intra-abdominal washout (03/10/22) repeat imaging noted Surgery following (6) Anemia: Code(s): D64.9 - Anemia, unspecified Status: Acute Assessment and Plan: fluctuating H/H noted since 03/11/22 s/p PRBC as well as FFP transfusions follow trend of H/H Will continue to follow intermittently. Subjective Date/time seen: 03/18/22 12:01 Chart reviewed since last seen -- abdominal wound opened by surgery to allow for better drainage along with placement on wound appliance; afebrile currently but still having low grade fevers; PICC line placed and receing TPN; renal function remains stable and reasonable urine output noted; better hemodynamics noted with less vasopressor support. Exam Narrative: General: ill appearing female intubated/sedated Heart: normal S1 and S2; no rub Lungs: coarse breath sounds and decreased at bases Abdomen: soft with TTP and decreased bowel sounds Extremities: coolness noted with bilateral edema Skin: warm and intact Objective Data Vital Signs Vital Signs: Vital Signs Temp Pulse Resp BP Pulse Ox O2 Del Method FiO2 03/18/22 12:00 99 Mechanical Ventilation 35 03/18/22 12:00 53 L 03/18/22 10:36 75 26 H 03/18/22 10:36 75 26 H 03/18/22 10:00 37.2 C 71 26 H 98/53 L 98 03/18/22 10:00 71 03/18/22 08:00 99 Mechanical Ventilation 35 03/18/22 08:00 63 03/18/22 09:01 95/48 L 03/18/22 08:43 67 26 H 03/18/22 08:36 67 100 Mechanical Ventilation 35 03/18/22 08:36 55 L 26 H 03/18/22 08:22 126/60 03/18/22 08:12 129/62 03/18/22 08:00 37.4 C 59 L 26 H 95/46 L 99 03/18/22 08:00 35 03/18/22 07:56 59 L 26 H 03/18/22 07:55 60 26 H 03/18/22 07:50 89/45 L 03/18/22 06:47 50 L 131/
--- NOTE | 2022-03-18 12:16 | PM.PNGS ---
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 Dressing changed and wound examined with Dr. Roman and wound care today. There are three small pinpoint areas with scant drainage of enteric contents at the superior aspect of the wound. Wound vac applied today. Will plan to change the wound vac again Friday and re-evaluate. Continue to monitor fistula output, continue TPN. (2) Septic shock: Code(s): A41.9 - Sepsis, unspecified organism; R65.21 - Severe sepsis with septic shock Status: Acute Assessment and Plan: Fevers improving, afebrile since midnight. Off cooling blanket. Vasopressors weaning down, off vasopressin. WBC trending down to normal today. Most recent blood cx (03/16) NGTD. Continue IV antibiotics and IV Micafungin. (3) Protein calorie malnutrition: Code(s): E46 - Unspecified protein-calorie malnutrition Status: Acute Assessment and Plan: Continue TPN, increase Clinimix rate to 80 mL/hr, dietitian evaluating today. High triglycerides noted, will switch lipids to Q48H and monitor labs. (4) Delayed perforation of small intestine: Code(s): K63.1 - Perforation of intestine (nontraumatic) Status: Acute (5) Acute respiratory failure: Code(s): J96.00 - Acute respiratory failure, unspecified whether with hypoxia or hypercapnia Status: Acute Assessment and Plan: Initially extubated on 03/14 and reintubated on 03/15. IV Bumex held yesterday but restarted today. Continue to wean vent as tolerated per Anaesthesiologist. Plan I have discussed the patient's case and plan of care with Dr. Roman. Subjective Subjective Date/Time Seen: 03/18/22 12:16 Interval history: 03/07/22 - Patient with peptic ulcer disease with stricture who presented for?hemigastrectomy with Lyly-en-Y gastrojejunostomy, repair left spigelian hernia. She was admitted post-op and her hospitalization has been complicated with acute respiratory failure, septic shock, and findings of duodenal stump leak at the staple line. She was intubated on 03/09 and transferred to IMU. 03/10/22 - She underwent an exploratory laparotomy, repair of duodenal stump leak, omental patch, intra-abdominal washout. She remained in ICU and required vasopressor support. She was extubated on 03/14 and ultimately failed extubated requiring reintubation on 03/15. Chart reviewed. Her incision was opened over the weekend due to drainage and persistent fevers. She is now seen and examined with Dr. Roman and wound care today. She is intubated and sedated in ICU. Nursing at the bedside, who reports she is tolerating being weaned down on vasopressors. She has been weaned off of vasopressin and her Levophed has been weaned down to only requiring a low rate this morning. She had a liquid BM overnight. Good urine output documented. IV Bumex given this morning. Review of Systems Review of Systems: ROS unobtainable: Yes unobtainable due to endotracheal tube Exam Const: General: ill appearing and patient obtunded (Sedated) Nutritional Appearance: thin Limitations: physical limitations Resp: Effort & Inspection: other ( on mechanical ventilator) GI: Inspection: non-distended and other (ANGELA drain with no drainage) GI Palp: Yes Soft to palpation and Yes Other GI palpation findings present (exam limited d/t sedation/intubated) Auscultation: Hypoactive bowel sounds present Other: Open abdominal wound with sandy/yellow slough in the base of the wound bed and some pink granulating tissue more superficial near the skin edges. There are three pinpoint areas at the superior aspect of the wound that appears to have scant drainage of enteric contents. Urinary Catheter: Urinary Catheter: patent and draining Skin: General skin exam: normal color Neuro: General: patient obtunde
--- NOTE | 2022-03-18 12:21 | PCFNICU ---
ICU Rounding Note: Pt current nutrition is TPN. Last recorded weight is 72.4 kg, up from 66.6 kg on admit. Bowel Motility: +BM reported 03/17-ostomy Labs Reviewed:BUN 57, Cr 0.6, Glu 269,Na 147, Hct 27.2,Hgb 8.5,TG 411 Meds Noted:Levophed, Fentanyl, Bumex, Vancomycin, Protonix, Xopenex, Clinimix 5/15 at 80 ml/hr Skin: wound vac Additional Notes: Patient remains on mechanical vent. Tube feedings stopped over the weekend. Fistula reported-PICC placed and TPN started. Current TPN running at 60 ml/hr. TG 411 noted and reported to MD today. Plans for Lipids every other day. Orders today for Clinimix 80 ml/hr. Current feeding will providing 1363 kcals without Lipids and 96 gms protein. Meeting 75% of caloric needs and 100% protein needs. Agree with diet orders. Monitoring: Following daily in ICU rounds and reassessing every Friday and Friday.
[2022-03-18 12:41] LABS: Glucose Point of Care 199 mg/dl (65-105)
[2022-03-18 16:25] LABS: Anion Gap 0 mmol/L (8-16); Blood Urea Nitrogen 58 mg/dL (7-17); Carbon Dioxide 36 mmol/L (22-30); Chloride 111 mmol/L (98-107); Estimated CRCL calculation 93 ml/min; Estimated Glomerular Filt Rate > 60; Glucose 226 mg/dL (65-110); Magnesium 1.7 mg/dL (1.6-2.3); Phosphorus 2.3 mg/dL (2.5-4.5); Sodium 147 mmol/L (137-145)
[2022-03-18 16:34] LABS: Vancomycin Trough 13.7 ug/mL (10.0-20.0)
[2022-03-18 17:28] LABS: Glucose Point of Care 256 mg/dl (65-105)
[2022-03-18] MEDS: INSULIN ASPART (*BKC) 100 UNITS/ML SUB-Q ×3 (17:32→23:36)
[2022-03-18] MEDS: AMINO ACIDS 5%/D15W/E-LYTES/CA 2,000 ML with MULTIVITAMINS-12 INJ VIAL 1 2.5 ML, MULTIV... 80 ML IV CONT (17:33)
--- NOTE | 2022-03-18 17:59 | PC.NURSE ---
Notified Dr. Tilley of patient's HR in the 40's with Levophed on at 1mcg/min. New orders: Ok to continue Levophed as needed to sustain MAP >65, as long as HR doesn't drop below 40. If HR sustains below 40, call .
[2022-03-18 20:39] LABS: Glucose Point of Care 262 mg/dl (65-105)
[2022-03-18 23:40] LABS: Glucose Point of Care 268 mg/dl (65-105)
[2022-03-19] VITALS (40 sets, daily range): BP systolic 102–149; BP diastolic 47–81; PULSE 42–90; RESP 20–33; TEMP 36.1–37.3; O2SAT 97–100
[2022-03-19] MEDS: LEVALBUTEROL NEB 1.25 MG/3 ML 0.63 MG INHALATION ×4 (02:05→19:22)
[2022-03-19 04:28] LABS: Hematocrit 26.2 % (37.0-47.0); Hemoglobin 8.2 g/dL (12.0-15.0); Immature Platelet Fraction Pct 15.7 % (0.9-11.2); Mean Corpuscular HGB Conc 31.3 g/dl (32-36); Mean Corpuscular Hemoglobin 28.7 pg (26-34); Mean Corpuscular Volume 91.6 fl (80-100); Platelet Count Result 90 k/mm3 (150-375); Red Blood Count 2.86 M/mm3 (4.2-5.4); Red Cell Distribution Width 19.8 % (11.5-14.5); White Blood Count 11.4 K/mm3 (4.5-10.0)
[2022-03-19 04:38] LABS: Alanine Aminotransferase 11 U/L (6-35); Albumin Level 2.5 g/dL (3.5-5.1); Alkaline Phosphatase 35 U/L (38-126); Anion Gap 2 mmol/L (8-16); Aspartate Amino Transferase 16 U/L (14-36); Bilirubin,Total 0.3 mg/dL (0.2-1.3); Blood Urea Nitrogen 57 mg/dL (7-17); Calcium 8.1 mg/dL (8.4-10.2); Carbon Dioxide 33 mmol/L (22-30); Chloride 111 mmol/L (98-107); Estimated CRCL calculation 93 ml/min; Estimated Glomerular Filt Rate > 60; Glucose 258 mg/dL (65-110); Magnesium 1.7 mg/dL (1.6-2.3); Phosphorus 2.6 mg/dL (2.5-4.5); Sodium 146 mmol/L (137-145)
[2022-03-19] MEDS: HYDROCORTISONE SODIUM SUCCINATE 100 MG/2 ML VIAL IV PUSH (04:47)
[2022-03-19] MEDS: INSULIN ASPART (*BKC) 100 UNITS/ML SUB-Q ×4 (04:47→17:10)
[2022-03-19] MEDS: CENTRAL LINE FLUSH 10 ML IV PUSH ×5 (04:48→20:48)
[2022-03-19 05:02] LABS: Alveolar/Arterial O2 Gradient 78.4 mmHg; Base Excess ABG 6.9 mEq/l (+/-2.0); Carboxyhemoglobin 0.2 % THb (0-2.0); Fractional Inspired Oxygen 30 %; HCO3 ABG 30.6 mEq/l (22.0-26.0); Methemoglobin ABG 0.3 %THb (0-1.5); Oxygen Content ABG 12.8 %vol (16.0-22.0); Oxygen Saturation ABG 97.4 % (95.0-100.0); Oxyhemoglobin 95.5 % THb (90.0-100.0); PO2 ABG 88.5 mmHg (80.0-100.0); PO2 FiO2 Ratio Arterial Blood 2.95 %; Total Hemoglobin 9.4 g/dL (12.0-18.0); pH ABG 7.501 (7.350-7.450)
[2022-03-19 05:12] LABS: Arterial Blood Gas Vent Mode CMV; Arterial Blood Gas Ventilator rate 26 /MIN; Device VENTILATOR; Site Drawn ARTLINE
[2022-03-19 05:13] LABS: Arterial Blood Gas PEEP 8 cmH2O; Arterial Blood Gas Tidal Volume 380 ml
[2022-03-19 07:21] LABS: Glucose Point of Care 293 mg/dl (65-105)
[2022-03-19] MEDS: ALBUMIN HUMAN 25% 25 GM/100 ML 100 ML IVPB ×4 (08:17→23:47)
[2022-03-19] MEDS: PANTOPRAZOLE SODIUM IV 40 MG VIAL IV PUSH ×2 (08:21→20:48)
[2022-03-19] MEDS: BUMETANIDE INJ 1 MG/4 ML VIAL IV PUSH ×2 (08:22→20:41)
[2022-03-19] MEDS: MINERAL OIL/WHITE PETROLATUM OINTMENT 1 APPLIC EACH EYE ×2 (08:23→20:49)
[2022-03-19] MEDS: INSULIN GLARGINE (*BKC) 100 UNITS/ML 8 UNITS SUB-Q (08:28)
[2022-03-19] MEDS: MICAFUNGIN SODIUM 100 MG in SODIUM CHLORIDE 0.9% IV 100 ML IVPB (09:19)
--- NOTE | 2022-03-19 10:40 | PM.IMPN ---
Progress Note: A&P Assessment and Plan (1) Septic shock: Code(s): A41.9 - Sepsis, unspecified organism; R65.21 - Severe sepsis with septic shock Status: Acute Assessment and Plan: Septic shock with hypotension, acute kidney injury, status post bowel surgery, with Gastrografin upper GI series showing small-bowel perforation, leakage Concurrently on Levaquin, vancomycin, imipenem, micafungin Continue attempting to wean Levophed (2) Acute respiratory failure: Code(s): J96.00 - Acute respiratory failure, unspecified whether with hypoxia or hypercapnia Status: Acute Assessment and Plan: Acute respiratory failure likely related to septic shock, acidosis Diffuse lung disease, pulm edema, pleural effusions, collapsed right lower lobe Monitor fluid status closely with careful diuresis (3) Pyloric stricture: Code(s): K31.1 - Adult hypertrophic pyloric stenosis Status: Chronic Assessment and Plan: 03/07/2022: Status post hemigastrectomy with Lyly-en-Y jejunostomy, repair of left spigelian hernia patient with increasing abdominal pain postoperatively, hypotension, shock, acute renal failure -03/09/2022: CT scan of the abdomen and pelvis: Bibasilar atelectasis/consolidation. Moderate right and small left pleural effusions. Moderate abdominal ascites, likely containing small volume proteinaceous or hemorrhagic debris. Body wall edema. -03/09: upper GI series with Gastrografin small-bowel perforation, leakage -03/10/2022: Status post exploratory laparotomy, repair of duodenal stump leak, omental patch, intra-abdominal washout - 03/15 tube feeds resumed after intubation. Patient tolerating tube feeds at goal - 03/15 CT scan does not show any leak - 03/16 -discharge from lower half of the incision notice and wound infection was suspected. Discussed with Dr. Perez from General surgery. ?He opened incision and packed it with 1 iodoform gauze - 03/17-new patient continued to have fever. Yellowish discharge noticed from upper half of the incision. Discussed with Dr. Perez from General surgery. He opened the wound and appears that patient has enterocutaneous fistula which may explain the persistent fevers. Tube feedings have been stopped and patient is on TPN. NG tube has been placed to suction. Wound appliance placed on the open wound to collect drainage per. Plan to place wound VAC by general surgery Management per General surgery (4) Acute renal failure: Code(s): N17.9 - Acute kidney failure, unspecified Status: Acute Assessment and Plan: Acute kidney injury likely related to septic shock, prolonged hypotension, hypovolemia due to third-spacing secondary to surgery, NSAID use at home -patient has been adequately fluid-resuscitated -renal ultrasound was unremarkable -appreciate Nephrology evaluation and recommendations (5) Enterocutaneous fistula: Code(s): K63.2 - Fistula of intestine Status: Acute Assessment and Plan: Tube feeds discontinued patient is now on TPN NG tube to suction (6) Gastroesophageal reflux disease: Code(s): K21.9 - Gastro-esophageal reflux disease without esophagitis Status: Acute Assessment and Plan: Continue PPI IV q.12 hours (7) DVT prophylaxis: Code(s): Z29.9 - Encounter for prophylactic measures, unspecified Status: Acute Assessment and Plan: SCDs. Will resume Lovenox subQ when appropriate (8) Anemia: Code(s): D64.9 - Anemia, unspecified Status: Acute Assessment and Plan: Hemoglobin dropped to 6.5 03/11 , 1 unit of packed RBCs was given -DIC panel shows an INR of 2.0 in fibrinogen of 407, PTT of 56.2., likely related to septic shock, patient was transfused 1 unit of FFP - 03/14 hemoglobin 6.9 will transfuse 1 unit of PRBC -will continue to monitor H&H. (9) Thrombocytopenia: Code(s): D69.6 - Thrombocytopenia, unspecified Status: Acute
[2022-03-19 11:17] LABS: Triglycerides 215 mg/dL (<150)
--- NOTE | 2022-03-19 11:29 | PM.PNGS ---
Progress Note: A&P Assessment and Plan (1) Delayed perforation of small intestine: Code(s): K63.1 - Perforation of intestine (nontraumatic) Status: Acute Assessment and Plan: duodenal stump closure appears intact but patient likely has 2nd perforation at or near the enteroenterostomy resulting in the enterocutaneous fistula. Output is not excessive. Patient's fever defervesced quickly once the wound was thoroughly opened. She continues to improve. No longer on any vasopressor agents. Oxygenation is good on the ventilator. I spoke with Dr. Doherty. He will try reducing her ventilation support today and see how she tolerates this. He plans to modify her antibiotic regimen since we now have a better understanding of what was causing her fever and sepsis. Infectious Disease pharmacist this will be involved in this decision as well. I talked to the patient's mother, nuria, again today and discussed her daughter's condition. Plan to change wound VAC tomorrow and possibly debride the wound somewhat. 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 Plan to change VAC tomorrow. (3) Protein calorie malnutrition: Code(s): E46 - Unspecified protein-calorie malnutrition Status: Acute Assessment and Plan: Discussed nutrition with dietitian. It seems that increasing her TPN to 80 and our with [id number] lipids should provide satisfactory nutritional support. (4) Acute respiratory failure: Code(s): J96.00 - Acute respiratory failure, unspecified whether with hypoxia or hypercapnia Status: Acute Assessment and Plan: Dr. Doherty plans to reduce ventilator support today and see how patient tolerates. I reviewed her chest x-ray which looks good other than the persistent right sided pleural effusion. Subjective Subjective Date/Time Seen: 03/19/22 11:29 Post Op day: POD #9 Patient reports: bowel movement, afebrile and other ( intubated but less sedated, opens eyes and looks around more. Appears comfortable.) Review of Systems Review of Systems: ROS unobtainable: Yes unobtainable due to endotracheal tube Exam Const: General: lethargic Nutritional Appearance: thin Orientation/consciousness: lethargic GI: Inspection: incision ( Wound VAC in place, working well), scaphoid and other ( ANGELA drain now has small amount of enteric content similar to VAC) GI Palp: Yes Soft to palpation and Yes Tenderness to palpation present (GI) Auscultation: absent bowel sounds Objective Data Vital Signs Vital Signs: Vital Signs - 24 hr 03/18/22 12:38 03/18/22 12:38 03/18/22 12:39 Temperature Pulse Rate 75 49 L Respiratory Rate 26 H 26 H Blood Pressure 98/50 L Pulse Oximetry Oxygen Delivery Fraction of Inspired Oxygen 03/18/22 12:00 03/18/22 12:00 03/18/22 12:00 Temperature Pulse Rate 53 L Respiratory Rate Blood Pressure Pulse Oximetry 99 Oxygen Delivery Mechanical Ventilation Fraction of Inspired Oxygen 35 35 03/18/22 12:00 03/18/22 14:00 03/18/22 14:00 Temperature 37.3 C 37.2 C Pulse Rate 62 61 61 Respiratory Rate 26 H 26 H Blood Pressure 99/51 L 98/48 L Pulse Oximetry 98 99 Oxygen Delivery Fraction of Inspired Oxygen 03/18/22 14:11 03/18/22 14:11 03/18/22 14:11 Temperature Pulse Rate 62 62 Respiratory Rate 26 H 26 H Blood Pressure 98/49 L Pulse Oximetry Oxygen Delivery Fraction of Inspired Oxygen 03/18/22 15:08 03/18/22 15:08 03/18/22 15:15 Temperature Pulse Rate 56 L 63 63 Respiratory Rate 22 H 25 H Blood Pressure Pulse Oximetry 99 Oxygen Delivery Mechanical Ventilation Fraction of Inspired Oxygen 35 03/18/22 16:13 03/18/22 16:13 03/18/22 16:14 Temperature Pulse Rate 48 L 48 L Respiratory Rate 26 H 26 H Blood Pressure 118/56 L Pulse Oximetry Oxygen Delivery
--- NOTE | 2022-03-19 13:00 | PC.NURSE ---
Spoke with Dr. Doherty regarding extreme bradycardia in the 40's, with a dip into the 30's. Pt's heart rate has been in the 50's all day. With the new episode of extreme bradycardia new order received from Dr. Doherty to hold Fentanyl drip.
--- NOTE | 2022-03-19 13:02 | PCFNICU ---
ICU Rounding Note: Pt current nutrition is TPN at 80 ml/hr, no lipids at this time. Last recorded weight is 71.9 kg, up from 66.6 kg on admit. Bowel Motility:+Bm reported 03/18 Labs Reviewed:Glu 258, BUN 57, Cr 0.6, GFR 57, Alb 2.5, Hct 26.2, Hgb 8.2 Meds Noted:Clinimix 5/15 at 80 ml/hr, Bumex, Flagyl, Fentanyl, NovoLog,Lantus, Versed, Levaquin,Protonix. Skin: wound vac Additional Notes: Patient remains on mechanical vent and Clinimix at 80 ml/hr over 22 hours, Lipids changed to every other day. Current TPN is providing 1363 kcals and 96 gms of protein. Agree with diet orders. Following daily in ICU rounds and reassessing every Friday and Friday.
--- NOTE | 2022-03-19 16:02 | P.CONIN_ITS ---
Assessment and Plan Assessment and plan (1) Septic shock: Code(s): A41.9 - Sepsis, unspecified organism; R65.21 - Severe sepsis with septic shock Status: Acute Assessment and Plan: Septic shock with hypotension, acute kidney injury, status post bowel surgery, with Gastrografin upper GI series showing small-bowel perforation, leakage -patient has received significant amount of IV fluids and is now off of IV fluids and is getting diuretics -she was off of vasopressors but is requiring Levophed since re-intubation -03/12 discontinued IV fluids with sodium bicarbonate -03/09/2022: Blood cultures growing Pseudomonas 2/2 bottles sensitive to cefepime -03/12 repeat blood cultures sent, Scott was replaced, urine culture is growing Leslie, lipase was normal -discontinued vancomycin 03/12 -03/14 discontinued albumin and hydrocortisone - 03/15 sputum culture is growing stenotrophomonas - cefepime changed to Levaquin -03/[address] scan was done IMPRESSION: 1. Diffuse lung disease, likely pulmonary edema. 2. Near complete collapse of the right lower lobe. 3. Moderate-sized right and small left pleural effusions. 4. Moderate volume ascites with interval decrease since the comparison exa mination. New right upper quadrant drain, consistent with surgical change. No leakage of enteric contrast identified. - 03/15 micafungin ordered - 03/16 continue Levaquin, add vancomycin, add imipenem for now - 03/16 sent repeat blood cultures - 03/16 -discharge from lower half of the incision and wound infection was suspected. 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 which may explain the persistent fevers - 03/18-normal lipase, afebrile this morning WBC improved pressor requirement improved and vasopressin off Continue Levaquin vancomycin imipenem and micafungin Continue Levophed titration Continue Tylenol fevers. Off pulling blanket at this time (2) Acute respiratory failure: Code(s): J96.00 - Acute respiratory failure, unspecified whether with hypoxia or hypercapnia Status: Acute Assessment and Plan: Acute respiratory failure likely related to septic shock, acidosis -patient was intubated on 03/09, 03/14 extubated, 03/15 Reintubated -currently on CMV mode of ventilation, 40 % FiO2, peep of 8 - 03/14 patient was extubated after weaning trial. As the day progress she had increased oxygen requirement. In the evening patient was placed on BiPAP. Her FiO2 had to be increased to 80%. Despite diuretics patient continued to have tachypnea and increased work of breathing. Patient agreed for intubation - 03/15 reintubated. Chest x-ray reviewed. ABG pending -significant overall volume overload overall the third-spacing -continue bronchodilators -CT chest 03/15 IMPRESSION: 1. Diffuse lung disease, likely pulmonary edema. 2. Near complete collapse of the right lower lobe. 3. Moderate-sized right and small left pleural effusions. -discussed with IR for ultrasound-guided diagnostic and therapeutic right thoracentesis. Effusion is small and since source of infection is most likely abdominal will hold on thoracentesis at this time -resume cautious diuresis to keep her even or negative on fluid balance (3) Pyloric stricture: Code(s): K31.1 - Adult hypertrophic pyloric stenosis Status: Chronic Assessment and Plan: 03/07/2022: Status post hemigastrectomy with Lyly-en-Y jejunostomy, repair of left spigelian hernia -patient
--- NOTE | 2022-03-19 16:16 | WPDINTPN ---
Progress Note: A&P Assessment and Plan (1) Septic shock: Code(s): A41.9 - Sepsis, unspecified organism; R65.21 - Severe sepsis with septic shock Status: Acute Assessment and Plan: Septic shock with hypotension, acute kidney injury, status post bowel surgery, with Gastrografin upper GI series showing small-bowel perforation, leakage -patient has received significant amount of IV fluids and is now off of IV fluids and is now getting diuretics since she is off pressors -03/09/2022: Blood cultures growing Pseudomonas 2/2 bottles sensitive to cefepime -03/12 repeat blood cultures sent, Scott was replaced, urine culture is growing Leslie, lipase was normal -discontinued vancomycin 03/12 -03/14 discontinued albumin and hydrocortisone - 03/15 sputum culture is growing stenotrophomonas - cefepime changed to Levaquin -03/[address] scan was done IMPRESSION: 1. Diffuse lung disease, likely pulmonary edema. 2. Near complete collapse of the right lower lobe. 3. Moderate-sized right and small left pleural effusions. 4. Moderate volume ascites with interval decrease since the comparison examination. New right upper quadrant drain, consistent with surgical change. No leakage of enteric contrast identified. - 03/15 micafungin ordered - 03/16 continue Levaquin, add vancomycin, add imipenem for now - 03/16 sent repeat blood cultures - 03/16 -discharge from lower half of the incision and wound infection was suspected.? 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 which may explain the persistent fevers - 03/18-normal lipase, afebrile this morning WBC improved pressor requirement improved and vasopressin off Continue Levaquin vancomycin imipenem and micafungin Continue Levophed titration Continue Tylenol?fevers have defervesced (2) Acute respiratory failure: Code(s): J96.00 - Acute respiratory failure, unspecified whether with hypoxia or hypercapnia Status: Acute Assessment and Plan: Acute respiratory failure likely related to septic shock, acidosis -patient was intubated on 03/09, 03/14 extubated, 03/15 Reintubated -currently on CMV mode of ventilation, 30 % FiO2, peep of 8 - 03/14 patient was extubated after weaning trial.? As the day progress she had increased oxygen requirement.? In the evening patient was placed on BiPAP.? Her FiO2 had to be increased to 80%.? Despite diuretics patient continued to have tachypnea and increased work of breathing.? Patient agreed for intubation - 03/15 reintubated.? -significant?overall?volume overload overall the third-spacing -continue bronchodilators -CT chest 03/15 IMPRESSION: 1. Diffuse lung disease, likely pulmonary edema. 2. Near complete collapse of the right lower lobe. 3. Moderate-sized right and small left pleural effusions. -discussed with IR for ultrasound-guided diagnostic and therapeutic right thoracentesis.? Effusion is small and since source of infection is most likely abdominal will hold on thoracentesis at this time -continue diurese patient -sedated with fentanyl and Versed infusion, will DC fentanyl and continue to wean Versed (3) Pyloric stricture: Code(s): K31.1 - Adult hypertrophic pyloric stenosis Status: Chronic Assessment and Plan: 03/07/2022: Status post hemigastrectomy with Lyly-en-Y jejunostomy, repair of left spigelian hernia -patient with increasing abdominal pain postoperatively, hypotension, shock, acute renal failure -03/09/2022:? CT scan of the abdomen and pelvis: Bibasilar atelectasis/consolidation. Moderate right and small left pleural effusions. Moderate abdominal ascites, likely containing small volume proteinaceous or hemorrhagic debris. Body wall edema. -03/09: upper GI series with Gastrografin small-bowel perforation
[2022-03-19] MEDS: AMINO ACIDS 5%/D15W/E-LYTES/CA 2,000 ML with MULTIVITAMINS-12 INJ VIAL 1 2.5 ML, MULTIV... 80 ML IV CONT (17:14)
[2022-03-19 17:27] LABS: Glucose Point of Care 215 mg/dl (65-105)
[2022-03-19 18:46] LABS: Glucose Point of Care 228 mg/dl (65-105)
[2022-03-19] MEDS: HYDROCORTISONE SODIUM SUCCINATE 100 MG/2 ML VIAL 50 MG IV PUSH (20:40)
[2022-03-19 20:52] LABS: Glucose Point of Care 185 mg/dl (65-105)
[2022-03-19] MEDS: MORPHINE SULFATE (*CRX) 2 MG/ML INJ IV PUSH (21:26)
[2022-03-20] VITALS (35 sets, daily range): BP systolic 122–160; BP diastolic 55–81; PULSE 64–102; RESP 22–33; TEMP 37.2–38.3; O2SAT 96–100
[2022-03-20] MEDS: MORPHINE SULFATE (*CRX) 2 MG/ML INJ IV PUSH ×3 (00:28→21:01)
[2022-03-20 00:38] LABS: Glucose Point of Care 206 mg/dl (65-105)
[2022-03-20] MEDS: MIDAZOLAM 100MG/NS 100ML(*CRX) 100 MG/100 ML BAG IV CONT (00:57)
[2022-03-20] MEDS: INSULIN ASPART (*BKC) 100 UNITS/ML SUB-Q (01:10)
[2022-03-20] MEDS: LEVALBUTEROL NEB 1.25 MG/3 ML 0.63 MG INHALATION ×4 (02:34→19:25)
[2022-03-20] MEDS: CENTRAL LINE FLUSH 10 ML IV PUSH ×6 (04:47→21:14)
[2022-03-20 04:52] LABS: Basophils Percent Auto 0.3 % (0.2-1.2); Hematocrit 22.5 % (37.0-47.0); Immature Granulocyte Absolute 0.08 K/mm3 (0.00-0.031); Immature Granulocyte Percent A 0.8 % (0-0.5); Immature Platelet Fraction Pct 11.5 % (0.9-11.2); Lymphocytes Percent Auto 4.9 % (18.3-44.2); Mean Corpuscular HGB Conc 30.7 g/dl (32-36); Mean Corpuscular Hemoglobin 28.5 pg (26-34); Monocytes Absolute Auto 0.4 K/mm3 (0.1-0.6); Neutrophils Absolute Auto 9.1 K/mm3 (1.3-6.7); Platelet Count Result 99 k/mm3 (150-375); Red Blood Count 2.42 M/mm3 (4.2-5.4); Red Cell Distribution Width 19.6 % (11.5-14.5); White Blood Count 10.2 K/mm3 (4.5-10.0)
[2022-03-20 05:05] LABS: Anion Gap 4 mmol/L (8-16); Blood Urea Nitrogen 51 mg/dL (7-17); Calcium 8.4 mg/dL (8.4-10.2); Carbon Dioxide 35 mmol/L (22-30); Chloride 110 mmol/L (98-107); Estimated CRCL calculation 107 ml/min; Estimated Glomerular Filt Rate > 60; Glucose 184 mg/dL (65-110); Magnesium 1.6 mg/dL (1.6-2.3); Potassium 3.5 mmol/L (3.4-5.0); Sodium 149 mmol/L (137-145); Triglycerides 192 mg/dL (<150)
[2022-03-20 05:09] LABS: Hemoglobin 6.9 g/dL (12.0-15.0)
[2022-03-20 05:35] LABS: Hematocrit 23.2 % (37.0-47.0)
[2022-03-20 06:03] LABS: Base Excess ABG 7.8 mEq/l (+/-2.0); HCO3 ABG 32.2 mEq/l (22.0-26.0); Oxygen Saturation ABG 98.4 % (95.0-100.0); PCO2 ABG 45.5 mmHg (35.0-45.0); PO2 ABG 116.1 mmHg (80.0-100.0); pH ABG 7.468 (7.350-7.450)
[2022-03-20 06:05] LABS: Alveolar/Arterial O2 Gradient 44.3 mmHg; Oxygen Content ABG 10.2 %vol (16.0-22.0); Total Hemoglobin 7.4 g/dL (12.0-18.0)
[2022-03-20 06:06] LABS: Carboxyhemoglobin 0.3 % THb (0-2.0); Device VENTILATOR; Fractional Inspired Oxygen 30 %; Methemoglobin ABG 0.5 %THb (0-1.5); Modified Allen's Test Pass; PO2 FiO2 Ratio Arterial Blood 3.87 %; Reduced Hemoglobin 3.2 %THb (0-5.0); Site Drawn LEFT RADIAL
[2022-03-20 06:07] LABS: Arterial Blood Gas PEEP 8 cmH2O; Arterial Blood Gas Tidal Volume 380 ml; Arterial Blood Gas Vent Mode CMV; Arterial Blood Gas Ventilator rate 22 /MIN
[2022-03-20 07:35] LABS: Glucose Point of Care 175 mg/dl (65-105)
[2022-03-20] MEDS: INSULIN GLARGINE (*BKC) 100 UNITS/ML 8 UNITS SUB-Q (09:00)
[2022-03-20] MEDS: MICAFUNGIN SODIUM 100 MG in SODIUM CHLORIDE 0.9% IV 100 ML IVPB (09:00)
[2022-03-20] MEDS: PANTOPRAZOLE SODIUM IV 40 MG VIAL IV PUSH ×2 (09:08→20:34)
[2022-03-20] MEDS: KCL 40 MEQ/WATER 100 ML 100 ML 25 ML IVPB (09:08)
[2022-03-20] MEDS: MINERAL OIL/WHITE PETROLATUM OINTMENT 1 APPLIC EACH EYE ×2 (09:08→20:34)
[2022-03-20] MEDS: MAGNESIUM SULF 2 GM/WATER 50ML 2 GM/50 ML BAG IVPB (09:08)
[2022-03-20] MEDS: BUMETANIDE INJ 1 MG/4 ML VIAL IV PUSH (09:08)
[2022-03-20] MEDS: DEXTROSE 5% 1,000 ML 1,000 ML 30 ML IV CONT (09:08)
[2022-03-20] MEDS: HYDROCORTISONE SODIUM SUCCINATE 100 MG/2 ML VIAL 50 MG IV PUSH ×2 (09:09→20:33)
--- NOTE | 2022-03-20 10:49 | PCFNICU ---
ICU Rounding Note: Pt current nutrition is TPN. Last recorded weight is 69.5 kg, up from 66.6 kg on admit. Bowel Motility:+BM reported 03/19 Labs Reviewed:Na 149, BUN 51, Glu 184, Cr 0.5, Hgb 7.0, Hct 23.2 Meds Noted:Clinimix 5/15 at 60 ml/hr with 250 ml 0f 20% Lipid Emulsion, Bumex, Flagyl, Fentanyl, NovoLog,Lantus, Versed, Levaquin,Protonix, Solu Cortef Skin: wound vac Additional Notes: Patient remains on mechanical vent and Clinimix 5/15 at 60 ml/hr with Lipids today, providing 1522 kcals/72 gms protein. Current TPN is meeting 84% of caloric needs and 90% protein needs. TG 192 today trending down. Agree with diet orders. Monitoring: Following daily in ICU rounds and reassessing every Friday and Friday.
[2022-03-20] MEDS: fentaNYL CITRATE INJ (*CRX) 100 MCG/2 ML VIAL IV PUSH (12:01)
[2022-03-20] MEDS: MORPHINE SULFATE (*CRX) 4 MG/ML INJ IV PUSH (12:01)
[2022-03-20] MEDS: MIDAZOLAM HCL (*CRX) 2 MG/2 ML VIAL IV PUSH ×2 (12:01→12:02)
[2022-03-20 12:29] LABS: Hematocrit 27.3 % (37.0-47.0); Hemoglobin 8.4 g/dL (12.0-15.0)
[2022-03-20 13:08] LABS: Glucose Point of Care 158 mg/dl (65-105)
--- NOTE | 2022-03-20 14:12 | W.PM.PROC2 ---
Procedure Note - Detailed Date of Procedure 03/20/22 Pre-op Diagnosis Enterocutaneous fistula, wound necrosis Post-op Diagnosis Same Procedure Performed excisional debridement subcutaneous, skin, and muscle, abdominal wound Surgeon Will Roman MD Anesthesia Other ( narcotics and Diprivan in ICU) Indications patient has developed enterocutaneous fistula and had a wound VAC placed 2 days ago. This morning she has fever and increased drainage of enteric content from a right upper quadrant ANGELA drain. On changing the wound VAC there is necrotic fascia and subcutaneous tissue impeding the drainage of the enterocutaneous fistula. Bedside debridement under sedation with the patient on mechanical ventilation is being performed to facilitate better drainage of the enterocutaneous fistula through the wound. Findings Fascia was entirely necrotic with holes away from the suture line. Loop of bowel with small opening in it is exposed in the midportion of the incision. Description of Procedure Patient was sedated in her ICU bed. Technique was not sterile as the wound is quite contaminated. Some of the necrotic subcutaneous was removed 1st. It was able to be noted then that there were holes along side the sutured fascia where fascia had primarily on the patient's left side. The suture and necrotic fascia were simply foreign material continue beating to the infection of the wound. I removed the suture material and the fascia . I was able to debride the necrotic fascia without difficulty. No bowel was injured. When the wound edges there was exposed bowel with a 2 mm opening consistent with source of enterocutaneous fistula evident. There was some suture in this bowel as well suggesting it was at or near the enteroenterostomy. I did use a suction and suctioned under the abdominal wall to both the right and left side removing some of the thicker enteric drainage that would seem to contain tube feeding. When as much necrotic tissue had been debrided as possible, the wound care nurses placed the wound rehab care assistant over the wound. The right upper quadrant ANGELA drain was left in place. Estimated Blood Loss -2 Drains Yes ( ANGELA drain right upper quadrant left in place, wound rehab care assistantoutpatient case manager) Packing No Pathology None sent Complications No immediate complications Condition Critical Disposition No change ( performed in the ICU and patient stayed in the ICU.) [facility] Billing Surgery - Charge Forward: Surgery Billing ( Excisional debridement skin, subcutaneous, and muscle, abdominal wound.)
--- NOTE | 2022-03-20 14:17 | WPDINTPN ---
Progress Note: A&P Assessment and Plan (1) Septic shock: Code(s): A41.9 - Sepsis, unspecified organism; R65.21 - Severe sepsis with septic shock Status: Acute Assessment and Plan: Septic shock with hypotension, acute kidney injury, status post bowel surgery, with Gastrografin upper GI series showing small-bowel perforation, leakage -patient has received significant amount of IV fluids and is now off of IV fluids and is now getting diuretics since she is off pressors -03/09/2022: Blood cultures growing Pseudomonas 2/2 bottles sensitive to cefepime -03/12 repeat blood cultures sent, Scott was replaced, urine culture is growing Leslie, lipase was normal -discontinued vancomycin 03/12 -03/14 discontinued albumin and hydrocortisone - 03/15 sputum culture is growing stenotrophomonas - cefepime changed to Levaquin -03/[address] scan was done IMPRESSION: 1. Diffuse lung disease, likely pulmonary edema. 2. Near complete collapse of the right lower lobe. 3. Moderate-sized right and small left pleural effusions. 4. Moderate volume ascites with interval decrease since the comparison examination. New right upper quadrant drain, consistent with surgical change. No leakage of enteric contrast identified. - 03/15 micafungin ordered - 03/16 continue Levaquin, add vancomycin, add imipenem for now - 03/16 sent repeat blood cultures - 03/16 -discharge from lower half of the incision and wound infection was suspected.? 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 which may explain the persistent fevers - 03/18-normal lipase, afebrile this morning WBC improved pressor requirement improved and vasopressin off Continue Levaquin, imipenem and micafungin -vancomycin was discontinued on 03/19/2022 Continue Tylenol?fevers have defervesced (2) Acute respiratory failure: Code(s): J96.00 - Acute respiratory failure, unspecified whether with hypoxia or hypercapnia Status: Acute Assessment and Plan: Acute respiratory failure likely related to septic shock, acidosis -patient was intubated on 03/09, 03/14 extubated, 03/15 Reintubated -currently on CMV mode of ventilation, 30 % FiO2, peep of 8. Will decrease PEEP to 5 - 03/14 patient was extubated after weaning trial.? As the day progress she had increased oxygen requirement.? In the evening patient was placed on BiPAP.? Her FiO2 had to be increased to 80%.? Despite diuretics patient continued to have tachypnea and increased work of breathing.? Patient agreed for intubation - 03/15 reintubated.? -significant?overall?volume overload overall the third-spacing -continue bronchodilators -CT chest 03/15 IMPRESSION: 1. Diffuse lung disease, likely pulmonary edema. 2. Near complete collapse of the right lower lobe. 3. Moderate-sized right and small left pleural effusions. -discussed with IR for ultrasound-guided diagnostic and therapeutic right thoracentesis.? Effusion is small and since source of infection is most likely abdominal will hold on thoracentesis at this time -continue diurese patient. Patient diuresing very well, negative fluid balance -sedated with only Versed infusion, (3) Pyloric stricture: Code(s): K31.1 - Adult hypertrophic pyloric stenosis Status: Chronic Assessment and Plan: 03/07/2022: Status post hemigastrectomy with Lyly-en-Y jejunostomy, repair of left spigelian hernia -patient with increasing abdominal pain postoperatively, hypotension, shock, acute renal failure -03/09/2022:? CT scan of the abdomen and pelvis: Bibasilar atelectasis/consolidation. Moderate right and small left pleural effusions. Moderate abdominal ascites, likely containing small volume proteinaceous or hemorrhagic debris. Body wall edema. -03/09: upper GI series with
--- NOTE | 2022-03-20 14:22 | PM.PNGS ---
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 It appears the source of sepsis, the enteric content, is being safely evacuated either through the wound or from the ANGELA drain in the right upper quadrant. Wound assistant manager has been applied and we will keep track of the output. She will remain at bowel rest on TPN. I discussed her situation and condition with 2 of my general surgery partners. I also called [facility] and spoke to another general surgeon, Dr.Jeffrey Sloan, and discussed her condition and any additional treatment he would recommend. I spoke to her father and stepmother and also called and spoke to her mother, luz elena, about her condition and the changes that have developed today. I recommended transfer to [facility] for surgical critical care management. Luz Elena and the other family members are in agreement with this. I called [facility] to arrange transfer and found that they are at capacity and not accepting transfers. I discussed the patient's care with the veneer taping machine offbearer Dr. Doherty as well. (2) Fever: Code(s): R50.9 - Fever, unspecified Status: Acute Assessment and Plan: Hopefully will resolve now that wound is opened and better drainage of the in tear 0 cutaneous fistula has been established. (3) Delayed perforation of small intestine: Code(s): K63.1 - Perforation of intestine (nontraumatic) Status: Acute Assessment and Plan: Likely both the duodenal stump as well as the enteroenterostomy are leaking enteric content. (4) Protein calorie malnutrition: Code(s): E46 - Unspecified protein-calorie malnutrition Status: Acute Assessment and Plan: Continue TPN. Subjective Subjective Date/Time Seen: 03/20/22 14:22 Post Op day: #10 Patient reports: other ( On mechanical ventilator) Review of Systems Review of Systems: ROS unobtainable: Yes unobtainable due to endotracheal tube Exam Const: General: lethargic ( nods or shakes head but still getting some sedation on vent) Nutritional Appearance: thin Orientation/consciousness: lethargic GI: Inspection: incision ( see debridement note, open, exposed bowel) and other ( ANGELA drain with enteric content, ECF evident) GI Palp: Yes Soft to palpation and Yes Tenderness to palpation present (GI) Auscultation: absent bowel sounds Objective Data Vital Signs Vital Signs: Vital Signs - 24 hr 03/19/22 15:47 03/19/22 15:49 03/19/22 15:54 Temperature Pulse Rate 56 L 57 L 72 Respiratory Rate 23 H 21 H Blood Pressure Pulse Oximetry 100 Oxygen Delivery Mechanical Ventilation Fraction of Inspired Oxygen 30 03/19/22 17:16 03/19/22 17:17 03/19/22 16:00 Temperature 37.0 C Pulse Rate 64 62 62 Respiratory Rate 23 H 23 H 25 H Blood Pressure 131/73 Pulse Oximetry 100 Oxygen Delivery Fraction of Inspired Oxygen 03/19/22 17:44 03/19/22 16:00 03/19/22 16:00 Temperature Pulse Rate 64 62 Respiratory Rate 25 H Blood Pressure Pulse Oximetry 100 100 Oxygen Delivery Mechanical Ventilation Mechanical Ventilation Fraction of Inspired Oxygen 30 30 30 03/19/22 16:00 03/19/22 18:00 03/19/22 18:00 Temperature 37.1 C Pulse Rate 65 61 61 Respiratory Rate 22 H Blood Pressure 131/68 Pulse Oximetry 100 Oxygen Delivery Fraction of Inspired Oxygen 03/19/22 19:27 03/19/22 19:29 03/19/22 20:00 Temperature Pulse Rate 66 66 88 Respiratory Rate 26 H 32 H Blood Pressure Pulse Oximetry 100 100 Oxygen Delivery Mechanical Ventilation Mechanical Ventilation Fraction of Inspired Oxygen 30 30 03/19/22 20:00 03/19/22 20:00 03/19/22 22:00 Temperature 37.3 C 37.0 C Pulse Rate 80 90 Respiratory Rate 28 H 27 H Blood Pressure 149/81 H 144/77 H Pulse Oxim
[2022-03-20 16:45] LABS: Glucose Point of Care 181 mg/dl (65-105)
[2022-03-20] MEDS: AMINO ACIDS 5%/D15W/E-LYTES/CA 2,000 ML with MULTIVITAMINS-12 INJ VIAL 1 2.5 ML, MULTIV... 60 ML IV CONT (17:41)
[2022-03-20] MEDS: FAT EMULSIONS IV 20% 250 ML 20.83 ML IVPB (17:43)
[2022-03-20 21:00] LABS: Glucose Point of Care 168 mg/dl (65-105)
[2022-03-21] VITALS (39 sets, daily range): BP systolic 103–138; BP diastolic 50–69; PULSE 61–92; RESP 22–32; TEMP 37.4–38.7; O2SAT 97–100
[2022-03-21 00:20] LABS: Glucose Point of Care 198 mg/dl (65-105)
[2022-03-21] MEDS: LEVALBUTEROL NEB 1.25 MG/3 ML 0.63 MG INHALATION ×4 (01:00→20:31)
[2022-03-21 04:56] LABS: Alveolar/Arterial O2 Gradient 44.3 mmHg; Base Excess ABG 10.5 mEq/l (+/-2.0); Carboxyhemoglobin 0.3 % THb (0-2.0); Fractional Inspired Oxygen 28 %; HCO3 ABG 34.3 mEq/l (22.0-26.0); Methemoglobin ABG 0.9 %THb (0-1.5); Oxygen Content ABG 10.9 %vol (16.0-22.0); Oxygen Saturation ABG 98.2 % (95.0-100.0); Oxyhemoglobin 95.4 % THb (90.0-100.0); PCO2 ABG 42.8 mmHg (35.0-45.0); PO2 ABG 104.8 mmHg (80.0-100.0); PO2 FiO2 Ratio Arterial Blood 3.74 %; Reduced Hemoglobin 3.4 %THb (0-5.0)
[2022-03-21 04:58] LABS: Device VENTILATOR; Modified Allen's Test Unable to perform; Site Drawn LEFT RADIAL; pH ABG 7.522 (7.350-7.450)
[2022-03-21 04:59] LABS: Arterial Blood Gas PEEP 5 cmH2O; Arterial Blood Gas Tidal Volume 380 ml; Arterial Blood Gas Vent Mode CMV; Arterial Blood Gas Ventilator rate 22 /MIN
[2022-03-21 05:08] LABS: Basophils Absolute Auto 0.1 K/mm3 (0.0-0.1); Basophils Percent Auto 0.5 % (0.2-1.2); Eosinophils Percent Auto 0.3 % (0-4.4); Hematocrit 24.2 % (37.0-47.0); Hemoglobin 7.5 g/dL (12.0-15.0); Immature Granulocyte Absolute 0.06 K/mm3 (0.00-0.031); Immature Granulocyte Percent A 0.6 % (0-0.5); Lymphocytes Absolute Auto 0.61 K/mm3 (0.9-3.2); Lymphocytes Percent Auto 6.2 % (18.3-44.2); Mean Corpuscular Hemoglobin 29.3 pg (26-34); Mean Corpuscular Volume 94.5 fl (80-100); Mean Platelet Volume 12.9 fl (7.4-10.4); Monocytes Absolute Auto 0.4 K/mm3 (0.1-0.6); Monocytes Percent Auto 4.4 % (2.6-8.5); Neutrophils Absolute Auto 8.7 K/mm3 (1.3-6.7); Nucleated Red Blood Cells Perc 0.3 % (0.0-0.2); Platelet Count Result 144 k/mm3 (150-375); Red Blood Count 2.56 M/mm3 (4.2-5.4); Red Cell Distribution Width 19.1 % (11.5-14.5); White Blood Count 9.8 K/mm3 (4.5-10.0)
[2022-03-21] MEDS: MORPHINE SULFATE (*CRX) 2 MG/ML INJ IV PUSH ×2 (05:08→20:52)
[2022-03-21 05:16] LABS: Lactic Acid Reflex 2.4 mmol/L (0.7-2.0)
[2022-03-21 05:22] LABS: Alanine Aminotransferase 13 U/L (6-35); Albumin Level 2.4 g/dL (3.5-5.1); Alkaline Phosphatase 49 U/L (38-126); Anion Gap 1 mmol/L (8-16); Aspartate Amino Transferase 18 U/L (14-36); Bilirubin,Total 0.4 mg/dL (0.2-1.3); Blood Urea Nitrogen 38 mg/dL (7-17); Calcium 7.9 mg/dL (8.4-10.2); Carbon Dioxide 36 mmol/L (22-30); Chloride 109 mmol/L (98-107); Estimated CRCL calculation 131 ml/min; Estimated Glomerular Filt Rate > 60; Glucose 192 mg/dL (65-110); Magnesium 1.9 mg/dL (1.6-2.3); Phosphorus 3.2 mg/dL (2.5-4.5); Potassium 3.5 mmol/L (3.4-5.0); Sodium 146 mmol/L (137-145)
[2022-03-21] MEDS: CENTRAL LINE FLUSH 10 ML IV PUSH ×7 (05:47→20:56)
[2022-03-21] MEDS: MIDAZOLAM 100MG/NS 100ML(*CRX) 100 MG/100 ML BAG IV CONT (06:35)
[2022-03-21] MEDS: HYDROCORTISONE SODIUM SUCCINATE 100 MG/2 ML VIAL 50 MG IV PUSH ×2 (08:02→20:54)
[2022-03-21] MEDS: BUMETANIDE INJ 1 MG/4 ML VIAL IV PUSH (08:02)
[2022-03-21] MEDS: MINERAL OIL/WHITE PETROLATUM OINTMENT 1 APPLIC EACH EYE ×2 (08:02→20:53)
[2022-03-21] MEDS: PANTOPRAZOLE SODIUM IV 40 MG VIAL IV PUSH ×2 (08:02→20:55)
[2022-03-21] MEDS: MICAFUNGIN SODIUM 100 MG in SODIUM CHLORIDE 0.9% IV 100 ML IVPB (08:03)
[2022-03-21] MEDS: KCL 40 MEQ/WATER 100 ML 100 ML 25 ML IVPB (08:04)
[2022-03-21 08:05] LABS: Reflex Lactic Acid Yes or No Add Lactic
[2022-03-21 08:24] LABS: Glucose Point of Care 151 mg/dl (65-105)
[2022-03-21] MEDS: INSULIN GLARGINE (*BKC) 100 UNITS/ML 8 UNITS SUB-Q (08:29)
[2022-03-21 08:39] LABS: Lactic Acid 1.9 mmol/L (0.7-2.0)
--- NOTE | 2022-03-21 08:54 | WPDINTPN ---
Progress Note: A&P Assessment and Plan (1) Septic shock: Code(s): A41.9 - Sepsis, unspecified organism; R65.21 - Severe sepsis with septic shock Status: Acute Assessment and Plan: Septic shock with hypotension, acute kidney injury, status post bowel surgery, with Gastrografin upper GI series showing small-bowel perforation, leakage -patient has received significant amount of IV fluids and is now off of IV fluids and is now getting diuretics since she is off pressors -03/09/2022: Blood cultures growing Pseudomonas 2/2 bottles s -03/12 repeat blood cultures sent, Scott was replaced, urine culture is growing Leslie, - 03/15 sputum culture is growing stenotrophomonas -03/16: Replete blood cultures are negative x2 - 03/16 -discharge from lower half of the incision and wound infection was suspected.? Lower half the incision was opened by general surgery to drain - 03/16-femoral central venous catheter removed and a PICC line placed - 03/17: Lower extremity venous Dopplers: Negative for DVT bilaterally - 03/18-normal lipase -03/14 discontinued albumin and hydrocortisone Continue Levaquin (03/15), imipenem (03/16) and micafungin (03/15) -vancomycin was discontinued on 03/19/2022 Continue Tylenol -03/21 continues to have low-grade fevers, discussed with surgeon, trying to transfer the patient [facility]. If continues to spike fevers he might take her back to the OR for better wound management system -03/15 CT scan of the abdomen and pelvis for continues fevers IMPRESSION: 1. Diffuse lung disease, likely pulmonary edema. 2. Near complete collapse of the right lower lobe. 3. Moderate-sized right and small left pleural effusions. 4. Moderate volume ascites with interval decrease since the comparison examination. New right upper quadrant drain, consistent with surgical change. No leakage of enteric contrast identified. (2) Acute respiratory failure: Code(s): J96.00 - Acute respiratory failure, unspecified whether with hypoxia or hypercapnia Status: Acute Assessment and Plan: Acute respiratory failure likely related to septic shock, acidosis -patient was intubated on 03/09, 03/14 extubated, 03/15 Reintubated -currently on CMV mode of ventilation, 28 % FiO2, peep of 5. Will place patient on ASV -significant?overall?volume overload overall the third-spacing -continue diuresis, patient diuresing very well with negative fluid balance in the last 24 hours -continue bronchodilators -sedated with Versed infusion only -CT chest 03/15 IMPRESSION: 1. Diffuse lung disease, likely pulmonary edema. 2. Near complete collapse of the right lower lobe. 3. Moderate-sized right and small left pleural effusions. (3) Pyloric stricture: Code(s): K31.1 - Adult hypertrophic pyloric stenosis Status: Chronic Assessment and Plan: 03/07/2022: Status post hemigastrectomy with Lyly-en-Y jejunostomy, repair of left spigelian hernia -patient with increasing abdominal pain postoperatively, hypotension, shock, acute renal failure -03/09/2022:? CT scan of the abdomen and pelvis: Bibasilar atelectasis/consolidation. Moderate right and small left pleural effusions. Moderate abdominal ascites, likely containing small volume proteinaceous or hemorrhagic debris. Body wall edema. -03/10: upper GI series with Gastrografin small-bowel perforation, leakage -03/10/2022:? Status post exploratory laparotomy, repair of duodenal stump leak, omental patch, intra-abdominal washout - 03/15 tube feeds resumed after intubation.? Patient tolerating tube feeds at goal - 03/15 CT scan does not show any leak - 03/16 -discharge from lower half of the incision notice and wound infection was suspected.? Discussed with Dr. Perez from General surgery. ?He opened incision and packed it with 1 iodoform gauze - 03/17-new patient continued to have fever.? Yellowish discharge noticed from upper half of the incision. Discussed with Dr. Perez from
--- NOTE | 2022-03-21 10:41 | PM.PNGS ---
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 Status: Acute Assessment and Plan: Low-grade fever this morning. Will observe to see if fevers resolve. If not, may need to return to surgery to facilitate better drainage of the fistula. Discussed with Dr. Doherty, community health program representative. Wound unit manager rn working well at present with no leakage. I will discuss again with patient's mother and call again to see if beds available for transfer to [facility]. (2) Delayed perforation of small intestine: Code(s): K63.1 - Perforation of intestine (nontraumatic) Status: Acute Assessment and Plan: Duodenal stump occurred leak postop day 3. likely has started leaking again as well as a jejunal fistula noted in the open wound. (3) Fever: Code(s): R50.9 - Fever, unspecified Status: Acute Assessment and Plan: Low-grade fever this morning. Trend is better from yesterday noon. Watching her temperature closely. (4) Protein calorie malnutrition: Code(s): E46 - Unspecified protein-calorie malnutrition Status: Acute Assessment and Plan: Continue TPN. Recheck with dietitian as far as adequacy of protein and calories. (5) Acute respiratory failure: Code(s): J96.00 - Acute respiratory failure, unspecified whether with hypoxia or hypercapnia Status: Acute Assessment and Plan: Patient awake on ventilator but holding off on extubation trial as she may need to go back to surgery for additional drainage. Subjective Subjective Date/Time Seen: 03/21/22 08:11 Post Op day: 1 ( Status post fascial debridement under sedation in ICU. Postop day 11. Repair duodenal stump leak.) Patient reports: fever ( Low-grade fever, better than noon yesterday.) and other ( Awake and alert but remains on mechanical ventilator and intubated.) Review of Systems Review of Systems: ROS unobtainable: Yes unobtainable due to endotracheal tube Exam Const: General: comfortable, no acute distress, alert and awake Nutritional Appearance: thin GI: Inspection: non-distended, incision ( Wound unit manager rn in place, no leakage, draining enteric content), visible herniation ( Open abdomen, bowel exposed in wound.) and other ( ANGELA drain draining enteric content as well.) GI Palp: Yes Soft to palpation and Yes Tenderness to palpation present (GI) Auscultation: absent bowel sounds Objective Data Vital Signs Vital Signs: Vital Signs - 24 hr 03/20/22 11:04 03/20/22 11:34 03/20/22 12:00 Temperature 38.3 C H 38.2 C H Pulse Rate Respiratory Rate Blood Pressure Pulse Oximetry Oxygen Delivery Fraction of Inspired Oxygen 03/20/22 14:07 03/20/22 14:11 03/20/22 12:00 Temperature 38.2 C H Pulse Rate 93 90 99 Respiratory Rate 28 H 23 H Blood Pressure 131/70 Pulse Oximetry 98 96 Oxygen Delivery Mechanical Ventilation Fraction of Inspired Oxygen 03/20/22 14:00 03/20/22 12:00 03/20/22 12:00 Temperature 37.8 C H Pulse Rate 91 102 H Respiratory Rate 28 H Blood Pressure 141/73 H Pulse Oximetry 98 96 Oxygen Delivery Mechanical Ventilation Fraction of Inspired Oxygen 03/20/22 14:00 03/20/22 16:00 03/20/22 16:00 Temperature 37.7 C H Pulse Rate 91 77 Respiratory Rate 23 H Blood Pressure 126/60 Pulse Oximetry 99 Oxygen Delivery Fraction of Inspired Oxygen 03/20/22 16:00 03/20/22 16:00 03/20/22 17:17 Temperature Pulse Rate 74 73 Respiratory Rate Blood Pressure Pulse Oximetry 96 100 Oxygen Delivery Mechanical Ventilation Mechanical Ventilation Fraction of Inspired Oxygen 03/20/22 12:00 03/20/22 14:00 03/20/22 16:00 Temperature Pulse Rate 99 91 76 Respiratory Rate 23 H 28 H 23 H Blood Pressure Pulse Oximetry Oxygen Delivery Fraction of Inspired Oxygen 03/20/22 18:00 03/20/22
[2022-03-21] MEDS: DEXTROSE 5% 1,000 ML 1,000 ML 30 ML IV CONT (10:43)
--- NOTE | 2022-03-21 10:47 | PCFNICU ---
ICU Rounding Note: Pt current nutrition is TPN clinimix E 5/15 running at 60ml/hr. This totals 1522kcals, 72g protein, with 250ml 20% lipid emulsion q 48hrs only due to elevated triglyceride levels which are currently trending down but remain elevated. Nutrition recommendation: Continue with current TPN rate and lipid orders Last recorded weight is 67.9 kg - down from 69.5kg. Bowel Motility: +BM recorded 03/21 Labs Reviewed: Hgb:7.5, HCT:24.2, Alb:2.4, NA:146, BUN:38, Cr:0.4, glu:192, T Meds Noted: Bumex, Flagyl, Fentanyl, NovoLog, Lantus, Versed, Levaquin,Protonix, Solu Cortef Skin:wound vac Additional Notes: Patient remains on mechanical ventilation with TPN- Clinimix 5/15 at 60 ml/hr running without Lipids today. This provides 1522 kcals/72 gms protein. Current TPN is meeting 84% of caloric needs and 90% protein needs. Lipids ordered to run q 48hrs 250ml 20% for an additional 500kcals when included. Trigylceride level 192 - is trending down. Agree with diet orders. Following daily in ICU rounds. Will monitor and follow up every /Friday.
[2022-03-21 12:38] LABS: Glucose Point of Care 181 mg/dl (65-105)
--- NOTE | 2022-03-21 13:57 | PCPTNOTE ---
Physical therapy initial evaluation attempted, hold today per RN and CC as pt is still intubated and sedated.
--- NOTE | 2022-03-21 16:20 | PM.IMPN ---
Progress Note: A&P Assessment and Plan (1) Septic shock: Code(s): A41.9 - Sepsis, unspecified organism; R65.21 - Severe sepsis with septic shock Status: Acute Assessment and Plan: Septic shock with hypotension, acute kidney injury, status post bowel surgery, with Gastrografin upper GI series showing small-bowel perforation, leakage Concurrently on Levaquin, vancomycin, imipenem, micafungin weaned off Levophed Blood culture x2 03/09/2022 with Pseudomonas 2 x 2 Repeat blood cultures 03/12 negative Six hundred twenty-four sputum culture with stenotrophomonas Urine culture 03/12 with Leslie Repeat blood cultures 03/11 5- to date Levaquin since 03/15 Imipenem since 03/16 Micafungin 03/15 Vancomycin discontinued 03/19 Planned transfer to [facility] for further treatment noted (2) Acute respiratory failure: Code(s): J96.00 - Acute respiratory failure, unspecified whether with hypoxia or hypercapnia Status: Acute Assessment and Plan: Acute respiratory failure likely related to septic shock, acidosis Diffuse lung disease, pulm edema, pleural effusions, collapsed right lower lobe Monitor fluid status closely with careful diuresis Ventilator management per tool setter apprentice (3) Pyloric stricture: Code(s): K31.1 - Adult hypertrophic pyloric stenosis Status: Chronic Assessment and Plan: 03/07/2022: Status post hemigastrectomy with Lyly-en-Y jejunostomy, repair of left spigelian hernia patient with increasing abdominal pain postoperatively, hypotension, shock, acute renal failure -03/09/2022: CT scan of the abdomen and pelvis: Bibasilar atelectasis/consolidation. Moderate right and small left pleural effusions. Moderate abdominal ascites, likely containing small volume proteinaceous or hemorrhagic debris. Body wall edema. -03/09: upper GI series with Gastrografin small-bowel perforation, leakage -03/10/2022: Status post exploratory laparotomy, repair of duodenal stump leak, omental patch, intra-abdominal washout - 03/15 tube feeds resumed after intubation. Patient tolerating tube feeds at goal - 03/15 CT scan does not show any leak - 03/16 -discharge from lower half of the incision notice and wound infection was suspected. Discussed with Dr. Perez from General surgery. ?He opened incision and packed it with 1 iodoform gauze - 03/17-new patient continued to have fever. Yellowish discharge noticed from upper half of the incision. Discussed with Dr. Perez from General surgery. He opened the wound and appears that patient has enterocutaneous fistula which may explain the persistent fevers. Tube feedings have been stopped and patient is on TPN. NG tube has been placed to suction. Wound appliance placed on the open wound to collect drainage per. 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 Lovenox subQ when appropriate (8) Anemia: Code(s): D64.9 - Anemia, unspecified Status: Acute
[2022-03-21] MEDS: AMINO ACIDS 5%/D15W/E-LYTES/CA 2,000 ML with MULTIVITAMINS-12 INJ VIAL 1 2.5 ML, MULTIV... 60 ML IV CONT (16:36)
[2022-03-21 17:04] LABS: Glucose Point of Care 165 mg/dl (65-105)
--- NOTE | 2022-03-21 19:52 | PC.NURSE ---
technician support engineer called department to see if CT scan for pt could be postponed until tomorrow am due to questions by the radiologist on proper dosing of oral and IV contrast. Message relayed to Dr. Avelar who stated he spoke with Dr. Roman and it is okay for pt to wait unit the am for CT scan.
[2022-03-21 20:41] LABS: Glucose Point of Care 158 mg/dl (65-105)
[2022-03-22] VITALS (33 sets, daily range): BP systolic 109–147; BP diastolic 59–91; PULSE 64–125; RESP 20–30; TEMP 37.7–38.9; O2SAT 97–100
[2022-03-22 00:03] LABS: Glucose Point of Care 175 mg/dl (65-105)
[2022-03-22] MEDS: MORPHINE SULFATE (*CRX) 2 MG/ML INJ IV PUSH (00:03)
[2022-03-22] MEDS: LEVALBUTEROL NEB 1.25 MG/3 ML 0.63 MG INHALATION ×4 (02:23→20:18)
[2022-03-22 03:26] LABS: Glucose Point of Care 191 mg/dl (65-105)
[2022-03-22 05:16] LABS: Alveolar/Arterial O2 Gradient 67.9 mmHg; Base Excess ABG 8.4 mEq/l (+/-2.0); Carboxyhemoglobin 1.7 % THb (0-2.0); Fractional Inspired Oxygen 28 %; Methemoglobin ABG 0.3 %THb (0-1.5); Oxygen Content ABG 10.4 %vol (16.0-22.0); Oxygen Saturation ABG 97.2 % (95.0-100.0); Oxyhemoglobin 93.9 % THb (90.0-100.0); PO2 ABG 84.5 mmHg (80.0-100.0); PO2 FiO2 Ratio Arterial Blood 3.02 %; Reduced Hemoglobin 4.1 %THb (0-5.0)
[2022-03-22 05:17] LABS: pH ABG 7.521 (7.350-7.450)
[2022-03-22 05:18] LABS: Arterial Blood Gas PEEP 5 cmH2O; Arterial Blood Gas Vent Mode CMV; Arterial Blood Gas Ventilator rate 22 /MIN; Device VENTILATOR; Modified Allen's Test Unable to perform; Site Drawn RIGHT RADIAL; Total Hemoglobin 7.8 g/dL (12.0-18.0)
[2022-03-22 05:19] LABS: Arterial Blood Gas Tidal Volume 380 ml
[2022-03-22 05:45] LABS: Hematocrit 24.7 % (37.0-47.0); Hemoglobin 7.5 g/dL (12.0-15.0); Mean Corpuscular HGB Conc 30.4 g/dl (32-36); Mean Corpuscular Hemoglobin 28.7 pg (26-34); Mean Corpuscular Volume 94.6 fl (80-100); Mean Platelet Volume 12.1 fl (7.4-10.4); Platelet Count Result 193 k/mm3 (150-375); Red Blood Count 2.61 M/mm3 (4.2-5.4); Red Cell Distribution Width 19.5 % (11.5-14.5); White Blood Count 8.8 K/mm3 (4.5-10.0)
[2022-03-22 05:52] LABS: Anion Gap 1 mmol/L (8-16); Blood Urea Nitrogen 32 mg/dL (7-17); Calcium 7.6 mg/dL (8.4-10.2); Carbon Dioxide 34 mmol/L (22-30); Chloride 108 mmol/L (98-107); Estimated CRCL calculation 129 ml/min; Estimated Glomerular Filt Rate > 60; Glucose 170 mg/dL (65-110); Phosphorus 3.5 mg/dL (2.5-4.5); Potassium 3.4 mmol/L (3.4-5.0); Sodium 143 mmol/L (137-145)
[2022-03-22] MEDS: CENTRAL LINE FLUSH 10 ML IV PUSH ×7 (05:52→21:01)
[2022-03-22 05:53] LABS: Magnesium 1.8 mg/dL (1.6-2.3); Phosphorus 3.4 mg/dL (2.5-4.5); Triglycerides 219 mg/dL (<150)
[2022-03-22 08:09] LABS: Glucose Point of Care 159 mg/dl (65-105)
[2022-03-22] MEDS: KCL 40 MEQ/WATER 100 ML 100 ML 25 ML IVPB (08:20)
[2022-03-22] MEDS: MAGNESIUM SULF 2 GM/WATER 50ML 2 GM/50 ML BAG IVPB (08:21)
[2022-03-22] MEDS: MICAFUNGIN SODIUM 100 MG in SODIUM CHLORIDE 0.9% IV 100 ML IVPB (08:22)
[2022-03-22] MEDS: BUMETANIDE INJ 1 MG/4 ML VIAL IV PUSH (08:25)
[2022-03-22] MEDS: MINERAL OIL/WHITE PETROLATUM OINTMENT 1 APPLIC EACH EYE ×2 (08:25→21:02)
[2022-03-22] MEDS: HYDROCORTISONE SODIUM SUCCINATE 100 MG/2 ML VIAL 50 MG IV PUSH ×2 (08:25→21:01)
[2022-03-22] MEDS: PANTOPRAZOLE SODIUM IV 40 MG VIAL IV PUSH ×2 (08:25→21:01)
[2022-03-22] MEDS: INSULIN GLARGINE (*BKC) 100 UNITS/ML 8 UNITS SUB-Q (09:02)
--- NOTE | 2022-03-22 11:47 | WPDINTPN ---
Progress Note: A&P Assessment and Plan (1) Septic shock: Code(s): A41.9 - Sepsis, unspecified organism; R65.21 - Severe sepsis with septic shock Status: Acute Assessment and Plan: Septic shock with hypotension, acute kidney injury, status post bowel surgery, with Gastrografin upper GI series showing small-bowel perforation, leakage -patient has received significant amount of IV fluids and is now off of IV fluids and is now getting diuretics since she is off pressors -03/09/2022: Blood cultures growing Pseudomonas 2/2 bottles s -03/12 repeat blood cultures sent, Scott was replaced, urine culture is growing Leslie, - 03/15 sputum culture is growing stenotrophomonas -03/16: Replete blood cultures are negative x2 - 03/16 -discharge from lower half of the incision and wound infection was suspected.? Lower half the incision was opened by general surgery to drain - 03/16-femoral central venous catheter removed and a PICC line placed - 03/17: Lower extremity venous Dopplers: Negative for DVT bilaterally - 03/18-normal lipase -03/14 discontinued albumin and hydrocortisone Continue Levaquin (03/15), imipenem (03/16) and micafungin (03/15) -vancomycin was discontinued on 03/19/2022 -Continue Tylenol for fevers -03/21 continues to have low-grade fevers, discussed with surgeon, trying to transfer the patient [facility]. If continues to spike fevers he might take her back to the OR for better wound management system 03/22/2022: Discussed with surgeon, [facility] unable to accept the patient at this time, patient to have a CT scan of the abdomen and pelvis, if there is any and collection of fluid, IR will drain it. -03/15 CT scan of the abdomen and pelvis for continues fevers IMPRESSION: 1. Diffuse lung disease, likely pulmonary edema. 2. Near complete collapse of the right lower lobe. 3. Moderate-sized right and small left pleural effusions. 4. Moderate volume ascites with interval decrease since the comparison examination. New right upper quadrant drain, consistent with surgical change. No leakage of enteric contrast identified. (2) Acute respiratory failure: Code(s): J96.00 - Acute respiratory failure, unspecified whether with hypoxia or hypercapnia Status: Acute Assessment and Plan: Acute respiratory failure likely related to septic shock, acidosis -patient was intubated on 03/09, 03/14 extubated, 03/15 Reintubated -currently on CMV mode of ventilation, 28 % FiO2, peep of 5. Will place patient on ASV -significant?overall?volume overload overall the third-spacing -diuresing well, patient currently tachycardic, -will hold diuresis, and evaluate on daily basis -continue bronchodilators -sedated with Versed infusion only -CT chest 03/15 IMPRESSION: 1. Diffuse lung disease, likely pulmonary edema. 2. Near complete collapse of the right lower lobe. 3. Moderate-sized right and small left pleural effusions. (3) Pyloric stricture: Code(s): K31.1 - Adult hypertrophic pyloric stenosis Status: Chronic Assessment and Plan: 03/07/2022: Status post hemigastrectomy with Lyly-en-Y jejunostomy, repair of left spigelian hernia -patient with increasing abdominal pain postoperatively, hypotension, shock, acute renal failure -03/09/2022:? CT scan of the abdomen and pelvis: Bibasilar atelectasis/consolidation. Moderate right and small left pleural effusions. Moderate abdominal ascites, likely containing small volume proteinaceous or hemorrhagic debris. Body wall edema. -03/10: upper GI series with Gastrografin small-bowel perforation, leakage -03/10/2022:? Status post exploratory laparotomy, repair of duodenal stump leak, omental patch, intra-abdominal washout - 03/15 tube feeds resumed after intubation.? Patient tolerating tube feeds at goal - 03/15 CT scan does not show any leak - 03/16 -discharge from lower half of the incision notice and wound infection was suspected.? Discussed with Dr. Perez from
--- NOTE | 2022-03-22 12:20 | PCNFU ---
Nutrition Follow-Up Complete: Altered GI function as related to surgery as evidenced by NPO Goal: Meet estimated nutritional needs Patient is working towards goal. We will continue current goal. Pt current nutrition is TPN. Last recorded weight is 68.3 kg, up from 66.6 kg on admit. Bowel Motility:+BM reported 03/22 Labs Reviewed:TG 219, Hct 24.7,Hgb 7.5,BUN 32, Cr 0.4,Glu 170 Meds Noted:Bumex, Lantus, Fentanyl, Versed, Flagyl, Albumin, Protonix, Solu Cortef, Xopenex, Clinimix 5/15 at 60 ml/hr. Skin: Wound Vac Additional Notes: Patient seen today for nutrition follow up, Patient remains on mechanical vent and Clinimix. TPN current at 1522 kcals/72 gms protein. Lipids q 48 hours. TG 219 today. Current TPN is meeting 84% caloric needs and 90% protein needs. Agree with diet orders. Will monitor daily in ICU rounds and reassessing every Friday and Friday.
--- NOTE | 2022-03-22 13:02 | PC.NURSE ---
Nurse off the floor with patient to CT/ radiology from 1040 to 1242.
[2022-03-22 13:07] LABS: Glucose Point of Care 173 mg/dl (65-105)
--- NOTE | 2022-03-22 14:12 | PCPTNOTE ---
Spoke with Carpenter/Labor about DC orders until patient able to Fully participate in skilled therapy. Carpenter/Labor agreed and RN aware of recommendation given on type of orthotic to purchase to prevent foot drop. Per RN, she has been doing passive ROM with patient and encouraging patient to preform active ROM. Orders DC at this time.
--- NOTE | 2022-03-22 14:14 | PM.PNGS ---
Progress Note: A&P Assessment and Plan (1) Fever: Code(s): R50.9 - Fever, unspecified Status: Acute Assessment and Plan: Yesterday evening, I discussed the patient with an acute care attending surgeon at [facility], Dr. Rico. With the patient continuing to have fever, he recommended repeating her Ki CT scan and if any collections available to drain, have them drained by Interventional Radiology. He advised against re operating on the patient as her bowel is very fragile and more bowel perforations may ensue. He of course expressed that he has limitations as he is not able to see the patient himself. With patient having persistent fevers through the night and again this morning, I arranged for CT scan with oral and IV contrast this morning. I spoke with the radiologist and with Dr. Doherty about potentially draining a collection while the patient is in CT scan to avoid having to go back down again while on a mechanical ventilator. I reviewed the films with the radiologist, Dr. Holliday, and ordered pigtail catheter drainage of really the only collection of any substance. This was the collection in the left lower quadrant and pelvis. Dr. Holliday performed this procedure without difficulty. I returned to Radiology and looked at the subsequent films with Dr. Holliday after the procedure. The collection looks even smaller after the drainage procedure. Patient has since returned to the ICU. I discussed her care with the toll operator Dr. Doherty. Plan is to treat fever with Tylenol and possibly ice packs if needed. Continue to monitor in the critical care setting with antibiotics and mechanical ventilator as will as wound hatchery manager and drains for enterocutaneous fistula. I tried to call patient's mother this afternoon but the line was busy. I have called her every day since the duodenal stump leak. I will call her again later and update her on the patient's status. (2) Enterocutaneous fistula: Code(s): K63.2 - Fistula of intestine Status: Acute Assessment and Plan: Less than a 1000 cc out last 24 hours. Continue NPO NG tube TPN and drainage. (3) Protein calorie malnutrition: Code(s): E46 - Unspecified protein-calorie malnutrition Status: Acute Assessment and Plan: TPN volume increase to 80 per hour. Continue to monitor nutritional status. (4) Acute respiratory failure: Code(s): J96.00 - Acute respiratory failure, unspecified whether with hypoxia or hypercapnia Status: Acute Assessment and Plan: Stable on vent with +5 peep and 28% FiO2 rate 22 per minute. Subjective Subjective Date/Time Seen: 03/22/22 11:14 Post Op day: 2 (fascial debridement ICU; #12 duodenal stump leak) Patient reports: bowel movement ( loose, brown today and 1 last night), fever ( still having fevers) and other (Intubated but awake on light sedation) Review of Systems Review of Systems: ROS unobtainable: Yes unobtainable due to endotracheal tube Exam Const: General: comfortable, no acute distress, awake and other ( intubated but awake, attends examiner, sometimes nods to questions) Nutritional Appearance: thin Orientation/consciousness: lethargic GI: Inspection: incision ( wound hatchery manager in place, bowel opening larger) and other ( green fluid in ANGELA drain with yellow-brown fluid in wound hatchery manager drain) GI Palp: Yes abdominal tenderness, Yes Soft to palpation and Yes Tenderness to palpation present (GI) Auscultation: absent bowel sounds Objective Data Vital Signs Vital Signs: Vital Signs - 24 hr 03/21/22 15:15 03/21/22 15:18 03/21/22 16:00 Temperature 37.9 C H Pulse Rate 89 88 65 Respiratory Rate 28 H 22 H Blood Pressure 103/53 L Pulse Oximetry 99 98 Oxygen Delivery Mechanical Ventilation Fraction of Inspired Oxygen 03/21/22 16:00 03/21/22 16:00 03/21/22 16:00 Temperature Pulse Rate 65 Respiratory Rate 22 H Blood Pressure Pulse Oxime
[2022-03-22] MEDS: DEXTROSE 5% 1,000 ML 1,000 ML 30 ML IV CONT (15:58)
[2022-03-22 16:09] LABS: Glucose Point of Care 179 mg/dl (65-105)
--- NOTE | 2022-03-22 16:31 | P.PNIM_ITS ---
Progress Note: A&P Assessment and Plan (1) Septic shock: Code(s): A41.9 - Sepsis, unspecified organism; R65.21 - Severe sepsis with septic shock Status: Acute Assessment and Plan: Septic shock with hypotension, acute kidney injury, status post bowel surgery, with Gastrografin upper GI series showing small-bowel perforation, leakage Concurrently on Levaquin, vancomycin, imipenem, micafungin weaned off Levophed Blood culture x2 03/09/2022 with Pseudomonas 2 x 2 Repeat blood cultures 03/12 negative Six hundred twenty-four sputum culture with stenotrophomonas Urine culture 03/12 with Leslie Repeat blood cultures 03/11 5- to date Levaquin since 03/15 Imipenem since 03/16 Micafungin 03/15 Vancomycin discontinued 03/19 Planned transfer to [facility] for further treatment noted (2) Acute respiratory failure: Code(s): J96.00 - Acute respiratory failure, unspecified whether with hypoxia or hypercapnia Status: Acute Assessment and Plan: Acute respiratory failure likely related to septic shock, acidosis Diffuse lung disease, pulm edema, pleural effusions, collapsed right lower lobe Monitor fluid status closely with careful diuresis Ventilator management per white mixing operator (3) Pyloric stricture: Code(s): K31.1 - Adult hypertrophic pyloric stenosis Status: Chronic Assessment and Plan: 03/07/2022: Status post hemigastrectomy with Lyly-en-Y jejunostomy, repair of left spigelian hernia patient with increasing abdominal pain postoperatively, hypotension, shock, acute renal failure -03/09/2022: CT scan of the abdomen and pelvis: Bibasilar atelectasis/consolidation. Moderate right and small left pleural effusions. Moderate abdominal ascites, likely containing small volume proteinaceous or hemorrhagic debris. Body wall edema. -03/09: upper GI series with Gastrografin small-bowel perforation, leakage -03/10/2022: Status post exploratory laparotomy, repair of duodenal stump leak, omental patch, intra-abdominal washout - 03/15 tube feeds resumed after intubation. Patient tolerating tube feeds at goal - 03/15 CT scan does not show any leak - 03/16 -discharge from lower half of the incision notice and wound infection was suspected. Discussed with Dr. Perez from General surgery. ?He opened incision and packed it with 1 iodoform gauze - 03/17-new patient continued to have fever. Yellowish discharge noticed from upper half of the incision. Discussed with Dr. Perez from General surgery. He opened the wound and appears that patient has enterocutaneous fistula which may explain the persistent fevers. Tube feedings have been stopped and patient is on TPN. NG tube has been placed to suction. Wound appliance placed on the open wound to collect drainage per. Plan to place wound VAC by general surgery Management per General surgery 03/22 new pelvic drain placed (4) Acute renal failure: Code(s): N17.9 - Acute kidney failure, unspecified Status: Acute Assessment and Plan: Acute kidney injury likely related to septic shock, prolonged hypotension, hypovolemia due to third-spacing secondary to surgery, NSAID use at home -patient has been adequately fluid-resuscitated -renal ultrasound was unremarkable -appreciate Nephrology evaluation and recommendations This is resolved now (5) Enterocutaneous fistula: Code(s): K63.2 - Fistula of intestine Status: Acute Assessment and Plan: Tube feeds discontinued patient is now on TPN NG tube to suction (6) Gastroesophageal reflux disease: Code(s): K21.9 - Gastro-es
[2022-03-22] MEDS: FAT EMULSIONS IV 20% 250 ML 20.83 ML IVPB (17:40)
[2022-03-22] MEDS: AMINO ACIDS 5%/D15W/E-LYTES/CA 2,000 ML with MULTIVITAMINS-12 INJ VIAL 1 2.5 ML, MULTIV... 60 ML IV CONT (17:40)
[2022-03-22 21:20] LABS: Glucose Point of Care 172 mg/dl (65-105)
[2022-03-23] VITALS (37 sets, daily range): BP systolic 104–143; BP diastolic 50–85; PULSE 76–301; RESP 22–30; TEMP 37.8–38.8; O2SAT 98–100
[2022-03-23 00:47] LABS: Glucose Point of Care 196 mg/dl (65-105)
[2022-03-23] MEDS: LEVALBUTEROL NEB 1.25 MG/3 ML 0.63 MG INHALATION ×4 (02:17→20:20)
[2022-03-23 04:53] LABS: Anion Gap 3 mmol/L (8-16); Blood Urea Nitrogen 27 mg/dL (7-17); Calcium 7.7 mg/dL (8.4-10.2); Carbon Dioxide 34 mmol/L (22-30); Chloride 104 mmol/L (98-107); Estimated CRCL calculation 129 ml/min; Estimated Glomerular Filt Rate > 60; Glucose 179 mg/dL (65-110); Phosphorus 3.8 mg/dL (2.5-4.5); Potassium 3.7 mmol/L (3.4-5.0); Sodium 141 mmol/L (137-145)
[2022-03-23] MEDS: CENTRAL LINE FLUSH 10 ML IV PUSH ×6 (04:56→20:57)
[2022-03-23 05:22] LABS: Alveolar/Arterial O2 Gradient 22.3 mmHg; Base Excess ABG 6.9 mEq/l (+/-2.0); Carboxyhemoglobin 0.3 % THb (0-2.0); Fractional Inspired Oxygen 28 %; HCO3 ABG 32.8 mEq/l (22.0-26.0); Methemoglobin ABG 0.5 %THb (0-1.5); Oxygen Content ABG 13.5 %vol (16.0-22.0); Oxyhemoglobin 96.3 % THb (90.0-100.0); PCO2 ABG 54.5 mmHg (35.0-45.0); PO2 FiO2 Ratio Arterial Blood 4.04 %; Reduced Hemoglobin 2.9 %THb (0-5.0); Total Hemoglobin 9.8 g/dL (12.0-18.0); pH ABG 7.398 (7.350-7.450)
[2022-03-23 05:23] LABS: Device VENTILATOR; Modified Allen's Test Pass; Site Drawn LEFT RADIAL
[2022-03-23 05:24] LABS: Arterial Blood Gas PEEP 5 cmH2O; Arterial Blood Gas Tidal Volume 380 ml; Arterial Blood Gas Vent Mode CMV; Arterial Blood Gas Ventilator rate 20 /MIN
[2022-03-23] MEDS: MIDAZOLAM 100MG/NS 100ML(*CRX) 100 MG/100 ML BAG IV CONT (06:05)
[2022-03-23 07:52] LABS: Glucose Point of Care 178 mg/dl (65-105)
--- NOTE | 2022-03-23 09:05 | WPDINTPN ---
Progress Note: A&P Assessment and Plan (1) Septic shock: Code(s): A41.9 - Sepsis, unspecified organism; R65.21 - Severe sepsis with septic shock Status: Acute Assessment and Plan: Septic shock with hypotension, acute kidney injury, status post bowel surgery, with Gastrografin upper GI series showing small-bowel perforation, leakage -patient has received significant amount of IV fluids and is now off of IV fluids and is now getting diuretics since she is off pressors -03/09/2022: Blood cultures growing Pseudomonas 2/2 bottles s -03/12 repeat blood cultures sent, Scott was replaced, urine culture is growing Leslie, - 03/15 sputum culture is growing stenotrophomonas -03/16: Replete blood cultures are negative x2 -03/21: Cultures from abdominal drainage, no organisms seen - 03/16 -discharge from lower half of the incision and wound infection was suspected.? Lower half the incision was opened by general surgery to drain - 03/16-femoral central venous catheter removed and a PICC line placed - 03/17: Lower extremity venous Dopplers: Negative for DVT bilaterally - 03/18-normal lipase -03/14 discontinued albumin and hydrocortisone Continues to spike fevers (started spiking again on 03/20/2022) -03/22/2022: A lower extremity venous Dopplers were negative for DVT Continue Levaquin (03/15), imipenem (03/16) and micafungin (03/15) -vancomycin was discontinued on 03/19/2022 -Continue Tylenol for fevers -03/21 continues to have low-grade fevers, discussed with surgeon, trying to transfer the patient [facility]. If continues to spike fevers he might take her back to the OR for better wound management system 03/22/2022: Discussed with surgeon, [facility] unable to accept the patient at this time, patient to have a CT scan of the abdomen and pelvis, if there is any and collection of fluid, IR will drain it. -03/15 CT scan of the abdomen and pelvis for continues fevers IMPRESSION: 1. Diffuse lung disease, likely pulmonary edema. 2. Near complete collapse of the right lower lobe. 3. Moderate-sized right and small left pleural effusions. 4. Moderate volume ascites with interval decrease since the comparison examination. New right upper quadrant drain, consistent with surgical change. No leakage of enteric contrast identified. (2) Acute respiratory failure: Code(s): J96.00 - Acute respiratory failure, unspecified whether with hypoxia or hypercapnia Status: Acute Assessment and Plan: Acute respiratory failure likely related to septic shock, acidosis -patient was intubated on 03/09, 03/14 extubated, 03/15 Reintubated -currently on CMV mode of ventilation, 28 % FiO2, peep of 5. Will place patient on ASV -significant?overall?volume overload overall the third-spacing -diuresing well, patient currently tachycardic, -continue diuresis -continue bronchodilators -sedated with Versed infusion only, will wean sedation in place patient on SBT -CT chest 03/15 IMPRESSION: 1. Diffuse lung disease, likely pulmonary edema. 2. Near complete collapse of the right lower lobe. 3. Moderate-sized right and small left pleural effusions. (3) Pyloric stricture: Code(s): K31.1 - Adult hypertrophic pyloric stenosis Status: Chronic Assessment and Plan: 03/07/2022: Status post hemigastrectomy with Lyly-en-Y jejunostomy, repair of left spigelian hernia -patient with increasing abdominal pain postoperatively, hypotension, shock, acute renal failure -03/09/2022:? CT scan of the abdomen and pelvis: Bibasilar atelectasis/consolidation. Moderate right and small left pleural effusions. Moderate abdominal ascites, likely containing small volume proteinaceous or hemorrhagic debris. Body wall edema. -03/10: upper GI series with Gastrografin small-bowel perforation, leakage -03/10/2022:? Status post exploratory laparotomy, repair of duodenal stump leak, omental patch, intra-abdominal washout - 03/15 tube feeds resumed after intu
[2022-03-23] MEDS: ENOXAPARIN 40 MG/0.4 ML SYRINGE SUB-Q (09:16)
[2022-03-23] MEDS: PANTOPRAZOLE SODIUM IV 40 MG VIAL IV PUSH ×2 (09:16→21:05)
[2022-03-23] MEDS: MINERAL OIL/WHITE PETROLATUM OINTMENT 1 APPLIC EACH EYE (09:16)
[2022-03-23] MEDS: HYDROCORTISONE SODIUM SUCCINATE 100 MG/2 ML VIAL 50 MG IV PUSH ×2 (09:16→20:55)
[2022-03-23] MEDS: BUMETANIDE INJ 1 MG/4 ML VIAL IV PUSH (09:16)
[2022-03-23] MEDS: MICAFUNGIN SODIUM 100 MG in SODIUM CHLORIDE 0.9% IV 100 ML IVPB (09:17)
[2022-03-23] MEDS: INSULIN GLARGINE (*BKC) 100 UNITS/ML 8 UNITS SUB-Q (09:17)
--- NOTE | 2022-03-23 10:39 | PCFNICU ---
ICU Rounding Note: Pt current nutrition is TPN. Last recorded weight is 65.5 kg, down from 66.6 kg on admit. Bowel Motility: +BM reported 03/23 Labs Reviewed:BUN 27, Cr 0.4,Glu 179 Meds Noted:Bumex, Lantus, Fentanyl, Versed, Flagyl, Albumin, Protonix, Solu Cortef, Xopenex, Clinimix 5/15 at 60 ml/hr, 250 ml of 20% Lipid Emulsion. Skin: wound pre school manager abdomen. Additional Notes: Patient remains on mechanical vent. Clinimix 5/15 at 60 ml/hr with 250 ml 20% Lipid Emulsion. Lipids q 48 hours. TG 219 on 03/22. Current TPN is meeting 84% caloric needs and 90% protein needs. Agree with diet orders. Following daily in ICU rounds and reassessing every Friday and Friday.
[2022-03-23 12:02] LABS: Glucose Point of Care 199 mg/dl (65-105)
--- NOTE | 2022-03-23 12:16 | PM.PNGS ---
Progress Note: A&P Assessment and Plan (1) Fever: Code(s): R50.9 - Fever, unspecified Status: Acute Assessment and Plan: Fevers persist despite placement of additional pigtail catheter left lower quadrant and pelvis. There were no other areas of consequence on the CT scan yesterday to drain. Field fevers are due to peritonitis from fistula. Cultures of drainage are showing yeast. Patient continues on IV antifungal therapy. I discussed the patient's status with her mother, nuria. I also discussed the patient with Dr. Doherty, our shipping weigher. Continue present treatment and follow. May repeat CT scan in 48 hours if fevers persist. 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 Still significant amount from ANGELA drain. Very little out from pigtail placed yesterday and tubing looks fairly clear. (3) Protein calorie malnutrition: Code(s): E46 - Unspecified protein-calorie malnutrition Status: Acute Assessment and Plan: TPN increased to 80 an hour. Lipids still on every other day. Continue to assess nutritional status regularly. (4) Acute respiratory failure: Code(s): J96.00 - Acute respiratory failure, unspecified whether with hypoxia or hypercapnia Status: Acute Assessment and Plan: Seems to be stable on mechanical ventilator with light sedation. Management per shipping weigher, Dr. Doherty. Subjective Subjective Date/Time Seen: 03/23/22 12:16 Post Op day: 3 ( fascial dehiscence ICU, #13 Repair duodenal stump leak) Patient reports: fever and other (On ventilator, sleeping) Review of Systems Review of Systems: ROS unobtainable: Yes unobtainable due to endotracheal tube Exam Const: General: patient obtunded Nutritional Appearance: thin GI: Inspection: incision (Fistula noted, staffing account manager in place, wound granulating) and other (Green fluid in ANGELA drain, clear in pigtail) GI Palp: Yes Soft to palpation and Yes Tenderness to palpation present (GI) Auscultation: absent bowel sounds Objective Data Vital Signs Vital Signs: Vital Signs - 24 hr 03/22/22 13:14 03/22/22 14:00 03/22/22 13:44 Temperature 38.8 C H 38.6 C H 38.1 C H Pulse Rate 112 H Respiratory Rate Blood Pressure 124/70 Pulse Oximetry 98 Oxygen Delivery Fraction of Inspired Oxygen 03/22/22 14:41 03/22/22 14:42 03/22/22 14:53 Temperature Pulse Rate 103 H 107 H 98 Respiratory Rate 20 21 H Blood Pressure Pulse Oximetry 99 Oxygen Delivery Mechanical Ventilation Fraction of Inspired Oxygen 28 03/22/22 14:00 03/22/22 14:00 03/22/22 16:00 Temperature Pulse Rate 121 H 112 H 97 Respiratory Rate 30 H 28 H Blood Pressure Pulse Oximetry Oxygen Delivery Fraction of Inspired Oxygen 03/22/22 16:00 03/22/22 16:00 03/22/22 16:00 Temperature 37.8 C H Pulse Rate 95 96 Respiratory Rate 28 H Blood Pressure 122/63 Pulse Oximetry 99 Oxygen Delivery Fraction of Inspired Oxygen 03/22/22 16:00 03/22/22 17:25 03/22/22 17:57 Temperature Pulse Rate 107 H 95 Respiratory Rate 28 H Blood Pressure Pulse Oximetry 99 99 Oxygen Delivery Mechanical Ventilation Mechanical Ventilation Fraction of Inspired Oxygen 28 03/22/22 18:00 03/22/22 18:00 03/22/22 18:52 Temperature 37.8 C H Pulse Rate 94 94 94 Respiratory Rate 27 H 27 H Blood Pressure 124/76 Pulse Oximetry 99 Oxygen Delivery Fraction of Inspired Oxygen 03/22/22 20:00 03/22/22 20:00 03/22/22 20:00 Temperature 37.8 C H Pulse Rate 99 Respiratory Rate 27 H Blood Pressure 131/74 Pulse Oximetry 99 99 Oxygen Delivery Mechanical Ventilation Fraction of Inspired Oxygen 03/22/22 20:42 03/22/22 20:21 03/22/22 20:40 Temperature Pulse Rate 89 89 97 Respiratory Rate 28 H 26 H Blood Pressure Pulse Oximetry
[2022-03-23] MEDS: AMINO ACIDS 5%/D15W/E-LYTES/CA 2,000 ML with MULTIVITAMINS-12 INJ VIAL 1 2.5 ML, MULTIV... 80 ML IV CONT (17:10)
[2022-03-23 17:39] LABS: Glucose Point of Care 178 mg/dl (65-105)
[2022-03-23 21:22] LABS: Glucose Point of Care 167 mg/dl (65-105)
--- NOTE | 2022-03-23 22:25 | PC.NURSE ---
2130 Pt indicates that she is feeling more anxious. Versed drip increased to 2mg/hr.
[2022-03-24] VITALS (35 sets, daily range): BP systolic 95–145; BP diastolic 55–83; PULSE 65–129; RESP 18–27; TEMP 37.6–39.1; O2SAT 93–100
[2022-03-24 00:07] LABS: Glucose Point of Care 213 mg/dl (65-105)
[2022-03-24] MEDS: INSULIN ASPART (*BKC) 100 UNITS/ML SUB-Q ×2 (00:12→23:56)
[2022-03-24] MEDS: LEVALBUTEROL NEB 1.25 MG/3 ML 0.63 MG INHALATION ×4 (02:10→19:44)
[2022-03-24 04:34] LABS: Anion Gap -1 mmol/L (8-16); Blood Urea Nitrogen 31 mg/dL (7-17); Calcium 7.7 mg/dL (8.4-10.2); Carbon Dioxide 35 mmol/L (22-30); Chloride 104 mmol/L (98-107); Estimated CRCL calculation 95 ml/min; Estimated Glomerular Filt Rate > 60; Glucose 224 mg/dL (65-110); Potassium 3.5 mmol/L (3.4-5.0); Sodium 138 mmol/L (137-145)
[2022-03-24 05:26] LABS: Glucose Point of Care 190 mg/dl (65-105)
[2022-03-24 05:36] LABS: Alveolar/Arterial O2 Gradient 50.4 mmHg; Base Excess ABG 6.4 mEq/l (+/-2.0); Carboxyhemoglobin 0.2 % THb (0-2.0); Device VENTILATOR; Fractional Inspired Oxygen 28 %; Methemoglobin ABG 0.5 %THb (0-1.5); Modified Allen's Test Unable to perform; Oxygen Content ABG 12.2 %vol (16.0-22.0); Oxygen Saturation ABG 98.1 % (95.0-100.0); PCO2 ABG 39.3 mmHg (35.0-45.0); PO2 ABG 102.9 mmHg (80.0-100.0); PO2 FiO2 Ratio Arterial Blood 3.67 %; Reduced Hemoglobin 3.3 %THb (0-5.0); Site Drawn LEFT RADIAL; Total Hemoglobin 8.9 g/dL (12.0-18.0); pH ABG 7.501 (7.350-7.450)
[2022-03-24 05:37] LABS: Arterial Blood Gas PEEP 5 cmH2O; Arterial Blood Gas Vent Mode ASV
[2022-03-24] MEDS: CENTRAL LINE FLUSH 10 ML IV PUSH ×6 (06:31→20:45)
[2022-03-24 07:23] LABS: Glucose Point of Care 173 mg/dl (65-105)
[2022-03-24] MEDS: KCL 40 MEQ/WATER 100 ML 100 ML 25 ML IVPB (08:34)
[2022-03-24 09:42] LABS: Triglycerides 171 mg/dL (<150)
--- NOTE | 2022-03-24 09:48 | PM.IMPN ---
Progress Note: A&P Assessment and Plan (1) Septic shock: Code(s): A41.9 - Sepsis, unspecified organism; R65.21 - Severe sepsis with septic shock Status: Acute Assessment and Plan: Septic shock with hypotension, acute kidney injury, status post bowel surgery, with Gastrografin upper GI series showing small-bowel perforation, leakage Concurrently on Levaquin, vancomycin, imipenem, micafungin weaned off Levophed Blood culture x2 03/09/2022 with Pseudomonas 2 x 2 Repeat blood cultures 03/12 negative Six hundred twenty-four sputum culture with stenotrophomonas Urine culture 03/12 with Leslie Repeat blood cultures 03/11 5- to date Levaquin since 03/15 Imipenem since 03/16 Micafungin 03/15 Vancomycin discontinued 03/19 Planned transfer to [facility] for further treatment noted (2) Acute respiratory failure: Code(s): J96.00 - Acute respiratory failure, unspecified whether with hypoxia or hypercapnia Status: Acute Assessment and Plan: Acute respiratory failure likely related to septic shock, acidosis Diffuse lung disease, pulm edema, pleural effusions, collapsed right lower lobe Monitor fluid status closely with careful diuresis Ventilator management per electronics engineering manager (3) Pyloric stricture: Code(s): K31.1 - Adult hypertrophic pyloric stenosis Status: Chronic Assessment and Plan: 03/07/2022: Status post hemigastrectomy with Lyly-en-Y jejunostomy, repair of left spigelian hernia patient with increasing abdominal pain postoperatively, hypotension, shock, acute renal failure -03/09/2022: CT scan of the abdomen and pelvis: Bibasilar atelectasis/consolidation. Moderate right and small left pleural effusions. Moderate abdominal ascites, likely containing small volume proteinaceous or hemorrhagic debris. Body wall edema. -03/09: upper GI series with Gastrografin small-bowel perforation, leakage -03/10/2022: Status post exploratory laparotomy, repair of duodenal stump leak, omental patch, intra-abdominal washout - 03/15 tube feeds resumed after intubation. Patient tolerating tube feeds at goal - 03/15 CT scan does not show any leak - 03/16 -discharge from lower half of the incision notice and wound infection was suspected. Discussed with Dr. Perez from General surgery. ?He opened incision and packed it with 1 iodoform gauze - 03/17-new patient continued to have fever. Yellowish discharge noticed from upper half of the incision. Discussed with Dr. Perez from General surgery. He opened the wound and appears that patient has enterocutaneous fistula which may explain the persistent fevers. Tube feedings have been stopped and patient is on TPN. NG tube has been placed to suction. Wound appliance placed on the open wound to collect drainage per. Plan to place wound VAC by general surgery Management per General surgery 03/22 new pelvic drain placed (4) Acute renal failure: Code(s): N17.9 - Acute kidney failure, unspecified Status: Acute Assessment and Plan: Acute kidney injury likely related to septic shock, prolonged hypotension, hypovolemia due to third-spacing secondary to surgery, NSAID use at home -patient has been adequately fluid-resuscitated -renal ultrasound was unremarkable -appreciate Nephrology evaluation and recommendations This is resolved now (5) Enterocutaneous fistula: Code(s): K63.2 - Fistula of intestine Status: Acute Assessment and Plan: Tube feeds discontinued patient is now on TPN NG tube to suction (6) Gastroesophageal reflux disease: Code(s): K21.9 - Gastro-esophageal reflux disease without esophagitis Status: Acute Assessment and Plan: Continue PPI IV q.12 hours (7) DVT prophylaxis: Code(s): Z29.9 - Encounter for prophylactic measures, unspecified Status: Acute Assessment and Plan: SCDs. Lovenox subQ when appropriate (8) Anemia: Code(s): D64.9 - Anemia, unspecifie
[2022-03-24] MEDS: MICAFUNGIN SODIUM 100 MG in SODIUM CHLORIDE 0.9% IV 100 ML IVPB (10:46)
[2022-03-24] MEDS: BUMETANIDE INJ 1 MG/4 ML VIAL IV PUSH (10:48)
[2022-03-24] MEDS: PANTOPRAZOLE SODIUM IV 40 MG VIAL IV PUSH ×2 (10:48→20:44)
[2022-03-24] MEDS: HYDROCORTISONE SODIUM SUCCINATE 100 MG/2 ML VIAL 50 MG IV PUSH ×2 (10:48→20:44)
[2022-03-24] MEDS: ENOXAPARIN 40 MG/0.4 ML SYRINGE SUB-Q (10:48)
[2022-03-24] MEDS: MINERAL OIL/WHITE PETROLATUM OINTMENT 1 APPLIC EACH EYE ×2 (10:49→20:45)
[2022-03-24] MEDS: INSULIN GLARGINE (*BKC) 100 UNITS/ML 8 UNITS SUB-Q (11:04)
--- NOTE | 2022-03-24 11:27 | PM.PNGS ---
Progress Note: A&P Assessment and Plan (1) Fever: Code(s): R50.9 - Fever, unspecified Status: Acute Assessment and Plan: patient's temperature curve was decreasing last 12 hours but recent temperature about 10:45 a.m. was back up to 39.1. Blood pressure stable. No diaphoresis or chills. 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 Less from ANGELA drain and really none from pigtail catheter. Wound manager landscape in place. No leakage. Continue present treatment. (3) Protein calorie malnutrition: Code(s): E46 - Unspecified protein-calorie malnutrition Status: Acute Assessment and Plan: Continue bowel rest and TPN. (4) Respiratory failure: Code(s): J96.90 - Respiratory failure, unspecified, unspecified whether with hypoxia or hypercapnia Status: Acute Assessment and Plan: Discussed with information security manager, Dr. Doherty as well as hospitalist Dr. Noe. Patient now breathing on her own with only pressure support. Dr. Doherty feels she is too weak yet to be extubated. Continue present treatment. I spoke with the patient's mother, nuria and updated her on the patient's condition as usual. Subjective Subjective Date/Time Seen: 03/24/22 11:27 Post Op day: 4 (#4 fascial debrid ICU, #14 Duodenal stump leak) Patient reports: fever and other ( remains intubated on ventilator) Review of Systems Review of Systems: ROS unobtainable: Yes unobtainable due to endotracheal tube Exam Const: General: comfortable, no acute distress and other ( nods to questions) Nutritional Appearance: thin GI: Inspection: non-distended, incision ( wound and ANGELA draining green enteric fluid) and other ( pigtail catheter drainage serous) GI Palp: Yes Soft to palpation, Yes Tenderness to palpation present (GI) and No Guarding due to palpation present (GI) Auscultation: absent bowel sounds Objective Data Vital Signs Vital Signs: Vital Signs - 24 hr 03/23/22 11:30 03/23/22 12:00 03/23/22 12:00 Temperature 38.4 C H Pulse Rate 80 85 86 Respiratory Rate 27 H 24 H Blood Pressure 120/63 Pulse Oximetry 100 100 99 Oxygen Delivery Mechanical Ventilation Mechanical Ventilation Fraction of Inspired Oxygen 28 03/23/22 12:00 03/23/22 14:00 03/23/22 12:00 Temperature Pulse Rate 97 88 Respiratory Rate Blood Pressure Pulse Oximetry Oxygen Delivery Fraction of Inspired Oxygen 03/23/22 14:00 03/23/22 14:40 03/23/22 14:35 Temperature 38.5 C H Pulse Rate 94 80 89 Respiratory Rate 24 H 25 H Blood Pressure 119/63 Pulse Oximetry 100 100 Oxygen Delivery Mechanical Ventilation Fraction of Inspired Oxygen 03/23/22 16:44 03/23/22 17:18 03/23/22 17:21 Temperature 38.6 C H 38.5 C H Pulse Rate 82 Respiratory Rate Blood Pressure Pulse Oximetry 100 Oxygen Delivery Mechanical Ventilation Fraction of Inspired Oxygen 03/23/22 16:00 03/23/22 18:00 03/23/22 16:00 Temperature Pulse Rate 95 93 Respiratory Rate Blood Pressure Pulse Oximetry Oxygen Delivery Fraction of Inspired Oxygen 03/23/22 16:00 03/23/22 18:00 03/23/22 16:00 Temperature 38.6 C H 37.8 C H Pulse Rate 88 93 88 Respiratory Rate 25 H 24 H 25 H Blood Pressure 122/72 122/85 Pulse Oximetry 99 100 99 Oxygen Delivery Mechanical Ventilation Fraction of Inspired Oxygen 03/23/22 20:20 03/23/22 20:20 03/23/22 20:30 Temperature Pulse Rate 99 93 92 Respiratory Rate 28 H 26 H Blood Pressure Pulse Oximetry 99 Oxygen Delivery Mechanical Ventilation Fraction of Inspired Oxygen 03/23/22 20:00 03/23/22 20:30 03/23/22 20:30 Temperature Pulse Rate 93 96 Respiratory Rate 27 H Blood Pressure Pulse Oximetry 98 Oxygen Delivery Mechanical
--- NOTE | 2022-03-24 11:48 | WPDINTPN ---
Progress Note: A&P Assessment and Plan (1) Septic shock: Code(s): A41.9 - Sepsis, unspecified organism; R65.21 - Severe sepsis with septic shock Status: Acute Assessment and Plan: Septic shock with hypotension, acute kidney injury, status post bowel surgery, with Gastrografin upper GI series showing small-bowel perforation, leakage -patient has received significant amount of IV fluids and is now off of IV fluids and is now getting diuretics since she is off pressors -03/09/2022: Blood cultures growing Pseudomonas 2/2 bottles s -03/12 repeat blood cultures sent, Scott was replaced, urine culture is growing Leslie, - 03/15 sputum culture is growing stenotrophomonas on levaquin (03/15) treat for 14 days -03/16: Replete blood cultures are negative x2 -03/21: Cultures from abdominal drainage growing Yeast -03/22: culture from pelvic drain growing Yeast - 03/16 -discharge from lower half of the incision and wound infection was suspected.? Lower half the incision was opened by general surgery to drain - 03/16-femoral central venous catheter removed and a PICC line placed - 03/17: Lower extremity venous Dopplers: Negative for DVT bilaterally - 03/18-normal lipase -03/14 discontinued albumin and hydrocortisone Continues to spike fevers (started spiking again on 03/20/2022) -03/22/2022: A lower extremity venous Dopplers were negative for DVT Continue Levaquin (03/15), imipenem (03/16) and micafungin (03/15) -vancomycin was discontinued on 03/19/2022 -remains febrile, requiring Tylenol IV 03/22/2022: Discussed with surgeon, [facility] unable to accept the patient at this time, patient to have a CT scan of the abdomen and pelvis, if there is any and collection of fluid, IR will drain it. -03/15 CT scan of the abdomen and pelvis for continues fevers IMPRESSION: 1. Diffuse lung disease, likely pulmonary edema. 2. Near complete collapse of the right lower lobe. 3. Moderate-sized right and small left pleural effusions. 4. Moderate volume ascites with interval decrease since the comparison examination. New right upper quadrant drain, consistent with surgical change. No leakage of enteric contrast identified. (2) Acute respiratory failure: Code(s): J96.00 - Acute respiratory failure, unspecified whether with hypoxia or hypercapnia Status: Acute Assessment and Plan: Acute respiratory failure likely related to septic shock, acidosis -patient was intubated on 03/09, 03/14 extubated, 03/15 Reintubated -currently on CMV mode of ventilation, 28 % FiO2, peep of 5. Will place patient on ASV -significant?overall?volume overload overall the third-spacing -diuresing well, patient currently tachycardic, -continue diuresis -continue bronchodilators -sedated with Versed infusion only, placed patient on pressure support ventilation 02/02, patient tolerated well for about an hour start to get tachycardic. Patient was placed back on ASV mode -CT chest 03/15 IMPRESSION: 1. Diffuse lung disease, likely pulmonary edema. 2. Near complete collapse of the right lower lobe. 3. Moderate-sized right and small left pleural effusions. (3) Pyloric stricture: Code(s): K31.1 - Adult hypertrophic pyloric stenosis Status: Chronic Assessment and Plan: 03/07/2022: Status post hemigastrectomy with Lyly-en-Y jejunostomy, repair of left spigelian hernia -patient with increasing abdominal pain postoperatively, hypotension, shock, acute renal failure -03/09/2022:? CT scan of the abdomen and pelvis: Bibasilar atelectasis/consolidation. Moderate right and small left pleural effusions. Moderate abdominal ascites, likely containing small volume proteinaceous or hemorrhagic debris. Body wall edema. -03/10: upper GI series with Gastrografin small-bowel perforation, leakage -03/10/2022:? Status post exploratory laparotomy, repair of duodenal stump leak, omental patch, intra-abdominal washout - 03/15 tube feeds resumed after intubation.? Patient
[2022-03-24 12:22] LABS: Glucose Point of Care 135 mg/dl (65-105)
[2022-03-24] MEDS: FAT EMULSIONS IV 20% 250 ML 20.8 ML IVPB (16:32)
[2022-03-24] MEDS: AMINO ACIDS 5%/D15W/E-LYTES/CA 2,000 ML with MULTIVITAMINS-12 INJ VIAL 1 2.5 ML, MULTIV... 80 ML IV CONT (16:32)
[2022-03-24 23:56] LABS: Glucose Point of Care 217 mg/dl (65-105)
[2022-03-25] VITALS (37 sets, daily range): BP systolic 95–120; BP diastolic 60–81; PULSE 75–120; RESP 15–25; TEMP 37.2–38.4; O2SAT 98–100
[2022-03-25] MEDS: LEVALBUTEROL NEB 1.25 MG/3 ML 0.63 MG INHALATION ×4 (01:58→19:52)
[2022-03-25] MEDS: MORPHINE SULFATE (*CRX) 2 MG/ML INJ IV PUSH ×3 (02:54→23:45)
[2022-03-25] MEDS: MIDAZOLAM 100MG/NS 100ML(*CRX) 100 MG/100 ML BAG IV CONT (04:50)
[2022-03-25] MEDS: CENTRAL LINE FLUSH 10 ML IV PUSH ×6 (04:51→22:09)
[2022-03-25 05:18] LABS: Alveolar/Arterial O2 Gradient 46.1 mmHg; Base Excess ABG 6.2 mEq/l (+/-2.0); Carboxyhemoglobin 0.2 % THb (0-2.0); Fractional Inspired Oxygen 28 %; HCO3 ABG 30.5 mEq/l (22.0-26.0); Methemoglobin ABG 0.5 %THb (0-1.5); Oxygen Content ABG 12.4 %vol (16.0-22.0); Oxyhemoglobin 95.7 % THb (90.0-100.0); PO2 ABG 102.8 mmHg (80.0-100.0); PO2 FiO2 Ratio Arterial Blood 3.67 %; Reduced Hemoglobin 3.6 %THb (0-5.0); Total Hemoglobin 9.1 g/dL (12.0-18.0); pH ABG 7.469 (7.350-7.450)
[2022-03-25 05:19] LABS: Device VENTILATOR; Modified Allen's Test Pass; Site Drawn RIGHT RADIAL
[2022-03-25 05:20] LABS: Arterial Blood Gas PEEP 5 cmH2O; Arterial Blood Gas Vent Mode ASV
[2022-03-25 05:25] LABS: Basophils Absolute Auto 0.1 K/mm3 (0.0-0.1); Basophils Percent Auto 0.4 % (0.2-1.2); Eosinophils Percent Auto 0.3 % (0-4.4); Hematocrit 25.8 % (37.0-47.0); Hemoglobin 8.2 g/dL (12.0-15.0); Immature Granulocyte Absolute 0.35 K/mm3 (0.00-0.031); Immature Granulocyte Percent A 2.6 % (0-0.5); Lymphocytes Absolute Auto 1.65 K/mm3 (0.9-3.2); Lymphocytes Percent Auto 12.2 % (18.3-44.2); Mean Corpuscular HGB Conc 31.8 g/dl (32-36); Mean Corpuscular Hemoglobin 29.7 pg (26-34); Mean Corpuscular Volume 93.5 fl (80-100); Mean Platelet Volume 12.3 fl (7.4-10.4); Monocytes Absolute Auto 1.1 K/mm3 (0.1-0.6); Monocytes Percent Auto 8.2 % (2.6-8.5); Neutrophils Absolute Auto 10.4 K/mm3 (1.3-6.7); Neutrophils Percent Auto 76.3 % (45.5-73.1); Nucleated Red Blood Cells Perc 0.1 % (0.0-0.2); Platelet Count Result 293 k/mm3 (150-375); Red Blood Count 2.76 M/mm3 (4.2-5.4); Red Cell Distribution Width 20.3 % (11.5-14.5); White Blood Count 13.6 K/mm3 (4.5-10.0)
[2022-03-25 05:29] LABS: Alanine Aminotransferase 38 U/L (6-35); Albumin Level 2.3 g/dL (3.5-5.1); Alkaline Phosphatase 96 U/L (38-126); Anion Gap 2 mmol/L (8-16); Aspartate Amino Transferase 37 U/L (14-36); Bilirubin,Total 0.3 mg/dL (0.2-1.3); Blood Urea Nitrogen 32 mg/dL (7-17); Calcium 7.5 mg/dL (8.4-10.2); Carbon Dioxide 31 mmol/L (22-30); Chloride 104 mmol/L (98-107); Estimated CRCL calculation 115 ml/min; Estimated Glomerular Filt Rate > 60; Glucose 195 mg/dL (65-110); INR 1.1; Magnesium 1.8 mg/dL (1.6-2.3); Partial Thromboplastin Time 22.9 SECONDS (22.3-36.8); Potassium 3.9 mmol/L (3.4-5.0); Prothrombin Time 13.3 Seconds (11.1-14.7); Sodium 137 mmol/L (137-145)
[2022-03-25 05:37] LABS: Transferrin 122 mg/dL (206-381)
[2022-03-25 07:47] LABS: Glucose Point of Care 156 mg/dl (65-105)
[2022-03-25] MEDS: INSULIN GLARGINE (*BKC) 100 UNITS/ML 8 UNITS SUB-Q (08:23)
[2022-03-25] MEDS: MICAFUNGIN SODIUM 100 MG in SODIUM CHLORIDE 0.9% IV 100 ML IVPB (08:26)
[2022-03-25] MEDS: ENOXAPARIN 40 MG/0.4 ML SYRINGE SUB-Q (08:39)
[2022-03-25] MEDS: PANTOPRAZOLE SODIUM IV 40 MG VIAL IV PUSH ×2 (08:40→20:06)
[2022-03-25] MEDS: BUMETANIDE INJ 1 MG/4 ML VIAL IV PUSH (08:43)
[2022-03-25] MEDS: MINERAL OIL/WHITE PETROLATUM OINTMENT 1 APPLIC EACH EYE ×2 (08:45→20:04)
--- NOTE | 2022-03-25 09:09 | P.PNINT_ITS ---
Progress Note: A&P Assessment and Plan (1) Septic shock: Code(s): A41.9 - Sepsis, unspecified organism; R65.21 - Severe sepsis with septic shock Status: Acute Assessment and Plan: Septic shock with hypotension, acute kidney injury, status post bowel surgery, with Gastrografin upper GI series showing small-bowel perforation, leakage -patient has received significant amount of IV fluids and is now off of IV f luids and is now getting diuretics since she is off pressors -03/09/2022: Blood cultures growing Pseudomonas 2/2 bottles s -03/12 repeat blood cultures sent, Scott was replaced, urine culture is growing Leslie, - 03/15 sputum culture is growing stenotrophomonas on levaquin (03/15) treat for 14 days -03/16: Replete blood cultures are negative x2 -03/21: Cultures from abdominal drainage growing Yeast -03/22: culture from pelvic drain growing Yeast - 03/16 -discharge from lower half of the incision and wound infection was suspected.? Lower half the incision was opened by general surgery to drain - 03/16-femoral central venous catheter removed and a PICC line placed - 03/17: Lower extremity venous Dopplers: Negative for DVT bilaterally - 03/18-normal lipase -03/14 discontinued albumin and hydrocortisone Continues to spike fevers (started spiking again on 03/20/2022) -03/22/2022: A lower extremity venous Dopplers were negative for DVT Continue Levaquin (03/15), imipenem (03/16) and micafungin (03/15) -vancomycin was discontinued on 03/19/2022 -remains febrile, requiring Tylenol IV -03/25/2022: Obtain panculture 03/22/2022: Discussed with surgeon, [facility] unable to accept the patient at this time, patient to have a CT scan of the abdomen and pelvis, if there is any and collection of fluid, IR will drain it. -03/15 CT scan of the abdomen and pelvis for continues fevers IMPRESSION: 1. Diffuse lung disease, likely pulmonary edema. 2. Near complete collapse of the right lower lobe. 3. Moderate-sized right and small left pleural effusions. 4. Moderate volume ascites with interval decrease since the comparison examination. New right upper quadrant drain, consistent with surgical change. No leakage of enteric contrast identified. (2) Acute respiratory failure: Code(s): J96.00 - Acute respiratory failure, unspecified whether with hypoxia or hypercapnia Status: Acute Assessment and Plan: Acute respiratory failure likely related to septic shock, acidosis -patient was intubated on 03/09, 03/14 extubated, 03/15 Reintubated -currently on CMV mode of ventilation, 28 % FiO2, peep of 5. Will place patient on ASV -significant?overall?volume overload overall the third-spacing -diuresing well, patient currently tachycardic, -continue diuresis -continue bronchodilators -sedated with Versed infusion only, placed patient on pressure support ventilation 02/02, patient tolerated well for about an hour start to get tachycardic. Patient was placed back on ASV mode -CT chest 03/15 IMPRESSION: 1. Diffuse lung disease, likely pulmonary edema. 2. Near complete collapse of the right lower lobe. 3. Moderate-sized right and small left pleural effusions. (3) Pyloric stricture: Code(s): K31.1 - Adult hypertrophic pyloric stenosis Status: Chronic Assessment and Plan: 03/07/2022: Status post hemigastrectomy with Lyly-en-Y jejunostomy, repair of left spigelian hernia -patient with increasing abdominal pain postoperatively, hypotension, shock, acute renal failure -03/09/2022:? CT scan of the abdomen and pelvis: Bibasilar atelectasis/consolidation. Moderate
[2022-03-25] MEDS: HYDROCORTISONE SODIUM SUCCINATE 100 MG/2 ML VIAL 50 MG IV PUSH (09:10)
[2022-03-25 12:16] LABS: Glucose Point of Care 156 mg/dl (65-105)
--- NOTE | 2022-03-25 14:36 | PM.PNGS ---
Progress Note: A&P Assessment and Plan (1) Fever: Code(s): R50.9 - Fever, unspecified Status: Acute Assessment and Plan: Temperatures have been lower since her 39.1 temperature late yesterday morning. Continue to monitor. No undrained pockets of bowel content evident on today's CT. White blood cell count up to 13,500 today. Etiology unclear. Continue ICU care and close monitoring. I spoke with Dr. Doherty about the patient a couple of times this morning. I also called her mother nuria and gave her a daily update as well. 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 Most of output coming from wound. Since midnight, ANGELA drain has been putting out more. Continue to follow closely. (3) Respiratory failure: Code(s): J96.90 - Respiratory failure, unspecified, unspecified whether with hypoxia or hypercapnia Status: Acute Assessment and Plan: Patient getting stronger on pressure support and breathing on her own per Dr. Doherty. Possibly able to extubate in 1-2 days. (4) Protein calorie malnutrition: Code(s): E46 - Unspecified protein-calorie malnutrition Status: Acute Assessment and Plan: Continue TPN. Subjective Subjective Date/Time Seen: 03/25/22 14:36 Post Op day: 5 (Day 5 fascial debridement, day 15 duodenal stump leak) Patient reports: bowel movement, fever and other (Remains on ventilator breathing on her own, pressure support only) Review of Systems Review of Systems: ROS unobtainable: Yes unobtainable due to endotracheal tube Exam Const: General: lethargic (On ventilator) Orientation/consciousness: lethargic GI: Inspection: Abdominal wall edema, non-distended, incision (Wound touring production manager in place, enteric drainage as before, no leak), visible herniation (Visible bowel and fistula) and other (ANGELA enteric fluid, pigtail serous) GI Palp: Yes Soft to palpation and Yes Tenderness to palpation present (GI) Auscultation: absent bowel sounds Objective Data Vital Signs Vital Signs: Vital Signs - 24 hr 03/24/22 16:32 03/24/22 16:35 03/24/22 16:00 Temperature Pulse Rate 88 91 Respiratory Rate 24 H Blood Pressure Pulse Oximetry 98 Oxygen Delivery Mechanical Ventilation Fraction of Inspired Oxygen 28 03/24/22 16:00 03/24/22 16:00 03/24/22 16:00 Temperature 37.9 C H Pulse Rate 87 87 89 Respiratory Rate 25 H 25 H Blood Pressure 117/70 Pulse Oximetry 100 100 Oxygen Delivery Mechanical Ventilation Fraction of Inspired Oxygen 03/24/22 17:49 03/24/22 18:00 03/24/22 18:00 Temperature 37.9 C H Pulse Rate 90 88 88 Respiratory Rate 25 H 25 H Blood Pressure 123/74 Pulse Oximetry 100 Oxygen Delivery Fraction of Inspired Oxygen 03/24/22 19:45 03/24/22 19:55 03/24/22 20:38 Temperature Pulse Rate 93 84 93 Respiratory Rate 24 H 24 H Blood Pressure Pulse Oximetry 100 Oxygen Delivery Mechanical Ventilation Fraction of Inspired Oxygen 03/24/22 20:43 03/24/22 21:47 03/24/22 21:13 Temperature 38.3 C H 38.3 C H Pulse Rate 101 H Respiratory Rate 22 H Blood Pressure Pulse Oximetry Oxygen Delivery Fraction of Inspired Oxygen 03/24/22 20:00 03/24/22 20:00 03/24/22 20:00 Temperature 38.0 C H Pulse Rate 88 101 H Respiratory Rate 22 H 22 H Blood Pressure 98/56 L Pulse Oximetry 97 100 Oxygen Delivery Mechanical Ventilation Fraction of Inspired Oxygen 03/24/22 20:00 03/24/22 22:00 03/24/22 22:00 Temperature 38.2 C H Pulse Rate 82 77 77 Respiratory Rate 18 Blood Pressure 95/55 L Pulse Oximetry 99 Oxygen Delivery Fraction of Inspired Oxygen 03/24/22 23:18 03/24/22 23:22 03/24/22 23:39 Temperature Pulse Rate 77 79 Respiratory Rate 18 Blood Pressure Pulse Oximetry 99 99 [employer]
[2022-03-25 16:05] LABS: Glucose Point of Care 163 mg/dl (65-105)
[2022-03-25] MEDS: AMINO ACIDS 5%/D15W/E-LYTES/CA 2,000 ML with MULTIVITAMINS-12 INJ VIAL 1 2.5 ML, MULTIV... 80 ML IV CONT (17:26)
[2022-03-25 21:35] LABS: Glucose Point of Care 178 mg/dl (65-105)
[2022-03-26] VITALS (34 sets, daily range): BP systolic 100–129; BP diastolic 58–81; PULSE 78–137; RESP 16–28; TEMP 37.3–38.8; O2SAT 96–100
[2022-03-26 00:53] LABS: Glucose Point of Care 149 mg/dl (65-105)
[2022-03-26] MEDS: LEVALBUTEROL NEB 1.25 MG/3 ML 0.63 MG INHALATION ×4 (01:59→19:56)
[2022-03-26 05:16] LABS: Alveolar/Arterial O2 Gradient 39.2 mmHg; Base Excess ABG 6.2 mEq/l (+/-2.0); Carboxyhemoglobin 0.3 % THb (0-2.0); Device VENTILATOR; Fractional Inspired Oxygen 28 %; HCO3 ABG 31.3 mEq/l (22.0-26.0); Methemoglobin ABG 0.4 %THb (0-1.5); Modified Allen's Test Unable to perform; Oxygen Saturation ABG 97.8 % (95.0-100.0); Oxyhemoglobin 95.8 % THb (90.0-100.0); PCO2 ABG 48.6 mmHg (35.0-45.0); PO2 ABG 103.1 mmHg (80.0-100.0); PO2 FiO2 Ratio Arterial Blood 3.68 %; Reduced Hemoglobin 3.5 %THb (0-5.0); Site Drawn RIGHT RADIAL; pH ABG 7.427 (7.350-7.450)
[2022-03-26 05:17] LABS: Arterial Blood Gas PEEP 5 cmH2O; Arterial Blood Gas Vent Mode ASV
[2022-03-26 05:29] LABS: Hematocrit 25.4 % (37.0-47.0); Hemoglobin 7.8 g/dL (12.0-15.0); Mean Corpuscular HGB Conc 30.7 g/dl (32-36); Mean Corpuscular Hemoglobin 29.2 pg (26-34); Mean Corpuscular Volume 95.1 fl (80-100); Mean Platelet Volume 11.5 fl (7.4-10.4); Platelet Count Result 270 k/mm3 (150-375); Red Blood Count 2.67 M/mm3 (4.2-5.4); Red Cell Distribution Width 20.9 % (11.5-14.5); White Blood Count 17.7 K/mm3 (4.5-10.0)
[2022-03-26] MEDS: CENTRAL LINE FLUSH 10 ML IV PUSH ×7 (05:42→21:10)
[2022-03-26 05:47] LABS: Anion Gap -4 mmol/L (8-16); Blood Urea Nitrogen 32 mg/dL (7-17); Calcium 7.4 mg/dL (8.4-10.2); Carbon Dioxide 34 mmol/L (22-30); Chloride 105 mmol/L (98-107); Estimated CRCL calculation 115 ml/min; Estimated Glomerular Filt Rate > 60; Glucose 151 mg/dL (65-110); Potassium 4.1 mmol/L (3.4-5.0); Sodium 135 mmol/L (137-145); Triglycerides 156 mg/dL (<150)
[2022-03-26 06:10] LABS: Glucose Point of Care 166 mg/dl (65-105)
[2022-03-26] MEDS: MICAFUNGIN SODIUM 100 MG in SODIUM CHLORIDE 0.9% IV 100 ML IVPB (09:00)
[2022-03-26] MEDS: MINERAL OIL/WHITE PETROLATUM OINTMENT 1 APPLIC EACH EYE ×2 (09:02→20:59)
[2022-03-26] MEDS: INSULIN GLARGINE (*BKC) 100 UNITS/ML 8 UNITS SUB-Q (09:02)
[2022-03-26] MEDS: BUMETANIDE INJ 1 MG/4 ML VIAL IV PUSH (09:02)
[2022-03-26] MEDS: PANTOPRAZOLE SODIUM IV 40 MG VIAL IV PUSH ×2 (09:04→20:59)
[2022-03-26] MEDS: ENOXAPARIN 40 MG/0.4 ML SYRINGE SUB-Q (09:04)
--- NOTE | 2022-03-26 11:28 | PCNFU ---
Nutrition Follow-Up Complete: Altered GI function as related to surgery as evidenced by NPO Goal: Meet estimated nutritional needs. Pt is meeting current goal via nutrition support. Continue with same goal. Pt current nutrition is TPN clinimix 5/15 at 80ml/hr, 250 20% lipids q 48hrs. Nutrition recommendation: Continue with current diet orders. Last recorded weight is 64.8 kg - wt has varied some, noted admit wt of 66kg. Bowel Motility: no recent BM recorded, hypoactive bowel sounds per nursing. Labs Reviewed:Hgb:7.8, HCT:25.4, NA:135, BUN: 32, Cr:0.4, Gluc:151, Tri Meds Noted: Bumex, Lantus, Fentanyl, Versed, Flagyl, Albumin, Protonix, Solu Cortef, Xopenex Skin: Wound vac Additional Notes: Patient seen today for nutrition follow up, Patient remains on mechanical vent and Clinimix. TPN running at 80ml/hr now. This totals 1863kcals/96 gms protein. Lipids q 48 hours only and not running today. TG 156 today - improving. Agree with diet orders. Will monitor daily in ICU rounds, follow up every Friday and Friday.
--- NOTE | 2022-03-26 13:31 | PM.PNGS ---
Progress Note: A&P Assessment and Plan (1) Fever: Code(s): R50.9 - Fever, unspecified Status: Acute Assessment and Plan: Continues to have fevers but in general they are trending down. No drainable collection on CT done yesterday. I reviewed this with 2 different radiologists. Continue present treatment. 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 Wound vault manager working well. Patient noted to still have fever as above. Also has increasing white blood cell count which today is 17,000. Continue to monitor. (3) Protein calorie malnutrition: Code(s): E46 - Unspecified protein-calorie malnutrition Status: Acute Assessment and Plan: Appears to be adequate for dietitian note. Lipids are better. (4) Respiratory failure: Code(s): J96.90 - Respiratory failure, unspecified, unspecified whether with hypoxia or hypercapnia Status: Acute Assessment and Plan: Has been intubated now about [address] Doherty recommends tracheostomy. Will ask ENT to see. Subjective Subjective Date/Time Seen: 03/26/22 13:31 Post Op day: #6 Patient reports: fever and other (Remains intubated) Review of Systems Review of Systems: ROS unobtainable: Yes unobtainable due to endotracheal tube Exam Narrative: Remains febrile although overall trend is decreasing Const: General: comfortable and lethargic Nutritional Appearance: thin Orientation/consciousness: lethargic GI: Inspection: non-distended, incision (Open wound, wound vault manager in place, green fluid in wound, ECF visible) and other (ANGELA draining green fluid, minimal out pigtail) GI Palp: Yes Soft to palpation and Yes Tenderness to palpation present (GI) Auscultation: absent bowel sounds Objective Data Vital Signs Vital Signs: Vital Signs - 24 hr 03/25/22 13:45 03/25/22 13:45 03/25/22 13:58 Temperature Pulse Rate 91 91 99 Respiratory Rate 22 H 23 H Blood Pressure Pulse Oximetry 100 Oxygen Delivery Mechanical Ventilation Fraction of Inspired Oxygen 28 03/25/22 14:00 03/25/22 14:00 03/25/22 16:00 Temperature 37.7 C H 37.7 C H Pulse Rate 80 80 76 Respiratory Rate 17 15 Blood Pressure 95/60 L 104/65 Pulse Oximetry 100 100 Oxygen Delivery Fraction of Inspired Oxygen 03/25/22 17:10 03/25/22 16:00 03/25/22 16:00 Temperature Pulse Rate 81 95 75 Respiratory Rate 24 H Blood Pressure Pulse Oximetry 100 98 Oxygen Delivery Mechanical Ventilation Mechanical Ventilation Fraction of Inspired Oxygen 28 03/25/22 16:00 03/25/22 18:00 03/25/22 18:00 Temperature 37.7 C H Pulse Rate 96 95 Respiratory Rate 23 H Blood Pressure 116/67 Pulse Oximetry 99 Oxygen Delivery Fraction of Inspired Oxygen 03/25/22 19:53 03/25/22 19:53 03/25/22 20:00 Temperature 38.1 C H Pulse Rate 94 96 96 Respiratory Rate 18 21 H Blood Pressure 117/73 Pulse Oximetry 100 100 Oxygen Delivery Mechanical Ventilation Fraction of Inspired Oxygen 03/25/22 20:00 03/25/22 20:03 03/25/22 20:00 Temperature Pulse Rate 89 95 Respiratory Rate 19 24 H Blood Pressure Pulse Oximetry 98 Oxygen Delivery Mechanical Ventilation Fraction of Inspired Oxygen 03/25/22 22:00 03/25/22 22:00 03/25/22 20:00 Temperature 38.1 C H Pulse Rate 104 H 104 H 93 Respiratory Rate 22 H Blood Pressure 115/63 Pulse Oximetry 100 Oxygen Delivery Fraction of Inspired Oxygen 03/25/22 23:30 03/25/22 23:45 03/26/22 00:00 Temperature 38.4 C H 38.4 C H Pulse Rate 120 H 100 Respiratory Rate 21 H Blood Pressure 119/71 Pulse Oximetry 100 100 Oxygen Delivery Mechanical Ventilation Fraction of Inspired Oxygen 03/26/22 00:02 03/25/22 23:30 03/26/22 00:15 Temperature 38.0 C H Pulse
--- NOTE | 2022-03-26 13:44 | WPDINTPN ---
Progress Note: A&P Assessment and Plan (1) Septic shock: Code(s): A41.9 - Sepsis, unspecified organism; R65.21 - Severe sepsis with septic shock Status: Acute Assessment and Plan: RESOLVED Septic shock with hypotension, acute kidney injury, status post bowel surgery, with Gastrografin upper GI series showing small-bowel perforation, leakage -patient has received significant amount of IV fluids and is now off of IV fluids and is now getting diuretics since she is off pressors -03/09/2022: Blood cultures growing Pseudomonas 2/2 bottles s -03/12 repeat blood cultures sent, Scott was replaced, urine culture is growing Leslie, - 03/15 sputum culture is growing stenotrophomonas on levaquin (03/15) treat for 14 days -03/16: Replete blood cultures are negative x2 -03/21: Cultures from abdominal drainage growing Yeast -03/22: culture from pelvic drain growing Yeast - 03/16 -discharge from lower half of the incision and wound infection was suspected.? Lower half the incision was opened by general surgery to drain - 03/16-femoral central venous catheter removed and a PICC line placed - 03/17: Lower extremity venous Dopplers: Negative for DVT bilaterally - 03/18-normal lipase -03/14 discontinued albumin and hydrocortisone Continues to spike fevers (started spiking again on 03/20/2022) -03/22/2022: A lower extremity venous Dopplers were negative for DVT Continue Levaquin (03/15), imipenem (03/16) and micafungin (03/15) -vancomycin was discontinued on 03/19/2022 -remains febrile, requiring Tylenol IV -03/25/2022: Blood cultures negative x2, urine and sputum cultures pending 03/22/2022: Discussed with surgeon, [facility] unable to accept the patient at this time, patient to have a CT scan of the abdomen and pelvis, if there is any and collection of fluid, IR will drain it. -03/15 CT scan of the abdomen and pelvis for continues fevers IMPRESSION: 1. Diffuse lung disease, likely pulmonary edema. 2. Near complete collapse of the right lower lobe. 3. Moderate-sized right and small left pleural effusions. 4. Moderate volume ascites with interval decrease since the comparison examination. New right upper quadrant drain, consistent with surgical change. No leakage of enteric contrast identified. 03/25/2022: CT scan of the abdomen and pelvis with oral and IV contrast Continued extravasation of contrast material from upper anterior mid abdominal proximal small bowel, largely into the subcutaneous tissues of the open anterior abdominal wall wound; fistulous tracts from the upper mid anterior abdominal small bowel segment into the subcutaneous tissues are noted. (2) Acute respiratory failure: Code(s): J96.00 - Acute respiratory failure, unspecified whether with hypoxia or hypercapnia Status: Acute Assessment and Plan: Acute respiratory failure likely related to septic shock, acidosis -patient was intubated on 03/09, 03/14 extubated, 03/15 Reintubated -currently on CMV mode of ventilation, 28 % FiO2, peep of 5. Will place patient on ASV -significant?overall?volume overload overall the third-spacing -diuresing well, patient currently tachycardic, -continue diuresis -continue bronchodilators -sedated with Versed infusion only, placed patient on pressure support ventilation 14/, patient tolerated well for about an hour start to get tachycardic. Patient was placed back on ASV mode -place patient on pressure support ventilation 12/ this morning, she tolerated for about 1.5 hours and was tachycardic and tachypneic and when I asked if she was short of breath she said yes, patient was placed back ASV. -03/26/[address] Roman, patient will require tracheostomy, Dr. Roman was okay with consult ENT for tracheostomy -CT chest 03/15 IMPRESSION: 1. Diffuse lung disease, likely pulmonary edema. 2. Near complete collapse of the right lower lobe. 3. Moderate-sized right and small left pleural effusions. (3) Pyloric stricture:
[2022-03-26] MEDS: MIDAZOLAM 100MG/NS 100ML(*CRX) 100 MG/100 ML BAG IV CONT (15:57)
[2022-03-26] MEDS: AMINO ACIDS 5%/D15W/E-LYTES/CA 2,000 ML with MULTIVITAMINS-12 INJ VIAL 1 2.5 ML, MULTIV... 80 ML IV CONT (16:06)
[2022-03-26] MEDS: FAT EMULSIONS IV 20% 250 ML 20.8 ML IVPB (17:36)
[2022-03-26 21:14] LABS: Glucose Point of Care 163 mg/dl (65-105)
[2022-03-27] VITALS (28 sets, daily range): BP systolic 95–112; BP diastolic 58–78; PULSE 85–110; RESP 13–26; TEMP 37.3–38.3; O2SAT 97–100
[2022-03-27] MEDS: MORPHINE SULFATE (*CRX) 2 MG/ML INJ IV PUSH (01:46)
[2022-03-27] MEDS: LEVALBUTEROL NEB 1.25 MG/3 ML 0.63 MG INHALATION ×4 (01:50→20:05)
[2022-03-27 04:22] LABS: Glucose Point of Care 142 mg/dl (65-105)
[2022-03-27 05:09] LABS: Hematocrit 25.3 % (37.0-47.0); Mean Corpuscular HGB Conc 31.6 g/dl (32-36); Mean Corpuscular Hemoglobin 30.5 pg (26-34); Mean Corpuscular Volume 96.6 fl (80-100); Mean Platelet Volume 11.4 fl (7.4-10.4); Platelet Count Result 282 k/mm3 (150-375); Red Blood Count 2.62 M/mm3 (4.2-5.4); White Blood Count 20.9 K/mm3 (4.5-10.0)
[2022-03-27 05:18] LABS: Alveolar/Arterial O2 Gradient 60.3 mmHg; Base Excess ABG 3.7 mEq/l (+/-2.0); Carboxyhemoglobin 0.2 % THb (0-2.0); Fractional Inspired Oxygen 28 %; HCO3 ABG 27.5 mEq/l (22.0-26.0); Methemoglobin ABG 0.3 %THb (0-1.5); Oxygen Content ABG 12.4 %vol (16.0-22.0); Oxygen Saturation ABG 97.1 % (95.0-100.0); Oxyhemoglobin 95.1 % THb (90.0-100.0); PCO2 ABG 38.5 mmHg (35.0-45.0); PO2 ABG 87.1 mmHg (80.0-100.0); PO2 FiO2 Ratio Arterial Blood 3.11 %; Reduced Hemoglobin 4.4 %THb (0-5.0); Total Hemoglobin 9.2 g/dL (12.0-18.0); pH ABG 7.472 (7.350-7.450)
[2022-03-27 05:19] LABS: Anion Gap 2 mmol/L (8-16); Blood Urea Nitrogen 32 mg/dL (7-17); Calcium 7.6 mg/dL (8.4-10.2); Carbon Dioxide 30 mmol/L (22-30); Chloride 103 mmol/L (98-107); Estimated CRCL calculation 147 ml/min; Estimated Glomerular Filt Rate > 60; Glucose 168 mg/dL (65-110); Potassium 4.1 mmol/L (3.4-5.0); Sodium 135 mmol/L (137-145)
[2022-03-27 05:20] LABS: Site Drawn LEFT RADIAL
[2022-03-27 05:21] LABS: Arterial Blood Gas PEEP 5 cmH2O; Arterial Blood Gas Vent Mode ASV; Device VENTILATOR; Modified Allen's Test Unable to perform
--- NOTE | 2022-03-27 06:07 | PC.NURSE ---
glucometer reading at midnight was 167
[2022-03-27] MEDS: CENTRAL LINE FLUSH 10 ML IV PUSH ×6 (06:50→22:25)
--- NOTE | 2022-03-27 07:34 | PM.EVENT ---
Event Note Event Note Event Note: renal will sign off
[2022-03-27 07:58] LABS: Glucose Point of Care 134 mg/dl (65-105)
[2022-03-27] MEDS: INSULIN GLARGINE (*BKC) 100 UNITS/ML 8 UNITS SUB-Q (07:59)
[2022-03-27] MEDS: MINERAL OIL/WHITE PETROLATUM OINTMENT 1 APPLIC EACH EYE ×2 (08:01→20:58)
[2022-03-27] MEDS: MICAFUNGIN SODIUM 100 MG in SODIUM CHLORIDE 0.9% IV 100 ML IVPB (08:01)
[2022-03-27] MEDS: BUMETANIDE INJ 1 MG/4 ML VIAL IV PUSH (08:02)
[2022-03-27] MEDS: ENOXAPARIN 40 MG/0.4 ML SYRINGE SUB-Q (08:02)
[2022-03-27] MEDS: PANTOPRAZOLE SODIUM IV 40 MG VIAL IV PUSH ×2 (08:02→20:58)
--- NOTE | 2022-03-27 08:44 | PCRCNOTE ---
pt placed on 06/26 SBT at 28% Fi02 at 08:16
--- NOTE | 2022-03-27 10:27 | PCFNICU ---
ICU Rounding Note: Pt current nutrition is TPN clinimix E 5/15 at 80ml/hr with 250 20% lipids running today. Nutrition recommendation: Continue with current plan of care. Last recorded weight is 62.6 kg - wt down from 66kg on admit. Bowel Motility: +BM 03/26 Labs Reviewed: hgb:8.0, HCT:25.3, NA:135, BUN:32, Cr:0.3, Gluc:168 Meds Noted:Bumex, Lantus, Fentanyl, Versed, Flagyl, Albumin, Protonix, Solu Cortef, Xopenex Skin: Wound vac Additional Notes: Pt remains on mechanical ventilation. Pt continues on same TPN clinimix E 5/15 at 80ml/hr with lipids q 48hrs. This totals 1863kcals/96 gms protein. Agree with diet orders. Following daily in ICU rounds. Will monitor every 3 days.
--- NOTE | 2022-03-27 12:25 | WPDINTPN ---
Progress Note: A&P Assessment and Plan (1) Septic shock: Code(s): A41.9 - Sepsis, unspecified organism; R65.21 - Severe sepsis with septic shock Status: Acute Assessment and Plan: RESOLVED Septic shock on, acute kidney injury, status post bowel surgery, with Gastrografin upper GI series showing small-bowel perforation, leakage -patient has received significant amount of IV fluids and is now off of IV fluids and is now getting diuretics since she is off pressors -03/09/2022: Blood cultures growing Pseudomonas 2/2 bottles -03/12 repeat blood cultures sent, Scott was replaced, urine culture is growing Leslie, - 03/15 sputum culture is growing stenotrophomonas on levaquin (03/15) treat for 14 days -03/16: Replete blood cultures are negative x2 -03/21: Cultures from abdominal drainage growing Yeast -03/22: culture from pelvic drain growing Yeast 03/22/2022: Discussed with surgeon, [facility] unable to accept the patient at this time, patient to have a CT scan of the abdomen and pelvis, if there is any and collection of fluid, IR will drain it. 03/25/2022: CT scan of the abdomen and pelvis with oral and IV contrast Continued extravasation of contrast material from upper anterior mid abdominal proximal small bowel, largely into the subcutaneous tissues of the open anterior abdominal wall wound; fistulous tracts from the upper mid anterior abdominal small bowel segment into the subcutaneous tissues are noted. 03/25 -repeat blood and urine cultures sent and are negative till now 03/26 repeat sputum culture sent - 03/16 -discharge from lower half of the incision and wound infection was suspected.? Lower half the incision was opened by general surgery to drain - 03/16-femoral central venous catheter removed and a PICC line placed - 03/17: Lower extremity venous Dopplers: Negative for DVT bilaterally - 03/18-normal lipase -03/14 discontinued albumin and hydrocortisone -03/22/2022: A lower extremity venous Dopplers were negative for DVT -patient continues to have elevated WBC and is febrile -source continues to be peritonitis - Continue Levaquin (03/15), imipenem (03/16) and micafungin (03/15) -vancomycin was discontinued on 03/19/2022 -continue p.r.n. Tylenol IV -discussed with general surgery and they are planning to open up the surgical incision/wound to assess at bedside today -03/15 CT scan of the abdomen and pelvis for continues fevers IMPRESSION: 1. Diffuse lung disease, likely pulmonary edema. 2. Near complete collapse of the right lower lobe. 3. Moderate-sized right and small left pleural effusions. 4. Moderate volume ascites with interval decrease since the comparison examination. New right upper quadrant drain, consistent with surgical change. No leakage of enteric contrast identified. (2) Acute respiratory failure: Code(s): J96.00 - Acute respiratory failure, unspecified whether with hypoxia or hypercapnia Status: Acute Assessment and Plan: Acute respiratory failure likely related to septic shock, acidosis -patient was intubated on 03/09, 03/14 extubated, 03/15 Reintubated -currently on CMV mode of ventilation, 28 % FiO2, peep of 5. Will place patient on ASV -significant?overall?volume overload overall the third-spacing, generalized weakness -continue diuresis -continue bronchodilators -sedated with Versed infusion only, placed patient on pressure support ventilation 02/02, patient tolerated well for about an hour start to get tachycardic. Patient was placed back on ASV mode -place patient on pressure support ventilation 12/ this morning, she tolerated for about 1.5 hours and was tachycardic and tachypneic and when I asked if she was short of breath she said yes, patient was placed back ASV. -03/26/2022 Dr. Doherty discussed with Dr. Roman and consulted ENT for tracheostomy. And is scheduled for tracheostomy tomorrow - 03/27 -I tried pressure support of 10/5 but after some time patient became tachypneic and press
[2022-03-27 12:31] LABS: Glucose Point of Care 127 mg/dl (65-105)
--- NOTE | 2022-03-27 13:20 | PC.NURSE ---
Dr. Roman, Dr Perez, and wound care team at bedside for surgical wound suctioning and evaluation
[2022-03-27] MEDS: fentaNYL CITRATE INJ (*CRX) 100 MCG/2 ML VIAL 50 MCG IV PUSH ×3 (13:25→13:51)
[2022-03-27] MEDS: LORazepam INJ (*CRX) 2 MG/ML VIAL IV PUSH (13:26)
[2022-03-27] MEDS: MIDAZOLAM HCL (*CRX) 2 MG/2 ML VIAL 4 MG IV PUSH (13:52)
[2022-03-27 16:14] LABS: Glucose Point of Care 113 mg/dl (65-105)
[2022-03-27] MEDS: AMINO ACIDS 5%/D15W/E-LYTES/CA 2,000 ML with MULTIVITAMINS-12 INJ VIAL 1 2.5 ML, MULTIV... 80 ML IV CONT (16:41)
[2022-03-27 17:47] LABS: Glucose Point of Care 87 mg/dl (65-105)
--- NOTE | 2022-03-27 17:51 | WPDCN ---
Assessment and Plan Assessment and plan (1) Respiratory failure: Code(s): J96.90 - Respiratory failure, unspecified, unspecified whether with hypoxia or hypercapnia Status: Acute Assessment and Plan: Plan is for the operating room for tracheostomy. Risks were discussed with family per tracheostomy risks were also discussed by myself personally with. These risks include need for further procedures stenosis need to revise the tracheal stoma failure to close damage to vocal cords if placed above cricoid cartilage. Wound dehiscence infection. HPI Data of Consult Date/Time: 03/27/22 17:51 Requesting Physician: Will Roman MD Primary Care Provider: Radha Campo, Consult Narrative Reason for consult: Tracheostomy Narrative: Maria Alejandra Cotto is a 47 year old female with history of sepsis/abdominal infection with subsequent respiratory failure. ENT consulted for tracheostomy. Settings are favorable. Review of Systems Review of Systems: ROS unobtainable: Yes unobtainable due to endotracheal tube PMFSH Past Medical History Medical History Depression Gastroesophageal reflux disease Hyperlipidemia Hypertension Migraine headache Peptic ulcer disease Tobacco use Surgical History Surgical History History of laparoscopic cholecystectomy (08/2017) History of laparoscopy X2 for endometriosis. History of right salpingo-oophorectomy (12/2001) History of total vaginal hysterectomy (12/2001) Family History Family History Other Breast cancer Social History Social History Social History: Surrogate decision maker: Luz Elena Lyon, mother. Code status: Full code. Smoking packs per day: 0.5 Smoking cigarettes per day: 10.0 Years smoked: 25 Smoking pack-years: 12.50 Smoking status: Current every day smoker Alcohol intake: never Alcohol use details: rarely Substance use: never Living arrangements: with family Additional living arrangements comments: Patient lives with her mother in [place]. Additional occupation/education comments: Works at [employer]. Spiritual care concerns: No Meds Home Medications and Allergies Home Medications Medication Instructions Recorded Confirmed Type estradiol 1 mg tablet 1 mg PO DAILY 01/04/21 03/07/22 History ibuprofen 800 mg tablet 800 mg PO TID PRN Pain 01/04/21 03/07/22 History amitriptyline 50 mg tablet See Rx Instructions .Route 10/12/21 03/07/22 Rx .COMPLEX #30 tabs omeprazole 20 mg capsule,delayed 40 mg PO DAILY #60 caps 02/11/22 03/07/22 Rx release topiramate 100 mg tablet 100 mg PO BID 03/04/22 03/07/22 History bupropion HCl 150 mg 24 hr tablet, 150 tablet PO QAM 03/07/22 03/07/22 History extended release Allergies Allergy/AdvReac Type Severity Reaction Status Date / Time No Known Allergies Allergy Verified 03/07/22 10:12 Vital Signs Vital Signs - 24 hr 03/26/22 18:00 03/26/22 18:00 03/26/22 18:36 Temperature 38.4 C H Pulse Rate 106 H 110 H 109 H Respiratory Rate 17 19 Blood Pressure 108/75 Pulse Oximetry 100 100 Oxygen Delivery Mechanical Ventilation Fraction of Inspired Oxygen 28 03/26/22 18:00 03/26/22 21:10 03/26/22 19:56 Temperature Pulse Rate 109 H 108 H 118 H Respiratory Rate 24 H Blood Pressure Pulse Oximetry 98 Oxygen Delivery Mechanical Ventilation Fraction of Inspired Oxygen 28 03/26/22 19:56 03/26/22 19:56 03/26/22 20:06 Temperature Pulse Rate 118 H 118 H 118 H Respiratory Rate 25 H 25 H 25 H Blood Pressure Pulse Oximetry 98 Oxygen Delivery Mechanical Ventilation Fraction of Inspired Oxygen 03/26/22 22:16 03/26/22 20:00 03/26/22 20:00 Temperature 38.7 C H 38.3 C H Pulse Rate 116 H Respiratory Rate 26 H Blood Pressure 115/77
--- NOTE | 2022-03-27 17:54 | PM.IMHP ---
H&P: HPI History of Present Illness Date/Time: 03/27/22 17:54 Chief Complaint: Respiratory insufficiency respiratory failure Narrative: Plan tracheostomy Review of Systems Review of Systems: All systems reviewed & are unremarkable except as noted in HPI and below PMFSH Past Medical History Medical History Depression Gastroesophageal reflux disease Hyperlipidemia Hypertension Migraine headache Peptic ulcer disease Tobacco use Surgical History Surgical History History of laparoscopic cholecystectomy (08/2017) History of laparoscopy X2 for endometriosis. History of right salpingo-oophorectomy (12/2001) History of total vaginal hysterectomy (12/2001) Family History Family History Other Breast cancer Social History Social History Social History: Surrogate decision maker: Luz Elena Lyon, mother. Code status: Full code. Smoking packs per day: 0.5 Smoking cigarettes per day: 10.0 Years smoked: 25 Smoking pack-years: 12.50 Smoking status: Current every day smoker Alcohol intake: never Alcohol use details: rarely Substance use: never Living arrangements: with family Additional living arrangements comments: Patient lives with her mother in [place]. Additional occupation/education comments: Works at [employer]. Spiritual care concerns: No Meds Home Medications and Allergies Home Medications Medication Instructions Recorded Confirmed Type estradiol 1 mg tablet 1 mg PO DAILY 01/04/21 03/07/22 History ibuprofen 800 mg tablet 800 mg PO TID PRN Pain 01/04/21 03/07/22 History amitriptyline 50 mg tablet See Rx Instructions .Route 10/12/21 03/07/22 Rx .COMPLEX #30 tabs omeprazole 20 mg capsule,delayed 40 mg PO DAILY #60 caps 02/11/22 03/07/22 Rx release topiramate 100 mg tablet 100 mg PO BID 03/04/22 03/07/22 History bupropion HCl 150 mg 24 hr tablet, 150 tablet PO QAM 03/07/22 03/07/22 History extended release Allergies Allergy/AdvReac Type Severity Reaction Status Date / Time No Known Allergies Allergy Verified 03/07/22 10:12 Vital Signs Vital Signs - 24 hr 03/26/22 18:00 03/26/22 18:00 03/26/22 18:36 Temperature 38.4 C H Pulse Rate 106 H 110 H 109 H Respiratory Rate 17 19 Blood Pressure 108/75 Pulse Oximetry 100 100 Oxygen Delivery Mechanical Ventilation Fraction of Inspired Oxygen 03/26/22 18:00 03/26/22 21:10 03/26/22 19:56 Temperature Pulse Rate 109 H 108 H 118 H Respiratory Rate 24 H Blood Pressure Pulse Oximetry 98 Oxygen Delivery Mechanical Ventilation Fraction of Inspired Oxygen 03/26/22 19:56 03/26/22 19:56 03/26/22 20:06 Temperature Pulse Rate 118 H 118 H 118 H Respiratory Rate 25 H 25 H 25 H Blood Pressure Pulse Oximetry 98 Oxygen Delivery Mechanical Ventilation Fraction of Inspired Oxygen 03/26/22 22:16 03/26/22 20:00 03/26/22 20:00 Temperature 38.7 C H 38.3 C H Pulse Rate 116 H Respiratory Rate 26 H Blood Pressure 115/77 Pulse Oximetry 98 Oxygen Delivery Mechanical Ventilation Fraction of Inspired Oxygen 03/26/22 20:00 03/26/22 22:00 03/26/22 23:10 Temperature 38.6 C H Pulse Rate 101 H 100 Respiratory Rate 20 Blood Pressure 101/66 Pulse Oximetry 100 99 Oxygen Delivery Mechanical Ventilation Fraction of Inspired Oxygen 03/26/22 22:45 03/27/22 00:00 03/27/22 00:00 Temperature 38.5 C H 37.9 C H Pulse Rate 106 H Respiratory Rate 26 H Blood Pressure 112/63 Pulse Oximetry 99 Oxygen Delivery Mechanical Ventilation Fraction of Inspired Oxygen 03/27/22 00:00 03/27/22 01:50 03/27/22 01:50 Temperature Pulse Rate 110 H 110 H Respiratory Rate 24 H Blood Pressure Pulse Oximetry 99 Oxygen Delivery Mechanical Ventilation [facility]
--- NOTE | 2022-03-27 18:09 | PM.PNGS ---
Progress Note: A&P Assessment and Plan (1) Fever: Code(s): R50.9 - Fever, unspecified Status: Acute Assessment and Plan: Persistent fevers and now tachycardia and rising white count. White blood cell count has been increasing each day since 03/25/2022. Wound reviewed carefully today and patient would likely benefit from placement of some surgical drains. Plan to proceed with laparotomy and placement of drains under anesthesia tomorrow. This can be done at the same time as the tracheostomy that is scheduled for tomorrow afternoon. Will discuss with Dr. Smith and coordinate. I called the patient's mother, nuria, and discussed the patient's condition with her. I also discussed our further attempts at transferring the patient. I discussed the need for additional drains in the abdomen. She is in agreement with placement at the same time as tracheostomy tomorrow. 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 Plan for additional drain placement tomorrow as noted above. (3) Protein calorie malnutrition: Code(s): E46 - Unspecified protein-calorie malnutrition Status: Acute Assessment and Plan: Continue TPN as before (4) Respiratory failure: Code(s): J96.90 - Respiratory failure, unspecified, unspecified whether with hypoxia or hypercapnia Status: Acute Assessment and Plan: has been over 2 weeks. Tracheostomy to be performed tomorrow. I discussed this with her mother yesterday and again today. Subjective Subjective Date/Time Seen: 03/27/22 18:09 Post Op day: #7 Patient reports: fever and other ( Intubated and sedated) Review of Systems Review of Systems: ROS unobtainable: Yes unobtainable due to endotracheal tube Exam Const: General: lethargic ( sedated on ventilator) Nutritional Appearance: thin Orientation/consciousness: patient obtunded Other: still febrile although overall trend of fevers is down trending. Did have some tachycardia to 120 yesterday but now more around 100 per minute. GI: Inspection: incision ( wound bowling alley manager removed and wound examined; patient given sedation ) GI Palp: Yes Soft to palpation, Yes Tenderness to palpation present (GI) ( no change from yesterday) and Yes Ascites present ( greenish enteric content in drains and in Wound Renal Dialysis Technician) Auscultation: absent bowel sounds Other: after sedation and removal of the wound bowling alley manager, I carefully inspected the abdominal wound. Dr. Dhillon came with me to offer further general surgical opinion. With the patient sedated, I was able to lift to the right and left sides of the abdominal wall and suction any fluid accumulation. There did appear to be some need for additional drainage on both the right and left lateral abdomen. There is dark green enteric content coming and I suspect the duodenal stump as leaking again. There does not seem to be a pocket leading to the pelvis from the open abdomen. Wound bowling alley manager was replaced by wound care specialty nurses after evaluation was completed. Objective Data Vital Signs Vital Signs: Vital Signs - 24 hr 03/26/22 18:36 03/26/22 21:10 03/26/22 19:56 Temperature Pulse Rate 109 H 108 H 118 H Respiratory Rate 24 H Blood Pressure Pulse Oximetry 100 98 Oxygen Delivery Mechanical Ventilation Mechanical Ventilation Fraction of Inspired Oxygen 03/26/22 19:56 03/26/22 19:56 03/26/22 20:06 Temperature Pulse Rate 118 H 118 H 118 H Respiratory Rate 25 H 25 H 25 H Blood Pressure Pulse Oximetry 98 Oxygen Delivery Mechanical Ventilation Fraction of Inspired Oxygen 03/26/22 22:16 03/26/22 20:00 03/26/22 20:00 Temperature 38.7 C H 38.3 C H Pulse Rate 116 H Respiratory Rate 26 H Blood Pressure 115/77
[2022-03-27 20:27] LABS: Glucose Point of Care 93 mg/dl (65-105)
[2022-03-28] VITALS (28 sets, daily range): BP systolic 97–124; BP diastolic 1–88; PULSE 77–117; RESP 12–100; TEMP 36.6–38.1; O2SAT 92–100
[2022-03-28 00:01] LABS: Glucose Point of Care 119 mg/dl (65-105)
[2022-03-28] MEDS: MORPHINE SULFATE (*CRX) 2 MG/ML INJ IV PUSH (00:03)
[2022-03-28] MEDS: CENTRAL LINE FLUSH 10 ML IV PUSH ×7 (00:04→22:00)
[2022-03-28] MEDS: MIDAZOLAM 100MG/NS 100ML(*CRX) 100 MG/100 ML BAG IV CONT (02:11)
[2022-03-28] MEDS: LEVALBUTEROL NEB 1.25 MG/3 ML 0.63 MG INHALATION ×4 (02:22→20:30)
[2022-03-28 04:18] LABS: Hematocrit 23.8 % (37.0-47.0); Hemoglobin 7.6 g/dL (12.0-15.0); Mean Corpuscular HGB Conc 31.9 g/dl (32-36); Mean Corpuscular Hemoglobin 29.8 pg (26-34); Mean Corpuscular Volume 93.3 fl (80-100); Mean Platelet Volume 11.2 fl (7.4-10.4); Platelet Count Result 262 k/mm3 (150-375); Red Blood Count 2.55 M/mm3 (4.2-5.4); White Blood Count 17.9 K/mm3 (4.5-10.0)
[2022-03-28 04:23] LABS: Glucose Point of Care 141 mg/dl (65-105)
[2022-03-28 04:38] LABS: Band Neutrophils Percent 13 % (0-6); Lymphocytes Absolute Manual 2.32 K/mm3 (1.1-4.5); Monocytes Absolute Manual 1.25 K/mm3 (0.1-0.90); Monocytes Percent Manual 7 % (3-9); Neutrophils Absolute Manual 14.32 K/mm3 (1.7-7.2); Neutrophils Percent Manual 67 % (46-73); Platelet Estimate Adequate (Adequate); Total Cells Counted 100
[2022-03-28 04:39] LABS: Hypochromasia 1+ (NORMAL); Poikilocytosis 1+ (NORMAL)
[2022-03-28 04:51] LABS: Alanine Aminotransferase 19 U/L (6-35); Albumin Level 2.4 g/dL (3.5-5.1); Alkaline Phosphatase 106 U/L (38-126); Anion Gap -2 mmol/L (8-16); Aspartate Amino Transferase 29 U/L (14-36); Bilirubin,Total 0.3 mg/dL (0.2-1.3); Blood Urea Nitrogen 32 mg/dL (7-17); Calcium 7.7 mg/dL (8.4-10.2); Carbon Dioxide 34 mmol/L (22-30); Chloride 102 mmol/L (98-107); Estimated CRCL calculation 147 ml/min; Estimated Glomerular Filt Rate > 60; Glucose 135 mg/dL (65-110); Magnesium 1.7 mg/dL (1.6-2.3); Potassium 4.3 mmol/L (3.4-5.0); Sodium 134 mmol/L (137-145)
[2022-03-28 05:01] LABS: Alveolar/Arterial O2 Gradient 39.7 mmHg; Base Excess ABG 6.3 mEq/l (+/-2.0); Carboxyhemoglobin 0.2 % THb (0-2.0); Fractional Inspired Oxygen 28 %; HCO3 ABG 30.8 mEq/l (22.0-26.0); Methemoglobin ABG 0.6 %THb (0-1.5); Oxygen Content ABG 12.4 %vol (16.0-22.0); Oxygen Saturation ABG 97.7 % (95.0-100.0); Oxyhemoglobin 95.7 % THb (90.0-100.0); PCO2 ABG 44.3 mmHg (35.0-45.0); PO2 ABG 97.5 mmHg (80.0-100.0); PO2 FiO2 Ratio Arterial Blood 3.48 %; Reduced Hemoglobin 3.5 %THb (0-5.0); Total Hemoglobin 9.1 g/dL (12.0-18.0)
[2022-03-28 05:06] LABS: Device VENTILATOR; Modified Allen's Test Unable to perform; Site Drawn LEFT RADIAL
[2022-03-28 05:07] LABS: Arterial Blood Gas PEEP 5 cmH2O; Arterial Blood Gas Vent Mode ASV
[2022-03-28] MEDS: CENTRAL LINE FLUSH 20 ML IV PUSH ×2 (05:32)
[2022-03-28] MEDS: MICAFUNGIN SODIUM 100 MG in SODIUM CHLORIDE 0.9% IV 100 ML IVPB (09:16)
[2022-03-28] MEDS: BUMETANIDE INJ 1 MG/4 ML VIAL IV PUSH (09:24)
[2022-03-28] MEDS: MINERAL OIL/WHITE PETROLATUM OINTMENT 1 APPLIC EACH EYE ×2 (09:25→20:08)
[2022-03-28] MEDS: PANTOPRAZOLE SODIUM IV 40 MG VIAL IV PUSH ×2 (09:25→20:08)
[2022-03-28] MEDS: FENTANYL 2,500MCG/NS250ML(*CRX 2,500 MCG/250 ML BAG IV CONT (09:33)
[2022-03-28] MEDS: MAGNESIUM SULF 2 GM/WATER 50ML 2 GM/50 ML BAG IVPB (09:45)
[2022-03-28 10:05] LABS: Triglycerides 127 mg/dL (<150)
[2022-03-28 12:11] LABS: Glucose Point of Care 134 mg/dl (65-105)
--- NOTE | 2022-03-28 13:00 | WPDINTPN ---
Progress Note: A&P Assessment and Plan (1) Septic shock: Code(s): A41.9 - Sepsis, unspecified organism; R65.21 - Severe sepsis with septic shock Status: Acute Assessment and Plan: RESOLVED Septic shock on, acute kidney injury, status post bowel surgery, with Gastrografin upper GI series showing small-bowel perforation, leakage -patient has received significant amount of IV fluids and is now off of IV fluids and is now getting diuretics since she is off pressors -03/09/2022: Blood cultures growing Pseudomonas 2/2 bottles -03/12 repeat blood cultures sent, Scott was replaced, urine culture is growing Leslie, - 03/15 sputum culture is growing stenotrophomonas on levaquin (03/15) treat for 14 days -03/16: Replete blood cultures are negative x2 -03/21: Cultures from abdominal drainage growing Yeast -03/22: culture from pelvic drain growing Yeast 03/22/2022: Discussed with surgeon, C unable to accept the patient at this time, patient to have a CT scan of the abdomen and pelvis, if there is any and collection of fluid, IR will drain it. 03/25/2022: CT scan of the abdomen and pelvis with oral and IV contrast Continued extravasation of contrast material from upper anterior mid abdominal proximal small bowel, largely into the subcutaneous tissues of the open anterior abdominal wall wound; fistulous tracts from the upper mid anterior abdominal small bowel segment into the subcutaneous tissues are noted. 03/25 -repeat blood and urine cultures sent and are negative till now 03/26 repeat sputum culture sent and growing Gram-positive cocci. Identification and susceptibilities are pending - 03/16 -discharge from lower half of the incision and wound infection was suspected.? Lower half the incision was opened by general surgery to drain - 03/16-femoral central venous catheter removed and a PICC line placed - 03/17: Lower extremity venous Dopplers: Negative for DVT bilaterally - 03/18-normal lipase -03/14 discontinued albumin and hydrocortisone -03/22/2022: A lower extremity venous Dopplers were negative for DVT -patient continues to have elevated WBC and is febrile -source continues to be peritonitis - Continue Levaquin (03/15), imipenem (03/16) and micafungin (03/15) -vancomycin was discontinued on 03/19/2022 and will be restarted on 03/28 for GPC in sputum. -continue p.r.n. Tylenol IV -patient is going back to OR for laparotomy and drain placement -03/15 CT scan of the abdomen and pelvis for continues fevers IMPRESSION: 1. Diffuse lung disease, likely pulmonary edema. 2. Near complete collapse of the right lower lobe. 3. Moderate-sized right and small left pleural effusions. 4. Moderate volume ascites with interval decrease since the comparison examination. New right upper quadrant drain, consistent with surgical change. No leakage of enteric contrast identified. (2) Acute respiratory failure: Code(s): J96.00 - Acute respiratory failure, unspecified whether with hypoxia or hypercapnia Status: Acute Assessment and Plan: Acute respiratory failure likely related to septic shock, acidosis -patient was intubated on 03/09, 03/14 extubated, 03/15 Reintubated -currently on CMV mode of ventilation, 28 % FiO2, peep of 5. Will place patient on ASV -significant?overall?volume overload overall the third-spacing, generalized weakness -continue diuresis -continue bronchodilators -sedated with Versed infusion only, placed patient on pressure support ventilation 02/02, patient tolerated well for about an hour start to get tachycardic. Patient was placed back on ASV mode -place patient on pressure support ventilation 08/26 this morning, she tolerated for about 1.5 hours and was tachycardic and tachypneic and when I asked if she was short of breath she said yes, patient was placed back ASV. -03/26/2022 Dr. Doherty discussed with Dr. Roman and consulted ENT for tracheostomy. And is scheduled for tracheostomy tomorrow - 03/27 -I tried pres
--- NOTE | 2022-03-28 13:02 | PCFNICU ---
ICU Rounding Note: ICU Rounding Note: Pt current nutrition is TPN clinimix E 5/15 at 80ml/hr with 250 20% lipids running q 48hrs. Nutrition recommendation: Continue with current plan of care. Last recorded weight is 60.7 kg - wt down from 66kg on admit. Bowel Motility: +BM 03/26 Labs Reviewed: hgb:7.6, HCT:23.8, NA:134, BUN:32, Cr:0.3, Gluc:135 Meds Noted: Bumex, Lantus, Fentanyl, Versed, Flagyl, Albumin, Protonix, Solu Cortef, Xopenex Skin: Wound vac Additional Notes: Pt remains on mechanical ventilation. Pt continues on same TPN clinimix E 5/15 at 80ml/hr with lipids q 48hrs. This totals 1863kcals/96 gms protein. Agree with diet orders. Following daily in ICU rounds. Will monitor every 3 days.
--- NOTE | 2022-03-28 13:08 | WPDHPUPDATE1 ---
History and Physical Update Update Date/Time: 03/28/22 13:08 History and Physical has been reviewed, including an updated exam of the patient. There are NO changes in the patient's condition. Risks, benefits, and alternatives have been discussed and questions answered. Patient agrees to proceed with procedure.
--- NOTE | 2022-03-28 13:12 | WPDANESEPPF ---
Anes - Initial Pre Proc Eval Procedure: Operation Date: 03/07/22 12:00 Proposed Procedures p Hemigastrectomy with Gastroenterostomy, - Will Roman MD s Open Repair Left Spigelian Hernia - Will Roman MD Operation Date: 03/10/22 10:00 Proposed Procedures p Exploratory Laparotomy, Pos Bowel Resec - Mel Avelar MD Operation Date: 03/28/22 13:00 Proposed Procedures p Tracheostomy - Kwesi Smith MD s Exploratory Laparotomy - Will Roman MD Date/Time: 03/28/22 13:12 Surgeon: Will Roman MD Pre Op Diagnosis: peptic ulcer disease with stricture Patient Data Age: 47 Gender: F Height: 1.6 m Weight: 60.7 kg Last Vital Signs Temp 37.9 C H 03/28/22 10:00 Pulse 100 03/28/22 11:21 Resp 19 03/28/22 10:28 BP 120/81 03/28/22 10:00 Pulse Ox 100 03/28/22 11:21 O2 Del Method Mechanical Ventilation 03/28/22 11:21 O2 Flow Rate 12 03/14/22 14:00 FiO2 28 03/28/22 11:21 Allergies Allergy/AdvReac Type Severity Reaction Status Date / Time No Known Allergies Allergy Verified 03/07/22 10:12 Home Medications Medication Instructions Recorded Confirmed Type estradiol 1 mg tablet 1 mg PO DAILY 01/04/21 03/07/22 History ibuprofen 800 mg tablet 800 mg PO TID PRN Pain 01/04/21 03/07/22 History amitriptyline 50 mg tablet See Rx Instructions .Route 10/12/21 03/07/22 Rx .COMPLEX #30 tabs omeprazole 20 mg capsule,delayed 40 mg PO DAILY #60 caps 02/11/22 03/07/22 Rx release topiramate 100 mg tablet 100 mg PO BID 03/04/22 03/07/22 History bupropion HCl 150 mg 24 hr tablet, 150 tablet PO QAM 03/07/22 03/07/22 History extended release Laboratory Tests 03/27/22 03/27/22 03/27/22 15:56 17:42 20:24 WBC RBC Hgb Hct MCV MCH MCHC RDW Plt Count MPV Immature Gran % (Auto) Neut % (Auto) Lymph % (Auto) [place] % (Auto) Eos % (Auto) Baso % (Auto) Lymph # (Auto) [place] # (Auto) Eos # (Auto) Baso # (Auto) Abs Immat Gran (auto) Absolute Neuts (auto) Absolute Nucleated RBC Total Counted Neutrophils % (Manual) Band Neutrophils % Lymphocytes % (Manual) Monocytes % (Manual) Nucleated RBC % Abs Neuts (Manual) Abs Lymphs (Manual) Abs Monocytes (Manual) Platelet Estimate Hypochromasia Poikilocytosis Puncture Site ABG pH ABG pCO2 ABG pO2 ABG PO2/FiO2 Ratio ABG HCO3 ABG O2 Saturation ABG O2 Content ABG Base Excess A-a Gradient Oxyhemoglobin Carboxyhemoglobin Methemoglobin Reduced Hemoglobin Total Hemoglobin O2 Delivery Device O2 Liters/Min Minute Volume Vent Rate Vent Mode FiO2 Tidal Volume PEEP Peak Inspir Pressure Pressure Support Sodium Potassium Chloride Carbon Dioxide Anion Gap BUN Creatinine Estim Creat Clear Calc Estimated GFR Glucose POC Capillary Glucose 113 mg/dl H mg/dl 87 mg/dl mg/dl 93 mg/dl mg/dl (65-105) (65-105) (65-105) Calcium Magnesium Total Bilirubin AST ALT Alkaline Phosphatase Total Protein Albumin Triglycerides 03/27/22 03/28/22 03/28/22 23:59 04:03 04:10 WBC 17.9 K/mm3 H K/mm3
--- NOTE | 2022-03-28 13:50 | PC.NURSE ---
To OR per [transport, respiratory, and this nurse ], IV [right double lumen picc and left subclavian triple lumen krupa catheter]. Report given to [OR nurse and anesthesia at bedside].
--- NOTE | 2022-03-28 14:49 | P.PNCROSS_ITS ---
Event Note Event Note Event Note: Spoke to Dr. Cobb with Critical Care surgery at [facility]. Discussed case with him in detail. He requested operating reports to be faxed to [facility] transfer center which I have done. He will review operating reports, discuss with Dr. Roman before making final decision on transfer.
--- NOTE | 2022-03-28 14:49 | PM.EVENT ---
Event Note Event Note Event Note: Spoke to Dr. Cobb with Critical Care surgery at [facility]. Discussed case with him in detail. He requested operating reports to be faxed to [facility] transfer center which I have done. He will review operating reports, discuss with Dr. Roman before making final decision on transfer.
[2022-03-28] MEDS: LIDO 1%/EPINEPHRINE/PF 1:200,000 30 ML VIAL XX (15:10)
--- NOTE | 2022-03-28 15:13 | W.PM.PROC2 ---
Procedure Note - Detailed Date of Procedure 03/28/22 Pre-op Diagnosis Enterocutaneous fistula, necrotic wound fascia, open abdominal wound Post-op Diagnosis Same Procedure Performed Excisional debridement skin and subcutaneous, abdominal exploration with placement of additional intra-abdominal drains, removal pigtail catheter drain Surgeon Will Roman MD Business Continuity Planner Chantelle Morillo RADIO COMMUNICATION COORDINATOR RADIO COMMUNICATION COORDINATOR Anesthesia General Indications Patient is a 47-year-old woman who underwent hemigastrectomy with Lyly-en-Y gastrojejunostomy. She had a duodenal stump leak on postoperative day 3. And was re-explored. The duodenal stump was closed but unfortunately the patient developed enterocutaneous fistulas and has become septic. Her abdominal wound had to be opened and she is still on mechanical ventilator. She continues to have fevers and was having a rising white blood cell count. She has been intubated now for over 2 weeks and is to have a tracheostomy placed today by Dr. Smith. While she is down in the operating room, we are going to debride some additional fascia as well as place further intra-abdominal drains to facilitate better wound drainage. Her pigtail catheter placed under CT guidance was no longer draining any meaningful amounts of fluid and was also removed at the procedure. Findings Two enterocutaneous fistulas in the wound, evidence of right upper quadrant green enteric content suggestive of duodenal stump leak, necrotic fascia and subcutaneous. Description of Procedure Patient was induced into general anesthesia. The wound regional training manager was removed. The right-sided 15 Yor[address] Kyle drain was in place but the suture was very loose. The pigtail catheter was removed without difficulty from the pelvis. The abdomen was prepped and draped. I carefully excisionally debrided necrotic subcutaneous and fascia from the wound edges and from some of the fascia in the cephalad aspect of the wound. Some additional suture material was removed. The bowel had congealed to itself pretty well with to obvious bowel openings in what appeared to be the entero enteric anastomosis. This was evident the center of the wound. Dark greenish fluid was coming through the ANGELA drain and seemed to be coming from the duodenal fistula. Lifting each of the abdominal wall sides there was lateral space in the abdomen where fluid could easily accumulate. On the right side, I put 2 additional 19 Yoruba Kyle drains. The more cephalad reached up over the dome of the liver towards the diaphragm the more caudad went towards the pelvis. The pelvis itself was not really accessible and no adhesions were taken down to try to gain access due to the high risk of further bowel injury. These 2 drains were brought out laterally on the right side. The suture was cut to the existing 12 Yoruba Kyle drain. 2-0 silk suture were then used to suture each of these 3 right-sided drains in place securely to the abdominal wall skin. On the patient's left side there was a wide area but this also did not include the pelvis. Another 19 Yoruba Kyle drain was placed here and the end was brought up over the left lateral segment of the liver as well as down the lateral aspect of the left abdominal cavity. It was also brought out through a laterally placed site. This drain was then sutured to the skin as well with 2-0 silk. This completed the laparotomy portion of the procedure. The wound specialty nurses were present in the operating room. We then cleaned the abdominal wall skin and she placed another wound regional training manager over the open wound. Gauze dressings were placed over the exit sites of the 2 wounds. Patient was then turned over to Dr. Smith to proceed with tracheostomy which he will dictate in a separate procedure. Estimated Blood Loss -2 Urine Output 375 Drains Yes ( 2 #19 Fr Kyle drains right side abdomen, 1 #19 Fr Kyle left abdomen) Packing No (Wound regional training manager replaced) Pathology None sent Complications No immediat
[2022-03-28] MEDS: FAT EMULSIONS IV 20% 250 ML 20.8 ML IVPB (16:19)
[2022-03-28] MEDS: AMINO ACIDS 5%/D15W/E-LYTES/CA 2,000 ML with MULTIVITAMINS-12 INJ VIAL 1 2.5 ML, MULTIV... 80 ML IV CONT (16:28)
--- NOTE | 2022-03-28 16:31 | W.PM.PROC2 ---
Procedure Note - Detailed Date of Procedure 03/28/22 Pre-op Diagnosis Respiratory failure respiratory insufficiency Post-op Diagnosis Same Procedure Performed Tracheostomy Surgeon Kwesi Smith MD Anesthesia General Indications See above Findings Trach placed between rings 2 and 3 6 Shiley cuffed Description of Procedure Patient identified consent verified. Patient prepped and draped. Time-out performed. Surgical pen utilized to make garrido 2 fingerbreadths above sternal below the cricoid. Cricoid was somewhat high. 1 cc 1% lidocaine 1000 parts injected. Fifteen blade utilized at the skin. Bovie dissection to the through the subcutaneous tissues no bleeding. Medication Review [employer] placed a right confirmed to be in the middle throughout the entire procedure. Bovie setting 10 utilized to dissect to cartilage and through the thyroid isthmus no bleeding. Soft tissue skeletonized with peanuts and Bovie off the tracheal rings cricoid palpated above cricoid hook placed. Anesthesia the tube in the standard. Tracheostomy made after the cricoid was placed anesthesia removed the tube was no longer visible and tracheotomy. Trach placed tube inflated anesthesia confirmed end-tidal CO2 cricoid removed [employer] is removed 4 corner trach sutures placed 0 silk velcro trach ties placed very tightly. Drain sponge placed. I performed all dictated portions of the procedure. No complications. Estimated Blood Loss 1 Drains No Packing No Pathology None sent Complications No immediate complications Condition Stable Disposition ICU
[2022-03-28 18:19] LABS: Glucose Point of Care 82 mg/dl (65-105)
[2022-03-29] VITALS (41 sets, daily range): BP systolic 98–115; BP diastolic 54–68; PULSE 72–96; RESP 10–20; TEMP 37–37.6; O2SAT 100
[2022-03-29 00:46] LABS: Glucose Point of Care 99 mg/dl (65-105)
[2022-03-29] MEDS: LEVALBUTEROL NEB 1.25 MG/3 ML 0.63 MG INHALATION ×4 (02:15→20:15)
[2022-03-29] MEDS: CENTRAL LINE FLUSH 10 ML IV PUSH ×7 (05:35→21:08)
[2022-03-29 05:47] LABS: Alveolar/Arterial O2 Gradient 37.9 mmHg; Base Excess ABG 4.9 mEq/l (+/-2.0); Carboxyhemoglobin 0.3 % THb (0-2.0); Fractional Inspired Oxygen 28 %; HCO3 ABG 29.7 mEq/l (22.0-26.0); Methemoglobin ABG 0.7 %THb (0-1.5); Oxygen Content ABG 10.6 %vol (16.0-22.0); Oxyhemoglobin 95.7 % THb (90.0-100.0); PCO2 ABG 45.6 mmHg (35.0-45.0); PO2 ABG 107.9 mmHg (80.0-100.0); PO2 FiO2 Ratio Arterial Blood 3.85 %; Reduced Hemoglobin 3.3 %THb (0-5.0); pH ABG 7.432 (7.350-7.450)
[2022-03-29 05:49] LABS: Modified Allen's Test Unable to perform; Site Drawn LEFT RADIAL; Total Hemoglobin 7.7 g/dL (12.0-18.0)
[2022-03-29 05:50] LABS: Device VENTILATOR
[2022-03-29 05:51] LABS: Arterial Blood Gas PEEP 5 cmH2O; Arterial Blood Gas Vent Mode ASV
[2022-03-29 05:55] LABS: Hematocrit 23.1 % (37.0-47.0); Mean Corpuscular HGB Conc 30.3 g/dl (32-36); Mean Corpuscular Hemoglobin 29.5 pg (26-34); Mean Corpuscular Volume 97.5 fl (80-100); Platelet Count Result 255 k/mm3 (150-375); Red Blood Count 2.37 M/mm3 (4.2-5.4); Red Cell Distribution Width 21.7 % (11.5-14.5); White Blood Count 19.6 K/mm3 (4.5-10.0)
[2022-03-29 06:06] LABS: Anion Gap 0 mmol/L (8-16); Blood Urea Nitrogen 25 mg/dL (7-17); Calcium 7.5 mg/dL (8.4-10.2); Carbon Dioxide 33 mmol/L (22-30); Chloride 97 mmol/L (98-107); Estimated CRCL calculation 147 ml/min; Estimated Glomerular Filt Rate > 60; Glucose 127 mg/dL (65-110); Potassium 4.1 mmol/L (3.4-5.0); Sodium 130 mmol/L (137-145)
--- NOTE | 2022-03-29 08:04 | PM.PNGS ---
Progress Note: A&P Assessment and Plan (1) Fever: Code(s): R50.9 - Fever, unspecified Status: Acute Assessment and Plan: Improved in the 12-14 hours following placement of the additional ANGLEA drains and debridement of necrotic wound material done yesterday afternoon. White blood cell count 13229 but this could be from the tracheostomy and laparotomy done yesterday. Will need to continue to monitor this. Hopefully fevers were due to undrained duodenal content and now will resolve with the additional placement of drains. (2) Enterocutaneous fistula: Code(s): K63.2 - Fistula of intestine Status: Acute Assessment and Plan: Total drainage about 2000 cc per day. Continue to monitor. (3) Protein calorie malnutrition: Code(s): E46 - Unspecified protein-calorie malnutrition Status: Acute Assessment and Plan: Continue TPN with evnmt-nwqeb-rlo lipids as before (4) Respiratory failure: Code(s): J96.90 - Respiratory failure, unspecified, unspecified whether with hypoxia or hypercapnia Status: Acute Assessment and Plan: tracheostomy done yesterday. Looks great. Patient seems to be tolerating that well. Much more alert this morning. (5) Anemia: Code(s): D64.9 - Anemia, unspecified Status: Acute Assessment and Plan: Hemoglobin 7. Discuss with greenhouse manager regarding any additional transfusion. Subjective Subjective Date/Time Seen: 03/29/22 08:04 Post Op day: 1 ( placement additional right-sided ANGELA drains) Patient reports: afebrile ( Afebrile since 4:00 a.m. yesterday) and other ( Nonverbal but nods to questions. Comfortable but still having some abdominal pain.) Review of Systems Review of Systems: ROS unobtainable: Yes unobtainable due to medical condition Exam Narrative: afebrile since 4:00 p.m. yesterday. Const: General: comfortable, alert ( Watching baseball game) and awake Nutritional Appearance: thin GI: Inspection: non-distended, incision ( wound manager ent in place, no leakage, open wound as before) and other ( all 3 right-sided ANGELA drains date draining green fluid ) GI Palp: Yes Soft to palpation, Yes Tenderness to palpation present (GI) ( Mild diffuse tenderness) and No Guarding due to palpation present (GI) Auscultation: absent bowel sounds Other: right-sided ANGELA drains all draining green enteric content suggestive of duodenal leak. Left-sided ANGELA drain is cloudy serosanguineous. Minimal from left-sided drain. Abdominal wound is die cleaner after debridement. Enteric content in wound manager ent and in wound. Urinary Catheter: Urinary Catheter: patent and draining Objective Data Vital Signs Vital Signs: Vital Signs - 24 hr 03/28/22 08:45 03/28/22 08:45 03/28/22 08:54 Temperature Pulse Rate 94 99 94 Respiratory Rate 18 20 Blood Pressure Pulse Oximetry 92 Oxygen Delivery Mechanical Ventilation Fraction of Inspired Oxygen 03/28/22 09:33 03/28/22 10:00 03/28/22 10:00 Temperature 37.9 C H Pulse Rate 97 94 95 Respiratory Rate 17 19 Blood Pressure 120/81 Pulse Oximetry 98 Oxygen Delivery Fraction of Inspired Oxygen 03/28/22 10:28 03/28/22 11:21 03/28/22 12:00 Temperature Pulse Rate 103 H 100 Respiratory Rate 19 Blood Pressure Pulse Oximetry 100 100 Oxygen Delivery Mechanical Ventilation Mechanical Ventilation Fraction of Inspired Oxygen 03/28/22 12:00 03/28/22 12:00 03/28/22 14:00 Temperature 37.9 C H 37.6 C H Pulse Rate 113 H 97 Respiratory Rate 22 H 17 Blood Pressure 113/71 121/88 Pulse Oximetry 100 100 Oxygen Delivery Fraction of Inspired Oxygen 03/28/22 12:00 03/28/22 17:16 03/28/22 16:00 Temperature Pulse Rate 108 H 100 Respiratory Rate Blood Pressure Pulse Oximetry 100 100 Oxygen Delivery Mechanical Ventilation Mechanical Ventilation Fraction of Inspired Oxygen 03/28/22 16:00 03/28/22
[2022-03-29] MEDS: MICAFUNGIN SODIUM 100 MG in SODIUM CHLORIDE 0.9% IV 100 ML IVPB (08:29)
[2022-03-29] MEDS: MINERAL OIL/WHITE PETROLATUM OINTMENT 1 APPLIC EACH EYE ×2 (08:35→21:08)
[2022-03-29] MEDS: PANTOPRAZOLE SODIUM IV 40 MG VIAL IV PUSH ×2 (08:35→21:07)
[2022-03-29] MEDS: BUMETANIDE INJ 1 MG/4 ML VIAL IV PUSH (08:35)
[2022-03-29] MEDS: SODIUM CHLORIDE 0.9% IV 250 ML 30 ML IV CONT (08:36)
--- NOTE | 2022-03-29 11:41 | PCNFU ---
Nutrition Follow-Up Complete: Altered GI function as related to surgery as evidenced by NPO Goal: Meet estimated nutritional needs Pt current nutrition is TPN clinimix E 5/15 at 80ml/hr with 250 20% lipids running q 48hrs. Nutrition recommendation: Continue with current plan of care. Last recorded weight is 62.1 kg - up from 60.7kg. Bowel Motility: No recent recorded BM Labs Reviewed: hgb:7.0, HCT:23.1, Alb:2.4, NA:130, BUN:25, Cr:0.3, Glu:127, TG now WNL at 127 Meds Noted: Bumex, Lantus, Fentanyl, Versed, Flagyl, Albumin, Protonix, Solu Cortef, Xopenex Skin: wound vac Additional Notes: Pt remains on mechanical ventilation, now with trach placement. Pt continues on same TPN clinimix E 5/15 at 80ml/hr with lipids q 48hrs. This totals 1863kcals/96 gms protein. Agree with diet orders. Will monitor in ICU rounds. Follow up every Friday and Friday
[2022-03-29 12:13] LABS: Glucose Point of Care 106 mg/dl (65-105)
--- NOTE | 2022-03-29 12:56 | WPDINTPN ---
Progress Note: A&P Assessment and Plan (1) Septic shock: Code(s): A41.9 - Sepsis, unspecified organism; R65.21 - Severe sepsis with septic shock Status: Acute Assessment and Plan: RESOLVED Septic shock on, acute kidney injury, status post bowel surgery, with Gastrografin upper GI series showing small-bowel perforation, leakage -patient has received significant amount of IV fluids and is now off of IV fluids and is now getting diuretics since she is off pressors -03/09/2022: Blood cultures growing Pseudomonas 2/2 bottles -03/12 repeat blood cultures sent, Scott was replaced, urine culture is growing Leslie, -03/15 sputum culture is growing stenotrophomonas on levaquin (03/15) treat for 14 days -03/16: Replete blood cultures are negative x2 -03/21: Cultures from abdominal drainage growing Yeast -03/22: culture from pelvic drain growing Yeast 03/22/2022: Discussed with surgeon, C unable to accept the patient at this time, patient to have a CT scan of the abdomen and pelvis, if there is any and collection of fluid, IR will drain it. 03/25/2022: CT scan of the abdomen and pelvis with oral and IV contrast Continued extravasation of contrast material from upper anterior mid abdominal proximal small bowel, largely into the subcutaneous tissues of the open anterior abdominal wall wound; fistulous tracts from the upper mid anterior abdominal small bowel segment into the subcutaneous tissues are noted. 03/25 -repeat blood and urine cultures sent and are negative till now 03/26 repeat sputum culture sent and growing Gram-positive cocci. Identification and susceptibilities are pending - 03/16 -discharge from lower half of the incision and wound infection was suspected.? Lower half the incision was opened by general surgery to drain - 03/16-femoral central venous catheter removed and a PICC line placed - 03/17: Lower extremity venous Dopplers: Negative for DVT bilaterally - 03/18-normal lipase -03/14 discontinued albumin and hydrocortisone -03/22/2022: A lower extremity venous Dopplers were negative for DVT -patient continues to have elevated WBC and is febrile -source continues to be peritonitis -Continue Levaquin (03/15), imipenem (03/16) and micafungin (03/15) -vancomycin was discontinued on 03/19/2022 and will be restarted on 03/28 for GPC in sputum. -continue p.r.n. Tylenol IV -fever curve down since patient went for ex lap 03/29 -03/15 CT scan of the abdomen and pelvis for continues fevers IMPRESSION: 1. Diffuse lung disease, likely pulmonary edema. 2. Near complete collapse of the right lower lobe. 3. Moderate-sized right and small left pleural effusions. 4. Moderate volume ascites with interval decrease since the comparison examination. New right upper quadrant drain, consistent with surgical change. No leakage of enteric contrast identified. (2) Acute respiratory failure: Code(s): J96.00 - Acute respiratory failure, unspecified whether with hypoxia or hypercapnia Status: Acute Assessment and Plan: Acute respiratory failure likely related to septic shock, acidosis -patient was intubated on 03/09, 03/14 extubated, 03/15 Reintubated -currently on CMV mode of ventilation, 28 % FiO2, peep of 5. Will place patient on ASV -significant?overall?volume overload overall the third-spacing, generalized weakness -continue diuresis -continue bronchodilators - 03/29 status post tracheostomy --continue ASV mode -discontinued Versed infusion. Continue fentanyl infusion for Lexa sedation. Will use p.r.n. Versed as needed -CT chest 03/15 IMPRESSION: 1. Diffuse lung disease, likely pulmonary edema. 2. Near complete collapse of the right lower lobe. 3. Moderate-sized right and small left pleural effusions. (3) Pyloric stricture: Code(s): K31.1 - Adult hypertrophic pyloric stenosis Status: Chronic Assessment and Plan: 03/07/2022: Status post hemigastrectomy with Lyly-en-Y jejunostomy, repair of left spigel
--- NOTE | 2022-03-29 15:44 | P.PNCROSS_ITS ---
Event Note Event Note Event Note: Spoke to [facility] transfer center again regarding patient transfer. Provided them w ith updated information. They will try to set up a call between [facility] surgeon and Dr. Roman later today.
--- NOTE | 2022-03-29 15:44 | PM.EVENT ---
Event Note Event Note Event Note: Spoke to [facility] transfer center again regarding patient transfer. Provided them with updated information. They will try to set up a call between [facility] surgeon and Dr. Roman later today.
[2022-03-29] MEDS: AMINO ACIDS 5%/D15W/E-LYTES/CA 2,000 ML with MULTIVITAMINS-12 INJ VIAL 1 2.5 ML, MULTIV... 80 ML IV CONT (16:38)
[2022-03-29 17:41] LABS: Glucose Point of Care 103 mg/dl (65-105)
[2022-03-29] MEDS: FENTANYL 2,500MCG/NS250ML(*CRX 2,500 MCG/250 ML BAG 10 MCG IV CONT (21:04)
[2022-03-29 22:39] LABS: Vancomycin Trough 9.8 ug/mL (10.0-20.0)
[2022-03-30] VITALS (42 sets, daily range): BP systolic 100–138; BP diastolic 55–76; PULSE 71–110; RESP 9–17; TEMP 37–37.6; O2SAT 99–100
[2022-03-30] LABS: Glucose Point of Care 131 mg/dl (65-105)
[2022-03-30] MEDS: LEVALBUTEROL NEB 1.25 MG/3 ML 0.63 MG INHALATION ×4 (02:02→20:01)
[2022-03-30 04:00] LABS: Hematocrit 28.3 % (37.0-47.0); Hemoglobin 8.8 g/dL (12.0-15.0); Mean Corpuscular HGB Conc 31.1 g/dl (32-36); Mean Corpuscular Hemoglobin 28.4 pg (26-34); Mean Corpuscular Volume 91.3 fl (80-100); Mean Platelet Volume 10.3 fl (7.4-10.4); Platelet Count Result 254 k/mm3 (150-375); Red Cell Distribution Width 22.8 % (11.5-14.5); White Blood Count 18.6 K/mm3 (4.5-10.0)
[2022-03-30 04:22] LABS: Anion Gap -1 mmol/L (8-16); Blood Urea Nitrogen 21 mg/dL (7-17); Calcium 7.6 mg/dL (8.4-10.2); Carbon Dioxide 34 mmol/L (22-30); Chloride 97 mmol/L (98-107); Estimated CRCL calculation 147 ml/min; Estimated Glomerular Filt Rate > 60; Glucose 130 mg/dL (65-110); Potassium 3.9 mmol/L (3.4-5.0); Sodium 130 mmol/L (137-145)
[2022-03-30 06:21] LABS: Alveolar/Arterial O2 Gradient 1.6 mmHg; Base Excess ABG 5.4 mEq/l (+/-2.0); Carboxyhemoglobin 0.3 % THb (0-2.0); Device VENTILATOR; Fractional Inspired Oxygen 28 %; HCO3 ABG 29.8 mEq/l (22.0-26.0); Methemoglobin ABG 0.6 %THb (0-1.5); Modified Allen's Test Unable to perform; Oxygen Content ABG 14.4 %vol (16.0-22.0); Oxyhemoglobin 97.1 % THb (90.0-100.0); PCO2 ABG 42.9 mmHg (35.0-45.0); PO2 ABG 147.4 mmHg (80.0-100.0); PO2 FiO2 Ratio Arterial Blood 5.26 %; Site Drawn LEFT RADIAL; Total Hemoglobin 10.3 g/dL (12.0-18.0); pH ABG 7.459 (7.350-7.450)
[2022-03-30 06:22] LABS: Arterial Blood Gas PEEP 5 cmH2O; Arterial Blood Gas Vent Mode ASV
[2022-03-30] MEDS: CENTRAL LINE FLUSH 10 ML IV PUSH ×5 (06:29→20:38)
[2022-03-30 07:43] LABS: Triglycerides 116 mg/dL (<150)
--- NOTE | 2022-03-30 08:45 | P.PNINT_ITS ---
Progress Note: A&P Assessment and Plan (1) Septic shock: Code(s): A41.9 - Sepsis, unspecified organism; R65.21 - Severe sepsis with septic shock Status: Acute Assessment and Plan: Septic shock on, acute kidney injury, status post bowel surgery, with Gastrografin upper GI series showing small-bowel perforation, leakage -patient has received significant amount of IV fluids and is now off of IV fluids and is now getting diuretics since she is off pressors -shock has resolved -03/14 discontinued albumin and hydrocortisone -03/09/2022: Blood cultures growing Pseudomonas 2/2 bottles -03/12 repeat blood cultures sent, Scott was replaced, urine culture is growing Leslie, -03/15 sputum culture is growing stenotrophomonas on levaquin (03/15) plan to treat for 14 days -03/16: Replete blood cultures are negative x2 -03/21: Cultures from abdominal drainage growing Yeast -03/22: culture from pelvic drain growing Yeast 03/22/2022: Discussed with surgeon, [facility] unable to accept the patient at this time, patient to have a CT scan of the abdomen and pelvis, if there is any and collection of fluid, IR will drain it. 03/25/2022: CT scan of the abdomen and pelvis with oral and IV contrast Continued extravasation of contrast material from upper anterior mid abdominal proximal small bowel, largely into the subcutaneous tissues of the open anterior abdominal wall wound; fistulous tracts from the upper mid anterior abdominal small bowel segment into the subcutaneous tissues are noted. 03/25 -repeat blood and urine cultures sent and are negative till now 03/26 repeat sputum culture sent and growing Gram-positive cocci. Identification and susceptibilities are pending - 03/16 -discharge from lower half of the incision and wound infection was suspected.? Lower half the incision was opened by general surgery to drain - 03/16-femoral central venous catheter removed and a PICC line placed - 03/17: Lower extremity venous Dopplers: Negative for DVT bilaterally - 03/18-normal lipase -03/22/2022: A lower extremity venous Dopplers were negative for DVT - 03/29 repeat Excisional debridement skin and subcutaneous, abdominal exploration with placement of additional intra-abdominal drains, removal pigtail catheter drain -patient continues to have elevated WBC although slightly improved and fever curve is down -source continues to be peritonitis -Continue Levaquin (03/15), imipenem (03/16) and micafungin (03/15) -vancomycin was discontinued on 03/19/2022 and was restarted on 03/28 for GPC in sputum on Gram stain. Since cultures have been normal and showed normal floor I will hold vancomycin -continue p.r.n. Tylenol IV -03/15 CT scan of the abdomen and pelvis for continues fevers IMPRESSION: 1. Diffuse lung disease, likely pulmonary edema. 2. Near complete collapse of the right lower lobe. 3. Moderate-sized right and small left pleural effusions. 4. Moderate volume ascites with interval decrease since the comparison examination. New right upper quadrant drain, consistent with surgical change. No leakage of enteric contrast identified. (2) Acute respiratory failure: Code(s): J96.00 - Acute respiratory failure, unspecified whether with hypoxia or hypercapnia Status: Acute Assessment and Plan: Acute respiratory failure likely related to septic shock, acidosis -patient was intubated on 03/09, 03/14 extubated, 03/15 Reintubated -currently on CMV mode of ventilation, 28 % FiO2, peep of 5. Will place patient on ASV -significant?overall?volume overload overall the third-spacing, generalized weakness -continue diuresis -continue bronchodilators - 03/29 status post tracheos
[2022-03-30] MEDS: MINERAL OIL/WHITE PETROLATUM OINTMENT 1 APPLIC EACH EYE ×2 (08:52→20:39)
[2022-03-30] MEDS: BUMETANIDE INJ 1 MG/4 ML VIAL IV PUSH (08:52)
[2022-03-30] MEDS: ENOXAPARIN 40 MG/0.4 ML SYRINGE SUB-Q (08:52)
[2022-03-30] MEDS: MICAFUNGIN SODIUM 100 MG in SODIUM CHLORIDE 0.9% IV 100 ML IVPB (08:53)
[2022-03-30] MEDS: PANTOPRAZOLE SODIUM IV 40 MG VIAL IV PUSH ×2 (08:53→20:39)
--- NOTE | 2022-03-30 09:32 | PM.PNGS ---
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 Status: Acute Assessment and Plan: cont drains and current mgmt, cont TPN, abx, ok to remove NG, ?octreotide, awaiting transfer to [facility] Subjective Subjective Date/Time Seen: 03/30/22 09:32 no acute issues overnight, pain well controlled Review of Systems Review of Systems: ROS unobtainable: Yes unobtainable due to endotracheal tube and unobtainable due to medical condition Exam Const: General: cooperative, comfortable and no acute distress Resp: Auscultation: clear to auscultation bilaterally Cardio: Rate: regular rate Rhythm: regular rhythm GI: Other: drains noted and unchanged, dressing C/D/I, wound general manager c bilious drainage Objective Data Vital Signs Vital Signs: Vital Signs - 24 hr 03/29/22 10:10 03/29/22 10:30 03/29/22 10:00 Temperature 37.4 C 37.4 C Pulse Rate 93 90 91 Respiratory Rate 15 14 Blood Pressure 110/67 111/67 Pulse Oximetry 100 100 Oxygen Delivery Fraction of Inspired Oxygen 03/29/22 10:00 03/29/22 10:57 03/29/22 11:30 Temperature 37.4 C 37.3 C Pulse Rate 91 89 96 Respiratory Rate 15 17 Blood Pressure 105/68 115/62 Pulse Oximetry 100 100 100 Oxygen Delivery Mechanical Ventilation Fraction of Inspired Oxygen 03/29/22 14:27 03/29/22 14:28 03/29/22 14:45 Temperature Pulse Rate 79 89 76 Respiratory Rate 10 L 11 L Blood Pressure Pulse Oximetry 100 Oxygen Delivery Mechanical Ventilation Fraction of Inspired Oxygen 03/29/22 12:00 03/29/22 12:00 03/29/22 12:00 Temperature 37.2 C Pulse Rate 90 Respiratory Rate 14 Blood Pressure 105/58 L Pulse Oximetry 100 Oxygen Delivery Mechanical Ventilation Fraction of Inspired Oxygen 03/29/22 14:00 03/29/22 12:30 03/29/22 13:30 Temperature 37.1 C 37.1 C 37.0 C Pulse Rate 79 81 82 Respiratory Rate 12 11 L 12 Blood Pressure 104/64 107/64 112/59 L Pulse Oximetry 100 100 100 Oxygen Delivery Fraction of Inspired Oxygen 03/29/22 14:30 03/29/22 12:00 03/29/22 14:00 Temperature 37.1 C Pulse Rate 81 86 79 Respiratory Rate 12 Blood Pressure 111/63 Pulse Oximetry 100 Oxygen Delivery Fraction of Inspired Oxygen 03/29/22 15:38 03/29/22 15:38 03/29/22 16:00 Temperature Pulse Rate 82 Respiratory Rate Blood Pressure Pulse Oximetry Oxygen Delivery Mechanical Ventilation Fraction of Inspired Oxygen 28 03/29/22 16:00 03/29/22 17:22 03/29/22 18:00 Temperature 37.2 C Pulse Rate 83 88 86 Respiratory Rate 12 Blood Pressure 108/59 L Pulse Oximetry 100 100 Oxygen Delivery Mechanical Ventilation Fraction of Inspired Oxygen 03/29/22 18:00 03/29/22 18:04 03/29/22 20:15 Temperature 37.6 C Pulse Rate 86 81 Respiratory Rate 10 L 12 11 L Blood Pressure 105/54 L Pulse Oximetry 100 Oxygen Delivery Fraction of Inspired Oxygen 03/29/22 20:10 03/29/22 21:04 03/29/22 21:04 Temperature Pulse Rate 77 86 86 Respiratory Rate 15 15 Blood Pressure Pulse Oximetry 100 Oxygen Delivery Mechanical Ventilation Fraction of Inspired Oxygen 03/29/22 20:00 03/29/22 20:00 03/29/22 20:00 Temperature 37.5 C Pulse Rate 79 Respiratory Rate 13 Blood Pressure 105/64 Pulse Oximetry 100 Oxygen Delivery Mechanical Ventilation Fraction of Inspired Oxygen 03/29/22 20:00 03/29/22 22:00 03/29/22 22:01 Temperature 37.4 C Pulse Rate 81 73 73 Respiratory Rate 11 L Blood Pressure 98/60 L Pulse Oximetry 100 Oxygen Delivery Fraction of Inspired Oxygen 03/29/22 23:10 03/30/22 00:00 03/30/22 00:01 Temperature 37.6 C H Pulse Rate 72 78 Respiratory Rate 11 L Blood Pressure 109/65 Pulse Oximetry 100 100 Oxygen Delivery Mechanical Ventilation Mechanical Ventilation Fraction of Inspired Oxygen 03/30/22 00:00
[2022-03-30 12:15] LABS: Glucose Point of Care 137 mg/dl (65-105)
--- NOTE | 2022-03-30 14:11 | PM.IMPN ---
Progress Note: A&P Assessment and Plan (1) Septic shock: Code(s): A41.9 - Sepsis, unspecified organism; R65.21 - Severe sepsis with septic shock Status: Acute Assessment and Plan: Septic shock, acute kidney injury, status post bowel surgery, with Gastrografin upper GI series showing small-bowel perforation, leakage -patient has received significant amount of IV fluids and is now off of IV fluids and is now getting diuretics since she is off pressors -shock has resolved -03/14 discontinued albumin and hydrocortisone -03/09/2022: Blood cultures growing Pseudomonas 2/2 bottles -03/12 repeat blood cultures sent, Scott was replaced, urine culture is growing Leslie, -03/15 sputum culture is growing stenotrophomonas on levaquin (03/15) plan to treat for 14 days -03/16: Replete blood cultures are negative x2 -03/21: Cultures from abdominal drainage growing Yeast -03/22: culture from pelvic drain growing Yeast 03/22/2022: Discussed with surgeon, [facility] unable to accept the patient at this time, patient to have a CT scan of the abdomen and pelvis, if there is any and collection of fluid, IR will drain it. 03/25/2022: CT scan of the abdomen and pelvis with oral and IV contrast Continued extravasation of contrast material from upper anterior mid abdominal proximal small bowel, largely into the subcutaneous tissues of the open anterior abdominal wall wound; fistulous tracts from the upper mid anterior abdominal small bowel segment into the subcutaneous tissues are noted. 03/25 -repeat blood and urine cultures sent and are negative till now 03/26 repeat sputum culture sent and growing Gram-positive cocci. Identification and susceptibilities are pending - 03/16 -discharge from lower half of the incision and wound infection was suspected.? Lower half the incision was opened by general surgery to drain - 03/16-femoral central venous catheter removed and a PICC line placed - 03/17: Lower extremity venous Dopplers: Negative for DVT bilaterally - 03/18-normal lipase -03/22/2022: A lower extremity venous Dopplers were negative for DVT - 03/29 repeat Excisional debridement skin and subcutaneous, abdominal exploration with placement of additional intra-abdominal drains, removal pigtail catheter drain -patient continues to have elevated WBC although slightly improved and fever curve is down -source continues to be peritonitis -Continue Levaquin (03/15), imipenem (03/16) and micafungin (03/15) -vancomycin was discontinued on 03/19/2022 and was restarted on 03/28 for GPC in sputum on Gram stain. Since cultures have been normal and showed normal floor I will hold vancomycin -continue p.r.n. Tylenol IV -03/15 CT scan of the abdomen and pelvis for continues fevers IMPRESSION: 1. Diffuse lung disease, likely pulmonary edema. 2. Near complete collapse of the right lower lobe. 3. Moderate-sized right and small left pleural effusions. 4. Moderate volume ascites with interval decrease since the comparison examination. New right upper quadrant drain, consistent with surgical change. No leakage of enteric contrast identified. 03/30: Continue treatment plan per Critical Care consultation, fevers resolved since wound drains placed, agree with transfer for higher level of care (2) Acute respiratory failure: Code(s): J96.00 - Acute respiratory failure, unspecified whether with hypoxia or hypercapnia Status: Acute Assessment and Plan: Acute respiratory failure likely related to septic shock, acidosis -patient was intubated on 03/09, 03/14 extubated, 03/15 Reintubated -currently on CMV mode of ventilation, 28 % FiO2, peep of 5. Will place patient on ASV -significant?overall?volume overload overall the third-spacing, generalized weakness -continue diuresis -continue bronchodilators - 03/29 status post tracheostomy --continue ASV mode -discontinued Versed infusion. Continue fentanyl infusion for Lexa sedation. Will use p.r.n. Versed as needed -will try pressure suppor
[2022-03-30] MEDS: FAT EMULSIONS IV 20% 250 ML 20.8 ML IVPB (17:09)
[2022-03-30] MEDS: AMINO ACIDS 5%/D15W/E-LYTES/CA 2,000 ML with MULTIVITAMINS-12 INJ VIAL 1 2.5 ML, MULTIV... 80 ML IV CONT (17:09)
[2022-03-30 17:18] LABS: Glucose Point of Care 134 mg/dl (65-105)
[2022-03-30] MEDS: FENTANYL 2,500MCG/NS250ML(*CRX 2,500 MCG/250 ML BAG 10 MCG IV CONT (22:29)
[2022-03-31] VITALS (31 sets, daily range): BP systolic 99–127; BP diastolic 66–77; PULSE 70–97; RESP 7–19; TEMP 37–37.4; O2SAT 100
[2022-03-31] LABS: Glucose Point of Care 147 mg/dl (65-105)
[2022-03-31] MEDS: LEVALBUTEROL NEB 1.25 MG/3 ML 0.63 MG INHALATION ×3 (02:08→14:20)
[2022-03-31 04:50] LABS: Hematocrit 29.1 % (37.0-47.0); Hemoglobin 9.1 g/dL (12.0-15.0); Mean Corpuscular HGB Conc 31.3 g/dl (32-36); Mean Corpuscular Hemoglobin 28.6 pg (26-34); Mean Corpuscular Volume 91.5 fl (80-100); Platelet Count Result 304 k/mm3 (150-375); Red Blood Count 3.18 M/mm3 (4.2-5.4); Red Cell Distribution Width 22.1 % (11.5-14.5); White Blood Count 19.4 K/mm3 (4.5-10.0)
[2022-03-31 05:00] LABS: Anion Gap 0 mmol/L (8-16); Blood Urea Nitrogen 17 mg/dL (7-17); Carbon Dioxide 35 mmol/L (22-30); Chloride 94 mmol/L (98-107); Estimated CRCL calculation 203 ml/min; Estimated Glomerular Filt Rate > 60; Glucose 141 mg/dL (65-110); Potassium 3.9 mmol/L (3.4-5.0); Sodium 129 mmol/L (137-145)
[2022-03-31] MEDS: CENTRAL LINE FLUSH 10 ML IV PUSH ×2 (05:13→14:34)
[2022-03-31] MEDS: SODIUM CHLORIDE 0.9% IV 1,000 ML 100 ML IV CONT (08:42)
[2022-03-31] MEDS: MICAFUNGIN SODIUM 100 MG in SODIUM CHLORIDE 0.9% IV 100 ML IVPB (08:42)
[2022-03-31] MEDS: PANTOPRAZOLE SODIUM IV 40 MG VIAL IV PUSH (08:51)
[2022-03-31] MEDS: ENOXAPARIN 40 MG/0.4 ML SYRINGE SUB-Q (08:52)
[2022-03-31] MEDS: MINERAL OIL/WHITE PETROLATUM OINTMENT 1 APPLIC EACH EYE (08:52)
[2022-03-31] MEDS: BUMETANIDE INJ 1 MG/4 ML VIAL IV PUSH (08:52)
--- NOTE | 2022-03-31 09:03 | PM.PNGS ---
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 Status: Acute Assessment and Plan: cont to await transfer to [facility], cont TPN, abx, cont drains and wound manager regional Subjective Subjective Date/Time Seen: 03/31/22 09:03 no acute issues, NG out this am Review of Systems Review of Systems: ROS unobtainable: Yes unobtainable due to endotracheal tube and unobtainable due to medical condition Exam Const: General: cooperative, comfortable and no acute distress Resp: Auscultation: diminished lung sounds Cardio: Rate: regular rate Rhythm: regular rhythm GI: Inspection: normal to inspection GI Palp: Yes abdominal tenderness, Yes Soft to palpation and Yes Tenderness to palpation present (GI) Other: drains in place, wound manager regional c bilious drainage Objective Data Vital Signs Vital Signs: Vital Signs - 24 hr 03/30/22 10:00 03/30/22 10:00 03/30/22 11:43 Temperature 37.3 C Pulse Rate 88 96 81 Respiratory Rate 13 Blood Pressure 100/73 Pulse Oximetry 100 99 Oxygen Delivery Mechanical Ventilation Fraction of Inspired Oxygen 03/30/22 11:00 03/30/22 12:00 03/30/22 12:00 Temperature 37.3 C 37.4 C Pulse Rate 87 84 Respiratory Rate 14 12 Blood Pressure 110/69 119/74 Pulse Oximetry 99 99 99 Oxygen Delivery Mechanical Ventilation Fraction of Inspired Oxygen 03/30/22 12:00 03/30/22 12:00 03/30/22 14:03 Temperature Pulse Rate 81 82 Respiratory Rate 14 Blood Pressure Pulse Oximetry Oxygen Delivery Fraction of Inspired Oxygen 03/30/22 14:05 03/30/22 14:12 03/30/22 14:00 Temperature Pulse Rate 90 85 85 Respiratory Rate 12 Blood Pressure Pulse Oximetry 99 Oxygen Delivery Mechanical Ventilation Fraction of Inspired Oxygen 03/30/22 13:00 03/30/22 13:01 03/30/22 14:00 Temperature 37.3 C 37.3 C 37.3 C Pulse Rate 85 86 85 Respiratory Rate 17 17 14 Blood Pressure 130/68 125/74 Pulse Oximetry 99 99 99 Oxygen Delivery Fraction of Inspired Oxygen 03/30/22 14:01 03/30/22 16:00 03/30/22 16:52 Temperature 37.3 C 37.1 C Pulse Rate 81 78 84 Respiratory Rate 15 14 Blood Pressure 116/76 Pulse Oximetry 99 100 100 Oxygen Delivery Mechanical Ventilation Fraction of Inspired Oxygen 03/30/22 16:58 03/30/22 16:00 03/30/22 16:00 Temperature Pulse Rate 87 Respiratory Rate Blood Pressure Pulse Oximetry 100 Oxygen Delivery Mechanical Ventilation Fraction of Inspired Oxygen 03/30/22 18:00 03/30/22 18:00 03/30/22 20:19 Temperature 37.0 C Pulse Rate 79 79 73 Respiratory Rate 14 13 Blood Pressure 114/72 Pulse Oximetry 100 Oxygen Delivery Fraction of Inspired Oxygen 03/30/22 20:21 03/30/22 20:25 03/30/22 20:37 Temperature Pulse Rate 84 78 78 Respiratory Rate 15 11 L Blood Pressure Pulse Oximetry 100 Oxygen Delivery Mechanical Ventilation Fraction of Inspired Oxygen 03/30/22 20:00 03/30/22 20:00 03/30/22 20:00 Temperature Pulse Rate 86 Respiratory Rate Blood Pressure Pulse Oximetry Oxygen Delivery Mechanical Ventilation Fraction of Inspired Oxygen 03/30/22 20:01 03/30/22 22:29 03/30/22 22:29 Temperature 37.2 C Pulse Rate 79 89 89 Respiratory Rate 12 16 16 Blood Pressure 122/71 Pulse Oximetry 100 Oxygen Delivery Fraction of Inspired Oxygen 03/30/22 22:00 03/30/22 22:01 03/30/22 23:14 Temperature 37.3 C Pulse Rate 83 83 89 Respiratory Rate 15 Blood Pressure 138/74 Pulse Oximetry 100 100 Oxygen Delivery Mechanical Ventilation Fraction of Inspired Oxygen 03/31/22 00:01 03/31/22 00:00 03/31/22 00:00 Temperature Pulse Rate 86 Respiratory Rate 14 Blood Pressure Pulse Oximetry Oxygen Delivery Mechanical Ventilation Fraction of Inspired Oxygen 03/31/22 00:01 03/31/22 02:35 03/31/22 02:2
--- NOTE | 2022-03-31 09:13 | WPDINTPN ---
Progress Note: A&P Assessment and Plan (1) Septic shock: Code(s): A41.9 - Sepsis, unspecified organism; R65.21 - Severe sepsis with septic shock Status: Acute Assessment and Plan: Septic shock on, acute kidney injury, status post bowel surgery, with Gastrografin upper GI series showing small-bowel perforation, leakage -patient has received significant amount of IV fluids and is now off of IV fluids and is now getting diuretics since she is off pressors -shock has resolved -03/14 discontinued albumin and hydrocortisone -03/09/2022: Blood cultures growing Pseudomonas 2/2 bottles -03/12 repeat blood cultures sent, Scott was replaced, urine culture is growing Leslie, -03/15 sputum culture is growing stenotrophomonas on levaquin (03/15) plan to treat for 14 days -03/16: Replete blood cultures are negative x2 -03/21: Cultures from abdominal drainage growing Yeast -03/22: culture from pelvic drain growing Yeast 03/22/2022: Discussed with surgeon, [facility] unable to accept the patient at this time, patient to have a CT scan of the abdomen and pelvis, if there is any and collection of fluid, IR will drain it. 03/25/2022: CT scan of the abdomen and pelvis with oral and IV contrast Continued extravasation of contrast material from upper anterior mid abdominal proximal small bowel, largely into the subcutaneous tissues of the open anterior abdominal wall wound; fistulous tracts from the upper mid anterior abdominal small bowel segment into the subcutaneous tissues are noted. 03/25 -repeat blood and urine cultures sent and are negative till now 03/26 repeat sputum culture sent and growing Gram-positive cocci. Identification and susceptibilities are pending - 03/16 -discharge from lower half of the incision and wound infection was suspected.? Lower half the incision was opened by general surgery to drain - 03/16-femoral central venous catheter removed and a PICC line placed - 03/17: Lower extremity venous Dopplers: Negative for DVT bilaterally - 03/18-normal lipase -03/22/2022: A lower extremity venous Dopplers were negative for DVT - 03/29 repeat Excisional debridement skin and subcutaneous, abdominal exploration with placement of additional intra-abdominal drains, removal pigtail catheter drain -patient continues to have elevated WBC although slightly improved and fever curve is down -source continues to be peritonitis -Continue Levaquin (03/15), imipenem (03/16) and micafungin (03/15) -vancomycin was discontinued on 03/19/2022 and was restarted on 03/28 for GPC in sputum on Gram stain. Since cultures have been normal and showed normal floor I will hold vancomycin 03/30 -patient now afebrile WBC still elevated -continue p.r.n. Tylenol IV -03/15 CT scan of the abdomen and pelvis for continues fevers IMPRESSION: 1. Diffuse lung disease, likely pulmonary edema. 2. Near complete collapse of the right lower lobe. 3. Moderate-sized right and small left pleural effusions. 4. Moderate volume ascites with interval decrease since the comparison examination. New right upper quadrant drain, consistent with surgical change. No leakage of enteric contrast identified. (2) Acute respiratory failure: Code(s): J96.00 - Acute respiratory failure, unspecified whether with hypoxia or hypercapnia Status: Acute Assessment and Plan: Acute respiratory failure likely related to septic shock, acidosis -patient was intubated on 03/09, 03/14 extubated, 03/15 Reintubated -currently on CMV mode of ventilation, 28 % FiO2, peep of 5. Will place patient on ASV -significant?overall?volume overload overall the third-spacing, generalized weakness -continue diuresis -continue bronchodilators - 03/29 status post tracheostomy --continue ASV mode -discontinued Versed infusion. Continue fentanyl infusion for Lexa sedation. Will use p.r.n. Versed as needed -will try pressure support ventilation during the day today -CT chest 03/15
[2022-03-31 11:47] LABS: Glucose Point of Care 131 mg/dl (65-105)
--- NOTE | 2022-03-31 13:04 | PC.NURSE ---
Received call from [facility] [phone]. Updated patients recent vital signs and patients sedation. No bed available at this time. Call back at the number given above if any new updates that are critical apply.
--- NOTE | 2022-03-31 15:58 | PC.NURSE ---
Received a bed from [facility] ([id number]) at 1539. Gave report to London ARCHER at 1557. Phone Number of [phone]. EMS ETA of 1630 to [facility] p[facility] patient.
--- NOTE | 2022-04-09 14:28 | PM.TDS ---
Transfer Discharge Sum: Prov Provider Date of admission: 03/07/22 17:03 Primary care physician: Radha Campo, Admitting clinician: Will Roman MD Consults: 03/07/22 17:03 Consult to Physician Routine Comment: Spoke to Melony Pandey @ 18:10pm ([facility]) Consulting Provider: Royal Cabrera call person/MD group to consult: Hospitalist service Reason for consultation: postop medical management Has provider been notified: Yes 03/09/22 Consult to Physician Routine Comment: Consulting Provider: Dre Case call person/MD group to consult: Nephrology- Reason for consultation: Acute kidney injury Has provider been notified: Yes 03/10/22 Consult to Physician Routine Comment: Consulting Provider: Lorna Doherty Reason for consultation: ICU transfer Has provider been notified: Yes 03/17/22 Wound/ET Consult Routine Reason for Consult:: Enterocutaneous Fistula 03/17/22 10:22 Consult to Dietitian Routine Reason for Consult:: TPN 03/20/22 11:30 Wound/ET Consult Routine Reason for Consult:: wound vac to hold, apply wound quality assurance test program manager to open abdomen incision. connect wound quality assurance test program manager to tierney collection bag. 03/26/22 13:43 Consult to Physician Routine Comment: spoke with Dr. Smith @[phone]([facility]) Consulting Provider: Kwesi Smith call person/MD group to consult: ENT Reason for consultation: Tracheostomy Has provider been notified: Yes DS: Admitting Diagnosis Discharge Date 03/31/22 Admitting Diagnosis Pyloric stenosis DS: Discharge Diagnosis Discharge Diagnosis (1) Septic shock: Code(s): A41.9 - Sepsis, unspecified organism; R65.21 - Severe sepsis with septic shock Status: Acute Assessment and Plan: Septic shock on, acute kidney injury, status post bowel surgery, with Gastrografin upper GI series showing small-bowel perforation, leakage -patient has received significant amount of IV fluids and is now off of IV fluids and is now getting diuretics since she is off pressors -shock has resolved -03/14 discontinued albumin and hydrocortisone -03/09/2022: Blood cultures growing Pseudomonas 2/2 bottles -03/12 repeat blood cultures sent, Tierney was replaced, urine culture is growing Leslie, -03/15 sputum culture is growing stenotrophomonas on levaquin (03/15) plan to treat for 14 days -03/16:? Replete blood cultures are negative x2 -03/21:? Cultures from abdominal drainage growing Yeast -03/22: culture from pelvic drain growing Yeast 03/22/2022:? Discussed with surgeon, [facility] unable to accept the patient at this time, patient to have a CT scan of the abdomen and pelvis, if there is any and collection of fluid, IR will drain it. 03/25/2022:? CT scan of the abdomen and pelvis with oral and IV contrast Continued extravasation of contrast material from upper anterior mid abdominal proximal small bowel, largely into the subcutaneous tissues of the open anterior abdominal wall wound; fistulous tracts from the upper mid anterior abdominal small bowel segment into the subcutaneous tissues are noted. 03/25 -repeat blood and urine cultures sent and are negative till now 03/26 repeat sputum culture sent and growing Gram-positive cocci.? Identification and susceptibilities are pending - 03/16 -discharge from lower half of the incision and wound infection was suspected.? Lower half the incision was opened by general surgery to drain - 03/16-femoral central venous catheter removed and a PICC line placed - 03/17:? Lower extremity venous Dopplers:? Negative for DVT bilaterally - 03/18-normal lipase -03/22/2022: A lower extremity venous Dopplers were negative for DVT - 03/29 repeat Excisional debridement skin and subcutaneous, abdominal exploration with placement of additional intra-abdominal drains, removal pigtail catheter drain -patient continues to have elevated WBC although slightly improved and fever curve is down -source continues to be peritonitis -Continue Levaquin (03/15),? imi
[2022-04-16 09:02] LABS: Glucose Point of Care 191 mg/dl (65-105)
[2022-04-16 09:02] LABS: Glucose Point of Care 160 mg/dl (65-105)
[2022-04-16 09:02] LABS: Glucose Point of Care 167 mg/dl (65-105)
[2022-04-16 09:02] LABS: Glucose Point of Care 139 mg/dl (65-105)
[2022-04-16 09:02] LABS: Glucose Point of Care 121 mg/dl (65-105)
== END 2022-03-31 17:15 | disposition short-term general hospital (02) | DRG 3 ==
LOC: ANH2MED 17:09 → ANHIMU 03-09 00:41 → ANHICU 03-09 18:56
PROVIDERS: Family Medicine; Internal Medicine; Internal Medicine Nephrology; Otolaryngology; Physician Assistant; Student in an Organized Health Care Education/Training Program; Surgery; Admitting Provider Surgery; PCP Internal Medicine Gastroenterology; Visit Provider Internal Medicine
PROC: 0D160ZA Bypass Stomach to Jejunum, Open Approach (ICD-10-PCS; principal; 2022-03-07 12:00)
PROC: 0D160ZA Bypass Stomach to Jejunum, Open Approach (ICD-10-PCS; 2022-03-07 12:00)
PROC: 0DU907Z Supplement Duodenum with Autologous Tissue Substitute, Open Approach (ICD-10-PCS; CPT 49000; principal; 2022-03-10 10:00)
PROC: 0B110F4 Bypass Trachea to Cutaneous with Tracheostomy Device, Open Approach (ICD-10-PCS; principal; 2022-03-28 13:00)
PROC: (CPT 49000; 2022-03-28 13:00)
DX: K31.1 Adult hypertrophic pyloric stenosis (principal); A41.9 Sepsis, unspecified organism; R65.21 Severe sepsis with septic shock; J96.00 Acute respiratory failure, unspecified whether with hypoxia or hypercapnia; E87.4 Mixed disorder of acid-base balance; K31.5 Obstruction of duodenum; N17.9 Acute kidney failure, unspecified; E87.3 Alkalosis; R18.8 Other ascites; E87.0 Hyperosmolality and hypernatremia; K63.2 Fistula of intestine; E46 Unspecified protein-calorie malnutrition; K43.9 Ventral hernia without obstruction or gangrene; K21.9 Gastro-esophageal reflux disease without esophagitis; G43.909 Migraine, unspecified, not intractable, without status migrainosus; K27.9 Peptic ulcer, site unspecified, unspecified as acute or chronic, without hemorrhage or perforation; I10 Essential (primary) hypertension; F32.A Depression, unspecified; E78.5 Hyperlipidemia, unspecified; F17.210 Nicotine dependence, cigarettes, uncomplicated; Z68.20 Body mass index [BMI] 20.0-20.9, adult; E87.8 Other disorders of electrolyte and fluid balance, not elsewhere classified; E87.70 Fluid overload, unspecified; D69.59 Other secondary thrombocytopenia; R73.9 Hyperglycemia, unspecified
CPT/HCPCS: 31500; 36415; 36430; 36556; 36569; 36600; 71045; 71046; 71250; 74176; 74177; 74240; 74248; 75989; 76775; 80048; 80053; 80069; 80076; 80202; 81001; 82040; 82375; 82533; 82550; 82570; 82805; 82947; 82948; 83050; 83605; 83690; 83735; 84100; 84155; 84156; 84300; 84443; 84466; 84478; 85014; 85018; 85025; 85027; 85049; 85055; 85380; 85384; 85610; 85730; 86850; 86900; 86901; 86920; 87040; 87070; 87075; 87077; 87086; 87088; 87106; 87186; 87205; 88302; 88309; 93005; 93306; 93925; 93970; 94002; 94003; 94640; 94660; A4629; A9270; C1729; C1751; C1769; C9113; C9803; J0131; J0330; J0461; J0610; J0690; J0692; J0743; J1100; J1170; J1335; J1650; J1720; J1741; J1815; J1885; J1956; J2060; J2248; J2250; J2270; J2310; J2370; J2405; J2543; J2704; J2710; J2997; J3010; J3370; J3475; J3480; J7030; J7040; J7050; J7060; J7070; J7120; P9016; P9017; P9047; Q9967; Q9968; U0003; U0005